=== PATIENT | male | born 1955 | race Caucasian/White ===

== ENCOUNTER → 2016-06-22 | Outpatient (CLI) | payer OTHER ==
--- NOTE | 2016-06-22 19:14 | XR ---
EXAMINATION TYPE: XR chest 2V DATE OF EXAM: 06/22/2016 6:22 PM COMPARISON: NONE HISTORY: Cough and chest pain TECHNIQUE: Frontal and lateral views of the chest are obtained. FINDINGS: Heart and mediastinum are within normal limits. Lungs are clear. Diaphragm is normal. Ther e are no hilar masses. Bony thorax is intact. IMPRESSION: No active cardiopulmonary disease. Normal heart
== END | disposition home or self-care (01) ==
LOC: RADXRMAIN 18:09
PROVIDERS: ATTEND Internal Medicine
DX: R05 Cough (principal)
CPT/HCPCS: 71020

== ENCOUNTER 2017-02-15 09:21 | Inpatient (IN) | payer OTHER ==
[2017-02-15] MEDS ORDERED: SODIUM CHLORIDE 0.9% 1,000 ML IV STA (09:36)
[2017-02-15] MEDS ORDERED: ASPIRIN 81 MG PO STA (09:36)
[2017-02-15] MEDS ORDERED: NITROGLYCERIN OINT 1 INCH/GM PACKET TOPICAL STA (09:36)
[2017-02-15] MEDS ORDERED: HEPARIN SODIUM,PORCINE 5,000 UNIT/ML 1 ML VIAL IV ONE (09:37)
[2017-02-15] MEDS ORDERED: ATORVASTATIN 80 MG TAB PO STA (09:38)
[2017-02-15] MEDS ORDERED: NITROGLYCERIN SL TABS 0.4 MG TAB SUBLINGUAL PRN (09:42)
--- NOTE | 2017-02-15 09:42 | ED ---
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 He has some shortness of breath with it. Some dizziness. He states pain was 7/10 severity was dull and achy pressure-like midsternal. It is been unrelenting does not seem to improve with anything he states it didn' t really increase with deep breathing or movements. MD Complaint: chest pain - Related Data Allergies Allergy/AdvReac Type Severity Reaction Status Date / Time No Known Allergies Allergy Verified 02/15/17 09:33 Review of Systems ROS Statement: Those systems with pertinent positive or pertinent negative responses have been documented in the HPI. ROS Other: All systems not noted in ROS Statement are negative. EKG Findings - EKG Results: EKG: interpreted by ERMD, sinus rhythm (EKG shows evidence of ST elevation in leads 23 aVF with reciprocal changes in leads aVL rate was 64 MD interval 166 QRS duration 82 QT/QTC of 394/406 EKG is consistent with an inferior wall myocardial infarction.) Past Medical History Past Medical History: CVA/TIA History of Any Multi-Drug Resistant Organisms: None Reported Past Surgical History: No Surgical Hx Reported Past Psychological History: No Psychological Hx Reported Smoking Status: Former smoker Past Alcohol Use History: None Reported Past Drug Use History: None Reported General Exam - General Exam Comments Initial Comments: This a well-developed well-nourished awake alert oriented 3 male Limitations: no limitations General appearance: anxious, in distress Head exam: Present: atraumatic, normocephalic, normal inspection Eye exam: Present: normal appearance, PERRL, EOMI. Absent: scleral icterus, conjunctival injection, periorbital swelling ENT exam: Present: normal exam, mucous membranes moist Neck exam: Present: normal inspection. Absent: tenderness, meningismus, lymphadenopathy Respiratory exam: Present: normal lung sounds bilaterally. Absent: respiratory distress, wheezes, rales, rhonchi, stridor Cardiovascular Exam: Present: regular rate, normal rhythm, normal heart sounds. Absent: systolic murmur, diastolic murmur, rubs, gallop, clicks GI/Abdominal exam: Present: soft, normal bowel sounds. Absent: distended, tenderness, guarding, rebound, rigid Extremities exam: Present: normal inspection, full ROM, normal capillary refill. Absent: tenderness, pedal edema, joint swelling, calf tenderness Back exam: Present: normal inspection Neurological exam: Present: alert, oriented X3, CN II-XII intact Psychiatric exam: Present: normal affect, normal mood Skin exam: Present: warm, dry, intact, normal color. Absent: rash Course Vital Signs 02/15/17 09:27 Temperature 97.4 F L Pulse Rate 77 Respiratory 20 Rate Blood Pressure 178/85 O2 Sat by Pulse 98 Oximetry - Reevaluation(s) Reevaluation #1: 02/15/17 09:41 Admitted EKG was done a STEMI alert was called immediately. I did discuss the case with Dr. Vora who did come to the emergency department to see the patient. Chest Pain MDM - MDM I did review the imaging no acute findings are seen. Patient was taken to the [facility]. Again Dr. Vora did come the emergency department to see the patient. Dr. Zamorano will be contacted who is covering for Dr. Rae. Critical Care Time Critical Care Time: Yes Critical Care Time: 31 minutes of critical care time which includes initial presentation with history physical lab and x-ray orders. Reevaluation patient on several occasions. Discussion with Dr. Vora as well as Dr. Zamorano. Admission orders and documentation the above. Disposition Clinical Impression: ST elevation myocardial infarction (STEMI), Chest pain Disposition: ADMITTED IP TO THIS [facility] Condition: Critical Referrals: Evans Rae MD [Primary Care Provider] - 1-2 days
[2017-02-15] MEDS ORDERED: SODIUM CHLORIDE 0.9% 1,000 ML IV SCH (09:45)
[2017-02-15 09:46] LABS: Basophils % (A) 0 %; CH 30.9; Eosinophils % (A) 0 %; HDW 2.59; HGB 15.6 gm/dL (13.0-17.5); Luc # (Auto) 0.06; Luc % (Auto) 0; Lymphocytes # (A) 0.7 k/uL (1.0-4.8); Lymphocytes % (A) 5 %; MCH 29.4 pg (25.0-35.0); MCHC 33.2 g/dL (31.0-37.0); MCV 88.7 fL (80.0-100.0); Mean Platelet Volume 6.7; Monocytes # (A) 0.5 k/uL (0-1.0); Monocytes % (A) 3 %; Neutrophils # (A) 12.9 k/uL (1.3-7.7); Neutrophils % (A) 91 %; RBC 5.31 m/uL (4.30-5.90); RDW 14.6 % (11.5-15.5); WBC 14.2 k/uL (3.8-10.6)
--- NOTE | 2017-02-15 09:48 | XR ---
EXAMINATION TYPE: XR chest 1V portable DATE OF EXAM: 02/15/2017 HISTORY: Shortness of breath. COMPARISON: 06/22/16 TECHNIQUE: Single view of the chest is submitted. FINDINGS: Demonstrated are scattered senescent parenchymal change. There is no evidence for focal infiltrate. The heart is stable. Hilar and mediastinal structures are within normal limits. Degenerative changes are seen of the dorsal spine. IMPRESSION: 1. Chronic changes without evidence for acute pulmonary disease.
[2017-02-15 09:52] LABS: ALT 38 U/L (21-72); AST 24 U/L (17-59); Alkaline Phosphatase 90 U/L (38-126); Anion Gap 10 mmol/L; Blood Urea Nitrogen 18 mg/dL (9-20); Calcium 9.1 mg/dL (8.4-10.2); Carbon Dioxide 22 mmol/L (22-30); Chloride 104 mmol/L (98-107); Glucose 129 mg/dL (74-99); Non-African American GFR(MDRD) >60 (>60 ml/min/1.73 sqM); Potassium 3.8 mmol/L (3.5-5.1); Sodium 136 mmol/L (137-145); Total Bilirubin 0.6 mg/dL (0.2-1.3); Total Protein 6.8 g/dL (6.3-8.2)
[2017-02-15] MEDS ORDERED: LIDOCAINE 2% INJ 20 MG/ML (20 ML MDV) ONE ×2 (09:53→10:28)
[2017-02-15] MEDS ORDERED: fentaNYL (PF) 50 MCG/ML 2 ML AMP ONE ×2 (09:53→11:10)
[2017-02-15] MEDS ORDERED: VERAPAMIL 2.5 MG/ML 2 ML AMP ONE (09:54)
[2017-02-15] MEDS ORDERED: fentaNYL (PF) 50 MCG/ML 2 ML AMP IV ONE (09:57)
[2017-02-15 10:02] LABS: INR 1.1 (<1.2); Prothrombin Time 11.1 sec (9.0-12.0)
[2017-02-15] MEDS: LIDOCAINE 2% INJ 20 MG/ML SQ ONE ×2 (10:06→10:22)
[2017-02-15] MEDS: VERAPAMIL SYRINGE (5 MG/10 ML) INTRAARTER ONE ×2 (10:09→10:13)
[2017-02-15 10:11] LABS: Partial Thromboplastin Time 21.7 sec (22.0-30.0)
[2017-02-15] MEDS ORDERED: MIDAZOLAM 2 MG/2 ML VIAL ONE ×2 (10:18→11:10)
[2017-02-15] MEDS ORDERED: MIDAZOLAM 2 MG/2 ML VIAL IVP ONE (10:19)
[2017-02-15 10:20] LABS: Troponin I 0.022 ng/mL (0.000-0.034)
[2017-02-15] MEDS ORDERED: LIDOCAINE URO-JET JELLY 2% 5 ML KIT ONE (10:32)
[2017-02-15] MEDS ORDERED: INSULIN REGULAR 100 UNIT in SODIUM CHLORIDE 0.9% 100 ML IV ONE (10:35)
[2017-02-15] MEDS ORDERED: PROTAMINE SULFATE 250 MG in EMPTY BAG 1 BAG IV ONE (10:35)
[2017-02-15] MEDS ORDERED: HEPARIN SODIUM,PORCINE 5,000 UNIT in SODIUM CHLORIDE 0.9% 500 ML IV ONE (10:35)
[2017-02-15] MEDS ORDERED: MAGNESIUM SULFATE SYG 4.06 MEQ/ML SYRINGE IV ONE (10:35)
[2017-02-15] MEDS ORDERED: ALBUMIN HUMAN 5% 500 ML in EMPTY BAG 1 BAG IVPB ONE ×6 (10:35)
[2017-02-15] MEDS ORDERED: HEPARIN SODIUM 1,000 UN/ML (10ML VL) IV ONE (10:35)
[2017-02-15] MEDS ORDERED: CHLORHEXIDINE GLUCONATE 15 ML CUP MUCOUS MEM ONE (10:35)
[2017-02-15] MEDS ORDERED: ALBUMIN HUMAN 25% 50 ML in EMPTY BAG 1 BAG IVPB ONE (10:35)
[2017-02-15] MEDS ORDERED: PHENYLEPHRINE-0.9% NACL SYG 1 MG/10 ML SYRINGE IV ONE ×4 (10:35)
[2017-02-15] MEDS ORDERED: ceFAZolin 2,000 MG in SODIUM CHLORIDE 0.9% 30 ML IVPB ONE (10:35)
[2017-02-15] MEDS ORDERED: CLEVIDIPINE BUTYRATE 25 MG in EMPTY BAG 1 BAG IV ONE (10:35)
[2017-02-15] MEDS ORDERED: TRANEXAMIC ACID 2,000 MG in SODIUM CHLORIDE 0.9% 180 ML IV ONE (10:35)
[2017-02-15] MEDS ORDERED: ceFAZolin 2 GM in SODIUM CHLORIDE 0.9% 30 ML IVPB ONE (10:35)
[2017-02-15] MEDS ORDERED: PROTAMINE SULFATE 10 MG/ML 25 ML VIAL IV ONE ×2 (10:35→11:10)
[2017-02-15] MEDS ORDERED: METOPROLOL TARTRATE 12.5 MG TAB PO ONE (10:35)
[2017-02-15] MEDS ORDERED: NITROGLYCERIN-D5W PMX 50 MG in DEXTROSE/WATER 1 250ML.BAG IV ONE (10:35)
[2017-02-15] MEDS ORDERED: ceFAZolin 1,000 MG in SODIUM CHLORIDE 0.9% IRRIGATIO 1,000 ML IRRIGATION ONE (10:35)
[2017-02-15] MEDS ORDERED: MANNITOL 25% 12.5 GM/50 ML VIAL IV ONE ×2 (10:35)
[2017-02-15] MEDS ORDERED: CALCIUM CHLORIDE 100 MG/ML 10 ML SYRINGE IVP ONE (10:35)
[2017-02-15] MEDS ORDERED: PROPOFOL 1,000 MG/100 ML VIAL IV ONE (10:35)
[2017-02-15] MEDS ORDERED: NOREPINEPHRIN 4 MG-0.9% NS PMX 4 MG/250 ML ML IV SCH (10:35)
[2017-02-15] MEDS ORDERED: ATORVASTATIN 10 MG TAB PO ONE (10:35)
[2017-02-15] MEDS ORDERED: NITROGLYCERIN-D5W PMX 25 MG/250 ML BTL IV ONE (10:35)
[2017-02-15 10:36] LABS: Creatine Kinase MB 3.6 ng/mL (0.0-2.4)
[2017-02-15] MEDS ORDERED: IOHEXOL 350 MG/ML 125ML BOTTLE INJ ONE (10:43)
[2017-02-15] MEDS ORDERED: SODIUM CHLORIDE 0.9% 1,000 ML IV ONE (10:44)
[2017-02-15] MEDS ORDERED: DEXTROSE 5% IN WATER 1,000 ML with POTASSIUM CHLORIDE 110 MEQ, MAGNESIUM SULFATE 16 MEQ... IV SCH ×5 (10:45)
[2017-02-15] MEDS ORDERED: DEXTROSE 5% IN WATER 1,000 ML with POTASSIUM CHLORIDE 25 MEQ, SODIUM CHLORIDE 4MEQ/ML V... IV SCH ×6 (10:45)
[2017-02-15 10:54] LABS: Magnesium 1.9 mg/dL (1.6-2.3)
[2017-02-15 10:56] LABS: Basophils % (A) 0 %; CHCM 34.1; Eosinophils # (A) 0.1 k/uL (0-0.7); Eosinophils % (A) 0 %; HCT 43.7 % (39.0-53.0); HDW 2.58; HGB 15.1 gm/dL (13.0-17.5); Luc # (Auto) 0.07; Luc % (Auto) 1; Lymphocytes # (A) 0.5 k/uL (1.0-4.8); Lymphocytes % (A) 4 %; MCH 30.4 pg (25.0-35.0); MCHC 34.4 g/dL (31.0-37.0); MCV 88.2 fL (80.0-100.0); Mean Platelet Volume 6.6; Monocytes # (A) 0.4 k/uL (0-1.0); Monocytes % (A) 3 %; Neutrophils # (A) 12.3 k/uL (1.3-7.7); Neutrophils % (A) 93 %; RBC 4.96 m/uL (4.30-5.90); RDW 13.2 % (11.5-15.5); WBC 13.3 k/uL (3.8-10.6); WBC (Perox) 13.32
[2017-02-15 10:58] LABS: INR 1.2 (<1.2); Partial Thromboplastin Time 60.8 sec (22.0-30.0); Prothrombin Time 12.1 sec (9.0-12.0)
[2017-02-15 11:06] LABS: ALT 31 U/L (21-72); AST 23 U/L (17-59); Alkaline Phosphatase 83 U/L (38-126); Anion Gap 11 mmol/L; Blood Urea Nitrogen 16 mg/dL (9-20); Calcium 8.7 mg/dL (8.4-10.2); Carbon Dioxide 20 mmol/L (22-30); Chloride 104 mmol/L (98-107); Cholesterol 200 mg/dL (<200); Glucose 122 mg/dL (74-99); HDL Cholesterol 70 mg/dL (40-60); Non-African American GFR(MDRD) >60 (>60 ml/min/1.73 sqM); Potassium 3.7 mmol/L (3.5-5.1); Sodium 135 mmol/L (137-145); Total Bilirubin 0.6 mg/dL (0.2-1.3); Total Protein 6.2 g/dL (6.3-8.2)
[2017-02-15] MEDS ORDERED: HEPARIN SODIUM,PORCINE 10,000 UNIT/ML 1 ML VIAL ONE (11:10)
[2017-02-15] MEDS ORDERED: SODIUM CHLORIDE 0.9% 250 ML BAG ONE (11:10)
[2017-02-15] MEDS ORDERED: SUCCINYLCHOLINE CHLORIDE 100 MG/5 ML SYR IV ONE (11:10)
[2017-02-15] MEDS ORDERED: VECURONIUM 10 MG VIAL IV ONE (11:10)
[2017-02-15] MEDS ORDERED: fentaNYL (PF) 50 MCG/ML 50 ML VIAL ONE (11:10)
[2017-02-15] MEDS ORDERED: ALBUMIN HUMAN 5% 500 ML VIAL IVPB ONE (11:10)
[2017-02-15] MEDS ORDERED: ELECTROLYTE-R (PH 7.4) 1,000 ML IV.SOLN IV ONE (11:10)
[2017-02-15] MEDS ORDERED: PROPOFOL 10 MG/ML 20 ML VIAL IV ONE (11:10)
[2017-02-15] MEDS ORDERED: TRANEXAMIC ACID 1,000 MG/10 ML VIAL ONE (11:10)
[2017-02-15] MEDS ORDERED: SODIUM CHLORIDE 0.9% IRRIG 1,000 ML BTL IRRIGATION ONE (11:10)
[2017-02-15] MEDS ORDERED: PHENYLEPHRINE 40 MG in SODIUM CHLORIDE 0.9% 250 ML IV ONE (11:30)
[2017-02-15] MEDS ORDERED: DILTIAZEM 125 MG in SODIUM CHLORIDE 0.9% 100 ML IV SCH (11:30)
[2017-02-15] MEDS ORDERED: SODIUM BICARB 8.4% 50 ML SYR (1 MEQ/ML) IV ONE (11:45)
[2017-02-15 12:15] LABS: Hemoglobin A1C 5.7 % (4.2-6.1)
[2017-02-15 12:18] LABS: Glucose,Whole Blood 107 mg/dL (75-99)
--- NOTE | 2017-02-15 12:59 | CONS ---
CONSULTATION Mr. Salgado is a 61-year-old male with no prior documented history of coronary disease, who is quite active physically on a regular basis, who presented with chest discomfort that started early this morning quite severe with dyspnea and some dizziness. In the emergency room, he was noted to have ST-segment elevation inferiorly. The patient has had no prior similar symptoms. He denies any PND, orthopnea, peripheral edema. No palpitation. No syncope. He has a prior history of stroke in the past with right-sided numbness and weakness that has resolved. His coronary risk factors are negative for hypertension, hyperlipidemia, and diabetes mellitus. He is a nonsmoker. He stopped at the age of 28. REVIEW OF SYSTEMS: RESPIRATORY system: No recent history of cough. No wheezing. No history of documented obstructive lung disease GI system no recent GI bleed. No peptic ulcer disease. system no dysuria, hematuria. Nervous system: No stroke or seizure. PHYSICAL EXAMINATION: He is a 61-year-old male, alert and oriented. No apparent distress. Blood pressure 130/70 with a heart rate in the 60s. HEAD: Normocephalic eyes sclerae anicteric neck good upstroke. No bruit. No jugular venous distention. LUNGS: Clear to auscultation heart rate rhythm S1, S2. No S3, no S4. No murmur, rub. ABDOMEN: Soft, nontender. Positive bowel sounds. No organomegaly. EXTREMITIES: No edema. Intact distal pulses. EKG was sinus mechanism with evidence of inferolateral myocardial infarction. IMPRESSION: . Acute inferior myocardial infarction. . Remote history of stroke. RECOMMENDATION: Recommend proceeding with coronary angiography to assess his status and guide treatment. The rationale behind the procedures risks and complication were discussed with the patient who was in full understanding and agreement. Thank you for this consult. We will follow with you. MMODL / IJN: [id number] /
--- NOTE | 2017-02-15 13:07 | P.GSCN ---
<Tory Ledbetter - Last Filed: 02/15/17 12:48> History of Present Illness Consult date: 02/15/17 Reason for Consult: Left main disease, STEMI, need for surgical revascularization. Requesting physician: Chuy Vora History of present illness: This 61-year-old gentleman with a previous history of a stroke in 2006 and remote tobacco dependence presented to the emergency room this morning with complaints of chest pain. He stated it started around 5:00 in the morning when he was at work, he described it as dull and achy pressure mid sternum without radiation but associated with mild shortness of breath and dizziness. Upon further questioning patient stated that he had been having chest pain off and on for a few weeks and had chosen to ignore it. A STEMI alert was called in the emergency room, EKG demonstrated ischemic changes consistent with inferior wall myocardial infarction. The patient was taken emergently to the [facility] where he was found to have significant left main disease requiring placement of an intra-aortic balloon pump. Dr. Jc was consulted immediately to take this patient emergently to the operating room for coronary artery bypass graft surgery. An echocardiogram was done in the [facility] prior to transport to the operating room with no significant valvular disease present. Review of Systems 14 point review systems was completed and was negative except as noted. - Cardiovascular Reports as per HPI, Reports chest pain - Respiratory Reports as per HPI, Reports dyspnea Past Medical History Past Medical History: CVA/TIA History of Any Multi-Drug Resistant Organisms: None Reported Past Surgical History: Adenoidectomy, Tonsillectomy Past Anesthesia/Blood Transfusion Reactions: No Reported Reaction Past Psychological History: No Psychological Hx Reported Smoking Status: Former smoker Past Alcohol Use History: None Reported Past Drug Use History: None Reported - Past Family History Mother Family Medical History: Coronary Artery Disease (CAD) Additional Family Medical History / Comment(s): Mother had open-heart surgery in her 60s Medications and Allergies Allergies Allergy/AdvReac Type Severity Reaction Status Date / Time No Known Allergies Allergy Verified 02/15/17 09:33 Surgical - Exam Vital Signs Temp Pulse Resp BP Pulse Ox 97.4 F L 77 20 178/85 98 02/15/17 09:27 02/15/17 09:27 02/15/17 09:27 02/15/17 09:27 02/15/17 09:27 - General well developed, well nourished, no distress - Eyes normal ocular movement - ENT no hearing loss - Neck trachea midline - Respiratory Was on 2 L nasal cannula at the time of this exam. normal expansion, normal respiratory effort - Cardiovascular Normal sinus rhythm. Intra-aortic balloon pump present to right femoral artery. Right radial arterial line present. Rhythm: regular Heart Sounds: normal: S1, S2 - Abdomen Abdomen: soft, non tender - Genitourinary Deferred - Rectum Deferred - Integumentary no rash - Psychiatric oriented to time, oriented to person, oriented to place, speech is normal, memory intact Results - Labs 02/15/17 10:20 02/15/17 10:20 Abnormal Lab Results - Last 24 Hours (Table) 02/15/17 02/15/17 02/15/17 Range/Units 09:35 09:35 09:35 WBC 14.2 H (3.8-10.6) k/uL Neutrophils # 12.9 H (1.3-7.7) k/uL Lymphocytes # 0.7 L (1.0-4.8) k/uL PT (9.0-12.0) sec INR (<1.2) APTT (22.0-30.0) sec Sodium 136 L (137-145) mmol/L Carbon Dioxide (22-30) mmol/L Glucose 129 H (74-99) mg/dL POC Glucose (mg/dL) (75-99) mg/dL Total Creatine Kinase 208 H (55-170) U/L CK-MB (CK-2) 3.6 H* (0.0-2.4) ng/mL Total Protein (6.3-8.2) g/dL Cholesterol (<200) mg/dL LDL Cholesterol, Calc (0-99) mg/dL HDL Cholesterol (40-60) mg/dL Crossmatch 02/15/17 02/15/17 02/15/17 Range/Units 09:35 10:20 10:20 WBC 13.3 H (3.8-10.6) k/uL Neutrophils # 12.3 H (1.3-7.7) k/uL Lymphocytes # 0.5 L (1.0-4.8) k/uL PT 12.1 H (9.0-12.0) sec INR 1.2 H (<1.2) APTT 21.7 L 60.8 H (22.0-30.0) sec Sodium (137-145) mmol/L Carbon Dioxide (22-30) mmol/L Glucose (74-99) mg/dL POC Glucose (mg/dL) (75-99) mg/dL Total Creatine Kinase (55-170) U/L CK-MB (CK-2) (0.0-2.4) ng/mL Total Protein (6.3-8.2) g/dL Cholesterol (<200) mg/dL LDL Cholesterol, Calc (0-99) mg/dL HDL Cholesterol (40-60) mg/dL Crossmatch 02/15/17 02/15/17 02/15/17 Range/Units 10:20 10:30 12:15 WBC (3.8-10.6) k/uL Neutrophils # (1.3-7.7) k/uL Lymphocytes # (1.0-4.8) k/uL PT (9.0-12.0) sec INR (<1.2) APTT (22.0-30.0) sec Sodium 135 L (137-145) mmol/L Carbon Dioxide 20 L (22-30) mmol/L Glucose 122 H (74-99) mg/dL POC Glucose (mg/dL) 107 H (75-99) mg/dL Total Creatine Kinase (55-170) U/L CK-MB (CK-2) (0.0-2.4) ng/mL Total Protein 6.2 L (6.3-8.2) g/dL Cholesterol 200 H (<200) mg/dL LDL Cholesterol, Calc 123 H (0-99) mg/dL HDL Cholesterol 70 H (40-60) mg/dL Crossmatch See Detail Diabetes panel 02/15/17 02/15/17 02/15/17 Range/Units 09:35 10:20 10:20 Sodium 136 L 135 L (137-145) mmol/L Potassium 3.8 3.7 (3.5-5.1) mmol/L Chloride 104 104 (98-107) mmol/L Carbon Dioxide 22 20 L (22-30) mmol/L BUN 18 16 (9-20) mg/dL Creatinine 0.90 0.80 (0.66-1.25) mg/dL Glucose 129 H 122 H (74-99) mg/dL Hemoglobin A1c 5.7 (4.2-6.1) % Calcium 9.1 8.7 (8.4-10.2) mg/dL AST 24 23 (17-59) U/L ALT 38 31 (21-72) U/L Alkaline Phosphatase 90 83 (38-126) U/L Total Protein 6.8 6.2 L (6.3-8.2) g/dL Albumin 4.5 3.9 (3.5-5.0) g/dL Triglycerides 37 (<150) mg/dL HDL Cholesterol 70 H (40-60) mg/dL Thyroid panel 02/15/17 Range/Units 10:20 TSH 1.090 (0.465-4.680) mIU/L Calcium panel 02/15/17 02/15/17 Range/Units 09:35 10:20 Calcium 9.1 8.7 (8.4-10.2) mg/dL Albumin 4.5 3.9 (3.5-5.0) g/dL Pituitary panel 02/15/17 02/15/17 02/15/17 Range/Units 09:35 10:20 10:20 Sodium 136 L 135 L (137-145) mmol/L Potassium 3.8 3.7 (3.5-5.1) mmol/L Chloride 104 104 (98-107) mmol/L Carbon Dioxide 22 20 L (22-30) mmol/L BUN 18 16 (9-20) mg/dL Creatinine 0.90 0.80 (0.66-1.25) mg/dL Glucose 129 H 122 H (74-99) mg/dL Calcium 9.1 8.7 (8.4-10.2) mg/dL TSH 1.090 (0.465-4.680) mIU/L Adrenal panel 02/15/17 02/15/17 Range/Units 09:35 10:20 Sodium 136 L 135 L (137-145) mmol/L Potassium 3.8 3.7 (3.5-5.1) mmol/L Chloride 104 104 (98-107) mmol/L Carbon Dioxide 22 20 L (22-30) mmol/L BUN 18 16 (9-20) mg/dL Creatinine 0.90 0.80 (0.66-1.25) mg/dL Glucose 129 H 122 H (74-99) mg/dL Calcium 9.1 8.7 (8.4-10.2) mg/dL Total Bilirubin 0.6 0.6 (0.2-1.3) mg/dL AST 24 23 (17-59) U/L ALT 38 31 (21-72) U/L Alkaline Phosphatase 90 83 (38-126) U/L Total Protein 6.8 6.2 L (6.3-8.2) g/dL Albumin 4.5 3.9 (3.5-5.0) g/dL - Imaging Chest x-ray: image reviewed EKG: image reviewed Additional studies: Cardiac catheterization films, bedside Echo reviewed. Assessment and Plan (1) Tobacco dependence in remission Status: Acute (2) History of stroke Status: Acute (3) Family history of heart disease Status: Acute (4) Chest pain Status: Acute (5) ST elevation myocardial infarction (STEMI) Status: Acute (6) Coronary artery disease involving left main coronary artery Status: Acute Plan: The patient was seen and examined by Dr. Jc in the cardiac catheterization lab. His cath films were reviewed. Dr. Jc and Dr. Vora discussed the case. The patient had placement of an intra-aortic balloon pump. Preoperative orders placed. The risks and benefits of surgery were explained to the patient , he consented to proceed with emergent surgery. , daughter were updated, risks and benefits were explained to them as well. Patient was taken to the OR for emergent coronary artery bypass graft surgery. Teaching done with family regarding surgery. More recommendations will be made based on how patient progresses post surgery. Thank you Dr. Vora for this consult. We look forward to working with you in the care of your patient. Time with Patient: Greater than 30 <Lyndon Jc - Last Filed: 02/15/17 19:22> Surgical - Exam Vital Signs Temp Pulse Resp BP Pulse Ox 97.4 F L 77 20 178/85 98 02/15/17 09:27 02/15/17 09:27 02/15/17 09:27 02/15/17 09:27 02/15/17 09:27 Results - Labs 02/15/17 17:55 02/15/17 17:55 Abnormal Lab Results - Last 24 Hours (Table) 02/15/17 02/15/17 02/15/17 Range/Units 09:35 09:35 09:35 WBC 14.2 H (3.8-10.6) k/uL RBC (4.30-5.90) m/uL Hgb (13.0-17.5) gm/dL Hct (39.0-53.0) % Plt Count (150-450) k/uL Neutrophils # 12.9 H (1.3-7.7) k/uL Lymphocytes # 0.7 L (1.0-4.8) k/uL PT (9.0-12.0) sec INR (<1.2) APTT (22.0-30.0) sec ABG pH (7.35-7.45) ABG pO2 (83-108) mmHg ABG O2 Saturation (94-97) % Sodium 136 L (137-145) mmol/L Carbon Dioxide (22-30) mmol/L Glucose 129 H (74-99) mg/dL POC Glucose (mg/dL) (75-99) mg/dL Calcium (8.4-10.2) mg/dL Ionized Calcium Teri (4.5-5.3) mg/dL Magnesium (1.6-2.3) mg/dL AST (17-59) U/L Total Creatine Kinase 208 H (55-170) U/L CK-MB (CK-2) 3.6 H* (0.0-2.4) ng/mL Total Protein (6.3-8.2) g/dL Albumin (3.5-5.0) g/dL Cholesterol (<200) mg/dL LDL Cholesterol, Calc (0-99) mg/dL HDL Cholesterol (40-60) mg/dL Crossmatch 02/15/17 02/15/17 02/15/17 Range/Units 09:35 10:20 10:20 WBC 13.3 H (3.8-10.6) k/uL RBC (4.30-5.90) m/uL Hgb (13.0-17.5) gm/dL Hct (39.0-53.0) % Plt Count (150-450) k/uL Neutrophils # 12.3 H (1.3-7.7) k/uL Lymphocytes # 0.5 L (1.0-4.8) k/uL PT 12.1 H (9.0-12.0) sec INR 1.2 H (<1.2) APTT 21.7 L 60.8 H (22.0-30.0) sec ABG pH (7.35-7.45) ABG pO2 (83-108) mmHg ABG O2 Saturation (94-97) % Sodium (137-145) mmol/L Carbon Dioxide (22-30) mmol/L Glucose (74-99) mg/dL POC Glucose (mg/dL) (75-99) mg/dL Calcium (8.4-10.2) mg/dL Ionized Calcium Teri (4.5-5.3) mg/dL Magnesium (1.6-2.3) mg/dL AST (17-59) U/L Total Creatine Kinase (55-170) U/L CK-MB (CK-2) (0.0-2.4) ng/mL Total Protein (6.3-8.2) g/dL Albumin (3.5-5.0) g/dL Cholesterol (<200) mg/dL LDL Cholesterol, Calc (0-99) mg/dL HDL Cholesterol (40-60) mg/dL Crossmatch 02/15/17 02/15/17 02/15/17 Range/Units 10:20 10:30 12:15 WBC (3.8-10.6) k/uL RBC (4.30-5.90) m/uL Hgb (13.0-17.5) gm/dL Hct (39.0-53.0) % Plt Count (150-450) k/uL Neutrophils # (1.3-7.7) k/uL Lymphocytes # (1.0-4.8) k/uL PT (9.0-12.0) sec INR (<1.2) APTT (22.0-30.0) sec ABG pH (7.35-7.45) ABG pO2 (83-108) mmHg ABG O2 Saturation (94-97) % Sodium 135 L (137-145) mmol/L Carbon Dioxide 20 L (22-30) mmol/L Glucose 122 H (74-99) mg/dL POC Glucose (mg/dL) 107 H (75-99) mg/dL Calcium (8.4-10.2) mg/dL Ionized Calcium Teri (4.5-5.3) mg/dL Magnesium (1.6-2.3) mg/dL AST (17-59) U/L Total Creatine Kinase (55-170) U/L CK-MB (CK-2) (0.0-2.4) ng/mL Total Protein 6.2 L (6.3-8.2) g/dL Albumin (3.5-5.0) g/dL Cholesterol 200 H (<200) mg/dL LDL Cholesterol, Calc 123 H (0-99) mg/dL HDL Cholesterol 70 H (40-60) mg/dL Crossmatch See Detail 02/15/17 02/15/17 02/15/17 Range/Units 13:21 14:16 14:44 WBC (3.8-10.6) k/uL RBC (4.30-5.90) m/uL Hgb (13.0-17.5) gm/dL Hct (39.0-53.0) % Plt Count (150-450) k/uL Neutrophils # (1.3-7.7) k/uL Lymphocytes # (1.0-4.8) k/uL PT (9.0-12.0) sec INR (<1.2) APTT (22.0-30.0) sec ABG pH (7.35-7.45) ABG pO2 (83-108) mmHg ABG O2 Saturation (94-97) % Sodium (137-145) mmol/L Carbon Dioxide (22-30) mmol/L Glucose (74-99) mg/dL POC Glucose (mg/dL) 126 H 240 H 302 H (75-99) mg/dL Calcium (8.4-10.2) mg/dL Ionized Calcium Teri (4.5-5.3) mg/dL Magnesium (1.6-2.3) mg/dL AST (17-59) U/L Total Creatine Kinase (55-170) U/L CK-MB (CK-2) (0.0-2.4) ng/mL Total Protein (6.3-8.2) g/dL Albumin (3.5-5.0) g/dL Cholesterol (<200) mg/dL LDL Cholesterol, Calc (0-99) mg/dL HDL Cholesterol (40-60) mg/dL Crossmatch 02/15/17 02/15/17 02/15/17 Range/Units 15:17 16:39 17:53 WBC (3.8-10.6) k/uL RBC (4.30-5.90) m/uL Hgb (13.0-17.5) gm/dL Hct (39.0-53.0) % Plt Count (150-450) k/uL Neutrophils # (1.3-7.7) k/uL Lymphocytes # (1.0-4.8) k/uL PT (9.0-12.0) sec INR (<1.2) APTT (22.0-30.0) sec ABG pH (7.35-7.45) ABG pO2 (83-108) mmHg ABG O2 Saturation (94-97) % Sodium (137-145) mmol/L Carbon Dioxide (22-30) mmol/L Glucose (74-99) mg/dL POC Glucose (mg/dL) 255 H 145 H 121 H (75-99) mg/dL Calcium (8.4-10.2) mg/dL Ionized Calcium Teri (4.5-5.3) mg/dL Magnesium (1.6-2.3) mg/dL AST (17-59) U/L Total Creatine Kinase (55-170) U/L CK-MB (CK-2) (0.0-2.4) ng/mL Total Protein (6.3-8.2) g/dL Albumin (3.5-5.0) g/dL Cholesterol (<200) mg/dL LDL Cholesterol, Calc (0-99) mg/dL HDL Cholesterol (40-60) mg/dL Crossmatch 02/15/17 02/15/17 02/15/17 Range/Units 17:55 17:55 17:55 WBC 11.2 H (3.8-10.6) k/uL RBC 3.91 L (4.30-5.90) m/uL Hgb 11.9 L D (13.0-17.5) gm/dL Hct 35.7 L (39.0-53.0) % Plt Count 137 L (150-450) k/uL Neutrophils # 10.2 H (1.3-7.7) k/uL Lymphocytes # 0.6 L (1.0-4.8) k/uL PT 12.7 H (9.0-12.0) sec INR 1.3 H (<1.2) APTT (22.0-30.0) sec ABG pH (7.35-7.45) ABG pO2 (83-108) mmHg ABG O2 Saturation (94-97) % Sodium 134 L (137-145) mmol/L Carbon Dioxide 21 L (22-30) mmol/L Glucose 115 H (74-99) mg/dL POC Glucose (mg/dL) (75-99) mg/dL Calcium 6.6 L (8.4-10.2) mg/dL Ionized Calcium Teri 4.1 L (4.5-5.3) mg/dL Magnesium 2.5 H (1.6-2.3) mg/dL AST 108 H (17-59) U/L Total Creatine Kinase (55-170) U/L CK-MB (CK-2) (0.0-2.4) ng/mL Total Protein 4.9 L (6.3-8.2) g/dL Albumin 3.2 L (3.5-5.0) g/dL Cholesterol (<200) mg/dL LDL Cholesterol, Calc (0-99) mg/dL HDL Cholesterol (40-60) mg/dL Crossmatch 02/15/17 02/15/17 Range/Units 18:43 18:46 WBC (3.8-10.6) k/uL RBC (4.30-5.90) m/uL Hgb (13.0-17.5) gm/dL Hct (39.0-53.0) % Plt Count (150-450) k/uL Neutrophils # (1.3-7.7) k/uL Lymphocytes # (1.0-4.8) k/uL PT (9.0-12.0) sec INR (<1.2) APTT (22.0-30.0) sec ABG pH 7.31 L (7.35-7.45) ABG pO2 336 H (83-108) mmHg ABG O2 Saturation 100.0 H (94-97) % Sodium (137-145) mmol/L Carbon Dioxide (22-30) mmol/L Glucose (74-99) mg/dL POC Glucose (mg/dL) 159 H (75-99) mg/dL Calcium (8.4-10.2) mg/dL Ionized Calcium Teri (4.5-5.3) mg/dL Magnesium (1.6-2.3) mg/dL AST (17-59) U/L Total Creatine Kinase (55-170) U/L CK-MB (CK-2) (0.0-2.4) ng/mL Total Protein (6.3-8.2) g/dL Albumin (3.5-5.0) g/dL Cholesterol (<200) mg/dL LDL Cholesterol, Calc (0-99) mg/dL HDL Cholesterol (40-60) mg/dL Crossmatch Diabetes panel 02/15/17 02/15/17 02/15/17 Range/Units 09:35 10:20 10:20 Sodium 136 L 135 L (137-145) mmol/L Potassium 3.8 3.7 (3.5-5.1) mmol/L Chloride 104 104 (98-107) mmol/L Carbon Dioxide 22 20 L (22-30) mmol/L BUN 18 16 (9-20) mg/dL Creatinine 0.90 0.80 (0.66-1.25) mg/dL Glucose 129 H 122 H (74-99) mg/dL Hemoglobin A1c 5.7 (4.2-6.1) % Calcium 9.1 8.7 (8.4-10.2) mg/dL AST 24 23 (17-59) U/L ALT 38 31 (21-72) U/L Alkaline Phosphatase 90 83 (38-126) U/L Total Protein 6.8 6.2 L (6.3-8.2) g/dL Albumin 4.5 3.9 (3.5-5.0) g/dL Triglycerides 37 (<150) mg/dL HDL Cholesterol 70 H (40-60) mg/dL 02/15/17 Range/Units 17:55 Sodium 134 L (137-145) mmol/L Potassium 4.4 (3.5-5.1) mmol/L Chloride 106 (98-107) mmol/L Carbon Dioxide 21 L (22-30) mmol/L BUN 10 (9-20) mg/dL Creatinine 0.67 (0.66-1.25) mg/dL Glucose 115 H (74-99) mg/dL Hemoglobin A1c (4.2-6.1) % Calcium 6.6 L (8.4-10.2) mg/dL AST 108 H (17-59) U/L ALT 29 (21-72) U/L Alkaline Phosphatase 52 (38-126) U/L Total Protein 4.9 L (6.3-8.2) g/dL Albumin 3.2 L (3.5-5.0) g/dL Triglycerides (<150) mg/dL HDL Cholesterol (40-60) mg/dL Thyroid panel 02/15/17 Range/Units 10:20 TSH 1.090 (0.465-4.680) mIU/L Calcium panel 02/15/17 02/15/17 02/15/17 Range/Units 09:35 10:20 17:55 Calcium 9.1 8.7 6.6 L (8.4-10.2) mg/dL Ionized Calcium Teri 4.1 L (4.5-5.3) mg/dL Albumin 4.5 3.9 3.2 L (3.5-5.0) g/dL Pituitary panel 02/15/17 02/15/17 02/15/17 Range/Units 09:35 10:20 10:20 Sodium 136 L 135 L (137-145) mmol/L Potassium 3.8 3.7 (3.5-5.1) mmol/L Chloride 104 104 (98-107) mmol/L Carbon Dioxide 22 20 L (22-30) mmol/L BUN 18 16 (9-20) mg/dL Creatinine 0.90 0.80 (0.66-1.25) mg/dL Glucose 129 H 122 H (74-99) mg/dL Calcium 9.1 8.7 (8.4-10.2) mg/dL TSH 1.090 (0.465-4.680) mIU/L 02/15/17 Range/Units 17:55 Sodium 134 L (137-145) mmol/L Potassium 4.4 (3.5-5.1) mmol/L Chloride 106 (98-107) mmol/L Carbon Dioxide 21 L (22-30) mmol/L BUN 10 (9-20) mg/dL Creatinine 0.67 (0.66-1.25) mg/dL Glucose 115 H (74-99) mg/dL Calcium 6.6 L (8.4-10.2) mg/dL TSH (0.465-4.680) mIU/L Adrenal panel 02/15/17 02/15/17 02/15/17 Range/Units 09:35 10:20 17:55 Sodium 136 L 135 L 134 L (137-145) mmol/L Potassium 3.8 3.7 4.4 (3.5-5.1) mmol/L Chloride 104 104 106 (98-107) mmol/L Carbon Dioxide 22 20 L 21 L (22-30) mmol/L BUN 18 16 10 (9-20) mg/dL Creatinine 0.90 0.80 0.67 (0.66-1.25) mg/dL Glucose 129 H 122 H 115 H (74-99) mg/dL Calcium 9.1 8.7 6.6 L (8.4-10.2) mg/dL Total Bilirubin 0.6 0.6 0.5 (0.2-1.3) mg/dL AST 24 23 108 H (17-59) U/L ALT 38 31 29 (21-72) U/L Alkaline Phosphatase 90 83 52 (38-126) U/L Total Protein 6.8 6.2 L 4.9 L (6.3-8.2) g/dL Albumin 4.5 3.9 3.2 L (3.5-5.0) g/dL Assessment and Plan Plan: The patient was seen and examined. I agree with the above assessment and plan. The patient is a 61-year-old male who presented to the hospital early this morning with chest pain. He was diagnosed with an ST elevation myocardial infarction. Cardiac catheterization revealed a tight left main coronary artery lesion. Emergency coronary artery bypass is recommended. The risks, benefits, alternatives to this procedure were discussed with the patient. I also spoke with the patient's . All their questions were answered. He'll be taken to the operating room once it is available for emergency surgery.
--- NOTE | 2017-02-15 13:14 | CC ---
CARDIAC CATHETERIZATION REPORT Mr. Salgado is a 61-year-old male with no prior documented coronary artery disease, who presented to the emergency room with symptoms of chest discomfort and ST-segment elevation inferiorly. In view of that, recommendation was made regarding cardiac catheterization. The procedure as well as the risks and complications were discussed with the patient who is in full understanding and agreement. PROCEDURE: Patient was brought to [facility] in a fasting semi-sedated state after receiving fentanyl and Benadryl and achieving moderate conscious sedated state. Using Xylocaine anesthesia in Seldinger technique, a 6-Italian sheath was introduced in the right radial artery. Selective right and left coronary angiography performed with 6-Italian 3.5 bend FR guiding catheter and a 3.5 FL guiding catheter. Images of the coronary arteries were obtained. Following that catheters were removed and using Xylocaine anesthesia in Seldinger and intra-aortic balloon pump was introduced in the right femoral artery, positioned in placed under fluoroscopy and secured. At that point, surgical consultation was obtained. Of note, the patient's pain has improved at the procedure and his EKG changes improved. FINDINGS: FLUOROSCOPY: There was significant calcification involving all the coronary arteries. LEFT MAIN: This is a large-sized vessel bifurcating in left circumflex and left anterior descending artery. Left main coronary artery has a 90% to 95% stenosis at the bifurcation. LEFT ANTERIOR DESCENDING ARTERY: This is a large-size vessel reaching toward the apex with a wraparound apex segment giving rise to a large diagonal branch. Proximal left anterior descending artery has diffuse intimal disease proximally with no high-grade stenosis with area of stenosis up to 20% to 30%. There is diffuse intimal disease in the mid segment without any high-grade stenosis. Diagonal branch has an area of 60% to 70% stenosis in the proximal segment. LEFT CIRCUMFLEX: This is a nondominant vessel, has intimal disease in proximal segment of 20% to 30%, gives rise to a large obtuse branch. The obtuse marginal branch has no evidence of significant coronary artery disease. RIGHT CORONARY ARTERY: This is a large dominant vessel bifurcating distally PDA and posterolateral segment and branches. The right coronary artery is calcified, has mild intimal disease of 30% without any evidence of high-grade stenosis. LEFT VENTRICULOGRAM: Left ventriculogram is not performed. CONCLUSION: 1. Calcified coronary artery. 2. Severe distal left main disease. 3. Placement of intra-aortic balloon pump. RECOMMENDATION: I have recommend proceeding with coronary artery bypass grafting in an emergent fashion in view of the pattern of the finding of the disease and the results of his EKG. Those findings and recommendation were discussed with the patient and his family who are in full understanding and agreement. Duration of the procedure 35 minutes. MMMARKO / RICON: [id number] /
--- NOTE | 2017-02-15 13:20 | LTR ---
February 15, 2017 Re: Sal Salgado Dear Dr. Rae: I had the opportunity to perform cardiac catheterization on Mr. Salgado at [facility] on the 15 of February and a full copy of the procedure note will be forwarded to you. In brief, he was found to have critical stenosis involving the distal left main disease. In view of that, I have recommend proceeding with emergent coronary artery bypass grafting. I will keep you updated on his progress and thank you again for allowing me the opportunity to participate in his care. Please feel free to call for any questions. Sincerely yours, MD TRUPTI TomasL / RICON: [id number] /
[2017-02-15 13:24] LABS: Glucose,Whole Blood 126 mg/dL (75-99)
[2017-02-15 14:19] LABS: Glucose,Whole Blood 240 mg/dL (75-99)
[2017-02-15 14:47] LABS: Glucose,Whole Blood 302 mg/dL (75-99)
[2017-02-15 15:32] LABS: Glucose,Whole Blood 255 mg/dL (75-99)
[2017-02-15 16:43] LABS: Glucose,Whole Blood 145 mg/dL (75-99)
[2017-02-15] MEDS ORDERED: PROPOFOL 1,000 MG/100 ML VIAL IV SCH (17:04)
[2017-02-15] MEDS ORDERED: Potassium Replacement Protocol 1 EACH MISC MISCELLANE PRN (17:04)
[2017-02-15] MEDS ORDERED: Phosphorus Replacement Protoco 1 EACH MISC MISCELLANE PRN (17:04)
[2017-02-15] MEDS ORDERED: NITROGLYCERIN-D5W PMX 50 MG in DEXTROSE/WATER 1 250ML.BAG IV SCH ×2 (17:04→23:45)
[2017-02-15] MEDS ORDERED: CLEVIDIPINE BUTYRATE 25 MG in EMPTY BAG 1 BAG IV SCH (17:04)
[2017-02-15] MEDS ORDERED: Magnesium Replacement Protocol 1 EACH MISC MISCELLANE PRN (17:04)
[2017-02-15] MEDS ORDERED: BENZOCAINE/MENTHOL LOZENG 1 EACH LOZENGE MUCOUS MEM PRN (17:04)
[2017-02-15] MEDS ORDERED: CALCIUM GLUCONATE 2,000 MG in SODIUM CHLORIDE 0.9% 100 ML IVPB PRN (17:04)
[2017-02-15] MEDS ORDERED: INSULIN LISPRO (humaLOG) 300 UNIT/3 ML VIAL SQ SCH (17:30)
[2017-02-15 17:55] LABS: Glucose,Whole Blood 121 mg/dL (75-99)
[2017-02-15] MEDS ORDERED: DEXTROSE 5% IN WATER 100 ML with AMIODARONE 150 MG IV ONE (18:00)
[2017-02-15 18:02] LABS: Basophils % (A) 0 %; CH 29.8; CHCM 32.8; Eosinophils # (A) 0.1 k/uL (0-0.7); Eosinophils % (A) 0 %; HCT 35.7 % (39.0-53.0); Luc # (Auto) 0.02; Luc % (Auto) 0; Lymphocytes # (A) 0.6 k/uL (1.0-4.8); Lymphocytes % (A) 6 %; MCH 30.4 pg (25.0-35.0); MCHC 33.3 g/dL (31.0-37.0); MCV 91.4 fL (80.0-100.0); Mean Platelet Volume 6.6; Monocytes # (A) 0.3 k/uL (0-1.0); Monocytes % (A) 3 %; Neutrophils # (A) 10.2 k/uL (1.3-7.7); Neutrophils % (A) 91 %; RBC 3.91 m/uL (4.30-5.90); RDW 13.3 % (11.5-15.5); WBC 11.2 k/uL (3.8-10.6); WBC (Perox) 12.05
[2017-02-15] MEDS: LACTATED RINGERS 1,000 ML IV SCH (18:04)
[2017-02-15] MEDS: ACETAMINOPHEN IV (For NPO) 1,000 MG in EMPTY BAG 1 BAG IVPB SCH (18:04)
[2017-02-15 18:06] LABS: Ionized Calcium 4.1 mg/dL (4.5-5.3)
[2017-02-15 18:09] LABS: HGB 11.9 gm/dL (13.0-17.5)
[2017-02-15 18:15] LABS: ALT 29 U/L (21-72); AST 108 U/L (17-59); Alkaline Phosphatase 52 U/L (38-126); Anion Gap 7 mmol/L; Blood Urea Nitrogen 10 mg/dL (9-20); Calcium 6.6 mg/dL (8.4-10.2); Carbon Dioxide 21 mmol/L (22-30); Chloride 106 mmol/L (98-107); Glucose 115 mg/dL (74-99); Magnesium 2.5 mg/dL (1.6-2.3); Non-African American GFR(MDRD) >60 (>60 ml/min/1.73 sqM); Potassium 4.4 mmol/L (3.5-5.1); Sodium 134 mmol/L (137-145); Total Bilirubin 0.5 mg/dL (0.2-1.3); Total Protein 4.9 g/dL (6.3-8.2)
[2017-02-15 18:17] LABS: INR 1.3 (<1.2); Partial Thromboplastin Time 23.6 sec (22.0-30.0); Prothrombin Time 12.7 sec (9.0-12.0)
[2017-02-15] MEDS: INSULIN REGULAR 100 UNIT in SODIUM CHLORIDE 0.9% 100 ML IV SCH ×2 (18:28→19:07)
[2017-02-15] MEDS: AMIODARONE 450 MG in DEXTROSE 5% IN WATER 250 ML IV SCH ×2 (18:29)
[2017-02-15 18:45] LABS: ABG Base Excess -3.3 mmol/L; ABG HCO3 22 mmol/L (21-25); ABG PCO2 45 mmHg (35-45); ABG PH 7.31 (7.35-7.45); ABG PO2 336 mmHg (83-108); ABG TCO2 23 mmol/L (19-24)
--- NOTE | 2017-02-15 19:03 | XR ---
EXAMINATION TYPE: XR chest 1V portable DATE OF EXAM: 02/15/2017 6:21 PM COMPARISON: 02/15/2017 9:38 AM HISTORY: Postoperative cardiac surgery TECHNIQUE: AP portable technique FINDINGS: ET tube tip superimposed over the mid trachea, 2 cm above the alonzo. Right IJ Opheim-Omar ca theter tip proximal RPA. NG tube tip superimposed over the gastric fundus. Mediastinal drains, left c hest tube EKG leads sternal sutures and mediastinal clips. The lungs appear clear bilaterally. The pleural spaces are nearly unremarkable, except for a linear lucency over the left heart shadow, l ikely nondependent tiny pneumothorax anteriorly. Cardiomediastinal silhouette and bones and soft tissues are unremarkable. IMPRESSION: 1. POSTOPERATIVE CARDIAC SURGERY CHEST RADIOGRAPH. 2. SUSPECT TINY LEFT-SIDED PNEUMOTHORAX.
[2017-02-15 19:07] LABS: Glucose,Whole Blood 159 mg/dL (75-99)
[2017-02-15] MEDS: IPRATROPIUM-ALBUTEROL 3 ML NEB INHALATION SCH ×2 (19:15→23:27)
[2017-02-15] MEDS: ceFAZolin 2 GM in SODIUM CHLORIDE 0.9% 100 ML IVPB SCH (20:26)
[2017-02-15] MEDS: MUPIROCIN 2% OINT 22 GM TUBE NASAL SCH (20:35)
[2017-02-15 20:51] LABS: Glucose,Whole Blood 133 mg/dL (75-99)
[2017-02-15 21:27] LABS: Glucose,Whole Blood 115 mg/dL (75-99)
[2017-02-15 21:28] LABS: Basophils % (A) 0 %; CH 29.9; CHCM 32.8; Eosinophils % (A) 0 %; HCT 33.6 % (39.0-53.0); HDW 2.54; HGB 11.2 gm/dL (13.0-17.5); Luc # (Auto) 0.08; Luc % (Auto) 1; Lymphocytes # (A) 0.5 k/uL (1.0-4.8); Lymphocytes % (A) 4 %; MCH 30.6 pg (25.0-35.0); MCHC 33.5 g/dL (31.0-37.0); MCV 91.4 fL (80.0-100.0); Mean Platelet Volume 6.6; Monocytes # (A) 0.6 k/uL (0-1.0); Monocytes % (A) 5 %; Neutrophils # (A) 11.7 k/uL (1.3-7.7); Neutrophils % (A) 90 %; RBC 3.67 m/uL (4.30-5.90); RDW 13.4 % (11.5-15.5); WBC (Perox) 12.61
[2017-02-15 21:35] LABS: Ionized Calcium 4.9 mg/dL (4.5-5.3)
[2017-02-15 21:42] LABS: Anion Gap 8 mmol/L; Blood Urea Nitrogen 11 mg/dL (9-20); Calcium 7.9 mg/dL (8.4-10.2); Carbon Dioxide 23 mmol/L (22-30); Chloride 103 mmol/L (98-107); Glucose 107 mg/dL (74-99); Magnesium 2.4 mg/dL (1.6-2.3); Non-African American GFR(MDRD) >60 (>60 ml/min/1.73 sqM); Phosphorus 3.3 mg/dL (2.5-4.5); Potassium 4.6 mmol/L (3.5-5.1); Sodium 134 mmol/L (137-145)
[2017-02-15 21:56] LABS: INR 1.2 (<1.2); Partial Thromboplastin Time 29.6 sec (22.0-30.0); Prothrombin Time 11.8 sec (9.0-12.0)
[2017-02-15 22:17] LABS: Glucose,Whole Blood 129 mg/dL (75-99)
[2017-02-15 23:23] LABS: ABG Base Excess -2.4 mmol/L; ABG HCO3 22 mmol/L (21-25); ABG PCO2 38 mmHg (35-45); ABG PH 7.38 (7.35-7.45); ABG PO2 98 mmHg (83-108); ABG TCO2 23 mmol/L (19-24)
[2017-02-15 23:45] LABS: Glucose,Whole Blood 166 mg/dL (75-99)
[2017-02-16] MEDS: HEPARIN SODIUM,PORCINE 5,000 UNIT/ML 1 ML VIAL SQ SCH ×3 (00:11→15:59)
[2017-02-16] MEDS: ACETAMINOPHEN IV (For NPO) 1,000 MG in EMPTY BAG 1 BAG IVPB SCH ×4 (00:11→20:18)
[2017-02-16 00:18] LABS: Glucose,Whole Blood 188 mg/dL (75-99)
[2017-02-16] MEDS: METOCLOPRAMIDE 5 MG/ML 2 ML VIAL IVP PRN ×2 (00:57→08:42)
[2017-02-16 01:17] LABS: Glucose,Whole Blood 184 mg/dL (75-99)
[2017-02-16] MEDS: MORPHINE SULFATE 2 MG/ML SYRINGE IVP PRN ×2 (01:45→05:40)
[2017-02-16] MEDS: ONDANSETRON 4 MG/2 ML VIAL IVP PRN ×2 (01:46→08:16)
[2017-02-16] MEDS: AMIODARONE 450 MG in DEXTROSE 5% IN WATER 250 ML IV SCH ×4 (01:50→15:53)
[2017-02-16 02:17] LABS: Glucose,Whole Blood 157 mg/dL (75-99)
[2017-02-16 03:32] LABS: Glucose,Whole Blood 142 mg/dL (75-99)
[2017-02-16] MEDS ORDERED: ALBUMIN HUMAN 5% 500 ML in EMPTY BAG 1 BAG IVPB STA (03:42)
[2017-02-16] MEDS: ALBUMIN HUMAN 5% 250 ML in EMPTY BAG 1 BAG IVPB PRN (03:48)
[2017-02-16 04:19] LABS: Glucose,Whole Blood 148 mg/dL (75-99)
[2017-02-16 05:31] LABS: Glucose,Whole Blood 143 mg/dL (75-99)
[2017-02-16] MEDS: ceFAZolin 2 GM in SODIUM CHLORIDE 0.9% 100 ML IVPB SCH ×2 (05:40→11:37)
[2017-02-16 05:47] LABS: Basophils % (A) 0 %; CH 29.5; CHCM 32.9; Eosinophils % (A) 0 %; HDW 2.58; HGB 10.2 gm/dL (13.0-17.5); Luc # (Auto) 0.08; Luc % (Auto) 1; Lymphocytes # (A) 0.2 k/uL (1.0-4.8); Lymphocytes % (A) 2 %; MCH 30.6 pg (25.0-35.0); MCV 90.1 fL (80.0-100.0); Mean Platelet Volume 6.7; Monocytes # (A) 0.6 k/uL (0-1.0); Monocytes % (A) 5 %; Neutrophils # (A) 10.8 k/uL (1.3-7.7); Neutrophils % (A) 93 %; RBC 3.34 m/uL (4.30-5.90); RDW 13.5 % (11.5-15.5); WBC 11.7 k/uL (3.8-10.6); WBC (Perox) 11.49
[2017-02-16 05:50] LABS: INR 1.2 (<1.2)
[2017-02-16 05:51] LABS: Prothrombin Time 12.2 sec (9.0-12.0)
[2017-02-16 06:03] LABS: Ionized Calcium 4.6 mg/dL (4.5-5.3)
[2017-02-16 06:04] LABS: Glucose,Whole Blood 136 mg/dL (75-99)
[2017-02-16 06:10] LABS: ALT 35 U/L (21-72); AST 145 U/L (17-59); Alkaline Phosphatase 36 U/L (38-126); Anion Gap 8 mmol/L; Blood Urea Nitrogen 11 mg/dL (9-20); Calcium 7.6 mg/dL (8.4-10.2); Carbon Dioxide 22 mmol/L (22-30); Chloride 103 mmol/L (98-107); Glucose 129 mg/dL (74-99); Magnesium 2.1 mg/dL (1.6-2.3); Non-African American GFR(MDRD) >60 (>60 ml/min/1.73 sqM); Potassium 4.7 mmol/L (3.5-5.1); Sodium 133 mmol/L (137-145); Total Bilirubin 0.5 mg/dL (0.2-1.3); Total Protein 4.9 g/dL (6.3-8.2)
[2017-02-16 07:13] LABS: Glucose,Whole Blood 143 mg/dL (75-99)
--- NOTE | 2017-02-16 08:15 | OP ---
OPERATIVE REPORT DATE OF SURGERY: 02/15/2017. PREOPERATIVE DIAGNOSES: 1. Coronary artery disease. 2. STEMI. POSTOPERATIVE DIAGNOSES: 1. Coronary artery disease. 2. STEMI. PROCEDURE: 1. Emergent coronary artery bypass grafting x3 vessels (left internal mammary artery to left anterior descending artery, saphenous vein graft to diagonal artery, saphenous vein graft to obtuse marginal artery). 2. Endoscopic vein harvest right greater saphenous vein. 3. Epiaortic ultrasound. 4. Transesophageal echocardiogram. SURGEON: Lyndon Jc. RIB CLOTH KNITTER: CATIA hSields ANESTHESIA: General. SPECIMENS: None. COMPLICATION: None. INDICATION: The patient is a 61-year-old male with a history of TIA in the past, but otherwise no significant past medical history, who presented to the emergency department early this morning with chest pain. He was diagnosed with an ST-elevation myocardial infarction. He was taken to the label cutter where he was found to have a 95% stenosis in the left main coronary artery. He was having chest pain when he arrived to the label cutter. An intra- aortic balloon pump was then placed and his ST changes resolved and his pain improved. However given his presentation and the nature of this disease and emergency coronary bypass was recommended. The risks, benefits, alternatives of procedure were discussed with the patient. All questions answered. Consent was obtained. FINDINGS: The left internal mammary artery was good caliber vessel. Saphenous vein was an adequate conduit. The LAD was 1.3 mm. The diagonal artery measured 1.3 mm. The obtuse marginal artery measured 1.3 mm. PROCEDURE: The patient was taken to the operating room, placed supine on the operating table. After induction of general anesthesia, he was prepped and draped in the usual sterile fashion. Of note, he has remained hemodynamically stable upon presentation to the OR. Preoperative transesophageal echocardiogram revealed preserved ejection fraction of the left ventricle with all shaikh moving well. There was no significant valvular pathology. Median sternotomy was performed. The left internal mammary artery was harvested in a standard fashion taking care to clip all branches. Intravenous heparin was administered and the vessel was transected distally revealing brisk flow. Simultaneously greater saphenous vein was harvested from the right lower extremity using endoscopic technique. All branches were tied. The vein was adequate conduit. A pericardial cradle was created. The ascending aorta was identified and palpated. It did not appear to contain any significant calcific disease. Epiaortic ultrasound was then performed on the ascending aorta. Again no significant calcific disease or atheromatous disease noted. An arterial line was placed in the distal ascending aorta. The venous cannula was placed through the right atrial appendage directly into the IVC. Both antegrade and retrograde catheters were placed as well. The patient was then placed on cardiopulmonary bypass with good decompression of the heart. The aortic cross-clamp was applied. Cold blood potassium cardioplegia was delivered both antegrade and retrograde fashion to achieve arrest of the heart. Of note, cardioplegia was delivered every 15-20 minutes with the patient remained under crossclamp. We began inspecting the lateral wall. The obtuse marginal artery was identified. A small arteriotomy was created. This accepted a 1 mm probe. Using saphenous vein in a reverse fashion, an end-to-side anastomosis was created. This was performed using running 7-0 Prolene suture. The graft was hemostatic and had good flow. Next the diagonal artery was identified. It too appeared to be amenable to bypass. A small arteriotomy was created. These also accepted a 1 mm probe. Using saphenous vein in a reverse fashion, an end-to-side anastomosis was created. This was performed using running 7-0 Prolene suture. The graft was hemostatic and had good flow. Finally the left anterior descending artery was identified. It contained significant calcific disease proximally. A soft spot for bypass was noted distally. A small arteriotomy was created. This also accepted a 1 mm probe. Using the left internal mammary artery, an end-to-side anastomosis was created. This was performed in a running 8-0 Prolene suture. The graft was hemostatic. The mammary pedicle was then tacked down to the anterior surface of the heart. Attention was then turned to the proximal anastomoses. These were performed in an end- to-side fashion using running 6-0 Prolene sutures. 1 L of warm blood was delivered in a retrograde fashion. Lidocaine and magnesium were administered as well. The aortic cross-clamp was removed. The grafts were de-aired in the standard fashion. Temporary atrial and ventricular pacing wires were placed and brought through the skin. The retrograde catheter was removed. The patient was then weaned off cardiopulmonary bypass. He without difficulty. He did not require any additional pressor support. Followup transesophageal echocardiogram revealed good function of the left ventricle with all shaikh moving well. Again there was no valvular pathology. Protamine was administered. There were no adverse reactions. The remaining cannulas were then removed. The mediastinum was copiously irrigated with warm saline solution. All surgical sites were inspected and appeared to be hemostatic. Reinforcement sutures were placed as needed. Soft tissues were reapproximated of the ascending aorta. A straight 32-Burmese chest tube was placed directed in left pleural space. Two additional straight 32-Burmese chest tubes were placed into the mediastinum. These were all secured to the skin using sutures. The sternum was then reapproximated using stainless steel wires in [id number] fashion. The remainder of the wound was closed in layers. A sterile dressing was applied. The patient appeared to tolerate the procedure well. No immediate complications. He returned to the ICU in critical but stable condition. JOSELUIS / SARAH: [id number] /
--- NOTE | 2017-02-16 08:18 | PCN ---
PROCEDURE NOTE DATE OF PROCEDURE: 02/15/2017. PREOPERATIVE DIAGNOSES: 1. Coronary artery disease. 2. ST-elevation myocardial infarction. POSTOPERATIVE DIAGNOSES: 1. Coronary artery disease. 2. ST-elevation myocardial infarction. PROCEDURE: Evaluation of bypass grafts using Medi-Stim flow meter. SURGEON: Lyndon Jc MD. AUTOMOTIVE LIGHT MECHANIC: IFTIKHAR Shields. ANESTHESIA: General. SPECIMEN: None. COMPLICATIONS: None. INDICATION: The patient is a 61-year-old male, who is undergoing emergent coronary bypass surgery secondary to angina and tight left main artery lesion. Bypass grafts were performed and evaluation of flow in these grafts was then measured. PROCEDURE IN DETAIL: Using a 3.5 mm probe the saphenous vein graft to the diagonal artery was interrogated. The flow was 35 mm/minute and the PI was 4.1. Next graft was a saphenous vein graft to the obtuse marginal artery. The flow in this vessel was 30 mm/minute with a PI of 4.1. Finally the left internal mammary artery to left anterior descending artery graft was investigated. Flow was 34 mm/minute and PI was 3.1. MMODL / IJN: [id number] /
[2017-02-16 08:21] LABS: Glucose,Whole Blood 143 mg/dL (75-99)
--- NOTE | 2017-02-16 08:22 | P.CNPUL ---
History of Present Illness Consult date: 02/16/17 Reason for consult: other Chief complaint: Status post emergent bypass grafting History of present illness: Consult dated 02/16/2017 61-year-old male who apparently presented to the emergency department with retrosternal chest pain is nonradiating. He also had some shortness of breath and also some dizziness. The pain was described as a 7 out of 10 in severity. It was dull and achy pressure-like midsternal pain. The patient ended up going to the [facility] and was found have significant coronary artery disease and was an emergent bypass grafting yesterday. He had a three-vessel bypass grafting. He came back to the ICU. He had great blood gases and weaning parameters and a cuff leak and he was extubated. Currently he is on the intra-aortic balloon pump augmenting at 2-1. He also developed some atrial fibrillation but is back in sinus rhythm. He is on nasal oxygen. He was seeming of lactated Ringer's IV at 50 mL now insulin drip at 1.5 units an hour nitroglycerin at 10 mics per minute and Cordarone and 0.5 mg/m. Other than a history of CVA/TIA, the patient has no supra can medical history is apparently on no medications at home and has no ALLERGIES. Review of Systems A 12 point review of system is positive only for the chest pain and shortness of breath. Currently not having that. His only symptoms right now her issues right now is a postsurgical pain from his recent bypass grafting. Past Medical History Past Medical History: CVA/TIA History of Any Multi-Drug Resistant Organisms: None Reported Past Surgical History: Adenoidectomy, Tonsillectomy Past Anesthesia/Blood Transfusion Reactions: No Reported Reaction Past Psychological History: No Psychological Hx Reported Smoking Status: Former smoker Past Alcohol Use History: None Reported Past Drug Use History: None Reported - Past Family History Mother Family Medical History: Coronary Artery Disease (CAD) Additional Family Medical History / Comment(s): Mother had open-heart surgery in her 60s Medications and Allergies Home Medications Medication Instructions Recorded Confirmed Type Ergocalciferol [Vitamin D2] 50,000 unit PO Q7D 02/15/17 02/15/17 History Allergies Allergy/AdvReac Type Severity Reaction Status Date / Time No Known Allergies Allergy Verified 02/15/17 09:33 Physical Exam Osteopathic Statement: *. No significant issues noted on an osteopathic structural exam other than those noted in the History and Physical/Consult. Vitals: Vital Signs Temp Pulse Pulse Resp BP Pulse Ox 02/16/17 08:00 70 15 98 02/16/17 07:54 14 02/16/17 07:00 76 21 98 02/16/17 06:00 72 16 98 02/16/17 05:00 72 12 99 02/16/17 04:00 71 14 97 02/16/17 03:00 70 12 100 02/16/17 02:00 69 14 100 02/16/17 01:00 68 16 99 02/16/17 00:00 79 12 98 02/15/17 23:41 93 02/15/17 23:27 77 02/15/17 23:00 77 12 100 02/15/17 22:00 81 12 100 02/15/17 21:00 87 12 100 02/15/17 20:00 98 12 100 02/15/17 19:35 100 02/15/17 19:25 103 H 02/15/17 19:00 100 16 100 02/15/17 18:00 118 H 20 100 02/15/17 17:45 123 H 16 02/15/17 17:43 119 H 16 100 02/15/17 09:43 74 22 194/86 98 02/15/17 09:27 97.4 F L 77 20 178/85 98 Intake and Output 02/15/17 02/16/17 02/16/17 22:59 06:59 14:59 Intake Total 612.992 5169.638 155.762 Output Total 3399 859 160 Balance -2683.604 654.638 -4.238 Intake: IV 690.4 1236.7 154.6 ACETAMINOPHEN IV (For NPO 200 ) 1,000 mg In Empty Bag 1 bag @ 400 mls/hr IVPB Q6HR [facility] Rx#:[id number] Albumin Human 5% 250 ml 250 In Empty Bag 1 bag @ 250 mls/hr IVPB Q1HR PRN Rx#: [id number] Amiodarone 450 mg In 99.9 166.2 16.6 Dextrose 5% in Water 250 ml @ 1 MG/MIN 33.33 mls/ hr IV .Q7H31M [facility] Rx#: [id number] CO/CI 100 80 20 Calcium Gluconate 2,000 100 mg In Sodium Chloride 0.9 % 100 ml @ 100 mls/hr IVPB ONCE PRN Rx#: [id number] LR 250 370 100 Nitroglycerin-D5w Pmx 50 4.5 22.5 3 mg In Dextrose/Water 1 250ml.bag @ 5 MCG/MIN 1.5 mls/hr IV .Q24H [facility] Rx#: [id number] ceFAZolin 2 gm In Sodium 100 100 Chloride 0.9% 30 ml @ 60 mls/hr IVPB ONCE ONE Rx#: [id number] pressure bags 36 48 15 Intake, IV Titration 24.996 246.938 1.162 Amount Amiodarone 450 mg In 231.084 Dextrose 5% in Water 250 ml @ 1 MG/MIN 33.33 mls/ hr IV .Q7H31M [facility] Rx#: [id number] Insulin Regular 100 unit 3.088 13.409 1.162 In Sodium Chloride 0.9% 100 ml @ Per Protocol IV .Q0M [facility] Rx#:[id number] Propofol 1,000 mg In 100 21.908 2.445 ml @ Titrate IV .Q0M [facility] Rx#:[id number] Oral 30 Output: Chest Tube Drainage 802 474 70 Left Pleural 352 144 20 MS x2 450 330 50 Gastric Drainage 0 0 Urine 1397 385 90 Estimated Blood Loss 1200 Other: Voiding Method Indwelling Catheter Indwelling Catheter Indwelling Catheter Weight 61.6 kg ABP, PAP, CO, CI - Last 8 Hours Arterial Blood Pressure 140/53 Arterial Blood Pressure 131/45 Arterial Blood Pressure 137/50 Arterial Blood Pressure 133/57 Arterial Blood Pressure 135/54 Arterial Blood Pressure 134/54 Arterial Blood Pressure 107/47 Arterial Blood Pressure 104/53 Pulmonary Artery Pressure 25/11 Pulmonary Artery Pressure 23/9 Pulmonary Artery Pressure 22/9 Pulmonary Artery Pressure 24/11 Pulmonary Artery Pressure 23/9 Pulmonary Artery Pressure 19/9 Pulmonary Artery Pressure 27/12 Pulmonary Artery Pressure 23/11 Cardiac Output 6.3 Cardiac Output 6.3 Cardiac Output 6.3 Cardiac Output 6.3 Cardiac Output 4.1 Cardiac Output 5.2 Cardiac Output 5.2 Cardiac Output 5.2 Cardiac Index 2.3 Cardiac Index 3.0 No acute distress, oriented 3. Still little sleepy. HEENT examination is grossly unremarkable. Mucous membranes are moist. No oral lesions. Neck supple. Full range of motion. No adenopathy or thyromegaly. Neck veins are flat. Cardiovascular examination reveals regular rhythm rate. S1-S2 normal. No S3- S4 or murmur. Lungs reveal relatively clear breath sounds. A few rhonchi. No wheezes or crackles. Abdomen soft bowel sounds are heard. Extremities are intact. No cyanosis clubbing or edema. Skin is without rash. Neurologic examination is brief but nonfocal. Results - Laboratory Findings CBC and BMP: 02/16/17 05:36 02/16/17 05:36 ABG ABG pH 7.38 (7.35-7.45) 02/15/17 23:22 ABG pCO2 38 mmHg (35-45) 02/15/17 23:22 ABG pO2 98 mmHg (83-108) 02/15/17 23:22 ABG O2 Saturation 98.0 % (94-97) H 02/15/17 23:22 PT/INR, D-dimer PT 12.2 sec (9.0-12.0) H 02/16/17 05:36 INR 1.2 (<1.2) H 02/16/17 05:36 Abnormal lab findings: Abnormal Labs 02/15/17 02/15/17 02/15/17 09:35 09:35 09:35 WBC 14.2 H RBC Hgb Hct Plt Count Neutrophils # 12.9 H Lymphocytes # 0.7 L PT INR APTT ABG pH ABG pO2 ABG O2 Saturation Sodium 136 L Carbon Dioxide Glucose 129 H POC Glucose (mg/dL) Calcium Ionized Calcium Teri Magnesium AST Alkaline Phosphatase Total Creatine Kinase 208 H CK-MB (CK-2) 3.6 H* Total Protein Albumin Cholesterol LDL Cholesterol, Calc HDL Cholesterol Crossmatch 02/15/17 02/15/17 02/15/17 09:35 10:20 10:20 WBC 13.3 H RBC Hgb Hct Plt Count Neutrophils # 12.3 H Lymphocytes # 0.5 L PT 12.1 H INR 1.2 H APTT 21.7 L 60.8 H ABG pH ABG pO2 ABG O2 Saturation Sodium Carbon Dioxide Glucose POC Glucose (mg/dL) Calcium Ionized Calcium Teri Magnesium AST Alkaline Phosphatase Total Creatine Kinase CK-MB (CK-2) Total Protein Albumin Cholesterol LDL Cholesterol, Calc HDL Cholesterol Crossmatch 02/15/17 02/15/1702/15/17 10:20 10:30 12:15 WBC RBC Hgb Hct Plt Count Neutrophils # Lymphocytes # PT INR APTT ABG pH ABG pO2 ABG O2 Saturation Sodium 135 L Carbon Dioxide 20 L Glucose 122 H POC Glucose (mg/dL) 107 H Calcium Ionized Calcium Teri Magnesium AST Alkaline Phosphatase Total Creatine Kinase CK-MB (CK-2) Total Protein 6.2 L Albumin Cholesterol 200 H LDL Cholesterol, Calc 123 H HDL Cholesterol 70 H Crossmatch See Detail 02/15/17 02/15/17 02/15/17 13:21 14:16 14:44 WBC RBC Hgb Hct Plt Count Neutrophils # Lymphocytes # PT INR APTT ABG pH ABG pO2 ABG O2 Saturation Sodium Carbon Dioxide Glucose POC Glucose (mg/dL) 126 H 240 H 302 H Calcium Ionized Calcium Teri Magnesium AST Alkaline Phosphatase Total Creatine Kinase CK-MB (CK-2) Total Protein Albumin Cholesterol LDL Cholesterol, Calc HDL Cholesterol Crossmatch 02/15/17 02/15/17 02/15/17 15:17 16:39 17:53 WBC RBC Hgb Hct Plt Count Neutrophils # Lymphocytes # PT INR APTT ABG pH ABG pO2 ABG O2 Saturation Sodium Carbon Dioxide Glucose POC Glucose (mg/dL) 255 H 145 H 121 H Calcium Ionized Calcium Teri Magnesium AST Alkaline Phosphatase Total Creatine Kinase CK-MB (CK-2) Total Protein Albumin Cholesterol LDL Cholesterol, Calc HDL Cholesterol Crossmatch 02/15/17 02/15/17 02/15/17 17:55 17:55 17:55 WBC 11.2 H RBC 3.91 L Hgb 11.9 L D Hct 35.7 L Plt Count 137 L Neutrophils # 10.2 H Lymphocytes # 0.6 L PT 12.7 H INR 1.3 H APTT ABG pH ABG pO2 ABG O2 Saturation Sodium 134 L Carbon Dioxide 21 L Glucose 115 H POC Glucose (mg/dL) Calcium 6.6 L Ionized Calcium Teri 4.1 L Magnesium 2.5 H AST 108 H Alkaline Phosphatase Total Creatine Kinase CK-MB (CK-2) Total Protein 4.9 L Albumin 3.2 L Cholesterol LDL Cholesterol, Calc HDL Cholesterol Crossmatch 02/15/17 02/15/17 02/15/17 18:43 18:46 20:17 WBC RBC Hgb Hct Plt Count Neutrophils # Lymphocytes # PT INR APTT ABG pH 7.31 L ABG pO2 336 H ABG O2 Saturation 100.0 H Sodium Carbon Dioxide Glucose POC Glucose (mg/dL) 159 H 133 H Calcium Ionized Calcium Teri Magnesium AST Alkaline Phosphatase Total Creatine Kinase CK-MB (CK-2) Total Protein Albumin Cholesterol LDL Cholesterol, Calc HDL Cholesterol Crossmatch 02/15/17 02/15/17 02/15/17 21:15 21:15 21:15 WBC 13.0 H RBC 3.67 L Hgb 11.2 L Hct 33.6 L Plt Count Neutrophils # 11.7 H Lymphocytes # 0.5 L PT INR 1.2 H APTT ABG pH ABG pO2 ABG O2 Saturation Sodium 134 L Carbon Dioxide Glucose 107 H POC Glucose (mg/dL) Calcium 7.9 L Ionized Calcium Teri Magnesium 2.4 H AST Alkaline Phosphatase Total Creatine Kinase CK-MB (CK-2) Total Protein Albumin Cholesterol LDL Cholesterol, Calc HDL Cholesterol Crossmatch 02/15/17 02/15/17 02/15/17 21:15 22:06 23:10 WBC RBC Hgb Hct Plt Count Neutrophils # Lymphocytes # PT INR APTT ABG pH ABG pO2 ABG O2 Saturation Sodium Carbon Dioxide Glucose POC Glucose (mg/dL) 115 H 129 H 166 H Calcium Ionized Calcium Teri Magnesium AST Alkaline Phosphatase Total Creatine Kinase CK-MB (CK-2) Total Protein Albumin Cholesterol LDL Cholesterol, Calc HDL Cholesterol Crossmatch 02/15/17 02/16/17 02/16/17 23:22 00:04 01:04 WBC RBC Hgb Hct Plt Count Neutrophils # Lymphocytes # PT INR APTT ABG pH ABG pO2 ABG O2 Saturation 98.0 H Sodium Carbon Dioxide Glucose POC Glucose (mg/dL) 188 H 184 H Calcium Ionized Calcium Teri Magnesium AST Alkaline Phosphatase Total Creatine Kinase CK-MB (CK-2) Total Protein Albumin Cholesterol LDL Cholesterol, Calc HDL Cholesterol Crossmatch 02/16/17 02/16/17 02/16/17 02:03 03:08 04:07 WBC RBC Hgb Hct Plt Count Neutrophils # Lymphocytes # PT INR APTT ABG pH ABG pO2 ABG O2 Saturation Sodium Carbon Dioxide Glucose POC Glucose (mg/dL) 157 H 142 H 148 H Calcium Ionized Calcium Teri Magnesium AST Alkaline Phosphatase Total Creatine Kinase CK-MB (CK-2) Total Protein Albumin Cholesterol LDL Cholesterol, Calc HDL Cholesterol Crossmatch 02/16/17 02/16/17 02/16/17 05:18 05:36 05:36 WBC 11.7 H RBC 3.34 L Hgb 10.2 L Hct 30.0 L Plt Count 146 L Neutrophils # 10.8 H Lymphocytes # 0.2 L PT INR APTT ABG pH ABG pO2 ABG O2 Saturation Sodium 133 L Carbon Dioxide Glucose 129 H POC Glucose (mg/dL) 143 H Calcium 7.6 L Ionized Calcium Teri Magnesium AST 145 H Alkaline Phosphatase 36 L Total Creatine Kinase CK-MB (CK-2) Total Protein 4.9 L Albumin 3.2 L Cholesterol LDL Cholesterol, Calc HDL Cholesterol Crossmatch 02/16/17 02/16/17 02/16/17 05:36 06:02 07:10 WBC RBC Hgb Hct Plt Count Neutrophils # Lymphocytes # PT 12.2 H INR 1.2 H APTT ABG pH ABG pO2 ABG O2 Saturation Sodium Carbon Dioxide Glucose POC Glucose (mg/dL) 136 H 143 H Calcium Ionized Calcium Teri Magnesium AST Alkaline Phosphatase Total Creatine Kinase CK-MB (CK-2) Total Protein Albumin Cholesterol LDL Cholesterol, Calc HDL Cholesterol Crossmatch - Diagnostic Findings Chest x-ray: image reviewed (Labs x-rays a medications are all reviewed.) Assessment and Plan (1) Chest pain Status: Acute (2) Coronary artery disease involving left main coronary artery Status: Acute (3) History of stroke Status: Acute (4) Postoperative atrial fibrillation Status: Acute (5) ST elevation myocardial infarction (STEMI) Status: Acute (6) Tobacco dependence in remission Status: Acute Plan: Plan dated 02/16/2017 The patient's doing well. Extubated last night. Weaning parameters were great. Blood gases were also him. Cuff leak was present. The patient will be followed throughout his hospitalization. Would encourage deep breathing coughing and clearing of secretions. Balloon pump to be removed today. We'll continue with incentive spirometer every hour while awake. Time with Patient: Greater than 30
--- NOTE | 2017-02-16 08:24 | PN ---
PROGRESS NOTE Mr. Salgado is a 61-year-old male who present with any acute myocardial infarction was found to have significant left main disease and underwent coronary artery bypass graft in emergent fashion. After insertion of ventral plate and balloon pump, he is doing better today. He is extubated. The balloon pump is on 1-2 pattern. He has some symptoms of chest discomfort. There appears to be pericarditis pain. He has no arrhythmia at this point. He had some episode of atrial fibrillation earlier that resolved and he has continued to be in sinus mechanism. He has no evidence of ventricular tachycardia. He continued be on aspirin once a day, Lipitor 40 mg daily, metoprolol tartrate 12.5 mg twice a day, and he is on IV nitroglycerin. PHYSICAL EXAMINATION: Blood pressure 131/40 with a heart in 70s. LUNGS: Clear anteriorly. HEART: Rate rhythm S1, S2. No S3, plus a loud rub. No murmur. ABDOMEN: Soft and nontender. No organomegaly. EXTREMITIES: With intraaortic balloon pump in place in the right groin. No edema. LAB DATA: Revealed potassium 10.2. BUN and creatinine of 11 and 0.7, potassium 4.7. EKG is consistent with pericarditis. IMPRESSION: 1. Status post emergent coronary bypass grafting. 2. Findings consistent with pericarditis. 3. Hyperlipidemia. RECOMMENDATION: From the cardiac standpoint, I am hopeful that we will pull out his intra-aortic balloon pump today. Increase his level activity. Continue the rest of his medical regimen. Depending on his heart rate, the dose of his beta kait can be further adjusted. MMODL / IJN: [id number] /
[2017-02-16] MEDS ORDERED: PANTOPRAZOLE 40 MG/10 ML VIAL IVP SCH (09:00)
[2017-02-16] MEDS ORDERED: ASPIRIN 325 MG TAB PO SCH (09:00)
--- NOTE | 2017-02-16 09:08 | P.PN ---
<Tory Ledbetter - Last Filed: 02/16/17 09:05> Subjective Principal diagnosis: Severe symptomatically coronary artery disease with left main disease, STEMI. History of stroke in 2006. Previous tobacco dependence. Family history of coronary artery disease. Hyperlipidemia. POD #1 emergent coronary artery bypass graft surgery 3 vessels, left internal mammary artery to the left anterior descending artery, reverse saphenous vein graft to the diagonal artery, reverse saphenous vein graft to the obtuse marginal artery. Endoscopic vein harvesting right greater saphenous vein. Epi- aortic ultrasound. Intraoperative transesophageal echocardiogram. Graft flow measurement using the [employer] system. Postoperative paroxysmal atrial fibrillation, and expected outcome of surgery. Patient is currently laying in bed in no acute distress. He was extubated successfully last night. Intra-aortic balloon pump remains, timing changed to 1 :2 at 5:30 this morning. No current complaints of chest pain but does admit to having some chest pain last night. Denies shortness of breath. Objective - Vital Signs Vital signs: Vital Signs Temp 97.4 F L 02/15/17 09:27 Pulse 76 02/16/17 07:00 Resp 21 02/16/17 07:00 BP 194/86 02/15/17 09:43 Pulse Ox 98 02/16/17 07:00 Intake & Output 02/15/17 02/16/17 02/16/17 18:59 06:59 18:59 Intake Total 112 2150.034 1.162 Output Total 3077 1181 Balance -2965 969.034 1.162 Weight 63.503 kg 61.6 kg Intake: IV 112 1848.1 ACETAMINOPHEN IV (For NPO 200 ) 1,000 mg In Empty Bag 1 bag @ 400 mls/hr IVPB Q6HR [facility] Rx#:[id number] Albumin Human 5% 250 ml 250 In Empty Bag 1 bag @ 250 mls/hr IVPB Q1HR PRN Rx#: [id number] Amiodarone 450 mg In 266.1 Dextrose 5% in Water 250 ml @ 1 MG/MIN 33.33 mls/ hr IV .Q7H31M [facility] Rx#: [id number] CO/CI 20 160 Calcium Gluconate 2,000 100 mg In Sodium Chloride 0.9 % 100 ml @ 100 mls/hr IVPB ONCE PRN Rx#: [id number] LR 50 570 Nitroglycerin-D5w Pmx 50 27.0 mg In Dextrose/Water 1 250ml.bag @ 5 MCG/MIN 1.5 mls/hr IV .Q24H [facility] Rx#: [id number] ceFAZolin 2 gm In Sodium 200 Chloride 0.9% 30 ml @ 60 mls/hr IVPB ONCE ONE Rx#: [id number] pressure bags 9 75 Intake, IV Titration 271.934 1.162 Amount Amiodarone 450 mg In 231.084 Dextrose 5% in Water 250 ml @ 1 MG/MIN 33.33 mls/ hr IV .Q7H31M [facility] Rx#: [id number] Insulin Regular 100 unit 16.497 1.162 In Sodium Chloride 0.9% 100 ml @ Per Protocol IV .Q0M [facility] Rx#:[id number] Propofol 1,000 mg In 100 24.353 ml @ Titrate IV .Q0M [facility] Rx#:[id number] Oral 30 Output: Chest Tube Drainage 677 599 Left Pleural 327 169 MS x2 350 430 Gastric Drainage 0 Urine 1200 582 Estimated Blood Loss 1200 Other: Voiding Method Indwelling Catheter Indwelling Catheter ABP, PAP, CO, CI - Last Documented Arterial Blood Pressure 131/45 Pulmonary Artery Pressure 23/9 Cardiac Output 6.3 Cardiac Index 2.3 - Constitutional General appearance: Present: cooperative, no acute distress, thin - Respiratory Details: Lungs sounds diminished bilaterally. Respirations even, nonlabored. Currently on 3 L nasal cannula with oxygen saturation 97%. Mediastinal chest tube to -20 cm wall suction, 210 L serosanguineous drainage overnight, 600 mL since surgery. Left pleural chest tube to -20 cm wall suction, 75 mL serosanguineous drainage overnight, 270 mL since surgery. No air leaks present. Chest x-ray reviewed, stable. - Cardiovascular Details: S1, S2 present. Positive pericardial rub. Regular rate and rhythm, normal sinus rhythm on telemetry. Epicardial pacemaker wires present, connected to generator, VVI mode with backup rate 50 bpm. Intra-aortic balloon pump present right femoral artery, 1:2 timing, good waveform and augmenting pressures. Right internal jugular Cordis/Goldonna, left radial arterial line present. Sternum stable. Palpable radial, DP, PT pulses bilaterally. No edema present. Heart hugger, antiembolism stockings present. - Gastrointestinal Gastrointestinal Comment(s): Abdomen soft, nontender, nondistended. Hypoactive bowel sounds present 4 quadrants. Tolerating sips of water. - Genitourinary Genitourinary Comment(s): Cheney present draining clear, yellow urine. Output 40-85 mL/h overnight. Negative fluid balance, weight down 2 kg from yesterday. - Integumentary Integumentary Comment(s): Anterior chest incision well approximated and covered with dry intact dressing. Right lower extremity EVH site well approximated. - Neurologic Neurologic: Present: CNII-XII intact - Musculoskeletal Musculoskeletal: Present: strength equal bilaterally - Psychiatric Psychiatric: Present: A&O x's 3, appropriate affect, intact judgment & insight - Allied health notes Allied health notes reviewed: nursing - Labs CBC & Chem 7: 02/16/17 05:36 02/16/17 05:36 Labs: Abnormal Lab Results - Last 24 Hours (Table) 02/15/17 02/15/17 02/15/17 Range/Units 09:35 09:35 09:35 WBC 14.2 H (3.8-10.6) k/uL RBC (4.30-5.90) m/uL Hgb (13.0-17.5) gm/dL Hct (39.0-53.0) % Plt Count (150-450) k/uL Neutrophils # 12.9 H (1.3-7.7) k/uL Lymphocytes # 0.7 L (1.0-4.8) k/uL PT (9.0-12.0) sec INR (<1.2) APTT (22.0-30.0) sec ABG pH (7.35-7.45) ABG pO2 (83-108) mmHg ABG O2 Saturation (94-97) % Sodium 136 L (137-145) mmol/L Carbon Dioxide (22-30) mmol/L Glucose 129 H (74-99) mg/dL POC Glucose (mg/dL) (75-99) mg/dL Calcium (8.4-10.2) mg/dL Ionized Calcium Teri (4.5-5.3) mg/dL Magnesium (1.6-2.3) mg/dL AST (17-59) U/L Alkaline Phosphatase (38-126) U/L Total Creatine Kinase 208 H (55-170) U/L CK-MB (CK-2) 3.6 H* (0.0-2.4) ng/mL Total Protein (6.3-8.2) g/dL Albumin (3.5-5.0) g/dL Cholesterol (<200) mg/dL LDL Cholesterol, Calc (0-99) mg/dL HDL Cholesterol (40-60) mg/dL Crossmatch 02/15/17 02/15/17 02/15/17 Range/Units 09:35 10:20 10:20 WBC 13.3 H (3.8-10.6) k/uL RBC (4.30-5.90) m/uL Hgb (13.0-17.5) gm/dL Hct (39.0-53.0) % Plt Count (150-450) k/uL Neutrophils # 12.3 H (1.3-7.7) k/uL Lymphocytes # 0.5 L (1.0-4.8) k/uL PT 12.1 H (9.0-12.0) sec INR 1.2 H (<1.2) APTT 21.7 L 60.8 H (22.0-30.0) sec ABG pH (7.35-7.45) ABG pO2 (83-108) mmHg ABG O2 Saturation (94-97) % Sodium (137-145) mmol/L Carbon Dioxide (22-30) mmol/L Glucose (74-99) mg/dL POC Glucose (mg/dL) (75-99) mg/dL Calcium (8.4-10.2) mg/dL Ionized Calcium Teri (4.5-5.3) mg/dL Magnesium (1.6-2.3) mg/dL AST (17-59) U/L Alkaline Phosphatase (38-126) U/L Total Creatine Kinase (55-170) U/L CK-MB (CK-2) (0.0-2.4) ng/mL Total Protein (6.3-8.2) g/dL Albumin (3.5-5.0) g/dL Cholesterol (<200) mg/dL LDL Cholesterol, Calc (0-99) mg/dL HDL Cholesterol (40-60) mg/dL Crossmatch 02/15/17 02/15/17 02/15/17 Range/Units 10:20 10:30 12:15 WBC (3.8-10.6) k/uL RBC (4.30-5.90) m/uL Hgb (13.0-17.5) gm/dL Hct (39.0-53.0) % Plt Count (150-450) k/uL Neutrophils # (1.3-7.7) k/uL Lymphocytes # (1.0-4.8) k/uL PT (9.0-12.0) sec INR (<1.2) APTT (22.0-30.0) sec ABG pH (7.35-7.45) ABG pO2 (83-108) mmHg ABG O2 Saturation (94-97) % Sodium 135 L (137-145) mmol/L Carbon Dioxide 20 L (22-30) mmol/L Glucose 122 H (74-99) mg/dL POC Glucose (mg/dL) 107 H (75-99) mg/dL Calcium (8.4-10.2) mg/dL Ionized Calcium Teri (4.5-5.3) mg/dL Magnesium (1.6-2.3) mg/dL AST (17-59) U/L Alkaline Phosphatase (38-126) U/L Total Creatine Kinase (55-170) U/L CK-MB (CK-2) (0.0-2.4) ng/mL Total Protein 6.2 L (6.3-8.2) g/dL Albumin (3.5-5.0) g/dL Cholesterol 200 H (<200) mg/dL LDL Cholesterol, Calc 123 H (0-99) mg/dL HDL Cholesterol 70 H (40-60) mg/dL Crossmatch See Detail 02/15/17 02/15/17 02/15/17 Range/Units 13:21 14:16 14:44 WBC (3.8-10.6) k/uL RBC (4.30-5.90) m/uL Hgb (13.0-17.5) gm/dL Hct (39.0-53.0) % Plt Count (150-450) k/uL Neutrophils # (1.3-7.7) k/uL Lymphocytes # (1.0-4.8) k/uL PT (9.0-12.0) sec INR (<1.2) APTT (22.0-30.0) sec ABG pH (7.35-7.45) ABG pO2 (83-108) mmHg ABG O2 Saturation (94-97) % Sodium (137-145) mmol/L Carbon Dioxide (22-30) mmol/L Glucose (74-99) mg/dL POC Glucose (mg/dL) 126 H 240 H 302 H (75-99) mg/dL Calcium (8.4-10.2) mg/dL Ionized Calcium Teri (4.5-5.3) mg/dL Magnesium (1.6-2.3) mg/dL AST (17-59) U/L Alkaline Phosphatase (38-126) U/L Total Creatine Kinase (55-170) U/L CK-MB (CK-2) (0.0-2.4) ng/mL Total Protein (6.3-8.2) g/dL Albumin (3.5-5.0) g/dL Cholesterol (<200) mg/dL LDL Cholesterol, Calc (0-99) mg/dL HDL Cholesterol (40-60) mg/dL Crossmatch 02/15/17 02/15/17 02/15/17 Range/Units 15:17 16:39 17:53 WBC (3.8-10.6) k/uL RBC (4.30-5.90) m/uL Hgb (13.0-17.5) gm/dL Hct (39.0-53.0) % Plt Count (150-450) k/uL Neutrophils # (1.3-7.7) k/uL Lymphocytes # (1.0-4.8) k/uL PT (9.0-12.0) sec INR (<1.2) APTT (22.0-30.0) sec ABG pH (7.35-7.45) ABG pO2 (83-108) mmHg ABG O2 Saturation (94-97) % Sodium (137-145) mmol/L Carbon Dioxide (22-30) mmol/L Glucose (74-99) mg/dL POC Glucose (mg/dL) 255 H 145 H 121 H (75-99) mg/dL Calcium (8.4-10.2) mg/dL Ionized Calcium Teri (4.5-5.3) mg/dL Magnesium (1.6-2.3) mg/dL AST (17-59) U/L Alkaline Phosphatase (38-126) U/L Total Creatine Kinase (55-170) U/L CK-MB (CK-2) (0.0-2.4) ng/mL Total Protein (6.3-8.2) g/dL Albumin (3.5-5.0) g/dL Cholesterol (<200) mg/dL LDL Cholesterol, Calc (0-99) mg/dL HDL Cholesterol (40-60) mg/dL Crossmatch 02/15/17 02/15/17 02/15/17 Range/Units 17:55 17:55 17:55 WBC 11.2 H (3.8-10.6) k/uL RBC 3.91 L (4.30-5.90) m/uL Hgb 11.9 L D (13.0-17.5) gm/dL Hct 35.7 L (39.0-53.0) % Plt Count 137 L (150-450) k/uL Neutrophils # 10.2 H (1.3-7.7) k/uL Lymphocytes # 0.6 L (1.0-4.8) k/uL PT 12.7 H (9.0-12.0) sec INR 1.3 H (<1.2) APTT (22.0-30.0) sec ABG pH (7.35-7.45) ABG pO2 (83-108) mmHg ABG O2 Saturation (94-97) % Sodium 134 L (137-145) mmol/L Carbon Dioxide 21 L (22-30) mmol/L Glucose 115 H (74-99) mg/dL POC Glucose (mg/dL) (75-99) mg/dL Calcium 6.6 L (8.4-10.2) mg/dL Ionized Calcium Teri 4.1 L (4.5-5.3) mg/dL Magnesium 2.5 H (1.6-2.3) mg/dL AST 108 H (17-59) U/L Alkaline Phosphatase (38-126) U/L Total Creatine Kinase (55-170) U/L CK-MB (CK-2) (0.0-2.4) ng/mL Total Protein 4.9 L (6.3-8.2) g/dL Albumin 3.2 L (3.5-5.0) g/dL Cholesterol (<200) mg/dL LDL Cholesterol, Calc (0-99) mg/dL HDL Cholesterol (40-60) mg/dL Crossmatch 02/15/17 02/15/17 02/15/17 Range/Units 18:43 18:46 20:17 WBC (3.8-10.6) k/uL RBC (4.30-5.90) m/uL Hgb (13.0-17.5) gm/dL Hct (39.0-53.0) % Plt Count (150-450) k/uL Neutrophils # (1.3-7.7) k/uL Lymphocytes # (1.0-4.8) k/uL PT (9.0-12.0) sec INR (<1.2) APTT (22.0-30.0) sec ABG pH 7.31 L (7.35-7.45) ABG pO2 336 H (83-108) mmHg ABG O2 Saturation 100.0 H (94-97) % Sodium (137-145) mmol/L Carbon Dioxide (22-30) mmol/L Glucose (74-99) mg/dL POC Glucose (mg/dL) 159 H 133 H (75-99) mg/dL Calcium (8.4-10.2) mg/dL Ionized Calcium Teri (4.5-5.3) mg/dL Magnesium (1.6-2.3) mg/dL AST (17-59) U/L Alkaline Phosphatase (38-126) U/L Total Creatine Kinase (55-170) U/L CK-MB (CK-2) (0.0-2.4) ng/mL Total Protein (6.3-8.2) g/dL Albumin (3.5-5.0) g/dL Cholesterol (<200) mg/dL LDL Cholesterol, Calc (0-99) mg/dL HDL Cholesterol (40-60) mg/dL Crossmatch 02/15/17 02/15/17 02/15/17 Range/Units 21:15 21:15 21:15 WBC 13.0 H (3.8-10.6) k/uL RBC 3.67 L (4.30-5.90) m/uL Hgb 11.2 L (13.0-17.5) gm/dL Hct 33.6 L (39.0-53.0) % Plt Count (150-450) k/uL Neutrophils # 11.7 H (1.3-7.7) k/uL Lymphocytes # 0.5 L (1.0-4.8) k/uL PT (9.0-12.0) sec INR 1.2 H (<1.2) APTT (22.0-30.0) sec ABG pH (7.35-7.45) ABG pO2 (83-108) mmHg ABG O2 Saturation (94-97) % Sodium 134 L (137-145) mmol/L Carbon Dioxide (22-30) mmol/L Glucose 107 H (74-99) mg/dL POC Glucose (mg/dL) (75-99) mg/dL Calcium 7.9 L (8.4-10.2) mg/dL Ionized Calcium Teri (4.5-5.3) mg/dL Magnesium 2.4 H (1.6-2.3) mg/dL AST (17-59) U/L Alkaline Phosphatase (38-126) U/L Total Creatine Kinase (55-170) U/L CK-MB (CK-2) (0.0-2.4) ng/mL Total Protein (6.3-8.2) g/dL Albumin (3.5-5.0) g/dL Cholesterol (<200) mg/dL LDL Cholesterol, Calc (0-99) mg/dL HDL Cholesterol (40-60) mg/dL Crossmatch 02/15/17 02/15/17 02/15/17 Range/Units 21:15 22:06 23:10 WBC (3.8-10.6) k/uL RBC (4.30-5.90) m/uL Hgb (13.0-17.5) gm/dL Hct (39.0-53.0) % Plt Count (150-450) k/uL Neutrophils # (1.3-7.7) k/uL Lymphocytes # (1.0-4.8) k/uL PT (9.0-12.0) sec INR (<1.2) APTT (22.0-30.0) sec ABG pH (7.35-7.45) ABG pO2 (83-108) mmHg ABG O2 Saturation (94-97) % Sodium (137-145) mmol/L Carbon Dioxide (22-30) mmol/L Glucose (74-99) mg/dL POC Glucose (mg/dL) 115 H 129 H 166 H (75-99) mg/dL Calcium (8.4-10.2) mg/dL Ionized Calcium Teri (4.5-5.3) mg/dL Magnesium (1.6-2.3) mg/dL AST (17-59) U/L Alkaline Phosphatase (38-126) U/L Total Creatine Kinase (55-170) U/L CK-MB (CK-2) (0.0-2.4) ng/mL Total Protein (6.3-8.2) g/dL Albumin (3.5-5.0) g/dL Cholesterol (<200) mg/dL LDL Cholesterol, Calc (0-99) mg/dL HDL Cholesterol (40-60) mg/dL Crossmatch 02/15/17 02/16/17 02/16/17 Range/Units 23:22 00:04 01:04 WBC (3.8-10.6) k/uL RBC (4.30-5.90) m/uL Hgb (13.0-17.5) gm/dL Hct (39.0-53.0) % Plt Count (150-450) k/uL Neutrophils # (1.3-7.7) k/uL Lymphocytes # (1.0-4.8) k/uL PT (9.0-12.0) sec INR (<1.2) APTT (22.0-30.0) sec ABG pH (7.35-7.45) ABG pO2 (83-108) mmHg ABG O2 Saturation 98.0 H (94-97) % Sodium (137-145) mmol/L Carbon Dioxide (22-30) mmol/L Glucose (74-99) mg/dL POC Glucose (mg/dL) 188 H 184 H (75-99) mg/dL Calcium (8.4-10.2) mg/dL Ionized Calcium Teri (4.5-5.3) mg/dL Magnesium (1.6-2.3) mg/dL AST (17-59) U/L Alkaline Phosphatase (38-126) U/L Total Creatine Kinase (55-170) U/L CK-MB (CK-2) (0.0-2.4) ng/mL Total Protein (6.3-8.2) g/dL Albumin (3.5-5.0) g/dL Cholesterol (<200) mg/dL LDL Cholesterol, Calc (0-99) mg/dL HDL Cholesterol (40-60) mg/dL Crossmatch 02/16/17 02/16/17 02/16/17 Range/Units 02:03 03:08 04:07 WBC (3.8-10.6) k/uL RBC (4.30-5.90) m/uL Hgb (13.0-17.5) gm/dL Hct (39.0-53.0) % Plt Count (150-450) k/uL Neutrophils # (1.3-7.7) k/uL Lymphocytes # (1.0-4.8) k/uL PT (9.0-12.0) sec INR (<1.2) APTT (22.0-30.0) sec ABG pH (7.35-7.45) ABG pO2 (83-108) mmHg ABG O2 Saturation (94-97) % Sodium (137-145) mmol/L Carbon Dioxide (22-30) mmol/L Glucose (74-99) mg/dL POC Glucose (mg/dL) 157 H 142 H 148 H (75-99) mg/dL Calcium (8.4-10.2) mg/dL Ionized Calcium Teri (4.5-5.3) mg/dL Magnesium (1.6-2.3) mg/dL AST (17-59) U/L Alkaline Phosphatase (38-126) U/L Total Creatine Kinase (55-170) U/L CK-MB (CK-2) (0.0-2.4) ng/mL Total Protein (6.3-8.2) g/dL Albumin (3.5-5.0) g/dL Cholesterol (<200) mg/dL LDL Cholesterol, Calc (0-99) mg/dL HDL Cholesterol (40-60) mg/dL Crossmatch 02/16/17 02/16/17 02/16/17 Range/Units 05:18 05:36 05:36 WBC 11.7 H (3.8-10.6) k/uL RBC 3.34 L (4.30-5.90) m/uL Hgb 10.2 L (13.0-17.5) gm/dL Hct 30.0 L (39.0-53.0) % Plt Count 146 L (150-450) k/uL Neutrophils # 10.8 H (1.3-7.7) k/uL Lymphocytes # 0.2 L (1.0-4.8) k/uL PT (9.0-12.0) sec INR (<1.2) APTT (22.0-30.0) sec ABG pH (7.35-7.45) ABG pO2 (83-108) mmHg ABG O2 Saturation (94-97) % Sodium 133 L (137-145) mmol/L Carbon Dioxide (22-30) mmol/L Glucose 129 H (74-99) mg/dL POC Glucose (mg/dL) 143 H (75-99) mg/dL Calcium 7.6 L (8.4-10.2) mg/dL Ionized Calcium Teri (4.5-5.3) mg/dL Magnesium (1.6-2.3) mg/dL AST 145 H (17-59) U/L Alkaline Phosphatase 36 L (38-126) U/L Total Creatine Kinase (55-170) U/L CK-MB (CK-2) (0.0-2.4) ng/mL Total Protein 4.9 L (6.3-8.2) g/dL Albumin 3.2 L (3.5-5.0) g/dL Cholesterol (<200) mg/dL LDL Cholesterol, Calc (0-99) mg/dL HDL Cholesterol (40-60) mg/dL Crossmatch 02/16/17 02/16/17 02/16/17 Range/Units 05:36 06:02 07:10 WBC (3.8-10.6) k/uL RBC (4.30-5.90) m/uL Hgb (13.0-17.5) gm/dL Hct (39.0-53.0) % Plt Count (150-450) k/uL Neutrophils # (1.3-7.7) k/uL Lymphocytes # (1.0-4.8) k/uL PT 12.2 H (9.0-12.0) sec INR 1.2 H (<1.2) APTT (22.0-30.0) sec ABG pH (7.35-7.45) ABG pO2 (83-108) mmHg ABG O2 Saturation (94-97) % Sodium (137-145) mmol/L Carbon Dioxide (22-30) mmol/L Glucose (74-99) mg/dL POC Glucose (mg/dL) 136 H 143 H (75-99) mg/dL Calcium (8.4-10.2) mg/dL Ionized Calcium Teri (4.5-5.3) mg/dL Magnesium (1.6-2.3) mg/dL AST (17-59) U/L Alkaline Phosphatase (38-126) U/L Total Creatine Kinase (55-170) U/L CK-MB (CK-2) (0.0-2.4) ng/mL Total Protein (6.3-8.2) g/dL Albumin (3.5-5.0) g/dL Cholesterol (<200) mg/dL LDL Cholesterol, Calc (0-99) mg/dL HDL Cholesterol (40-60) mg/dL Crossmatch - Imaging and Cardiology Chest x-ray: image reviewed Assessment and Plan (1) Tobacco dependence in remission Status: Acute (2) History of stroke Status: Acute (3) Family history of heart disease Status: Acute (4) Chest pain Status: Acute (5) ST elevation myocardial infarction (STEMI) Status: Acute (6) Coronary artery disease involving left main coronary artery Status: Acute (7) Hyperlipidemia Status: Acute (8) Postoperative atrial fibrillation Status: Acute Plan: 1. Continue aspirin, statin, Plavix, heparin subcu, beta kait. Will maximize beta kait therapy as tolerated. 2. Continue amiodarone for A. fib prophylaxis. Will transition to oral amio. 3. Will discontinue intra-aortic balloon pump today. Will discontinue Goldonna. 4. Wean O2 as tolerated. Encourage incentive spirometry use. 5. Post balloon pump discontinuation will increase activity, up in chair. Physical therapy to follow. 6. GI/DVT prophylaxis. 7. Will monitor daily labs, x-rays. 8. Insulin management per primary care service. 9. More recommendations as patient progresses. Time with Patient: Greater than 30 <Tuan Jcar - Last Filed: 02/16/17 14:41> Objective - Vital Signs Vital signs: Vital Signs Temp 97.4 F L 02/15/17 09:27 Pulse 73 02/16/17 14:00 Resp 18 02/16/17 14:00 BP 107/62 02/16/17 14:00 Pulse Ox 94 L 02/16/17 14:00 Intake & Output 02/15/17 02/16/17 02/16/17 18:59 06:59 18:59 Intake Total 112 2150.034 589.213 Output Total 3077 1181 720 Balance -2965 969.034 -130.787 Weight 61.6 kg 61.6 kg Intake: IV 112 1848.1 581.6 ACETAMINOPHEN IV (For NPO 200 100 ) 1,000 mg In Empty Bag 1 bag @ 400 mls/hr IVPB Q6HR [facility] Rx#:[id number] Albumin Human 5% 250 ml 250 In Empty Bag 1 bag @ 250 mls/hr IVPB Q1HR PRN Rx#: [id number] Amiodarone 450 mg In 266.1 16.6 Dextrose 5% in Water 250 ml @ 1 MG/MIN 33.33 mls/ hr IV .Q7H31M [facility] Rx#: [id number] CO/CI 20 160 20 Calcium Gluconate 2,000 100 mg In Sodium Chloride 0.9 % 100 ml @ 100 mls/hr IVPB ONCE PRN Rx#: [id number] LR 50 570 400 Nitroglycerin-D5w Pmx 50 27.0 3 mg In Dextrose/Water 1 250ml.bag @ 5 MCG/MIN 1.5 mls/hr IV .Q24H [facility] Rx#: [id number] ceFAZolin 2 gm In Sodium 200 Chloride 0.9% 30 ml @ 60 mls/hr IVPB ONCE ONE Rx#: [id number] pressure bags 9 75 42 Intake, IV Titration 271.934 7.613 Amount Amiodarone 450 mg In 231.084 Dextrose 5% in Water 250 ml @ 1 MG/MIN 33.33 mls/ hr IV .Q7H31M [facility] Rx#: [id number] Insulin Regular 100 unit 16.497 7.613 In Sodium Chloride 0.9% 100 ml @ Per Protocol IV .Q0M [facility] Rx#:[id number] Propofol 1,000 mg In 100 24.353 ml @ Titrate IV .Q0M [facility] Rx#:[id number] Oral 30 Output: Chest Tube Drainage 677 599 240 Left Pleural 327 169 60 MS x2 350 430 180 Gastric Drainage 0 Urine 1200 582 480 Estimated Blood Loss 1200 Other: Voiding Method Indwelling Catheter Indwelling Catheter Indwelling Catheter ABP, PAP, CO, CI - Last Documented Arterial Blood Pressure 100/85 Pulmonary Artery Pressure 25/5 Cardiac Output 5.2 Cardiac Index 3 - Labs CBC & Chem 7: 02/16/17 05:36 02/16/17 05:36 Labs: Abnormal Lab Results - Last 24 Hours (Table) 02/15/17 02/15/17 02/15/17 Range/Units 10:30 12:15 13:20 WBC (3.8-10.6) k/uL RBC (4.30-5.90) m/uL Hgb (13.0-17.5) gm/dL Hct (39.0-53.0) % Plt Count (150-450) k/uL Neutrophils # (1.3-7.7) k/uL Lymphocytes # (1.0-4.8) k/uL PT (9.0-12.0) sec INR (<1.2) ABG pH (7.35-7.45) ABG pCO2 29 L (35-45) mmHg ABG pO2 353 H 265 H (83-108) mmHg ABG HCO3 20 L (21-25) mmol/L ABG Total CO2 (19-24) mmol/L ABG O2 Saturation 100.0 H 99.9 H (94-97) % ABG Hematocrit (34.0-46.0) % ABG Sodium (135-146) mmol/L ABG Potassium (3.4-4.5) mmol/L Sodium (137-145) mmol/L Carbon Dioxide (22-30) mmol/L Glucose (74-99) mg/dL POC Glucose (mg/dL) (75-99) mg/dL Calcium (8.4-10.2) mg/dL Ionized Calcium Teri (4.5-5.3) mg/dL Magnesium (1.6-2.3) mg/dL AST (17-59) U/L Alkaline Phosphatase (38-126) U/L Troponin I (0.000-0.034) ng/mL Total Protein (6.3-8.2) g/dL Albumin (3.5-5.0) g/dL Arterial Blood Potassium (3.4-4.5) mmol/L Crossmatch See Detail 02/15/17 02/15/17 02/15/17 Range/Units 14:16 14:44 14:44 WBC (3.8-10.6) k/uL RBC (4.30-5.90) m/uL Hgb (13.0-17.5) gm/dL Hct (39.0-53.0) % Plt Count (150-450) k/uL Neutrophils # (1.3-7.7) k/uL Lymphocytes # (1.0-4.8) k/uL PT (9.0-12.0) sec INR (<1.2) ABG pH (7.35-7.45) ABG pCO2 (35-45) mmHg ABG pO2 356 H 303 H (83-108) mmHg ABG HCO3 (21-25) mmol/L ABG Total CO2 25 H (19-24) mmol/L ABG O2 Saturation 99.9 H 99.9 H (94-97) % ABG Hematocrit 30 L 32 L (34.0-46.0) % ABG Sodium 133 L 133 L (135-146) mmol/L ABG Potassium 5.0 H 6.1 H (3.4-4.5) mmol/L Sodium (137-145) mmol/L Carbon Dioxide (22-30) mmol/L Glucose (74-99) mg/dL POC Glucose (mg/dL) 302 H (75-99) mg/dL Calcium (8.4-10.2) mg/dL Ionized Calcium Teri (4.5-5.3) mg/dL Magnesium (1.6-2.3) mg/dL AST (17-59) U/L Alkaline Phosphatase (38-126) U/L Troponin I (0.000-0.034) ng/mL Total Protein (6.3-8.2) g/dL Albumin (3.5-5.0) g/dL Arterial Blood Potassium 5.0 H 6.1 H (3.4-4.5) mmol/L Crossmatch 02/15/17 02/15/17 02/15/17 Range/Units 15:17 15:17 16:39 WBC (3.8-10.6) k/uL RBC (4.30-5.90) m/uL Hgb (13.0-17.5) gm/dL Hct (39.0-53.0) % Plt Count (150-450) k/uL Neutrophils # (1.3-7.7) k/uL Lymphocytes # (1.0-4.8) k/uL PT (9.0-12.0) sec INR (<1.2) ABG pH 7.32 L (7.35-7.45) ABG pCO2 (35-45) mmHg ABG pO2 275 H (83-108) mmHg ABG HCO3 (21-25) mmol/L ABG Total CO2 (19-24) mmol/L ABG O2 Saturation 99.9 H (94-97) % ABG Hematocrit 33 L (34.0-46.0) % ABG Sodium (135-146) mmol/L ABG Potassium 4.8 H (3.4-4.5) mmol/L Sodium (137-145) mmol/L Carbon Dioxide (22-30) mmol/L Glucose (74-99) mg/dL POC Glucose (mg/dL) 255 H 145 H (75-99) mg/dL Calcium (8.4-10.2) mg/dL Ionized Calcium Teri (4.5-5.3) mg/dL Magnesium (1.6-2.3) mg/dL AST (17-59) U/L Alkaline Phosphatase (38-126) U/L Troponin I (0.000-0.034) ng/mL Total Protein (6.3-8.2) g/dL Albumin (3.5-5.0) g/dL Arterial Blood Potassium 4.8 H (3.4-4.5) mmol/L Crossmatch 02/15/17 02/15/17 02/15/17 Range/Units 16:39 17:53 17:55 WBC 11.2 H (3.8-10.6) k/uL RBC 3.91 L (4.30-5.90) m/uL Hgb 11.9 L D (13.0-17.5) gm/dL Hct 35.7 L (39.0-53.0) % Plt Count 137 L (150-450) k/uL Neutrophils # 10.2 H (1.3-7.7) k/uL Lymphocytes # 0.6 L (1.0-4.8) k/uL PT (9.0-12.0) sec INR (<1.2) ABG pH 7.32 L (7.35-7.45) ABG pCO2 (35-45) mmHg ABG pO2 129 H (83-108) mmHg ABG HCO3 (21-25) mmol/L ABG Total CO2 (19-24) mmol/L ABG O2 Saturation 98.6 H (94-97) % ABG Hematocrit (34.0-46.0) % ABG Sodium (135-146) mmol/L ABG Potassium (3.4-4.5) mmol/L Sodium (137-145) mmol/L Carbon Dioxide (22-30) mmol/L Glucose (74-99) mg/dL POC Glucose (mg/dL) 121 H (75-99) mg/dL Calcium (8.4-10.2) mg/dL Ionized Calcium Teri (4.5-5.3) mg/dL Magnesium (1.6-2.3) mg/dL AST (17-59) U/L Alkaline Phosphatase (38-126) U/L Troponin I (0.000-0.034) ng/mL Total Protein (6.3-8.2) g/dL Albumin (3.5-5.0) g/dL Arterial Blood Potassium (3.4-4.5) mmol/L Crossmatch 02/15/17 02/15/17 02/15/17 Range/Units 17:55 17:55 18:43 WBC (3.8-10.6) k/uL RBC (4.30-5.90) m/uL Hgb (13.0-17.5) gm/dL Hct (39.0-53.0) % Plt Count (150-450) k/uL Neutrophils # (1.3-7.7) k/uL Lymphocytes # (1.0-4.8) k/uL PT 12.7 H (9.0-12.0) sec INR 1.3 H (<1.2) ABG pH 7.31 L (7.35-7.45) ABG pCO2 (35-45) mmHg ABG pO2 336 H (83-108) mmHg ABG HCO3 (21-25) mmol/L ABG Total CO2 (19-24) mmol/L ABG O2 Saturation 100.0 H (94-97) % ABG Hematocrit (34.0-46.0) % ABG Sodium (135-146) mmol/L ABG Potassium (3.4-4.5) mmol/L Sodium 134 L (137-145) mmol/L Carbon Dioxide 21 L (22-30) mmol/L Glucose 115 H (74-99) mg/dL POC Glucose (mg/dL) (75-99) mg/dL Calcium 6.6 L (8.4-10.2) mg/dL Ionized Calcium Teri 4.1 L (4.5-5.3) mg/dL Magnesium 2.5 H (1.6-2.3) mg/dL AST 108 H (17-59) U/L Alkaline Phosphatase (38-126) U/L Troponin I (0.000-0.034) ng/mL Total Protein 4.9 L (6.3-8.2) g/dL Albumin 3.2 L (3.5-5.0) g/dL Arterial Blood Potassium (3.4-4.5) mmol/L Crossmatch 02/15/17 02/15/17 02/15/17 Range/Units 18:46 20:17 21:15 WBC 13.0 H (3.8-10.6) k/uL RBC 3.67 L (4.30-5.90) m/uL Hgb 11.2 L (13.0-17.5) gm/dL Hct 33.6 L (39.0-53.0) % Plt Count (150-450) k/uL Neutrophils # 11.7 H (1.3-7.7) k/uL Lymphocytes # 0.5 L (1.0-4.8) k/uL PT (9.0-12.0) sec INR (<1.2) ABG pH (7.35-7.45) ABG pCO2 (35-45) mmHg ABG pO2 (83-108) mmHg ABG HCO3 (21-25) mmol/L ABG Total CO2 (19-24) mmol/L ABG O2 Saturation (94-97) % ABG Hematocrit (34.0-46.0) % ABG Sodium (135-146) mmol/L ABG Potassium (3.4-4.5) mmol/L Sodium (137-145) mmol/L Carbon Dioxide (22-30) mmol/L Glucose (74-99) mg/dL POC Glucose (mg/dL) 159 H 133 H (75-99) mg/dL Calcium (8.4-10.2) mg/dL Ionized Calcium Teri (4.5-5.3) mg/dL Magnesium (1.6-2.3) mg/dL AST (17-59) U/L Alkaline Phosphatase (38-126) U/L Troponin I (0.000-0.034) ng/mL Total Protein (6.3-8.2) g/dL Albumin (3.5-5.0) g/dL Arterial Blood Potassium (3.4-4.5) mmol/L Crossmatch 02/15/17 02/15/17 02/15/17 Range/Units 21:15 21:15 21:15 WBC (3.8-10.6) k/uL RBC (4.30-5.90) m/uL Hgb (13.0-17.5) gm/dL Hct (39.0-53.0) % Plt Count (150-450) k/uL Neutrophils # (1.3-7.7) k/uL Lymphocytes # (1.0-4.8) k/uL PT (9.0-12.0) sec INR 1.2 H (<1.2) ABG pH (7.35-7.45) ABG pCO2 (35-45) mmHg ABG pO2 (83-108) mmHg ABG HCO3 (21-25) mmol/L ABG Total CO2 (19-24) mmol/L ABG O2 Saturation (94-97) % ABG Hematocrit (34.0-46.0) % ABG Sodium (135-146) mmol/L ABG Potassium (3.4-4.5) mmol/L Sodium 134 L (137-145) mmol/L Carbon Dioxide (22-30) mmol/L Glucose 107 H (74-99) mg/dL POC Glucose (mg/dL) 115 H (75-99) mg/dL Calcium 7.9 L (8.4-10.2) mg/dL Ionized Calcium Teri (4.5-5.3) mg/dL Magnesium 2.4 H (1.6-2.3) mg/dL AST (17-59) U/L Alkaline Phosphatase (38-126) U/L Troponin I (0.000-0.034) ng/mL Total Protein (6.3-8.2) g/dL Albumin (3.5-5.0) g/dL Arterial Blood Potassium (3.4-4.5) mmol/L Crossmatch 02/15/17 02/15/17 02/15/17 Range/Units 22:06 23:10 23:22 WBC (3.8-10.6) k/uL RBC (4.30-5.90) m/uL Hgb (13.0-17.5) gm/dL Hct (39.0-53.0) % Plt Count (150-450) k/uL Neutrophils # (1.3-7.7) k/uL Lymphocytes # (1.0-4.8) k/uL PT (9.0-12.0) sec INR (<1.2) ABG pH (7.35-7.45) ABG pCO2 (35-45) mmHg ABG pO2 (83-108) mmHg ABG HCO3 (21-25) mmol/L ABG Total CO2 (19-24) mmol/L ABG O2 Saturation 98.0 H (94-97) % ABG Hematocrit (34.0-46.0) % ABG Sodium (135-146) mmol/L ABG Potassium (3.4-4.5) mmol/L Sodium (137-145) mmol/L Carbon Dioxide (22-30) mmol/L Glucose (74-99) mg/dL POC Glucose (mg/dL) 129 H 166 H (75-99) mg/dL Calcium (8.4-10.2) mg/dL Ionized Calcium Teri (4.5-5.3) mg/dL Magnesium (1.6-2.3) mg/dL AST (17-59) U/L Alkaline Phosphatase (38-126) U/L Troponin I (0.000-0.034) ng/mL Total Protein (6.3-8.2) g/dL Albumin (3.5-5.0) g/dL Arterial Blood Potassium (3.4-4.5) mmol/L Crossmatch 02/16/17 02/16/17 02/16/17 Range/Units 00:04 01:04 02:03 WBC (3.8-10.6) k/uL RBC (4.30-5.90) m/uL Hgb (13.0-17.5) gm/dL Hct (39.0-53.0) % Plt Count (150-450) k/uL Neutrophils # (1.3-7.7) k/uL Lymphocytes # (1.0-4.8) k/uL PT (9.0-12.0) sec INR (<1.2) ABG pH (7.35-7.45) ABG pCO2 (35-45) mmHg ABG pO2 (83-108) mmHg ABG HCO3 (21-25) mmol/L ABG Total CO2 (19-24) mmol/L ABG O2 Saturation (94-97) % ABG Hematocrit (34.0-46.0) % ABG Sodium (135-146) mmol/L ABG Potassium (3.4-4.5) mmol/L Sodium (137-145) mmol/L Carbon Dioxide (22-30) mmol/L Glucose (74-99) mg/dL POC Glucose (mg/dL) 188 H 184 H 157 H (75-99) mg/dL Calcium (8.4-10.2) mg/dL Ionized Calcium Teri (4.5-5.3) mg/dL Magnesium (1.6-2.3) mg/dL AST (17-59) U/L Alkaline Phosphatase (38-126) U/L Troponin I (0.000-0.034) ng/mL Total Protein (6.3-8.2) g/dL Albumin (3.5-5.0) g/dL Arterial Blood Potassium (3.4-4.5) mmol/L Crossmatch 02/16/17 02/16/17 02/16/17 Range/Units 03:08 04:07 05:18 WBC (3.8-10.6) k/uL RBC (4.30-5.90) m/uL Hgb (13.0-17.5) gm/dL Hct (39.0-53.0) % Plt Count (150-450) k/uL Neutrophils # (1.3-7.7) k/uL Lymphocytes # (1.0-4.8) k/uL PT (9.0-12.0) sec INR (<1.2) ABG pH (7.35-7.45) ABG pCO2 (35-45) mmHg ABG pO2 (83-108) mmHg ABG HCO3 (21-25) mmol/L ABG Total CO2 (19-24) mmol/L ABG O2 Saturation (94-97) % ABG Hematocrit (34.0-46.0) % ABG Sodium (135-146) mmol/L ABG Potassium (3.4-4.5) mmol/L Sodium (137-145) mmol/L Carbon Dioxide (22-30) mmol/L Glucose (74-99) mg/dL POC Glucose (mg/dL) 142 H 148 H 143 H (75-99) mg/dL Calcium (8.4-10.2) mg/dL Ionized Calcium Teri (4.5-5.3) mg/dL Magnesium (1.6-2.3) mg/dL AST (17-59) U/L Alkaline Phosphatase (38-126) U/L Troponin I (0.000-0.034) ng/mL Total Protein (6.3-8.2) g/dL Albumin (3.5-5.0) g/dL Arterial Blood Potassium (3.4-4.5) mmol/L Crossmatch 02/16/17 02/16/17 02/16/17 Range/Units 05:36 05:36 05:36 WBC 11.7 H (3.8-10.6) k/uL RBC 3.34 L (4.30-5.90) m/uL Hgb 10.2 L (13.0-17.5) gm/dL Hct 30.0 L (39.0-53.0) % Plt Count 146 L (150-450) k/uL Neutrophils # 10.8 H (1.3-7.7) k/uL Lymphocytes # 0.2 L (1.0-4.8) k/uL PT 12.2 H (9.0-12.0) sec INR 1.2 H (<1.2) ABG pH (7.35-7.45) ABG pCO2 (35-45) mmHg ABG pO2 (83-108) mmHg ABG HCO3 (21-25) mmol/L ABG Total CO2 (19-24) mmol/L ABG O2 Saturation (94-97) % ABG Hematocrit (34.0-46.0) % ABG Sodium (135-146) mmol/L ABG Potassium (3.4-4.5) mmol/L Sodium 133 L (137-145) mmol/L Carbon Dioxide (22-30) mmol/L Glucose 129 H (74-99) mg/dL POC Glucose (mg/dL) (75-99) mg/dL Calcium 7.6 L (8.4-10.2) mg/dL Ionized Calcium Teri (4.5-5.3) mg/dL Magnesium (1.6-2.3) mg/dL AST 145 H (17-59) U/L Alkaline Phosphatase 36 L (38-126) U/L Troponin I (0.000-0.034) ng/mL Total Protein 4.9 L (6.3-8.2) g/dL Albumin 3.2 L (3.5-5.0) g/dL Arterial Blood Potassium (3.4-4.5) mmol/L Crossmatch 02/16/17 02/16/17 02/16/17 Range/Units 06:02 07:10 08:11 WBC (3.8-10.6) k/uL RBC (4.30-5.90) m/uL Hgb (13.0-17.5) gm/dL Hct (39.0-53.0) % Plt Count (150-450) k/uL Neutrophils # (1.3-7.7) k/uL Lymphocytes # (1.0-4.8) k/uL PT (9.0-12.0) sec INR (<1.2) ABG pH (7.35-7.45) ABG pCO2 (35-45) mmHg ABG pO2 (83-108) mmHg ABG HCO3 (21-25) mmol/L ABG Total CO2 (19-24) mmol/L ABG O2 Saturation (94-97) % ABG Hematocrit (34.0-46.0) % ABG Sodium (135-146) mmol/L ABG Potassium (3.4-4.5) mmol/L Sodium (137-145) mmol/L Carbon Dioxide (22-30) mmol/L Glucose (74-99) mg/dL POC Glucose (mg/dL) 136 H 143 H 143 H (75-99) mg/dL Calcium (8.4-10.2) mg/dL Ionized Calcium Teri (4.5-5.3) mg/dL Magnesium (1.6-2.3) mg/dL AST (17-59) U/L Alkaline Phosphatase (38-126) U/L Troponin I (0.000-0.034) ng/mL Total Protein (6.3-8.2) g/dL Albumin (3.5-5.0) g/dL Arterial Blood Potassium (3.4-4.5) mmol/L Crossmatch 02/16/17 02/16/17 02/16/17 Range/Units 09:12 10:31 11:35 WBC (3.8-10.6) k/uL RBC (4.30-5.90) m/uL Hgb (13.0-17.5) gm/dL Hct (39.0-53.0) % Plt Count (150-450) k/uL Neutrophils # (1.3-7.7) k/uL Lymphocytes # (1.0-4.8) k/uL PT (9.0-12.0) sec INR (<1.2) ABG pH (7.35-7.45) ABG pCO2 (35-45) mmHg ABG pO2 (83-108) mmHg ABG HCO3 (21-25) mmol/L ABG Total CO2 (19-24) mmol/L ABG O2 Saturation (94-97) % ABG Hematocrit (34.0-46.0) % ABG Sodium (135-146) mmol/L ABG Potassium (3.4-4.5) mmol/L Sodium (137-145) mmol/L Carbon Dioxide (22-30) mmol/L Glucose (74-99) mg/dL POC Glucose (mg/dL) 145 H 123 H 141 H (75-99) mg/dL Calcium (8.4-10.2) mg/dL Ionized Calcium Teri (4.5-5.3) mg/dL Magnesium (1.6-2.3) mg/dL AST (17-59) U/L Alkaline Phosphatase (38-126) U/L Troponin I (0.000-0.034) ng/mL Total Protein (6.3-8.2) g/dL Albumin (3.5-5.0) g/dL Arterial Blood Potassium (3.4-4.5) mmol/L Crossmatch 02/16/17 02/16/17 02/16/17 Range/Units 13:11 13:35 14:18 WBC (3.8-10.6) k/uL RBC (4.30-5.90) m/uL Hgb (13.0-17.5) gm/dL Hct (39.0-53.0) % Plt Count (150-450) k/uL Neutrophils # (1.3-7.7) k/uL Lymphocytes # (1.0-4.8) k/uL PT (9.0-12.0) sec INR (<1.2) ABG pH (7.35-7.45) ABG pCO2 (35-45) mmHg ABG pO2 (83-108) mmHg ABG HCO3 (21-25) mmol/L ABG Total CO2 (19-24) mmol/L ABG O2 Saturation (94-97) % ABG Hematocrit (34.0-46.0) % ABG Sodium (135-146) mmol/L ABG Potassium (3.4-4.5) mmol/L Sodium (137-145) mmol/L Carbon Dioxide (22-30) mmol/L Glucose (74-99) mg/dL POC Glucose (mg/dL) 118 H 128 H (75-99) mg/dL Calcium (8.4-10.2) mg/dL Ionized Calcium Teri (4.5-5.3) mg/dL Magnesium (1.6-2.3) mg/dL AST (17-59) U/L Alkaline Phosphatase (38-126) U/L Troponin I 16.300 H* (0.000-0.034) ng/mL Total Protein (6.3-8.2) g/dL Albumin (3.5-5.0) g/dL Arterial Blood Potassium (3.4-4.5) mmol/L Crossmatch Assessment and Plan Plan: The patient was seen and examined. I agree with the above assessment and plan. The patient was extubated last night. He is doing well this morning. He is hemodynamically stable. He did not receive any blood transfusions overnight. We will add a low-dose beta kait. We will plan on removing the intra- balloon pump today. He will be up in a chair later this afternoon. His laboratory studies and chest x-ray were personally reviewed.
[2017-02-16] MEDS: MUPIROCIN 2% OINT 22 GM TUBE NASAL SCH ×2 (09:17→21:09)
--- NOTE | 2017-02-16 09:17 | P.PCN ---
Date of Procedure: 02/16/17 Preoperative Diagnosis: Severe symptomatic coronary artery disease with left main disease, STEMI, placement of right femoral intra-aortic balloon pump. Postoperative Diagnosis: Severe symptomatic coronary artery disease with left main disease, STEMI, placement of right femoral intra-aortic balloon pump. Procedure(s) Performed: Removal of intra-aortic balloon pump. Anesthesia: none Indications for Procedure: The patient is a 61-year-old male was found to have severe symptomatic coronary artery disease with left main disease and ST elevation myocardial infarction. An intra-aortic balloon pump was placed in the [facility] by Dr. Vora. He went for coronary artery bypass surgery yesterday and has done well. This morning he is hemodynamically stable and is no longer in need of intra-aortic balloon pump assistance. Removal of the device was recommended. The risks, benefits, alternatives to this procedure were discussed with the patient. All questions were answered. Consent was obtained. Description of Procedure: The right groin was examined. There was no evidence of hematoma. The balloon pump was turned off. The pre-existing sheath and balloon were removed en pete and the artery was allowed to bleed for several beats. Direct pressure was held over the site for 30 minutes. There is no residual bleeding or hematoma noted. The groin itself was soft. The right lower extremity appears warm and well perfused. There were no immediate complications. He remained hemodynamically stable and tolerated the procedure well.
[2017-02-16 09:23] LABS: Glucose,Whole Blood 145 mg/dL (75-99)
--- NOTE | 2017-02-16 09:39 | XR ---
EXAMINATION TYPE: XR chest 1V portable DATE OF EXAM: 02/16/2017 COMPARISON: Prior chest x-ray 02/15/2017 HISTORY: Postop cardiac surgery TECHNIQUE: Single frontal view of the chest is obtained. FINDINGS: Left-sided chest tube is stable, endotracheal and NG tube have been removed. Right jugular central venous catheter shows the distal tip in the pulmonary artery level. Median sternal drains ar e present. No evident sizable pneumothorax or pleural effusion. Minimal patchy basilar density is not ed. There are overlying cardiac leads. Epicardial pacing leads are present. Patient is rotated. Heart size not significantly changed accounting for differences in technique. Intra-aortic balloon pump sh ows the distal tip at the level of the transverse aorta. IMPRESSION: Basilar atelectasis. Interval extubation..
[2017-02-16 10:35] LABS: Glucose,Whole Blood 123 mg/dL (75-99)
[2017-02-16] MEDS: AMIODARONE 200 MG TAB PO SCH ×2 (10:35→21:09)
[2017-02-16] MEDS: ATORVASTATIN 40 MG TAB PO SCH (10:35)
[2017-02-16] MEDS: CLOPIDOGREL 75 MG TAB PO SCH (10:35)
[2017-02-16] MEDS: ASPIRIN 325 MG TAB PO SCH (10:35)
[2017-02-16] MEDS: METOPROLOL TARTRATE 12.5 MG TAB PO SCH ×2 (10:36→21:09)
[2017-02-16 11:33] LABS: ABG Base Excess -2.4 mmol/L; ABG HCO3 20 mmol/L (21-25); ABG Hematocrit 44 % (34.0-46.0); ABG PCO2 29 mmHg (35-45); ABG PH 7.45 (7.35-7.45); ABG PO2 353 mmHg (83-108); ABG TCO2 21 mmol/L (19-24)
[2017-02-16 11:34] LABS: ABG Base Excess -3.6 mmol/L; ABG HCO3 21 mmol/L (21-25); ABG Hematocrit 37 % (34.0-46.0); ABG Oxygen Saturation 99.9 % (94-97); ABG PCO2 39 mmHg (35-45); ABG PH 7.35 (7.35-7.45); ABG PO2 265 mmHg (83-108); ABG TCO2 22 mmol/L (19-24)
[2017-02-16 11:35] LABS: ABG Base Excess -1.1 mmol/L; ABG HCO3 23 mmol/L (21-25); ABG Hematocrit 30 % (34.0-46.0); ABG Oxygen Saturation 99.9 % (94-97); ABG PCO2 41 mmHg (35-45); ABG PH 7.38 (7.35-7.45); ABG PO2 356 mmHg (83-108); ABG TCO2 25 mmol/L (19-24)
[2017-02-16 11:36] LABS: ABG Base Excess -2.2 mmol/L; ABG HCO3 23 mmol/L (21-25); ABG Hematocrit 32 % (34.0-46.0); ABG Oxygen Saturation 99.9 % (94-97); ABG PCO2 43 mmHg (35-45); ABG PH 7.35 (7.35-7.45); ABG PO2 303 mmHg (83-108); ABG TCO2 24 mmol/L (19-24)
[2017-02-16 11:37] LABS: ABG Base Excess -3.3 mmol/L; ABG HCO3 22 mmol/L (21-25); ABG PCO2 45 mmHg (35-45); ABG PH 7.32 (7.35-7.45); ABG PO2 275 mmHg (83-108); ABG TCO2 24 mmol/L (19-24)
[2017-02-16 11:37] LABS: Glucose,Whole Blood 141 mg/dL (75-99)
[2017-02-16 11:38] LABS: ABG Hematocrit 33 % (34.0-46.0); ABG Oxygen Saturation 99.9 % (94-97)
[2017-02-16 11:38] LABS: ABG HCO3 22 mmol/L (21-25); ABG PCO2 45 mmHg (35-45); ABG PH 7.32 (7.35-7.45); ABG PO2 129 mmHg (83-108)
[2017-02-16 11:39] LABS: ABG Base Excess -3.2 mmol/L; ABG Hematocrit 34 % (34.0-46.0); ABG Oxygen Saturation 98.6 % (94-97); ABG TCO2 24 mmol/L (19-24)
[2017-02-16 11:55] VITALS: BMI 21.2
--- NOTE | 2017-02-16 12:39 | P.HPIM ---
History of Present Illness H&P Date: 02/16/17 Chief Complaint: chest pain 61 years old male patient of Dr. Rae with past medical history of CVA 7 years ago, presented to the ER yesterday with a retrosternal chest pain that was nonradiating in character. Patient also experienced some shortness of breath on exertion. Patient states he had previous episodes of chest pain that resolved by itself. He is not feeling well for the past few days before having the chest pain yesterday. EKG was suggestive of inferior STEMI and patient was taken to geophysical laboratory chief directly from the ER. 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 Jc was consulted immediately for coronary artery bypass surgery acquiring three-vessel grafting including left internal mammary artery to the left LAD, saphenous vein graft to diagonal artery, saphenous vein graft to the obtuse marginal artery. Patient was extubated yesterday without any complications. On my evaluation today, patient was on balloon pump with the plan to remove the balloon pump in the next hour. Patient was complaining of mild substernal chest discomfort associated with some nausea and had 1 episode of vomiting this morning. He denies any dizziness, shortness of breath, palpitation or abdominal pain. She denies any change in bowel habits. Patient was on aspirin and statin for the stroke but stopped taking it due to bruising( will not give any details) Review of Systems Constitutional: Denies chills, Denies fever, Denies lethargy, Denies malaise, Denies poor appetite, Denies weakness, Denies weight loss Eyes: denies decreased vision, denies diplopia, denies discharge, denies pain Ears: deny: decreased hearing Ears, nose, mouth and throat: Denies dental pain, Denies headache, Denies nasal discharge, Denies nose pain Cardiovascular: Endorses chest pain Denies decreased exercise tolerance, Denies edema, Denies high blood pressure, Denies irregular heart beat, Denies palpitations, Denies paroxysmal nocturnal dyspnea, Denies rapid heart beat, Denies shortness of breath Respiratory: Denies congestion, Denies cough, Denies cough with sputum, Denies dyspnea, Denies home oxygen, Denies wheezing Gastrointestinal: Denies abdominal pain, Denies change in bowel habits, Denies coffee ground emesis, Denies early satiety, Denies excessive gas, Denies heartburn, Denies hematemesis, Denies hematochezia, Denies loss of appetite, endorses nausea Genitourinary: Denies dysuria, Denies flank pain, Denies kidney stones, Denies menorrhagia, Denies urgency, Denies urinary frequency Musculoskeletal: Denies gait dysfunction, Denies limitation of motion, Denies morning stiffness, Denies muscle cramps Integumentary: Denies rash, Denies wounds, Denies brittle nails, Denies change in hair/nails, Denies darkening of skin Neurological: Denies balance difficulties, Denies change in speech, Denies double vision, Denies gait dysfunction, Denies loss of vision, Denies motor disturbance, Denies numbness, Denies paralysis, Denies paresthesias, Denies seizures Psychiatric: Denies anxiety, Denies depression Endocrine: Denies excessive sweating, Denies excessive thirst, Denies high blood sugars, Denies palpitations Hematologic/Lymphatic: Denies easy bruising, Denies lymphadenopathy Past Medical History Past Medical History: CVA/TIA (7 years ago) Last Myocardial Infarction Date:: 02/15/2017, cabgx3 peterson-lad, svg-om/diag brief post-op afib. 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 Has 4 kids who are healthy. - Past Family History Mother Family Medical History: Coronary Artery Disease (CAD), CVA/TIA, Diabetes Mellitus Additional Family Medical History / Comment(s): Mother had open-heart surgery in her 60s. Had 4 brothers, one of the brother of alcohol abuse. One sister is struggling with alcohol abuse. Medications and Allergies Home Medications Medication Instructions Recorded Confirmed Type Ergocalciferol [Vitamin D2] 50,000 unit PO Q7D 02/15/17 02/15/17 History Allergies Allergy/AdvReac Type Severity Reaction Status Date / Time No Known Allergies Allergy Verified 02/15/17 09:33 Physical Exam Vitals: Vital Signs Pulse Pulse Resp BP Pulse Ox 02/16/17 11:42 11 L 02/16/17 11:00 76 11 L 111/65 99 02/16/17 10:00 75 12 100 02/16/17 09:00 74 17 98 02/16/17 08:00 70 15 98 02/16/17 07:54 14 02/16/17 07:00 76 21 98 02/16/17 06:00 72 16 98 02/16/17 05:00 72 12 99 02/16/17 04:00 71 14 97 02/16/17 03:00 70 12 100 02/16/17 02:00 69 14 100 02/16/17 01:00 68 16 99 02/16/17 00:00 79 12 98 02/15/17 23:41 93 02/15/17 23:27 77 02/15/17 23:00 77 12 100 02/15/17 22:00 81 12 100 02/15/17 21:00 87 12 100 02/15/17 20:00 98 12 100 02/15/17 19:35 100 02/15/17 19:25 103 H 02/15/17 19:00 100 16 100 02/15/17 18:00 118 H 20 100 02/15/17 17:45 123 H 16 02/15/17 17:43 119 H 16 100 Intake and Output 02/15/17 02/16/17 02/16/17 22:59 06:59 14:59 Intake Total 764.468 9533.638 319.846 Output Total 3399 859 425 Balance -2683.604 654.638 -105.154 Intake: IV 690.4 1236.7 313.6 ACETAMINOPHEN IV (For NPO 200 ) 1,000 mg In Empty Bag 1 bag @ 400 mls/hr IVPB Q6HR [facility] Rx#:[id number] Albumin Human 5% 250 ml 250 In Empty Bag 1 bag @ 250 mls/hr IVPB Q1HR PRN Rx#: [id number] Amiodarone 450 mg In 99.9 166.2 16.6 Dextrose 5% in Water 250 ml @ 1 MG/MIN 33.33 mls/ hr IV .Q7H31M [facility] Rx#: [id number] CO/CI 100 80 20 Calcium Gluconate 2,000 100 mg In Sodium Chloride 0.9 % 100 ml @ 100 mls/hr IVPB ONCE PRN Rx#: [id number] LR 250 370 250 Nitroglycerin-D5w Pmx 50 4.5 22.5 3 mg In Dextrose/Water 1 250ml.bag @ 5 MCG/MIN 1.5 mls/hr IV .Q24H [facility] Rx#: [id number] ceFAZolin 2 gm In Sodium 100 100 Chloride 0.9% 30 ml @ 60 mls/hr IVPB ONCE ONE Rx#: [id number] pressure bags 36 48 24 Intake, IV Titration 24.996 246.938 6.246 Amount Amiodarone 450 mg In 231.084 Dextrose 5% in Water 250 ml @ 1 MG/MIN 33.33 mls/ hr IV .Q7H31M [facility] Rx#: [id number] Insulin Regular 100 unit 3.088 13.409 6.246 In Sodium Chloride 0.9% 100 ml @ Per Protocol IV .Q0M [facility] Rx#:[id number] Propofol 1,000 mg In 100 21.908 2.445 ml @ Titrate IV .Q0M [facility] Rx#:[id number] Oral 30 Output: Chest Tube Drainage 802 474 170 Left Pleural 352 144 50 MS x2 450 330 120 Gastric Drainage 0 0 Urine 1397 385 255 Estimated Blood Loss 1200 Other: Voiding Method Indwelling Catheter Indwelling Catheter Indwelling Catheter Weight 61.6 kg ABP, PAP, CO, CI - Last 8 Hours Arterial Blood Pressure 122/99 Arterial Blood Pressure 124/97 Arterial Blood Pressure 125/60 Arterial Blood Pressure 140/53 Arterial Blood Pressure 131/45 Arterial Blood Pressure 137/50 Arterial Blood Pressure 133/57 Pulmonary Artery Pressure 25/5 Pulmonary Artery Pressure 22/8 Pulmonary Artery Pressure 23/10 Pulmonary Artery Pressure 22/8 Pulmonary Artery Pressure 24/9 Pulmonary Artery Pressure 23/9 Pulmonary Artery Pressure 22/9 Pulmonary Artery Pressure 24/11 Cardiac Output 5.2 Cardiac Output 4.9 Cardiac Output 4.9 Cardiac Output 4.9 Cardiac Output 6.3 Cardiac Output 6.3 Cardiac Output 6.3 Cardiac Output 6.3 Cardiac Index 3 Cardiac Index 2.8 - Constitutional General appearance: cooperative, in acute distress, thin - EENT Eyes: anicteric sclerae, PERRLA, normal appearance ENT: hearing grossly normal - Neck Neck: no lymphadenopathy, normal ROM, no other, no rigidity, no stridor, no thyromegaly - Respiratory Respiratory: bilateral: CTA, negative: diminished, dullness, rales, rhonchi - Cardiovascular Rhythm: tachycardic, difficult to assess with intraaortic ballon pump Heart sounds: normal: S1, S2 Abnormal Heart Sounds: no systolic murmur, no diastolic murmur, no rub appreciated , no S3 Gallop, no S4 Gallop, no click, no other - Gastrointestinal General gastrointestinal: normal bowel sounds, soft - Integumentary Integumentary: no rash, intraaortic pump in the right groin with no sign of superficial bleeding - Neurologic Neurologic: CNII-XII intact - Musculoskeletal Musculoskeletal: gait normal, strength equal bilaterally - Psychiatric Psychiatric: A&O x's 3, appropriate affect Results CBC & Chem 7: 02/16/17 05:36 02/16/17 05:36 Labs: Abnormal Lab Results - Last 24 Hours (Table) 02/15/17 02/15/17 02/15/17 Range/Units 10:30 12:15 12:15 WBC (3.8-10.6) k/uL RBC (4.30-5.90) m/uL Hgb (13.0-17.5) gm/dL Hct (39.0-53.0) % Plt Count (150-450) k/uL Neutrophils # (1.3-7.7) k/uL Lymphocytes # (1.0-4.8) k/uL PT (9.0-12.0) sec INR (<1.2) ABG pH (7.35-7.45) ABG pCO2 29 L (35-45) mmHg ABG pO2 353 H (83-108) mmHg ABG HCO3 20 L (21-25) mmol/L ABG Total CO2 (19-24) mmol/L ABG O2 Saturation 100.0 H (94-97) % ABG Hematocrit (34.0-46.0) % ABG Sodium (135-146) mmol/L ABG Potassium (3.4-4.5) mmol/L Sodium (137-145) mmol/L Carbon Dioxide (22-30) mmol/L Glucose (74-99) mg/dL POC Glucose (mg/dL) 107 H (75-99) mg/dL Calcium (8.4-10.2) mg/dL Ionized Calcium Teri (4.5-5.3) mg/dL Magnesium (1.6-2.3) mg/dL AST (17-59) U/L Alkaline Phosphatase (38-126) U/L Total Protein (6.3-8.2) g/dL Albumin (3.5-5.0) g/dL Arterial Blood Potassium (3.4-4.5) mmol/L Crossmatch See Detail 02/15/17 02/15/17 02/15/17 Range/Units 13:20 13:21 14:16 WBC (3.8-10.6) k/uL RBC (4.30-5.90) m/uL Hgb (13.0-17.5) gm/dL Hct (39.0-53.0) % Plt Count (150-450) k/uL Neutrophils # (1.3-7.7) k/uL Lymphocytes # (1.0-4.8) k/uL PT (9.0-12.0) sec INR (<1.2) ABG pH (7.35-7.45) ABG pCO2 (35-45) mmHg ABG pO2 265 H (83-108) mmHg ABG HCO3 (21-25) mmol/L ABG Total CO2 (19-24) mmol/L ABG O2 Saturation 99.9 H (94-97) % ABG Hematocrit (34.0-46.0) % ABG Sodium (135-146) mmol/L ABG Potassium (3.4-4.5) mmol/L Sodium (137-145) mmol/L Carbon Dioxide (22-30) mmol/L Glucose (74-99) mg/dL POC Glucose (mg/dL) 126 H 240 H (75-99) mg/dL Calcium (8.4-10.2) mg/dL Ionized Calcium Teri (4.5-5.3) mg/dL Magnesium (1.6-2.3) mg/dL AST (17-59) U/L Alkaline Phosphatase (38-126) U/L Total Protein (6.3-8.2) g/dL Albumin (3.5-5.0) g/dL Arterial Blood Potassium (3.4-4.5) mmol/L Crossmatch 02/15/17 02/15/17 02/15/17 Range/Units 14:16 14:44 14:44 WBC (3.8-10.6) k/uL RBC (4.30-5.90) m/uL Hgb (13.0-17.5) gm/dL Hct (39.0-53.0) % Plt Count (150-450) k/uL Neutrophils # (1.3-7.7) k/uL Lymphocytes # (1.0-4.8) k/uL PT (9.0-12.0) sec INR (<1.2) ABG pH (7.35-7.45) ABG pCO2 (35-45) mmHg ABG pO2 356 H 303 H (83-108) mmHg ABG HCO3 (21-25) mmol/L ABG Total CO2 25 H (19-24) mmol/L ABG O2 Saturation 99.9 H 99.9 H (94-97) % ABG Hematocrit 30 L 32 L (34.0-46.0) % ABG Sodium 133 L 133 L (135-146) mmol/L ABG Potassium 5.0 H 6.1 H (3.4-4.5) mmol/L Sodium (137-145) mmol/L Carbon Dioxide (22-30) mmol/L Glucose (74-99) mg/dL POC Glucose (mg/dL) 302 H (75-99) mg/dL Calcium (8.4-10.2) mg/dL Ionized Calcium Teri (4.5-5.3) mg/dL Magnesium (1.6-2.3) mg/dL AST (17-59) U/L Alkaline Phosphatase (38-126) U/L Total Protein (6.3-8.2) g/dL Albumin (3.5-5.0) g/dL Arterial Blood Potassium 5.0 H 6.1 H (3.4-4.5) mmol/L Crossmatch 02/15/17 02/15/17 02/15/17 Range/Units 15:17 15:17 16:39 WBC (3.8-10.6) k/uL RBC (4.30-5.90) m/uL Hgb (13.0-17.5) gm/dL Hct (39.0-53.0) % Plt Count (150-450) k/uL Neutrophils # (1.3-7.7) k/uL Lymphocytes # (1.0-4.8) k/uL PT (9.0-12.0) sec INR (<1.2) ABG pH 7.32 L (7.35-7.45) ABG pCO2 (35-45) mmHg ABG pO2 275 H (83-108) mmHg ABG HCO3 (21-25) mmol/L ABG Total CO2 (19-24) mmol/L ABG O2 Saturation 99.9 H (94-97) % ABG Hematocrit 33 L (34.0-46.0) % ABG Sodium (135-146) mmol/L ABG Potassium 4.8 H (3.4-4.5) mmol/L Sodium (137-145) mmol/L Carbon Dioxide (22-30) mmol/L Glucose (74-99) mg/dL POC Glucose (mg/dL) 255 H 145 H (75-99) mg/dL Calcium (8.4-10.2) mg/dL Ionized Calcium Teri (4.5-5.3) mg/dL Magnesium (1.6-2.3) mg/dL AST (17-59) U/L Alkaline Phosphatase (38-126) U/L Total Protein (6.3-8.2) g/dL Albumin (3.5-5.0) g/dL Arterial Blood Potassium 4.8 H (3.4-4.5) mmol/L Crossmatch 02/15/17 02/15/17 02/15/17 Range/Units 16:39 17:53 17:55 WBC 11.2 H (3.8-10.6) k/uL RBC 3.91 L (4.30-5.90) m/uL Hgb 11.9 L D (13.0-17.5) gm/dL Hct 35.7 L (39.0-53.0) % Plt Count 137 L (150-450) k/uL Neutrophils # 10.2 H (1.3-7.7) k/uL Lymphocytes # 0.6 L (1.0-4.8) k/uL PT (9.0-12.0) sec INR (<1.2) ABG pH 7.32 L (7.35-7.45) ABG pCO2 (35-45) mmHg ABG pO2 129 H (83-108) mmHg ABG HCO3 (21-25) mmol/L ABG Total CO2 (19-24) mmol/L ABG O2 Saturation 98.6 H (94-97) % ABG Hematocrit (34.0-46.0) % ABG Sodium (135-146) mmol/L ABG Potassium (3.4-4.5) mmol/L Sodium (137-145) mmol/L Carbon Dioxide (22-30) mmol/L Glucose (74-99) mg/dL POC Glucose (mg/dL) 121 H (75-99) mg/dL Calcium (8.4-10.2) mg/dL Ionized Calcium Teri (4.5-5.3) mg/dL Magnesium (1.6-2.3) mg/dL AST (17-59) U/L Alkaline Phosphatase (38-126) U/L Total Protein (6.3-8.2) g/dL Albumin (3.5-5.0) g/dL Arterial Blood Potassium (3.4-4.5) mmol/L Crossmatch 02/15/17 02/15/17 02/15/17 Range/Units 17:55 17:55 18:43 WBC (3.8-10.6) k/uL RBC (4.30-5.90) m/uL Hgb (13.0-17.5) gm/dL Hct (39.0-53.0) % Plt Count (150-450) k/uL Neutrophils # (1.3-7.7) k/uL Lymphocytes # (1.0-4.8) k/uL PT 12.7 H (9.0-12.0) sec INR 1.3 H (<1.2) ABG pH 7.31 L (7.35-7.45) ABG pCO2 (35-45) mmHg ABG pO2 336 H (83-108) mmHg ABG HCO3 (21-25) mmol/L ABG Total CO2 (19-24) mmol/L ABG O2 Saturation 100.0 H (94-97) % ABG Hematocrit (34.0-46.0) % ABG Sodium (135-146) mmol/L ABG Potassium (3.4-4.5) mmol/L Sodium 134 L (137-145) mmol/L Carbon Dioxide 21 L (22-30) mmol/L Glucose 115 H (74-99) mg/dL POC Glucose (mg/dL) (75-99) mg/dL Calcium 6.6 L (8.4-10.2) mg/dL Ionized Calcium Teri 4.1 L (4.5-5.3) mg/dL Magnesium 2.5 H (1.6-2.3) mg/dL AST 108 H (17-59) U/L Alkaline Phosphatase (38-126) U/L Total Protein 4.9 L (6.3-8.2) g/dL Albumin 3.2 L (3.5-5.0) g/dL Arterial Blood Potassium (3.4-4.5) mmol/L Crossmatch 02/15/17 02/15/17 02/15/17 Range/Units 18:46 20:17 21:15 WBC 13.0 H (3.8-10.6) k/uL RBC 3.67 L (4.30-5.90) m/uL Hgb 11.2 L (13.0-17.5) gm/dL Hct 33.6 L (39.0-53.0) % Plt Count (150-450) k/uL Neutrophils # 11.7 H (1.3-7.7) k/uL Lymphocytes # 0.5 L (1.0-4.8) k/uL PT (9.0-12.0) sec INR (<1.2) ABG pH (7.35-7.45) ABG pCO2 (35-45) mmHg ABG pO2 (83-108) mmHg ABG HCO3 (21-25) mmol/L ABG Total CO2 (19-24) mmol/L ABG O2 Saturation (94-97) % ABG Hematocrit (34.0-46.0) % ABG Sodium (135-146) mmol/L ABG Potassium (3.4-4.5) mmol/L Sodium (137-145) mmol/L Carbon Dioxide (22-30) mmol/L Glucose (74-99) mg/dL POC Glucose (mg/dL) 159 H 133 H (75-99) mg/dL Calcium (8.4-10.2) mg/dL Ionized Calcium Teri (4.5-5.3) mg/dL Magnesium (1.6-2.3) mg/dL AST (17-59) U/L Alkaline Phosphatase (38-126) U/L Total Protein (6.3-8.2) g/dL Albumin (3.5-5.0) g/dL Arterial Blood Potassium (3.4-4.5) mmol/L Crossmatch 02/15/17 02/15/17 02/15/17 Range/Units 21:15 21:15 21:15 WBC (3.8-10.6) k/uL RBC (4.30-5.90) m/uL Hgb (13.0-17.5) gm/dL Hct (39.0-53.0) % Plt Count (150-450) k/uL Neutrophils # (1.3-7.7) k/uL Lymphocytes # (1.0-4.8) k/uL PT (9.0-12.0) sec INR 1.2 H (<1.2) ABG pH (7.35-7.45) ABG pCO2 (35-45) mmHg ABG pO2 (83-108) mmHg ABG HCO3 (21-25) mmol/L ABG Total CO2 (19-24) mmol/L ABG O2 Saturation (94-97) % ABG Hematocrit (34.0-46.0) % ABG Sodium (135-146) mmol/L ABG Potassium (3.4-4.5) mmol/L Sodium 134 L (137-145) mmol/L Carbon Dioxide (22-30) mmol/L Glucose 107 H (74-99) mg/dL POC Glucose (mg/dL) 115 H (75-99) mg/dL Calcium 7.9 L (8.4-10.2) mg/dL Ionized Calcium Teri (4.5-5.3) mg/dL Magnesium 2.4 H (1.6-2.3) mg/dL AST (17-59) U/L Alkaline Phosphatase (38-126) U/L Total Protein (6.3-8.2) g/dL Albumin (3.5-5.0) g/dL Arterial Blood Potassium (3.4-4.5) mmol/L Crossmatch 02/15/17 02/15/17 02/15/17 Range/Units 22:06 23:10 23:22 WBC (3.8-10.6) k/uL RBC (4.30-5.90) m/uL Hgb (13.0-17.5) gm/dL Hct (39.0-53.0) % Plt Count (150-450) k/uL Neutrophils # (1.3-7.7) k/uL Lymphocytes # (1.0-4.8) k/uL PT (9.0-12.0) sec INR (<1.2) ABG pH (7.35-7.45) ABG pCO2 (35-45) mmHg ABG pO2 (83-108) mmHg ABG HCO3 (21-25) mmol/L ABG Total CO2 (19-24) mmol/L ABG O2 Saturation 98.0 H (94-97) % ABG Hematocrit (34.0-46.0) % ABG Sodium (135-146) mmol/L ABG Potassium (3.4-4.5) mmol/L Sodium (137-145) mmol/L Carbon Dioxide (22-30) mmol/L Glucose (74-99) mg/dL POC Glucose (mg/dL) 129 H 166 H (75-99) mg/dL Calcium (8.4-10.2) mg/dL Ionized Calcium Teri (4.5-5.3) mg/dL Magnesium (1.6-2.3) mg/dL AST (17-59) U/L Alkaline Phosphatase (38-126) U/L Total Protein (6.3-8.2) g/dL Albumin (3.5-5.0) g/dL Arterial Blood Potassium (3.4-4.5) mmol/L Crossmatch 02/16/17 02/16/17 02/16/17 Range/Units 00:04 01:04 02:03 WBC (3.8-10.6) k/uL RBC (4.30-5.90) m/uL Hgb (13.0-17.5) gm/dL Hct (39.0-53.0) % Plt Count (150-450) k/uL Neutrophils # (1.3-7.7) k/uL Lymphocytes # (1.0-4.8) k/uL PT (9.0-12.0) sec INR (<1.2) ABG pH (7.35-7.45) ABG pCO2 (35-45) mmHg ABG pO2 (83-108) mmHg ABG HCO3 (21-25) mmol/L ABG Total CO2 (19-24) mmol/L ABG O2 Saturation (94-97) % ABG Hematocrit (34.0-46.0) % ABG Sodium (135-146) mmol/L ABG Potassium (3.4-4.5) mmol/L Sodium (137-145) mmol/L Carbon Dioxide (22-30) mmol/L Glucose (74-99) mg/dL POC Glucose (mg/dL) 188 H 184 H 157 H (75-99) mg/dL Calcium (8.4-10.2) mg/dL Ionized Calcium Teri (4.5-5.3) mg/dL Magnesium (1.6-2.3) mg/dL AST (17-59) U/L Alkaline Phosphatase (38-126) U/L Total Protein (6.3-8.2) g/dL Albumin (3.5-5.0) g/dL Arterial Blood Potassium (3.4-4.5) mmol/L Crossmatch 02/16/17 02/16/17 02/16/17 Range/Units 03:08 04:07 05:18 WBC (3.8-10.6) k/uL RBC (4.30-5.90) m/uL Hgb (13.0-17.5) gm/dL Hct (39.0-53.0) % Plt Count (150-450) k/uL Neutrophils # (1.3-7.7) k/uL Lymphocytes # (1.0-4.8) k/uL PT (9.0-12.0) sec INR (<1.2) ABG pH (7.35-7.45) ABG pCO2 (35-45) mmHg ABG pO2 (83-108) mmHg ABG HCO3 (21-25) mmol/L ABG Total CO2 (19-24) mmol/L ABG O2 Saturation (94-97) % ABG Hematocrit (34.0-46.0) % ABG Sodium (135-146) mmol/L ABG Potassium (3.4-4.5) mmol/L Sodium (137-145) mmol/L Carbon Dioxide (22-30) mmol/L Glucose (74-99) mg/dL POC Glucose (mg/dL) 142 H 148 H 143 H (75-99) mg/dL Calcium (8.4-10.2) mg/dL Ionized Calcium Teri (4.5-5.3) mg/dL Magnesium (1.6-2.3) mg/dL AST (17-59) U/L Alkaline Phosphatase (38-126) U/L Total Protein (6.3-8.2) g/dL Albumin (3.5-5.0) g/dL Arterial Blood Potassium (3.4-4.5) mmol/L Crossmatch 02/16/17 02/16/17 02/16/17 Range/Units 05:36 05:36 05:36 WBC 11.7 H (3.8-10.6) k/uL RBC 3.34 L (4.30-5.90) m/uL Hgb 10.2 L (13.0-17.5) gm/dL Hct 30.0 L (39.0-53.0) % Plt Count 146 L (150-450) k/uL Neutrophils # 10.8 H (1.3-7.7) k/uL Lymphocytes # 0.2 L (1.0-4.8) k/uL PT 12.2 H (9.0-12.0) sec INR 1.2 H (<1.2) ABG pH (7.35-7.45) ABG pCO2 (35-45) mmHg ABG pO2 (83-108) mmHg ABG HCO3 (21-25) mmol/L ABG Total CO2 (19-24) mmol/L ABG O2 Saturation (94-97) % ABG Hematocrit (34.0-46.0) % ABG Sodium (135-146) mmol/L ABG Potassium (3.4-4.5) mmol/L Sodium 133 L (137-145) mmol/L Carbon Dioxide (22-30) mmol/L Glucose 129 H (74-99) mg/dL POC Glucose (mg/dL) (75-99) mg/dL Calcium 7.6 L (8.4-10.2) mg/dL Ionized Calcium Teri (4.5-5.3) mg/dL Magnesium (1.6-2.3) mg/dL AST 145 H (17-59) U/L Alkaline Phosphatase 36 L (38-126) U/L Total Protein 4.9 L (6.3-8.2) g/dL Albumin 3.2 L (3.5-5.0) g/dL Arterial Blood Potassium (3.4-4.5) mmol/L Crossmatch 02/16/17 02/16/17 02/16/17 Range/Units 06:02 07:10 08:11 WBC (3.8-10.6) k/uL RBC (4.30-5.90) m/uL Hgb (13.0-17.5) gm/dL Hct (39.0-53.0) % Plt Count (150-450) k/uL Neutrophils # (1.3-7.7) k/uL Lymphocytes # (1.0-4.8) k/uL PT (9.0-12.0) sec INR (<1.2) ABG pH (7.35-7.45) ABG pCO2 (35-45) mmHg ABG pO2 (83-108) mmHg ABG HCO3 (21-25) mmol/L ABG Total CO2 (19-24) mmol/L ABG O2 Saturation (94-97) % ABG Hematocrit (34.0-46.0) % ABG Sodium (135-146) mmol/L ABG Potassium (3.4-4.5) mmol/L Sodium (137-145) mmol/L Carbon Dioxide (22-30) mmol/L Glucose (74-99) mg/dL POC Glucose (mg/dL) 136 H 143 H 143 H (75-99) mg/dL Calcium (8.4-10.2) mg/dL Ionized Calcium Teri (4.5-5.3) mg/dL Magnesium (1.6-2.3) mg/dL AST (17-59) U/L Alkaline Phosphatase (38-126) U/L Total Protein (6.3-8.2) g/dL Albumin (3.5-5.0) g/dL Arterial Blood Potassium (3.4-4.5) mmol/L Crossmatch 02/16/17 02/16/17 02/16/17 Range/Units 09:12 10:31 11:35 WBC (3.8-10.6) k/uL RBC (4.30-5.90) m/uL Hgb (13.0-17.5) gm/dL Hct (39.0-53.0) % Plt Count (150-450) k/uL Neutrophils # (1.3-7.7) k/uL Lymphocytes # (1.0-4.8) k/uL PT (9.0-12.0) sec INR (<1.2) ABG pH (7.35-7.45) ABG pCO2 (35-45) mmHg ABG pO2 (83-108) mmHg ABG HCO3 (21-25) mmol/L ABG Total CO2 (19-24) mmol/L ABG O2 Saturation (94-97) % ABG Hematocrit (34.0-46.0) % ABG Sodium (135-146) mmol/L ABG Potassium (3.4-4.5) mmol/L Sodium (137-145) mmol/L Carbon Dioxide (22-30) mmol/L Glucose (74-99) mg/dL POC Glucose (mg/dL) 145 H 123 H 141 H (75-99) mg/dL Calcium (8.4-10.2) mg/dL Ionized Calcium Teri (4.5-5.3) mg/dL Magnesium (1.6-2.3) mg/dL AST (17-59) U/L Alkaline Phosphatase (38-126) U/L Total Protein (6.3-8.2) g/dL Albumin (3.5-5.0) g/dL Arterial Blood Potassium (3.4-4.5) mmol/L Crossmatch Thrombosis Risk Factor Assmnt - DVT/VTE Prophylaxis DVT/VTE Prophylaxis: Mechanical Prophylaxis ordered - Choose All That Apply Each Factor Represents 1 point: Acute NV, History of prior major surgery (< 1month), Medical pt on bed rest Other Risk Factors: Yes Each Risk Factor Represents 2 Points: Central venous access, Major surgery, Patient confined to bed Other congenital or acquired thrombophilia - If yes, enter type in comment: No Each Risk Factor Represents 5 Points: Major surgery lasting over 3 hours Thrombosis Risk Factor Assessment Total Risk Factor Score: 14 Thrombosis Risk Factor Assessment Level: High Risk Assessment and Plan Plan: 1. Inferior STEMI s/p emergent CABG - Continue aspirin, plavix, metoprolol, lipitor. EKG with inferior wall STEMI, goal LDL < 70, troponin q6 hr until peaks. Plan to remove intraaortic balloon pump, COntinue care in the ICU until patient stabilizes 2. Persistent pain with EKG with diffuse ST elevation concerning for pericarditis. Continue ketorolac 15 mg q6hr, EKG next am. 3 h/o CVA 2005- patient discontinued aspirin and statin for concern for bruising. Continue statin. LDL goal < 70 4. DVT prophylaxis - Continue SCD while in bed 5. GI prophylaixis - protonix 40 mg iv daily 6. Code status - full code 7. Disposition - patient will require ICU care for the next 2 days 8. Condition - guarded
[2017-02-16 13:37] LABS: Glucose,Whole Blood 118 mg/dL (75-99)
[2017-02-16] MEDS: KETOROLAC 30 MG/ML 1 ML VIAL IVP SCH ×2 (13:50→20:24)
[2017-02-16 14:20] LABS: Glucose,Whole Blood 128 mg/dL (75-99)
[2017-02-16 15:44] LABS: Glucose,Whole Blood 137 mg/dL (75-99)
[2017-02-16] MEDS ORDERED: BISACODYL 10 MG SUPP RECTAL PRN (16:40)
[2017-02-16] MEDS ORDERED: HYDROcodone/APAP 5-325MG 1 EACH TAB PO PRN ×2 (16:40)
[2017-02-16] MEDS ORDERED: MAGNESIUM HYDROXIDE 2,400 MG/10 ML CUP PO PRN (16:41)
[2017-02-16] MEDS ORDERED: IPRATROPIUM-ALBUTEROL 3 ML NEB INHALATION PRN (16:41)
[2017-02-16 17:13] LABS: Glucose,Whole Blood 116 mg/dL (75-99)
[2017-02-16] MEDS: INSULIN LISPRO (humaLOG) 300 UNIT/3 ML VIAL SQ SCH ×2 (18:24→21:08)
[2017-02-16 21:00] LABS: Glucose,Whole Blood 108 mg/dL (75-99)
[2017-02-16] MEDS: LACTATED RINGERS 1,000 ML IV SCH (21:07)
[2017-02-16] MEDS: SENNOSIDES-DOCUSATE SODIUM 1 EACH TAB PO SCH (21:12)
[2017-02-17] MEDS: KETOROLAC 30 MG/ML 1 ML VIAL IVP SCH ×5 (00:28→23:34)
[2017-02-17] MEDS: HEPARIN SODIUM,PORCINE 5,000 UNIT/ML 1 ML VIAL SQ SCH ×4 (00:33→23:33)
[2017-02-17 05:36] LABS: Basophils % (A) 0 %; CH 29.9; CHCM 32.9; Eosinophils % (A) 0 %; HDW 2.52; HGB 9.4 gm/dL (13.0-17.5); Luc # (Auto) 0.12; Luc % (Auto) 1; Lymphocytes # (A) 0.9 k/uL (1.0-4.8); Lymphocytes % (A) 9 %; MCH 30.6 pg (25.0-35.0); MCHC 33.5 g/dL (31.0-37.0); MCV 91.3 fL (80.0-100.0); Mean Platelet Volume 6.8; Monocytes # (A) 0.5 k/uL (0-1.0); Monocytes % (A) 5 %; Neutrophils # (A) 8.7 k/uL (1.3-7.7); Neutrophils % (A) 84 %; RBC 3.07 m/uL (4.30-5.90); RDW 13.6 % (11.5-15.5); WBC 10.4 k/uL (3.8-10.6); WBC (Perox) 10.35
[2017-02-17 05:41] LABS: Ionized Calcium 4.6 mg/dL (4.5-5.3)
[2017-02-17 05:47] LABS: ALT 33 U/L (21-72); AST 83 U/L (17-59); Alkaline Phosphatase 47 U/L (38-126); Anion Gap 3 mmol/L; Blood Urea Nitrogen 12 mg/dL (9-20); Calcium 7.9 mg/dL (8.4-10.2); Carbon Dioxide 27 mmol/L (22-30); Chloride 102 mmol/L (98-107); Glucose 98 mg/dL (74-99); Non-African American GFR(MDRD) >60 (>60 ml/min/1.73 sqM); Potassium 4.1 mmol/L (3.5-5.1); Sodium 132 mmol/L (137-145); Total Bilirubin 0.5 mg/dL (0.2-1.3); Total Protein 4.2 g/dL (6.3-8.2)
[2017-02-17] MEDS: ONDANSETRON 4 MG/2 ML VIAL IVP PRN (06:29)
--- NOTE | 2017-02-17 07:13 | XR ---
EXAMINATION TYPE: XR chest 1V portable DATE OF EXAM: 02/17/2017 COMPARISON: 02/16/2017 HISTORY: Shortness of breath TECHNIQUE: Single frontal view of the chest is obtained. FINDINGS: Interval removal of the right [place] catheter with the right internal jugular catheter sheath remaining in place. Mediastinal drains, median sternotomy wires, mediastinal clips, and left t horacostomy tube are unchanged in position. No residual left pneumothorax. Scattered areas of subsegm ental atelectasis are present without focal consolidation. Improved aeration of the lungs in comparis on to the prior exam. Aortic balloon pump is no longer visualized. Epicardial pacing leads are again seen. IMPRESSION: 1. Improved aeration of the lungs with scattered areas of subsegmental residual atelectasis. 2. Removal of the [place] catheter with right internal jugular central venous catheter sheath manisha kohli. 3. Postsurgical changes of the chest is stable left thoracostomy with no residual visualized pneumoth orax.
[2017-02-17] MEDS: ALBUMIN HUMAN 5% 250 ML in EMPTY BAG 1 BAG IVPB PRN (07:24)
[2017-02-17 07:29] LABS: Glucose,Whole Blood 110 mg/dL (75-99)
[2017-02-17] MEDS: INSULIN LISPRO (humaLOG) 300 UNIT/3 ML VIAL SQ SCH ×4 (07:40→21:46)
[2017-02-17] MEDS: PANTOPRAZOLE 40 MG TABLET PO SCH (08:16)
[2017-02-17] MEDS: AMIODARONE 200 MG TAB PO SCH ×2 (08:16→21:46)
[2017-02-17] MEDS: CLOPIDOGREL 75 MG TAB PO SCH (08:17)
[2017-02-17] MEDS: ATORVASTATIN 40 MG TAB PO SCH (08:17)
[2017-02-17] MEDS: ASPIRIN 325 MG TAB PO SCH (08:17)
[2017-02-17] MEDS: MUPIROCIN 2% OINT 22 GM TUBE NASAL SCH ×2 (08:18→21:47)
--- NOTE | 2017-02-17 08:19 | PN ---
PROGRESS NOTE Mr. Salgado is a 61-year-old male who presented with an acute myocardial infarction was found to have critical left main disease, underwent emergency coronary artery bypass grafting. He had an episode of atrial fibrillation that resolved. He has continued to be in sinus mechanism for over 24 hours. He is feeling well. He has some chest soreness. His breathing has been stable. He denies any dizziness or palpitation. His appetite has been stable. He got hypotensive when he stood up earlier and he is receiving some fluids. He is back in bed at this time. Continues to be in sinus mechanism. Continues to be on aspirin once a day, amiodarone 400 mg twice a day, Lipitor 40 mg daily, Plavix 75 mg daily, metoprolol tartrate 12.5 mg twice a day. PHYSICAL EXAMINATION: Blood pressure 101/60 with a heart in the 80s. LUNGS: No wheezes or rales. Mild decrease in breath sounds at bases. Heart regular rate rhythm, S1, S2 plus rub. No gallop. ABDOMEN: Soft, nontender. Positive bowel sounds no megaly. EXTREMITIES: No edema. Fernando wrapping in place. LAB DATA: BUN and creatinine 12 and 0.8. His peak troponin is 16. His chest x-ray performed today revealed no evidence of infiltrate. IMPRESSION: 1. Status post emergent coronary artery bypass grafting stable. 2. Evidence of pericarditis. 3. Hyperlipidemia. RECOMMENDATION: I reviewed the results of his echocardiogram that was done preoperatively. Continue to increase his level of activity. Continue incentive spirometry. Depending on his progress, patient may be able to be transferred to the telemetry floor soon. MMODL / RICON: [id number] /
--- NOTE | 2017-02-17 08:43 | P.PN ---
<Tory Ledbetter - Last Filed: 02/17/17 08:35> Subjective Progress Note Date: 02/17/17 Principal diagnosis: Severe symptomatically coronary artery disease with left main disease, STEMI. History of stroke in 2006. Previous tobacco dependence. Family history of coronary artery disease. Hyperlipidemia. POD #2 emergent coronary artery bypass graft surgery 3 vessels, left internal mammary artery to the left anterior descending artery, reverse saphenous vein graft to the diagonal artery, reverse saphenous vein graft to the obtuse marginal artery. Endoscopic vein harvesting right greater saphenous vein. Epi- aortic ultrasound. Intraoperative transesophageal echocardiogram. Graft flow measurement using the [employer] system. Postoperative paroxysmal atrial fibrillation, and expected outcome of surgery. Patient is currently laying in bed in no acute distress. Denies pain, shortness of breath. Had an episode of orthostatic hypotension last night, resolved. Balloon pump discontinued yesterday. Objective - Vital Signs Vital signs: Vital Signs Temp 98.7 F 02/16/17 20:00 Pulse 81 02/17/17 07:00 Resp 15 02/17/17 07:00 BP 101/61 02/17/17 07:00 Pulse Ox 94 L 02/17/17 07:00 Intake & Output 02/16/17 02/17/17 02/17/17 18:59 06:59 18:59 Intake Total 975.564 399 Output Total 1472 1483 Balance -496.436 -1084 Weight 64.6 kg Intake: IV 733.6 399 ACETAMINOPHEN IV (For NPO 100 100 ) 1,000 mg In Empty Bag 1 bag @ 400 mls/hr IVPB Q6HR [facility] Rx#:[id number] Amiodarone 450 mg In 16.6 Dextrose 5% in Water 250 ml @ 1 MG/MIN 33.33 mls/ hr IV .Q7H31M [facility] Rx#: [id number] CO/CI 20 LR 540 260 Nitroglycerin-D5w Pmx 50 3 mg In Dextrose/Water 1 250ml.bag @ 5 MCG/MIN 1.5 mls/hr IV .Q24H [facility] Rx#: [id number] pressure bags 54 39 Intake, IV Titration 241.964 Amount Amiodarone 450 mg In 234.351 Dextrose 5% in Water 250 ml @ 1 MG/MIN 33.33 mls/ hr IV .Q7H31M [facility] Rx#: [id number] Insulin Regular 100 unit 7.613 In Sodium Chloride 0.9% 100 ml @ Per Protocol IV .Q0M [facility] Rx#:[id number] Output: Chest Tube Drainage 710 200 Left Pleural 80 40 MS x2 630 160 Urine 762 1283 Other: Voiding Method Indwelling Catheter Indwelling Catheter ABP, PAP, CO, CI - Last Documented Arterial Blood Pressure 100/85 Pulmonary Artery Pressure 25/5 Cardiac Output 5.2 Cardiac Index 3 - Constitutional General appearance: Present: cooperative, no acute distress - Respiratory Details: Lungs sounds diminished bilaterally. Respirations even, nonlabored. Currently on room air with oxygen saturation 95%. Able to achieve 1000 mL on incentive spirometry. Effective cough. Mediastinal chest tube to -20 cm wall suction, 130 mL serosanguineous drainage overnight, 700 mL last 24 hours. Left pleural chest tube to -20 cm wall suction, 40 mL serous serosanguineous drainage overnight, 150 mL the last 24 hours. No air leaks present. Chest x-ray reviewed, stable at this time. - Cardiovascular Details: S1, S2 present. Positive pericardial rub. Regular rate and rhythm, normal sinus rhythm on telemetry. Sternum stable. A/V epicardial pacemaker wires present, grounded. Right internal jugular Cordis present. Palpable pulses bilaterally. No edema present. Heart hugger in place with patient with patient demonstrating appropriate use. Antiembolism stockings/SCDs present. - Gastrointestinal Gastrointestinal Comment(s): Abdomen soft, nontender, nondistended. Active bowel sounds 4 quadrants. Tolerating diet. - Genitourinary Genitourinary Comment(s): Cheney present draining clear, yellow urine. Output 35-350 mL per hour overnight. - Integumentary Integumentary Comment(s): Anterior chest incision well approximated and covered with dry intact dressing. Right lower extremity EVH site well approximated with Dermabond. - Neurologic Neurologic: Present: CNII-XII intact - Musculoskeletal Musculoskeletal: Present: gait normal, strength equal bilaterally - Psychiatric Psychiatric: Present: A&O x's 3, appropriate affect, intact judgment & insight - Allied health notes Allied health notes reviewed: nursing - Labs CBC & Chem 7: 02/17/17 05:08 02/17/17 05:08 Labs: Abnormal Lab Results - Last 24 Hours (Table) 02/15/17 02/15/17 02/15/17 Range/Units 10:30 12:15 13:20 RBC (4.30-5.90) m/uL Hgb (13.0-17.5) gm/dL Hct (39.0-53.0) % Plt Count (150-450) k/uL Neutrophils # (1.3-7.7) k/uL Lymphocytes # (1.0-4.8) k/uL ABG pH (7.35-7.45) ABG pCO2 29 L (35-45) mmHg ABG pO2 353 H 265 H (83-108) mmHg ABG HCO3 20 L (21-25) mmol/L ABG Total CO2 (19-24) mmol/L ABG O2 Saturation 100.0 H 99.9 H (94-97) % ABG Hematocrit (34.0-46.0) % ABG Sodium (135-146) mmol/L ABG Potassium (3.4-4.5) mmol/L Sodium (137-145) mmol/L POC Glucose (mg/dL) (75-99) mg/dL Calcium (8.4-10.2) mg/dL AST (17-59) U/L Troponin I (0.000-0.034) ng/mL Total Protein (6.3-8.2) g/dL Albumin (3.5-5.0) g/dL Arterial Blood Potassium (3.4-4.5) mmol/L Crossmatch See Detail 02/15/17 02/15/17 02/15/17 Range/Units 14:16 14:44 15:17 RBC (4.30-5.90) m/uL Hgb (13.0-17.5) gm/dL Hct (39.0-53.0) % Plt Count (150-450) k/uL Neutrophils # (1.3-7.7) k/uL Lymphocytes # (1.0-4.8) k/uL ABG pH 7.32 L (7.35-7.45) ABG pCO2 (35-45) mmHg ABG pO2 356 H 303 H 275 H (83-108) mmHg ABG HCO3 (21-25) mmol/L ABG Total CO2 25 H (19-24) mmol/L ABG O2 Saturation 99.9 H 99.9 H 99.9 H (94-97) % ABG Hematocrit 30 L 32 L 33 L (34.0-46.0) % ABG Sodium 133 L 133 L (135-146) mmol/L ABG Potassium 5.0 H 6.1 H 4.8 H (3.4-4.5) mmol/L Sodium (137-145) mmol/L POC Glucose (mg/dL) (75-99) mg/dL Calcium (8.4-10.2) mg/dL AST (17-59) U/L Troponin I (0.000-0.034) ng/mL Total Protein (6.3-8.2) g/dL Albumin (3.5-5.0) g/dL Arterial Blood Potassium 5.0 H 6.1 H 4.8 H (3.4-4.5) mmol/L Crossmatch 02/15/17 02/16/17 02/16/17 Range/Units 16:39 08:11 09:12 RBC (4.30-5.90) m/uL Hgb (13.0-17.5) gm/dL Hct (39.0-53.0) % Plt Count (150-450) k/uL Neutrophils # (1.3-7.7) k/uL Lymphocytes # (1.0-4.8) k/uL ABG pH 7.32 L (7.35-7.45) ABG pCO2 (35-45) mmHg ABG pO2 129 H (83-108) mmHg ABG HCO3 (21-25) mmol/L ABG Total CO2 (19-24) mmol/L ABG O2 Saturation 98.6 H (94-97) % ABG Hematocrit (34.0-46.0) % ABG Sodium (135-146) mmol/L ABG Potassium (3.4-4.5) mmol/L Sodium (137-145) mmol/L POC Glucose (mg/dL) 143 H 145 H (75-99) mg/dL Calcium (8.4-10.2) mg/dL AST (17-59) U/L Troponin I (0.000-0.034) ng/mL Total Protein (6.3-8.2) g/dL Albumin (3.5-5.0) g/dL Arterial Blood Potassium (3.4-4.5) mmol/L Crossmatch 02/16/17 02/16/17 02/16/17 Range/Units 10:31 11:35 13:11 RBC (4.30-5.90) m/uL Hgb (13.0-17.5) gm/dL Hct (39.0-53.0) % Plt Count (150-450) k/uL Neutrophils # (1.3-7.7) k/uL Lymphocytes # (1.0-4.8) k/uL ABG pH (7.35-7.45) ABG pCO2 (35-45) mmHg ABG pO2 (83-108) mmHg ABG HCO3 (21-25) mmol/L ABG Total CO2 (19-24) mmol/L ABG O2 Saturation (94-97) % ABG Hematocrit (34.0-46.0) % ABG Sodium (135-146) mmol/L ABG Potassium (3.4-4.5) mmol/L Sodium (137-145) mmol/L POC Glucose (mg/dL) 123 H 141 H (75-99) mg/dL Calcium (8.4-10.2) mg/dL AST (17-59) U/L Troponin I 16.300 H* (0.000-0.034) ng/mL Total Protein (6.3-8.2) g/dL Albumin (3.5-5.0) g/dL Arterial Blood Potassium (3.4-4.5) mmol/L Crossmatch 02/16/17 02/16/17 02/16/17 Range/Units 13:35 14:18 15:23 RBC (4.30-5.90) m/uL Hgb (13.0-17.5) gm/dL Hct (39.0-53.0) % Plt Count (150-450) k/uL Neutrophils # (1.3-7.7) k/uL Lymphocytes # (1.0-4.8) k/uL ABG pH (7.35-7.45) ABG pCO2 (35-45) mmHg ABG pO2 (83-108) mmHg ABG HCO3 (21-25) mmol/L ABG Total CO2 (19-24) mmol/L ABG O2 Saturation (94-97) % ABG Hematocrit (34.0-46.0) % ABG Sodium (135-146) mmol/L ABG Potassium (3.4-4.5) mmol/L Sodium (137-145) mmol/L POC Glucose (mg/dL) 118 H 128 H 137 H (75-99) mg/dL Calcium (8.4-10.2) mg/dL AST (17-59) U/L Troponin I (0.000-0.034) ng/mL Total Protein (6.3-8.2) g/dL Albumin (3.5-5.0) g/dL Arterial Blood Potassium (3.4-4.5) mmol/L Crossmatch 02/16/17 02/16/17 02/16/17 Range/Units 17:12 20:20 20:58 RBC (4.30-5.90) m/uL Hgb (13.0-17.5) gm/dL Hct (39.0-53.0) % Plt Count (150-450) k/uL Neutrophils # (1.3-7.7) k/uL Lymphocytes # (1.0-4.8) k/uL ABG pH (7.35-7.45) ABG pCO2 (35-45) mmHg ABG pO2 (83-108) mmHg ABG HCO3 (21-25) mmol/L ABG Total CO2 (19-24) mmol/L ABG O2 Saturation (94-97) % ABG Hematocrit (34.0-46.0) % ABG Sodium (135-146) mmol/L ABG Potassium (3.4-4.5) mmol/L Sodium (137-145) mmol/L POC Glucose (mg/dL) 116 H 108 H (75-99) mg/dL Calcium (8.4-10.2) mg/dL AST (17-59) U/L Troponin I 13.600 H* (0.000-0.034) ng/mL Total Protein (6.3-8.2) g/dL Albumin (3.5-5.0) g/dL Arterial Blood Potassium (3.4-4.5) mmol/L Crossmatch 02/17/17 02/17/17 02/17/17 Range/Units 00:47 05:08 05:08 RBC 3.07 L (4.30-5.90) m/uL Hgb 9.4 L (13.0-17.5) gm/dL Hct 28.0 L (39.0-53.0) % Plt Count 124 L (150-450) k/uL Neutrophils # 8.7 H (1.3-7.7) k/uL Lymphocytes # 0.9 L (1.0-4.8) k/uL ABG pH (7.35-7.45) ABG pCO2 (35-45) mmHg ABG pO2 (83-108) mmHg ABG HCO3 (21-25) mmol/L ABG Total CO2 (19-24) mmol/L ABG O2 Saturation (94-97) % ABG Hematocrit (34.0-46.0) % ABG Sodium (135-146) mmol/L ABG Potassium (3.4-4.5) mmol/L Sodium 132 L (137-145) mmol/L POC Glucose (mg/dL) (75-99) mg/dL Calcium 7.9 L (8.4-10.2) mg/dL AST 83 H (17-59) U/L Troponin I 10.500 H* (0.000-0.034) ng/mL Total Protein 4.2 L (6.3-8.2) g/dL Albumin 2.5 L (3.5-5.0) g/dL Arterial Blood Potassium (3.4-4.5) mmol/L Crossmatch 02/17/17 Range/Units 07:27 RBC (4.30-5.90) m/uL Hgb (13.0-17.5) gm/dL Hct (39.0-53.0) % Plt Count (150-450) k/uL Neutrophils # (1.3-7.7) k/uL Lymphocytes # (1.0-4.8) k/uL ABG pH (7.35-7.45) ABG pCO2 (35-45) mmHg ABG pO2 (83-108) mmHg ABG HCO3 (21-25) mmol/L ABG Total CO2 (19-24) mmol/L ABG O2 Saturation (94-97) % ABG Hematocrit (34.0-46.0) % ABG Sodium (135-146) mmol/L ABG Potassium (3.4-4.5) mmol/L Sodium (137-145) mmol/L POC Glucose (mg/dL) 110 H (75-99) mg/dL Calcium (8.4-10.2) mg/dL AST (17-59) U/L Troponin I (0.000-0.034) ng/mL Total Protein (6.3-8.2) g/dL Albumin (3.5-5.0) g/dL Arterial Blood Potassium (3.4-4.5) mmol/L Crossmatch - Imaging and Cardiology Chest x-ray: report reviewed, image reviewed Assessment and Plan (1) Tobacco dependence in remission Status: Acute (2) History of stroke Status: Acute (3) Family history of heart disease Status: Acute (4) Chest pain Status: Acute (5) ST elevation myocardial infarction (STEMI) Status: Acute (6) Coronary artery disease involving left main coronary artery Status: Acute (7) Hyperlipidemia Status: Acute (8) Postoperative atrial fibrillation Status: Acute Plan: 1. Continue aspirin, statin, Plavix, heparin subcu, beta kait. Will maximize beta kait therapy as tolerated. 2. Continue amiodarone for A. fib prophylaxis. 3. Discontinue Cheney catheter, Cordis. 4. Encourage incentive spirometry use. 5. Encourage importance of drinking water and not coffee exclusively. 6. Increase activity, ambulate in hallway. Physical therapy to follow. 7. GI/DVT prophylaxis. 8. Will monitor daily labs, x-rays. 9. Insulin management per primary care service. 10. More recommendations as patient progresses. Time with Patient: Greater than 30 <Lyndon Jc - Last Filed: 02/17/17 08:59> Objective - Vital Signs Vital signs: Vital Signs Temp 98.4 F 02/17/17 08:00 Pulse 93 02/17/17 08:00 Resp 24 02/17/17 08:00 BP 111/62 02/17/17 08:00 Pulse Ox 94 L 02/17/17 08:00 Intake & Output 02/16/17 02/17/17 02/17/17 18:59 06:59 18:59 Intake Total 975.564 399 520 Output Total 1472 1483 0 Balance -496.436 -1084 520 Weight 64.6 kg Intake: IV 733.6 399 520 ACETAMINOPHEN IV (For NPO 100 100 ) 1,000 mg In Empty Bag 1 bag @ 400 mls/hr IVPB Q6HR [facility] Rx#:[id number] Amiodarone 450 mg In 16.6 Dextrose 5% in Water 250 ml @ 1 MG/MIN 33.33 mls/ hr IV .Q7H31M [facility] Rx#: [id number] CO/CI 20 LR 540 260 20 Nitroglycerin-D5w Pmx 50 3 mg In Dextrose/Water 1 250ml.bag @ 5 MCG/MIN 1.5 mls/hr IV .Q24H [facility] Rx#: [id number] albumin 5% 500 pressure bags 54 39 Intake, IV Titration 241.964 Amount Amiodarone 450 mg In 234.351 Dextrose 5% in Water 250 ml @ 1 MG/MIN 33.33 mls/ hr IV .Q7H31M [facility] Rx#: [id number] Insulin Regular 100 unit 7.613 In Sodium Chloride 0.9% 100 ml @ Per Protocol IV .Q0M [facility] Rx#:[id number] Output: Chest Tube Drainage 710 200 0 Left Pleural 80 40 0 MS x2 630 160 0 Urine 762 1283 0 Other: Voiding Method Indwelling Catheter Indwelling Catheter Indwelling Catheter ABP, PAP, CO, CI - Last Documented Arterial Blood Pressure 100/85 Pulmonary Artery Pressure 25/5 Cardiac Output 5.2 Cardiac Index 3 - Labs CBC & Chem 7: 02/17/17 05:08 02/17/17 05:08 Labs: Abnormal Lab Results - Last 24 Hours (Table) 02/15/17 02/15/17 02/15/17 Range/Units 10:30 12:15 13:20 RBC (4.30-5.90) m/uL Hgb (13.0-17.5) gm/dL Hct (39.0-53.0) % Plt Count (150-450) k/uL Neutrophils # (1.3-7.7) k/uL Lymphocytes # (1.0-4.8) k/uL ABG pH (7.35-7.45) ABG pCO2 29 L (35-45) mmHg ABG pO2 353 H 265 H (83-108) mmHg ABG HCO3 20 L (21-25) mmol/L ABG Total CO2 (19-24) mmol/L ABG O2 Saturation 100.0 H 99.9 H (94-97) % ABG Hematocrit (34.0-46.0) % ABG Sodium (135-146) mmol/L ABG Potassium (3.4-4.5) mmol/L Sodium (137-145) mmol/L POC Glucose (mg/dL) (75-99) mg/dL Calcium (8.4-10.2) mg/dL AST (17-59) U/L Troponin I (0.000-0.034) ng/mL Total Protein (6.3-8.2) g/dL Albumin (3.5-5.0) g/dL Arterial Blood Potassium (3.4-4.5) mmol/L Crossmatch See Detail 02/15/17 02/15/17 02/15/17 Range/Units 14:16 14:44 15:17 RBC (4.30-5.90) m/uL Hgb (13.0-17.5) gm/dL Hct (39.0-53.0) % Plt Count (150-450) k/uL Neutrophils # (1.3-7.7) k/uL Lymphocytes # (1.0-4.8) k/uL ABG pH 7.32 L (7.35-7.45) ABG pCO2 (35-45) mmHg ABG pO2 356 H 303 H 275 H (83-108) mmHg ABG HCO3 (21-25) mmol/L ABG Total CO2 25 H (19-24) mmol/L ABG O2 Saturation 99.9 H 99.9 H 99.9 H (94-97) % ABG Hematocrit 30 L 32 L 33 L (34.0-46.0) % ABG Sodium 133 L 133 L (135-146) mmol/L ABG Potassium 5.0 H 6.1 H 4.8 H (3.4-4.5) mmol/L Sodium (137-145) mmol/L POC Glucose (mg/dL) (75-99) mg/dL Calcium (8.4-10.2) mg/dL AST (17-59) U/L Troponin I (0.000-0.034) ng/mL Total Protein (6.3-8.2) g/dL Albumin (3.5-5.0) g/dL Arterial Blood Potassium 5.0 H 6.1 H 4.8 H (3.4-4.5) mmol/L Crossmatch 02/15/17 02/16/17 02/16/17 Range/Units 16:39 09:12 10:31 RBC (4.30-5.90) m/uL Hgb (13.0-17.5) gm/dL Hct (39.0-53.0) % Plt Count (150-450) k/uL Neutrophils # (1.3-7.7) k/uL Lymphocytes # (1.0-4.8) k/uL ABG pH 7.32 L (7.35-7.45) ABG pCO2 (35-45) mmHg ABG pO2 129 H (83-108) mmHg ABG HCO3 (21-25) mmol/L ABG Total CO2 (19-24) mmol/L ABG O2 Saturation 98.6 H (94-97) % ABG Hematocrit (34.0-46.0) % ABG Sodium (135-146) mmol/L ABG Potassium (3.4-4.5) mmol/L Sodium (137-145) mmol/L POC Glucose (mg/dL) 145 H 123 H (75-99) mg/dL Calcium (8.4-10.2) mg/dL AST (17-59) U/L Troponin I (0.000-0.034) ng/mL Total Protein (6.3-8.2) g/dL Albumin (3.5-5.0) g/dL Arterial Blood Potassium (3.4-4.5) mmol/L Crossmatch 02/16/17 02/16/17 02/16/17 Range/Units 11:35 13:11 13:35 RBC (4.30-5.90) m/uL Hgb (13.0-17.5) gm/dL Hct (39.0-53.0) % Plt Count (150-450) k/uL Neutrophils # (1.3-7.7) k/uL Lymphocytes # (1.0-4.8) k/uL ABG pH (7.35-7.45) ABG pCO2 (35-45) mmHg ABG pO2 (83-108) mmHg ABG HCO3 (21-25) mmol/L ABG Total CO2 (19-24) mmol/L ABG O2 Saturation (94-97) % ABG Hematocrit (34.0-46.0) % ABG Sodium (135-146) mmol/L ABG Potassium (3.4-4.5) mmol/L Sodium (137-145) mmol/L POC Glucose (mg/dL) 141 H 118 H (75-99) mg/dL Calcium (8.4-10.2) mg/dL AST (17-59) U/L Troponin I 16.300 H* (0.000-0.034) ng/mL Total Protein (6.3-8.2) g/dL Albumin (3.5-5.0) g/dL Arterial Blood Potassium (3.4-4.5) mmol/L Crossmatch 02/16/17 02/16/17 02/16/17 Range/Units 14:18 15:23 17:12 RBC (4.30-5.90) m/uL Hgb (13.0-17.5) gm/dL Hct (39.0-53.0) % Plt Count (150-450) k/uL Neutrophils # (1.3-7.7) k/uL Lymphocytes # (1.0-4.8) k/uL ABG pH (7.35-7.45) ABG pCO2 (35-45) mmHg ABG pO2 (83-108) mmHg ABG HCO3 (21-25) mmol/L ABG Total CO2 (19-24) mmol/L ABG O2 Saturation (94-97) % ABG Hematocrit (34.0-46.0) % ABG Sodium (135-146) mmol/L ABG Potassium (3.4-4.5) mmol/L Sodium (137-145) mmol/L POC Glucose (mg/dL) 128 H 137 H 116 H (75-99) mg/dL Calcium (8.4-10.2) mg/dL AST (17-59) U/L Troponin I (0.000-0.034) ng/mL Total Protein (6.3-8.2) g/dL Albumin (3.5-5.0) g/dL Arterial Blood Potassium (3.4-4.5) mmol/L Crossmatch 02/16/17 02/16/17 02/17/17 Range/Units 20:20 20:58 00:47 RBC (4.30-5.90) m/uL Hgb (13.0-17.5) gm/dL Hct (39.0-53.0) % Plt Count (150-450) k/uL Neutrophils # (1.3-7.7) k/uL Lymphocytes # (1.0-4.8) k/uL ABG pH (7.35-7.45) ABG pCO2 (35-45) mmHg ABG pO2 (83-108) mmHg ABG HCO3 (21-25) mmol/L ABG Total CO2 (19-24) mmol/L ABG O2 Saturation (94-97) % ABG Hematocrit (34.0-46.0) % ABG Sodium (135-146) mmol/L ABG Potassium (3.4-4.5) mmol/L Sodium (137-145) mmol/L POC Glucose (mg/dL) 108 H (75-99) mg/dL Calcium (8.4-10.2) mg/dL AST (17-59) U/L Troponin I 13.600 H* 10.500 H* (0.000-0.034) ng/mL Total Protein (6.3-8.2) g/dL Albumin (3.5-5.0) g/dL Arterial Blood Potassium (3.4-4.5) mmol/L Crossmatch 02/17/17 02/17/17 02/17/17 Range/Units 05:08 05:08 07:27 RBC 3.07 L (4.30-5.90) m/uL Hgb 9.4 L (13.0-17.5) gm/dL Hct 28.0 L (39.0-53.0) % Plt Count 124 L (150-450) k/uL Neutrophils # 8.7 H (1.3-7.7) k/uL Lymphocytes # 0.9 L (1.0-4.8) k/uL ABG pH (7.35-7.45) ABG pCO2 (35-45) mmHg ABG pO2 (83-108) mmHg ABG HCO3 (21-25) mmol/L ABG Total CO2 (19-24) mmol/L ABG O2 Saturation (94-97) % ABG Hematocrit (34.0-46.0) % ABG Sodium (135-146) mmol/L ABG Potassium (3.4-4.5) mmol/L Sodium 132 L (137-145) mmol/L POC Glucose (mg/dL) 110 H (75-99) mg/dL Calcium 7.9 L (8.4-10.2) mg/dL AST 83 H (17-59) U/L Troponin I (0.000-0.034) ng/mL Total Protein 4.2 L (6.3-8.2) g/dL Albumin 2.5 L (3.5-5.0) g/dL Arterial Blood Potassium (3.4-4.5) mmol/L Crossmatch Assessment and Plan Plan: The patient was seen and examined. I agree with the above assessment and plan. Overall the patient is doing well. We will keep his chest tubes in for 1 more day. We will remove his Cheney catheter and Cordis today. He did become a bit hypotensive when he stood this morning. We will encourage fluids today as he has not been drinking. We will increase his beta kait. We will encourage incentive spirometry and get him up in a chair. He may possibly transfer to selective care later this afternoon.
[2017-02-17] MEDS: METOPROLOL TARTRATE 25 MG TAB PO SCH ×3 (10:04→21:46)
--- NOTE | 2017-02-17 10:29 | P.PN ---
Subjective Progress Note Date: 02/17/17 Principal diagnosis: ST segment elevation myocardial infarction, status post emergent coronary artery bypass grafting 3 utilizing a FARLEY to the LAD, saphenous vein graft to the diagonal, saphenous vein graft to the obtuse marginal. Consult dated 02/16/2017 61-year-old male who apparently presented to the emergency department with retrosternal chest pain is nonradiating. He also had some shortness of breath and also some dizziness. The pain was described as a 7 out of 10 in severity. It was dull and achy pressure-like midsternal pain. The patient ended up going to [facility] and was found have significant coronary artery disease and was an emergent bypass grafting yesterday. He had a three-vessel bypass grafting. He came back to the ICU. He had great blood gases and weaning parameters and a cuff leak and he was extubated. Currently he is on the intra-aortic balloon pump augmenting at 2-1. He also developed some atrial fibrillation but is back in sinus rhythm. He is on nasal oxygen. He was seeming of lactated Ringer's IV at 50 mL now insulin drip at 1.5 units an hour nitroglycerin at 10 mics per minute and Cordarone and 0.5 mg/m. Other than a history of CVA/TIA, the patient has no supra can medical history is apparently on no medications at home and has no ALLERGIES. Progress note 02/17/2017 The patient is seen again today in follow-up in the intensive care unit. He is currently sitting up in the chair at the bedside. He is awake and alert in no acute distress. He denies any worsening shortness of breath, cough or congestion. He is working well of his incentive spirometer. His chest x-ray looks quite clear. Chest tubes remain in place. He is maintaining good O2 saturations in the mid 90s on room air. The Fortescue-Omar catheter from the right IJ has been removed. He is hemodynamically stable. Objective - Vital Signs Vital signs: Vital Signs Temp 98.4 F 02/17/17 08:00 Pulse 94 02/17/17 10:00 Resp 20 02/17/17 10:00 BP 96/54 02/17/17 10:00 Pulse Ox 94 L 02/17/17 10:00 Intake & Output 02/16/17 02/17/17 02/17/17 18:59 06:59 18:59 Intake Total 975.564 399 543 Output Total 1472 1483 338 Balance -496.436 -1084 205 Weight 64.6 kg Intake: IV 733.6 399 543 ACETAMINOPHEN IV (For NPO 100 100 ) 1,000 mg In Empty Bag 1 bag @ 400 mls/hr IVPB Q6HR [facility] Rx#:[id number] Amiodarone 450 mg In 16.6 Dextrose 5% in Water 250 ml @ 1 MG/MIN 33.33 mls/ hr IV .Q7H31M [facility] Rx#: [id number] CO/CI 20 LR 540 260 40 Nitroglycerin-D5w Pmx 50 3 mg In Dextrose/Water 1 250ml.bag @ 5 MCG/MIN 1.5 mls/hr IV .Q24H [facility] Rx#: [id number] albumin 5% 500 pressure bags 54 39 3 Intake, IV Titration 241.964 Amount Amiodarone 450 mg In 234.351 Dextrose 5% in Water 250 ml @ 1 MG/MIN 33.33 mls/ hr IV .Q7H31M [facility] Rx#: [id number] Insulin Regular 100 unit 7.613 In Sodium Chloride 0.9% 100 ml @ Per Protocol IV .Q0M [facility] Rx#:[id number] Output: Chest Tube Drainage 710 200 40 Left Pleural 80 40 10 MS x2 630 160 30 Urine 762 1283 298 Other: Voiding Method Indwelling Catheter Indwelling Catheter Indwelling Catheter ABP, PAP, CO, CI - Last Documented Arterial Blood Pressure 100/85 Pulmonary Artery Pressure 25/5 Cardiac Output 5.2 Cardiac Index 3 - Exam GENERAL EXAM: Alert, active, comfortable in no apparent distress. HEAD: Normocephalic. EYES: Normal reaction of pupils, equal size. NOSE: Clear with pink turbinates. THROAT: No erythema or exudates. NECK: No masses, no JVD. CHEST: No chest wall deformity. Left and mediastinal chest tubes remain in place. Epicardial pacemaker wires present. LUNGS: Equal air entry with no crackles, wheeze, rhonchi or dullness. CVS: S1 and S2 normal with no audible murmurs, regular rhythm. Positive pericardial rub. ABDOMEN: No hepatosplenomegaly, normal bowel sounds, no guarding or rigidity. SPINE: No scoliosis or deformity SKIN: No rashes CENTRAL NERVOUS SYSTEM: No focal deficits, tone is normal in all 4 extremities. Extremities: There is trace peripheral edema. SCDs present. Peripheral pulses are intact. - Labs CBC & Chem 7: 02/17/17 05:08 02/17/17 05:08 Labs: Abnormal Lab Results - Last 24 Hours (Table) 02/15/17 02/15/17 02/15/17 Range/Units 10:30 12:15 13:20 RBC (4.30-5.90) m/uL Hgb (13.0-17.5) gm/dL Hct (39.0-53.0) % Plt Count (150-450) k/uL Neutrophils # (1.3-7.7) k/uL Lymphocytes # (1.0-4.8) k/uL ABG pH (7.35-7.45) ABG pCO2 29 L (35-45) mmHg ABG pO2 353 H 265 H (83-108) mmHg ABG HCO3 20 L (21-25) mmol/L ABG Total CO2 (19-24) mmol/L ABG O2 Saturation 100.0 H 99.9 H (94-97) % ABG Hematocrit (34.0-46.0) % ABG Sodium (135-146) mmol/L ABG Potassium (3.4-4.5) mmol/L Sodium (137-145) mmol/L POC Glucose (mg/dL) (75-99) mg/dL Calcium (8.4-10.2) mg/dL AST (17-59) U/L Troponin I (0.000-0.034) ng/mL Total Protein (6.3-8.2) g/dL Albumin (3.5-5.0) g/dL Arterial Blood Potassium (3.4-4.5) mmol/L Crossmatch See Detail 02/15/17 02/15/17 02/15/17 Range/Units 14:16 14:44 15:17 RBC (4.30-5.90) m/uL Hgb (13.0-17.5) gm/dL Hct (39.0-53.0) % Plt Count (150-450) k/uL Neutrophils # (1.3-7.7) k/uL Lymphocytes # (1.0-4.8) k/uL ABG pH 7.32 L (7.35-7.45) ABG pCO2 (35-45) mmHg ABG pO2 356 H 303 H 275 H (83-108) mmHg ABG HCO3 (21-25) mmol/L ABG Total CO2 25 H (19-24) mmol/L ABG O2 Saturation 99.9 H 99.9 H 99.9 H (94-97) % ABG Hematocrit 30 L 32 L 33 L (34.0-46.0) % ABG Sodium 133 L 133 L (135-146) mmol/L ABG Potassium 5.0 H 6.1 H 4.8 H (3.4-4.5) mmol/L Sodium (137-145) mmol/L POC Glucose (mg/dL) (75-99) mg/dL Calcium (8.4-10.2) mg/dL AST (17-59) U/L Troponin I (0.000-0.034) ng/mL Total Protein (6.3-8.2) g/dL Albumin (3.5-5.0) g/dL Arterial Blood Potassium 5.0 H 6.1 H 4.8 H (3.4-4.5) mmol/L Crossmatch 02/15/17 02/16/17 02/16/17 Range/Units 16:39 10:31 11:35 RBC (4.30-5.90) m/uL Hgb (13.0-17.5) gm/dL Hct (39.0-53.0) % Plt Count (150-450) k/uL Neutrophils # (1.3-7.7) k/uL Lymphocytes # (1.0-4.8) k/uL ABG pH 7.32 L (7.35-7.45) ABG pCO2 (35-45) mmHg ABG pO2 129 H (83-108) mmHg ABG HCO3 (21-25) mmol/L ABG Total CO2 (19-24) mmol/L ABG O2 Saturation 98.6 H (94-97) % ABG Hematocrit (34.0-46.0) % ABG Sodium (135-146) mmol/L ABG Potassium (3.4-4.5) mmol/L Sodium (137-145) mmol/L POC Glucose (mg/dL) 123 H 141 H (75-99) mg/dL Calcium (8.4-10.2) mg/dL AST (17-59) U/L Troponin I (0.000-0.034) ng/mL Total Protein (6.3-8.2) g/dL Albumin (3.5-5.0) g/dL Arterial Blood Potassium (3.4-4.5) mmol/L Crossmatch 02/16/17 02/16/17 02/16/17 Range/Units 13:11 13:35 14:18 RBC (4.30-5.90) m/uL Hgb (13.0-17.5) gm/dL Hct (39.0-53.0) % Plt Count (150-450) k/uL Neutrophils # (1.3-7.7) k/uL Lymphocytes # (1.0-4.8) k/uL ABG pH (7.35-7.45) ABG pCO2 (35-45) mmHg ABG pO2 (83-108) mmHg ABG HCO3 (21-25) mmol/L ABG Total CO2 (19-24) mmol/L ABG O2 Saturation (94-97) % ABG Hematocrit (34.0-46.0) % ABG Sodium (135-146) mmol/L ABG Potassium (3.4-4.5) mmol/L Sodium (137-145) mmol/L POC Glucose (mg/dL) 118 H 128 H (75-99) mg/dL Calcium (8.4-10.2) mg/dL AST (17-59) U/L Troponin I 16.300 H* (0.000-0.034) ng/mL Total Protein (6.3-8.2) g/dL Albumin (3.5-5.0) g/dL Arterial Blood Potassium (3.4-4.5) mmol/L Crossmatch 02/16/17 02/16/17 02/16/17 Range/Units 15:23 17:12 20:20 RBC (4.30-5.90) m/uL Hgb (13.0-17.5) gm/dL Hct (39.0-53.0) % Plt Count (150-450) k/uL Neutrophils # (1.3-7.7) k/uL Lymphocytes # (1.0-4.8) k/uL ABG pH (7.35-7.45) ABG pCO2 (35-45) mmHg ABG pO2 (83-108) mmHg ABG HCO3 (21-25) mmol/L ABG Total CO2 (19-24) mmol/L ABG O2 Saturation (94-97) % ABG Hematocrit (34.0-46.0) % ABG Sodium (135-146) mmol/L ABG Potassium (3.4-4.5) mmol/L Sodium (137-145) mmol/L POC Glucose (mg/dL) 137 H 116 H (75-99) mg/dL Calcium (8.4-10.2) mg/dL AST (17-59) U/L Troponin I 13.600 H* (0.000-0.034) ng/mL Total Protein (6.3-8.2) g/dL Albumin (3.5-5.0) g/dL Arterial Blood Potassium (3.4-4.5) mmol/L Crossmatch 02/16/17 02/17/17 02/17/17 Range/Units 20:58 00:47 05:08 RBC (4.30-5.90) m/uL Hgb (13.0-17.5) gm/dL Hct (39.0-53.0) % Plt Count (150-450) k/uL Neutrophils # (1.3-7.7) k/uL Lymphocytes # (1.0-4.8) k/uL ABG pH (7.35-7.45) ABG pCO2 (35-45) mmHg ABG pO2 (83-108) mmHg ABG HCO3 (21-25) mmol/L ABG Total CO2 (19-24) mmol/L ABG O2 Saturation (94-97) % ABG Hematocrit (34.0-46.0) % ABG Sodium (135-146) mmol/L ABG Potassium (3.4-4.5) mmol/L Sodium 132 L (137-145) mmol/L POC Glucose (mg/dL) 108 H (75-99) mg/dL Calcium 7.9 L (8.4-10.2) mg/dL AST 83 H (17-59) U/L Troponin I 10.500 H* (0.000-0.034) ng/mL Total Protein 4.2 L (6.3-8.2) g/dL Albumin 2.5 L (3.5-5.0) g/dL Arterial Blood Potassium (3.4-4.5) mmol/L Crossmatch 02/17/17 02/17/17 Range/Units 05:08 07:27 RBC 3.07 L (4.30-5.90) m/uL Hgb 9.4 L (13.0-17.5) gm/dL Hct 28.0 L (39.0-53.0) % Plt Count 124 L (150-450) k/uL Neutrophils # 8.7 H (1.3-7.7) k/uL Lymphocytes # 0.9 L (1.0-4.8) k/uL ABG pH (7.35-7.45) ABG pCO2 (35-45) mmHg ABG pO2 (83-108) mmHg ABG HCO3 (21-25) mmol/L ABG Total CO2 (19-24) mmol/L ABG O2 Saturation (94-97) % ABG Hematocrit (34.0-46.0) % ABG Sodium (135-146) mmol/L ABG Potassium (3.4-4.5) mmol/L Sodium (137-145) mmol/L POC Glucose (mg/dL) 110 H (75-99) mg/dL Calcium (8.4-10.2) mg/dL AST (17-59) U/L Troponin I (0.000-0.034) ng/mL Total Protein (6.3-8.2) g/dL Albumin (3.5-5.0) g/dL Arterial Blood Potassium (3.4-4.5) mmol/L Crossmatch Assessment and Plan Plan: Impression: #[address] segment elevation myocardial infarction. #2 Coronary artery disease status post coronary artery bypass grafting 3 utilizing the FARLEY to LAD, SVG's to the vaginal and obtuse marginal branch. Postoperative day number #2. #3 History of chronic tobacco dependence. #4 History of CVA/TIA. #5 Hyperlipidemia. #6 Postoperative atrial fibrillation. Plan: The patient was seen and evaluated by Dr. John. His chest x-ray and labs were reviewed. We'll continue to increase the use of the incentive spirometer and cough and deep breathing exercises. We'll increase his activity as tolerated. We'll continue to follow. He could be transferred out of the intensive care unit today. Time with Patient: Greater than 30
--- NOTE | 2017-02-17 11:51 | P.PN ---
Subjective Progress Note Date: 02/17/17 61 years old male patient of Dr. Rae with past medical history of CVA 7 years ago, presented to the ER yesterday with a retrosternal chest pain that was nonradiating in character. Patient also experienced some shortness of breath on exertion. Patient states he had previous episodes of chest pain that resolved by itself. He is not feeling well for the past few days before having the chest pain yesterday. EKG was suggestive of inferior STEMI and patient was taken to slab installer directly from the ER. 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 Jc was consulted immediately for coronary artery bypass surgery acquiring three-vessel grafting including left internal mammary artery to the left LAD, saphenous vein graft to diagonal artery, saphenous vein graft to the obtuse marginal artery. Patient was extubated yesterday without any complications. On my evaluation today, patient was on balloon pump with the plan to remove the balloon pump in the next hour. Patient was complaining of mild substernal chest discomfort associated with some nausea and had 1 episode of vomiting this morning. He denies any dizziness, shortness of breath, palpitation or abdominal pain. She denies any change in bowel habits. Patient was on aspirin and statin for the stroke but stopped taking it due to bruising( will not give any details) 02/17: Patient remains in intensive care unit. Balloon pump was successfully removed yesterday. Remains with chest tubes in place. The plan is to remove his Cordis and Cheney today. He is receiving albumin. He is currently hemodynamically stable. Patient does have some vague complaints of chest pain. He was out of bed yesterday sitting in a chair and plans to do this again today. Patient is to be encouraged fluids as he had slight hypotension this morning. Metoprolol was increased. Objective - Vital Signs Vital signs: Vital Signs Temp 98.4 F 02/17/17 08:00 Pulse 90 02/17/17 11:00 Resp 19 02/17/17 11:00 BP 113/65 02/17/17 11:00 Pulse Ox 94 L 02/17/17 11:00 Intake & Output 02/16/17 02/17/17 02/17/17 18:59 06:59 18:59 Intake Total 975.564 399 563 Output Total 1472 1483 388 Balance -496.436 -1084 175 Weight 64.6 kg Intake: IV 733.6 399 563 ACETAMINOPHEN IV (For NPO 100 100 ) 1,000 mg In Empty Bag 1 bag @ 400 mls/hr IVPB Q6HR [facility] Rx#:[id number] Amiodarone 450 mg In 16.6 Dextrose 5% in Water 250 ml @ 1 MG/MIN 33.33 mls/ hr IV .Q7H31M [facility] Rx#: [id number] CO/CI 20 LR 540 260 60 Nitroglycerin-D5w Pmx 50 3 mg In Dextrose/Water 1 250ml.bag @ 5 MCG/MIN 1.5 mls/hr IV .Q24H [facility] Rx#: [id number] albumin 5% 500 pressure bags 54 39 3 Intake, IV Titration 241.964 Amount Amiodarone 450 mg In 234.351 Dextrose 5% in Water 250 ml @ 1 MG/MIN 33.33 mls/ hr IV .Q7H31M [facility] Rx#: [id number] Insulin Regular 100 unit 7.613 In Sodium Chloride 0.9% 100 ml @ Per Protocol IV .Q0M [facility] Rx#:[id number] Output: Chest Tube Drainage 710 200 90 Left Pleural 80 40 30 MS x2 630 160 60 Urine 762 1283 298 Other: Voiding Method Indwelling Catheter Indwelling Catheter Indwelling Catheter ABP, PAP, CO, CI - Last Documented Arterial Blood Pressure 100/85 Pulmonary Artery Pressure 25/5 Cardiac Output 5.2 Cardiac Index 3 - Exam General appearance: cooperative, in acute distress, thin - EENT Eyes: anicteric sclerae, PERRLA, normal appearance ENT: hearing grossly normal - Neck Neck: no lymphadenopathy, normal ROM, no other, no rigidity, no stridor, no thyromegaly - Respiratory Respiratory: bilateral: CTA, negative: diminished, dullness, rales, rhonchi - Cardiovascular Rhythm: tachycardic, difficult to assess with intraaortic ballon pump Heart sounds: normal: S1, S2 Abnormal Heart Sounds: no systolic murmur, no diastolic murmur, no rub appreciated , no S3 Gallop, no S4 Gallop, no click, no other - Gastrointestinal General gastrointestinal: normal bowel sounds, soft - Integumentary Integumentary: no rash, intraaortic pump in the right groin with no sign of superficial bleeding - Neurologic Neurologic: CNII-XII intact - Musculoskeletal Musculoskeletal: gait normal, strength equal bilaterally - Psychiatric Psychiatric: A&O x's 3, appropriate affect - Labs CBC & Chem 7: 02/17/17 05:08 02/17/17 05:08 Labs: Abnormal Lab Results - Last 24 Hours (Table) 02/15/17 02/16/17 02/16/17 Range/Units 10:30 13:11 13:35 RBC (4.30-5.90) m/uL Hgb (13.0-17.5) gm/dL Hct (39.0-53.0) % Plt Count (150-450) k/uL Neutrophils # (1.3-7.7) k/uL Lymphocytes # (1.0-4.8) k/uL Sodium (137-145) mmol/L POC Glucose (mg/dL) 118 H (75-99) mg/dL Calcium (8.4-10.2) mg/dL AST (17-59) U/L Troponin I 16.300 H* (0.000-0.034) ng/mL Total Protein (6.3-8.2) g/dL Albumin (3.5-5.0) g/dL Crossmatch See Detail 02/16/17 02/16/17 02/16/17 Range/Units 14:18 15:23 17:12 RBC (4.30-5.90) m/uL Hgb (13.0-17.5) gm/dL Hct (39.0-53.0) % Plt Count (150-450) k/uL Neutrophils # (1.3-7.7) k/uL Lymphocytes # (1.0-4.8) k/uL Sodium (137-145) mmol/L POC Glucose (mg/dL) 128 H 137 H 116 H (75-99) mg/dL Calcium (8.4-10.2) mg/dL AST (17-59) U/L Troponin I (0.000-0.034) ng/mL Total Protein (6.3-8.2) g/dL Albumin (3.5-5.0) g/dL Crossmatch 02/16/17 02/16/17 02/17/17 Range/Units 20:20 20:58 00:47 RBC (4.30-5.90) m/uL Hgb (13.0-17.5) gm/dL Hct (39.0-53.0) % Plt Count (150-450) k/uL Neutrophils # (1.3-7.7) k/uL Lymphocytes # (1.0-4.8) k/uL Sodium (137-145) mmol/L POC Glucose (mg/dL) 108 H (75-99) mg/dL Calcium (8.4-10.2) mg/dL AST (17-59) U/L Troponin I 13.600 H* 10.500 H* (0.000-0.034) ng/mL Total Protein (6.3-8.2) g/dL Albumin (3.5-5.0) g/dL Crossmatch 02/17/17 02/17/17 02/17/17 Range/Units 05:08 05:08 07:27 RBC 3.07 L (4.30-5.90) m/uL Hgb 9.4 L (13.0-17.5) gm/dL Hct 28.0 L (39.0-53.0) % Plt Count 124 L (150-450) k/uL Neutrophils # 8.7 H (1.3-7.7) k/uL Lymphocytes # 0.9 L (1.0-4.8) k/uL Sodium 132 L (137-145) mmol/L POC Glucose (mg/dL) 110 H (75-99) mg/dL Calcium 7.9 L (8.4-10.2) mg/dL AST 83 H (17-59) U/L Troponin I (0.000-0.034) ng/mL Total Protein 4.2 L (6.3-8.2) g/dL Albumin 2.5 L (3.5-5.0) g/dL Crossmatch Assessment and Plan Plan: 1. Inferior STEMI s/p emergent CABG - Continue aspirin, plavix, metoprolol, lipitor. EKG with inferior wall STEMI, goal LDL < 70. Intraaortic balloon pump removed yesterday, Carlos and Cheney out today, COntinue care in the ICU until patient stabilizes 2. Persistent pain with EKG with diffuse ST elevation concerning for pericarditis. Continue ketorolac 15 mg q6hr, EKG next am. 3 h/o CVA 2005- patient discontinued aspirin and statin for concern for bruising. Continue statin. LDL goal < 70 4. DVT prophylaxis - Continue SCD while in bed 5. GI prophylaixis - protonix 40 mg iv daily 6. Code status - full code 7. Disposition - patient will require ICU care for the next 2 days 8. Condition - guarded Discharge plan: To be determined Impression and plan of care have been directed as dictated by the signing physician. Radha Lux nurse practitioner acting as scribe for signing physician.
[2017-02-17 12:24] LABS: Glucose,Whole Blood 100 mg/dL (75-99)
[2017-02-17 16:36] LABS: Glucose,Whole Blood 97 mg/dL (75-99)
[2017-02-17 20:58] LABS: Glucose,Whole Blood 118 mg/dL (75-99)
[2017-02-17] MEDS: SENNOSIDES-DOCUSATE SODIUM 1 EACH TAB PO SCH (21:46)
[2017-02-18 01:59] LABS: Glucose,Whole Blood 107 mg/dL (75-99)
[2017-02-18 06:12] LABS: Glucose,Whole Blood 122 mg/dL (75-99)
[2017-02-18] MEDS: INSULIN LISPRO (humaLOG) 300 UNIT/3 ML VIAL SQ SCH ×4 (06:16→21:43)
[2017-02-18] MEDS: KETOROLAC 30 MG/ML 1 ML VIAL IVP SCH ×2 (06:23→11:31)
[2017-02-18] MEDS: PANTOPRAZOLE 40 MG TABLET PO SCH (06:23)
[2017-02-18 06:40] LABS: CH 29.8; HCT 27.3 % (39.0-53.0); HDW 2.57; MCV 90.9 fL (80.0-100.0); Mean Platelet Volume 6.8; RDW 13.6 % (11.5-15.5); WBC 9.3 k/uL (3.8-10.6)
[2017-02-18 06:58] LABS: ALT 30 U/L (21-72); AST 51 U/L (17-59); Alkaline Phosphatase 50 U/L (38-126); Anion Gap 4 mmol/L; Blood Urea Nitrogen 14 mg/dL (9-20); Calcium 8.1 mg/dL (8.4-10.2); Carbon Dioxide 25 mmol/L (22-30); Chloride 104 mmol/L (98-107); Glucose 106 mg/dL (74-99); Non-African American GFR(MDRD) >60 (>60 ml/min/1.73 sqM); Potassium 3.8 mmol/L (3.5-5.1); Sodium 133 mmol/L (137-145); Total Bilirubin 0.4 mg/dL (0.2-1.3); Total Protein 4.4 g/dL (6.3-8.2)
--- NOTE | 2017-02-18 08:01 | P.PN ---
Addendum entered and electronically signed by Tory Ledbetter, [facility] 02/18/17 10:58 : A/V epicardial PMW discontined intact, no ectopy noted. Mediastinal, left pleural chest tubes discontinued without incident. Pt tolerated well. CXR in AM. Bedrest for 1 hour post PM removal. Original Note: <Tory Ledbetter - Last Filed: 02/18/17 07:54> Subjective Progress Note Date: 02/18/17 Principal diagnosis: Severe symptomatically coronary artery disease with left main disease, STEMI. History of stroke in 2006. Previous tobacco dependence. Family history of coronary artery disease. Hyperlipidemia. POD #3 emergent coronary artery bypass graft surgery 3 vessels, left internal mammary artery to the left anterior descending artery, reverse saphenous vein graft to the diagonal artery, reverse saphenous vein graft to the obtuse marginal artery. Endoscopic vein harvesting right greater saphenous vein. Epi- aortic ultrasound. Intraoperative transesophageal echocardiogram. Graft flow measurement using the beprettystim system. Postoperative paroxysmal atrial fibrillation, and expected outcome of surgery. Patient is currently sitting up in the chair eating breakfast in no acute distress. Denies pain, shortness of breath. Transfered out of ICU yesterday afternoon. Still complains of occasional nausea. Objective - Vital Signs Vital signs: Vital Signs Temp 98.7 F 02/18/17 04:00 Pulse 89 02/18/17 04:00 Resp 20 02/18/17 04:00 BP 98/59 02/18/17 04:00 Pulse Ox 92 L 02/18/17 04:00 Intake & Output 02/17/17 02/18/17 02/18/17 18:59 06:59 18:59 Intake Total 843 20 Output Total 858 100 Balance -15 -80 Weight 67 kg Intake: IV 563 20 .9 20 LR 60 albumin 5% 500 pressure bags 3 Oral 280 Output: Chest Tube Drainage 110 100 Left Pleural 30 30 MS x2 80 70 Urine 748 Other: Voiding Method Urinal Urinal ABP, PAP, CO, CI - Last Documented Arterial Blood Pressure 100/85 Pulmonary Artery Pressure 25/5 Cardiac Output 5.2 Cardiac Index 3 - Constitutional General appearance: Present: cooperative, no acute distress - Respiratory Details: Lungs sounds diminished bilaterally. Respirations even, nonlabored. Currently on room air with oxygen saturation 92%. Able to achieve 1000 mL on his incentive spirometry. Weak cough. A sterile chest tube to -27 m wall suction, 70 mL then serosanguineous drainage overnight, 200 mL last 24 hours. Left pleural chest tube to -20 cm wall suction, 30 mL thin serosanguineous drainage overnight, 120 mL in the last 24 hours. No air leaks present. Chest x-ray reviewed, stable. - Cardiovascular Details: S1, S2 present. Positive pericardial rub, diminished from yesterday. Regular rate and rhythm, normal sinus rhythm on telemetry. A/V epicardial pacemaker wires present, capped. Sternum stable. Palpable pulses bilaterally. No edema present. Heart hugger in place with patient demonstrating appropriate use. Antiembolism stockings, SCDs present. - Gastrointestinal Gastrointestinal Comment(s): Abdomen soft, nontender, nondistended. Active bowel sounds 4 quadrants. Tolerating diet. Positive flatus, negative bowel movement since surgery. - Genitourinary Genitourinary Comment(s): Cheney discontinued yesterday. Voiding clear, yellow urine per urinal. - Integumentary Integumentary Comment(s): Anterior chest incision well approximated and covered with dry intact dressing. Right lower extremity EVH site well approximated with Dermabond. - Neurologic Neurologic: Present: CNII-XII intact - Musculoskeletal Musculoskeletal: Present: gait normal, strength equal bilaterally - Psychiatric Psychiatric: Present: A&O x's 3, appropriate affect, intact judgment & insight - Allied health notes Allied health notes reviewed: nursing - Labs CBC & Chem 7: 02/18/17 06:15 02/18/17 06:15 Labs: Abnormal Lab Results - Last 24 Hours (Table) 02/17/17 02/17/17 02/18/17 Range/Units 12:23 20:56 01:57 RBC (4.30-5.90) m/uL Hgb (13.0-17.5) gm/dL Hct (39.0-53.0) % Plt Count (150-450) k/uL Sodium (137-145) mmol/L Glucose (74-99) mg/dL POC Glucose (mg/dL) 100 H 118 H 107 H (75-99) mg/dL Calcium (8.4-10.2) mg/dL Total Protein (6.3-8.2) g/dL Albumin (3.5-5.0) g/dL 02/18/17 02/18/17 02/18/17 Range/Units 06:10 06:15 06:15 RBC 3.00 L (4.30-5.90) m/uL Hgb 9.0 L (13.0-17.5) gm/dL Hct 27.3 L (39.0-53.0) % Plt Count 133 L (150-450) k/uL Sodium 133 L (137-145) mmol/L Glucose 106 H (74-99) mg/dL POC Glucose (mg/dL) 122 H (75-99) mg/dL Calcium 8.1 L (8.4-10.2) mg/dL Total Protein 4.4 L (6.3-8.2) g/dL Albumin 2.7 L (3.5-5.0) g/dL - Imaging and Cardiology Chest x-ray: image reviewed Assessment and Plan (1) Tobacco dependence in remission Status: Acute (2) History of stroke Status: Acute (3) Family history of heart disease Status: Acute (4) Chest pain Status: Acute (5) ST elevation myocardial infarction (STEMI) Status: Acute (6) Coronary artery disease involving left main coronary artery Status: Acute (7) Hyperlipidemia Status: Acute (8) Postoperative atrial fibrillation Status: Acute Plan: 1. Continue aspirin, statin, Plavix, heparin subcu, beta kait. Will maximize beta kait therapy as tolerated. 2. Continue amiodarone for A. fib prophylaxis. 3. Encourage incentive spirometry use. 4. Encourage fluid intake other than coffee. 5. Increase activity, ambulate in hallway. Physical therapy to follow. 6. GI/DVT prophylaxis. 7. Will monitor daily labs, x-rays. 8. Insulin management per primary care service. 9. Likely will discontinue pacemaker wires, chest tubes today. 10. More recommendations as patient progresses. Time with Patient: Greater than 30 <Lyndon Jc - Last Filed: 02/19/17 14:18> Objective - Vital Signs Vital signs: Vital Signs Temp 100.6 F H 02/19/17 04:00 Pulse 106 H 02/19/17 08:40 Resp 18 02/19/17 04:00 BP 134/70 02/19/17 08:40 Pulse Ox 95 02/19/17 08:40 Intake & Output 02/18/17 02/19/1702/19/17 18:59 06:59 18:59 Intake Total 1727 10 360 Output Total 520 530 Balance 1207 -520 360 Weight 67.7 kg Intake: IV 1022 10 .9 1000 10 Invasive Line 1 10 Invasive Line 2 12 Oral 705 360 Output: Chest Tube Drainage 20 Left Pleural 20 MS x2 0 Urine 500 530 Other: Voiding Method Urinal # Voids 2 1 # Bowel Movements 1 ABP, PAP, CO, CI - Last Documented Arterial Blood Pressure 100/85 Pulmonary Artery Pressure 25/5 Cardiac Output 5.2 Cardiac Index 3 - Labs CBC & Chem 7: 02/19/17 06:04 02/19/17 06:04 Labs: Abnormal Lab Results - Last 24 Hours (Table) 02/18/17 02/19/17 02/19/17 Range/Units 21:03 02:08 05:58 RBC (4.30-5.90) m/uL Hgb (13.0-17.5) gm/dL Hct (39.0-53.0) % Sodium (137-145) mmol/L Glucose (74-99) mg/dL POC Glucose (mg/dL) 158 H 111 H 137 H (75-99) mg/dL Calcium (8.4-10.2) mg/dL Total Protein (6.3-8.2) g/dL Albumin (3.5-5.0) g/dL 02/19/17 02/19/17 02/19/17 Range/Units 06:04 06:04 11:41 RBC 2.98 L (4.30-5.90) m/uL Hgb 8.9 L (13.0-17.5) gm/dL Hct 27.3 L (39.0-53.0) % Sodium 133 L (137-145) mmol/L Glucose 118 H (74-99) mg/dL POC Glucose (mg/dL) 115 H (75-99) mg/dL Calcium 8.3 L (8.4-10.2) mg/dL Total Protein 4.9 L (6.3-8.2) g/dL Albumin 3.0 L (3.5-5.0) g/dL
[2017-02-18] MEDS: HEPARIN SODIUM,PORCINE 5,000 UNIT/ML 1 ML VIAL SQ SCH ×3 (08:10→23:44)
[2017-02-18] MEDS: AMIODARONE 200 MG TAB PO SCH ×2 (08:13→20:03)
[2017-02-18] MEDS: MUPIROCIN 2% OINT 22 GM TUBE NASAL SCH ×2 (08:13→20:03)
[2017-02-18] MEDS: ASPIRIN 325 MG TAB PO SCH (08:14)
[2017-02-18] MEDS: METOPROLOL TARTRATE 25 MG TAB PO SCH ×2 (08:14→20:03)
[2017-02-18] MEDS: CLOPIDOGREL 75 MG TAB PO SCH (08:15)
[2017-02-18] MEDS: ATORVASTATIN 40 MG TAB PO SCH (08:15)
--- NOTE | 2017-02-18 08:31 | XR ---
EXAMINATION TYPE: XR chest 1V portable DATE OF EXAM: 02/18/2017 COMPARISON: Prior chest x-ray 02/17/2017 HISTORY: Post cardiac surgery, chest tube TECHNIQUE: Single frontal view of the chest is obtained. FINDINGS: Left-sided chest tube is in place, there are epicardial pacing leads, overlying cardiac le ads and the patient is post median sternotomy. Median sternal drains noted. No evident pneumothorax o r sizable effusion. Patchy basilar density is present. Heart size is stable. IMPRESSION: Probable basilar atelectasis, follow-up
[2017-02-18] MEDS ORDERED: FUROSEMIDE 10 MG/ML 2 ML VIAL IV STA (09:03)
[2017-02-18] MEDS ORDERED: SODIUM CHLORIDE 0.9% 1,000 ML IV ONE (10:32)
--- NOTE | 2017-02-18 10:42 | ECHOF ---
Referral Reason:PRE OP MEASUREMENTS -------- HEIGHT: 172.7 cm WEIGHT: 63.5 kg BP: 120/79 RVIDd: 2.0 cm (< 3.3) IVSd: 0.6 cm (0.6 - 1.1) LVIDd: 4.4 cm (3.9 - 5.3) LVPWd: 0.9 cm (0.6 - 1.1) EDV(Teich): 90 ml IVSs: 1.4 cm LVIDs: 2.6 cm LVPWs: 1.1 cm %IVS Thck: 140 % ESV(Teich): 25 ml EF(Teich): 72 % %FS: 41 % SV(Teich): 65 ml LA Diam: 2.5 cm (2.7 - 3.8) Ao Diam: 3.7 cm (2.0 - 3.7) AV Cusp: 1.9 cm (1.5 - 2.6) MV EXCURSION: 21.996 mm (> 18.000) MV EF SLOPE: 87 mm/s (70 - 150) EPSS: 1.2 cm MV E Cesar: 0.89 m/s MV DecT: 193 ms MV Dec Hopkins: 4.6 m/s MV A Cesar: 0.65 m/s MV E/A Ratio: 1.37 MV PHT: 56 ms E/E': 7.13 E': 0.12 m/s AV Vmax: 0.97 m/s AV maxP.79 mmHg FINDINGS -------- Sinus rhythm. This was a technically adequate study. The left ventricular size is normal. Left ventricular wall thickness is normal. Overall left ventricular systolic function is normal with, an EF between 60 - 65 %. The right ventricle is normal in size. The left atrial size is normal. The right atrium is normal in size. The aortic valve is trileaflet and appears structurally normal. The mitral valve is normal. The tricuspid valve appears structurally normal. There is no pulmonic regurgitation present. The aortic root is dilated measuring 3.7cm. Normal inferior vena cava with normal inspiratory collapse consistent with estimated right atrial pressure of 5 mmHg. There is no pericardial effusion. CONCLUSIONS -------- 1. Sinus rhythm. 2. The mitral valve is normal. 3. The tricuspid valve appears structurally normal. 4. There is no pulmonic regurgitation present. 5. The aortic root is dilated measuring 3.7cm. 6. Normal inferior vena cava with normal inspiratory collapse consistent with estimated right atrial pressure of 5 mmHg. 7. There is no pericardial effusion. 8. This was a technically adequate study. 9. The left ventricular size is normal. 10. Left ventricular wall thickness is normal. 11. Overall left ventricular systolic function is normal with, an EF between 60 - 65 %. 12. The right ventricle is normal in size. 13. The left atrial size is normal. 14. The right atrium is normal in size. 15. The aortic valve is trileaflet and appears structurally normal. STRUCTURAL BIOLOGIST: Ebony Valdez RDCS
--- NOTE | 2017-02-18 11:18 | P.PN ---
Subjective Progress Note Date: 02/18/17 61 years old male patient of Dr. Rae with past medical history of CVA 7 years ago, presented to the ER yesterday with a retrosternal chest pain that was nonradiating in character. Patient also experienced some shortness of breath on exertion. Patient states he had previous episodes of chest pain that resolved by itself. He is not feeling well for the past few days before having the chest pain yesterday. EKG was suggestive of inferior STEMI and patient was taken to [facility] directly from the ER. 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 Jc was consulted immediately for coronary artery bypass surgery acquiring three-vessel grafting including left internal mammary artery to the left LAD, saphenous vein graft to diagonal artery, saphenous vein graft to the obtuse marginal artery. Patient was extubated yesterday without any complications. On my evaluation today, patient was on balloon pump with the plan to remove the balloon pump in the next hour. Patient was complaining of mild substernal chest discomfort associated with some nausea and had 1 episode of vomiting this morning. He denies any dizziness, shortness of breath, palpitation or abdominal pain. She denies any change in bowel habits. Patient was on aspirin and statin for the stroke but stopped taking it due to bruising( will not give any details) 02/17: Patient remains in intensive care unit. Balloon pump was successfully removed yesterday. Remains with chest tubes in place. The plan is to remove his Cordis and Cheney today. He is receiving albumin. He is currently hemodynamically stable. Patient does have some vague complaints of chest pain. He was out of bed yesterday sitting in a chair and plans to do this again today. Patient is to be encouraged fluids as he had slight hypotension this morning. Metoprolol was increased. 02/18: Patient has been transferred out of the intensive care unit. Plan is to have pacemaker wires and chest tubes removed today. retail general manager has set up [facility]. patient states he ambulated in the hallway and has been doing well. Orthostatic blood pressures revealed initial blood pressure 94 that dropped to 64 with standing. IV fluids of 0.9 normal saline 1 L bolus ordered. Chest x-ray showing atelectasis. Patient is using incentive spirometry. Noted platelet count is 133. Patient is complaining of difficulty swallowing which is not new for him. Speech therapy consult added. Objective - Vital Signs Vital signs: Vital Signs Temp 98.7 F 02/18/17 04:00 Pulse 89 02/18/17 04:00 Resp 20 02/18/17 04:00 BP 98/59 02/18/17 04:00 Pulse Ox 92 L 02/18/17 04:00 Intake & Output 02/17/17 02/18/17 02/18/17 18:59 06:59 18:59 Intake Total 843 20 Output Total 858 100 Balance -15 -80 Weight 67 kg Intake: IV 563 20 .9 20 LR 60 albumin 5% 500 pressure bags 3 Oral 280 Output: Chest Tube Drainage 110 100 Left Pleural 30 30 MS x2 80 70 Urine 748 Other: Voiding Method Urinal Urinal ABP, PAP, CO, CI - Last Documented Arterial Blood Pressure 100/85 Pulmonary Artery Pressure 25/5 Cardiac Output 5.2 Cardiac Index 3 - Exam General appearance: cooperative, in acute distress, thin - EENT Eyes: anicteric sclerae, PERRLA, normal appearance ENT: hearing grossly normal - Neck Neck: no lymphadenopathy, normal ROM, no other, no rigidity, no stridor, no thyromegaly - Respiratory Respiratory: bilateral: CTA, negative: diminished, dullness, rales, rhonchi - Cardiovascular Rhythm: tachycardic, difficult to assess with intraaortic ballon pump Heart sounds: normal: S1, S2 Abnormal Heart Sounds: no systolic murmur, no diastolic murmur, no rub appreciated , no S3 Gallop, no S4 Gallop, no click, no other - Gastrointestinal General gastrointestinal: normal bowel sounds, soft - Integumentary Integumentary: no rash, intraaortic pump in the right groin with no sign of superficial bleeding - Neurologic Neurologic: CNII-XII intact - Musculoskeletal Musculoskeletal: gait normal, strength equal bilaterally - Psychiatric Psychiatric: A&O x's 3, appropriate affect - Labs CBC & Chem 7: 02/18/17 06:15 02/18/17 06:15 Labs: Abnormal Lab Results - Last 24 Hours (Table) 02/17/17 02/17/17 02/18/17 Range/Units 12:23 20:56 01:57 RBC (4.30-5.90) m/uL Hgb (13.0-17.5) gm/dL Hct (39.0-53.0) % Plt Count (150-450) k/uL Sodium (137-145) mmol/L Glucose (74-99) mg/dL POC Glucose (mg/dL) 100 H 118 H 107 H (75-99) mg/dL Calcium (8.4-10.2) mg/dL Total Protein (6.3-8.2) g/dL Albumin (3.5-5.0) g/dL 02/18/17 02/18/17 02/18/17 Range/Units 06:10 06:15 06:15 RBC 3.00 L (4.30-5.90) m/uL Hgb 9.0 L (13.0-17.5) gm/dL Hct 27.3 L (39.0-53.0) % Plt Count 133 L (150-450) k/uL Sodium 133 L (137-145) mmol/L Glucose 106 H (74-99) mg/dL POC Glucose (mg/dL) 122 H (75-99) mg/dL Calcium 8.1 L (8.4-10.2) mg/dL Total Protein 4.4 L (6.3-8.2) g/dL Albumin 2.7 L (3.5-5.0) g/dL Assessment and Plan Plan: 1. Inferior STEMI s/p emergent CABG - Continue aspirin, plavix, metoprolol, lipitor. EKG with inferior wall STEMI, goal LDL < 70. Intraaortic balloon pump removed yesterday, Cordis and Cheney out, chest tube and pacer wires out today 2. Persistent pain with EKG with diffuse ST elevation concerning for pericarditis. Continue ketorolac 15 mg q6hr, EKG next am. 3 h/o CVA 2005- patient discontinued aspirin and statin for concern for bruising. Continue statin. LDL goal < 70 4. DVT prophylaxis - Continue SCD while in bed 5. GI prophylaixis - protonix 40 mg iv daily 6. Code status - full code 7. dysphagia, speech therapy consult 8. Orthostatic hypotension. status post albumin yesterday,IV fluid bolus of 1 L ordered. 9. Thrombocytopenia. Continue to monitor. Discharge plan: Home with [facility] Impression and plan of care have been directed as dictated by the signing physician. Radha Lux nurse practitioner acting as scribe for signing physician.
[2017-02-18 11:48] LABS: Glucose,Whole Blood 97 mg/dL (75-99)
--- NOTE | 2017-02-18 13:55 | P.PN ---
Subjective Progress Note Date: 02/18/17 Principal diagnosis: ST segment elevation myocardial infarction, status post emergent coronary artery bypass grafting 3 utilizing a FARLEY to the LAD, saphenous vein graft to the diagonal, saphenous vein graft to the obtuse marginal. Consult dated 02/16/2017 61-year-old male who apparently presented to the emergency department with retrosternal chest pain is nonradiating. He also had some shortness of breath and also some dizziness. The pain was described as a 7 out of 10 in severity. It was dull and achy pressure-like midsternal pain. The patient ended up going to the [facility] and was found have significant coronary artery disease and was an emergent bypass grafting yesterday. He had a three-vessel bypass grafting. He came back to the ICU. He had great blood gases and weaning parameters and a cuff leak and he was extubated. Currently he is on the intra-aortic balloon pump augmenting at 2-1. He also developed some atrial fibrillation but is back in sinus rhythm. He is on nasal oxygen. He was seeming of lactated Ringer's IV at 50 mL now insulin drip at 1.5 units an hour nitroglycerin at 10 mics per minute and Cordarone and 0.5 mg/m. Other than a history of CVA/TIA, the patient has no supra can medical history is apparently on no medications at home and has no ALLERGIES. Progress note 02/17/2017 The patient is seen again today in follow-up in the intensive care unit. He is currently sitting up in the chair at the bedside. He is awake and alert in no acute distress. He denies any worsening shortness of breath, cough or congestion. He is working well of his incentive spirometer. His chest x-ray looks quite clear. Chest tubes remain in place. He is maintaining good O2 saturations in the mid 90s on room air. The [place] catheter from the right IJ has been removed. He is hemodynamically stable. Progress note 02/18/2017 Patient is seen again today in follow-up on the selective care unit. He is currently sitting up in a chair at the bedside. He is awake and alert in no acute distress. He denies any worsening shortness of breath, cough or congestion. He continues to work well of the incentive spirometer. His chest tubes have been removed. Chest x-ray shows some minimal basilar atelectasis. Patient looks good for maintaining good O2 saturations in the mid 90s on room air. His pressures are been borderline. Hemoglobin 9.0. Objective - Vital Signs Vital signs: Vital Signs Temp 98.9 F 02/18/17 11:37 Pulse 82 02/18/17 11:37 Resp 16 02/18/17 11:37 BP 93/58 02/18/17 11:37 Pulse Ox 95 02/18/17 11:37 Intake & Output 02/17/17 02/18/17 02/18/17 18:59 06:59 18:59 Intake Total 315 01 5249 Output Total 858 100 520 Balance -15 80 967 Weight 67 kg Intake: IV 571 36 9771 .9 20 1000 Invasive Line 1 10 Invasive Line 2 12 LR 60 albumin 5% 500 pressure bags 3 Oral 280 465 Output: Chest Tube Drainage 110 100 20 Left Pleural 30 30 20 MS x2 80 70 0 Urine 748 500 Other: Voiding Method Urinal Urinal ABP, PAP, CO, CI - Last Documented Arterial Blood Pressure 100/85 Pulmonary Artery Pressure 25/5 Cardiac Output 5.2 Cardiac Index 3 - Exam GENERAL EXAM: Alert, active, comfortable in no apparent distress. HEAD: Normocephalic. EYES: Normal reaction of pupils, equal size. NOSE: Clear with pink turbinates. THROAT: No erythema or exudates. NECK: No masses, no JVD. CHEST: Sternal dressing dry and intact. LUNGS: Equal air entry with no crackles, wheeze, rhonchi or dullness. CVS: S1 and S2 normal with no audible murmurs, regular rhythm. ABDOMEN: No hepatosplenomegaly, normal bowel sounds, no guarding or rigidity. SPINE: No scoliosis or deformity SKIN: No rashes CENTRAL NERVOUS SYSTEM: No focal deficits, tone is normal in all 4 extremities. Extremities: There is trace peripheral edema. SCDs present. Peripheral pulses are intact. - Labs CBC & Chem 7: 02/18/17 06:15 02/18/17 06:15 Labs: Abnormal Lab Results - Last 24 Hours (Table) 02/17/17 02/18/17 02/18/17 Range/Units 20:56 01:57 06:10 RBC (4.30-5.90) m/uL Hgb (13.0-17.5) gm/dL Hct (39.0-53.0) % Plt Count (150-450) k/uL Sodium (137-145) mmol/L Glucose (74-99) mg/dL POC Glucose (mg/dL) 118 H 107 H 122 H (75-99) mg/dL Calcium (8.4-10.2) mg/dL Total Protein (6.3-8.2) g/dL Albumin (3.5-5.0) g/dL 02/18/17 02/18/17 Range/Units 06:15 06:15 RBC 3.00 L (4.30-5.90) m/uL Hgb 9.0 L (13.0-17.5) gm/dL Hct 27.3 L (39.0-53.0) % Plt Count 133 L (150-450) k/uL Sodium 133 L (137-145) mmol/L Glucose 106 H (74-99) mg/dL POC Glucose (mg/dL) (75-99) mg/dL Calcium 8.1 L (8.4-10.2) mg/dL Total Protein 4.4 L (6.3-8.2) g/dL Albumin 2.7 L (3.5-5.0) g/dL Assessment and Plan Plan: Impression: #[address] segment elevation myocardial infarction. #2 Coronary artery disease status post coronary artery bypass grafting 3 utilizing the FARLEY to LAD, SVG's to the vaginal and obtuse marginal branch. Postoperative day number #3. #3 History of chronic tobacco dependence. #4 History of CVA/TIA. #5 Hyperlipidemia. #6 Postoperative atrial fibrillation. Plan: The patient was seen and evaluated by Dr. oJhn. His chest x-ray and labs were reviewed. We'll continue to increase the use of the incentive spirometer and cough and deep breathing exercises. We'll increase his activity as tolerated. We'll continue to follow. I performed a history and physical on the patient. Lung sounds with faint bibasilar crackles. I discussed the findings along with the assessment and plan of care with my nurse practitioner, Lulu Luo. I agree with the above note.
--- NOTE | 2017-02-18 14:17 | PN ---
PROGRESS NOTE Mr. Salgado is a 61-year-old male who was underwent coronary bypass grafting. He is in a setting of an acute myocardial infarction and had severe left main disease. He is doing well this morning. His breathing is better. He still has some episode of orthostatic hypotension, but otherwise he is ambulating without difficulty. Denying any chest pain. No dizziness. No palpitation. He continues to be in sinus mechanism. He continues to be at this time on aspirin once a day, Lipitor 40 mg daily, Plavix 75 mg daily, metoprolol tartrate 25 mg twice a day. PHYSICAL EXAMINATION: The blood pressure in the 90s with a heart rate in the 80s. HEAD: Normocephalic. LUNGS: Clear to auscultation. HEART: Rate rhythm S1, S2. No S3. No rub appreciated. ABDOMEN: Soft, nontender. EXTREMITIES: No edema. LAB DATA: Revealed BUN and creatinine 14 and 0.9. Potassium 3.8. IMPRESSION: 1. Status post bypass grafting, stable. 2. Hyperlipidemia. RECOMMENDATION: From the cardiac standpoint, we will continue to increase his level of activity, follow his blood pressure and adjust his medication as needed. I would expect he should be able to be discharged home in the next 24-48 hours. MMODL / IJN: [id number] /
[2017-02-18] MEDS ORDERED: KETOROLAC 30 MG/ML 1 ML VIAL IVP PRN (16:26)
[2017-02-18 16:50] LABS: Glucose,Whole Blood 98 mg/dL (75-99)
[2017-02-18] MEDS: SENNOSIDES-DOCUSATE SODIUM 1 EACH TAB PO SCH (20:03)
[2017-02-18 21:05] LABS: Glucose,Whole Blood 158 mg/dL (75-99)
[2017-02-19 02:12] LABS: Glucose,Whole Blood 111 mg/dL (75-99)
[2017-02-19 06:01] LABS: Glucose,Whole Blood 137 mg/dL (75-99)
[2017-02-19 06:31] LABS: CH 31.1; CHCM 34.2; HCT 27.3 % (39.0-53.0); HDW 2.75; HGB 8.9 gm/dL (13.0-17.5); MCHC 32.7 g/dL (31.0-37.0); MCV 91.7 fL (80.0-100.0); RBC 2.98 m/uL (4.30-5.90); RDW 14.5 % (11.5-15.5); WBC 8.7 k/uL (3.8-10.6)
[2017-02-19 06:49] LABS: ALT 37 U/L (21-72); AST 48 U/L (17-59); Alkaline Phosphatase 51 U/L (38-126); Blood Urea Nitrogen 15 mg/dL (9-20); Calcium 8.3 mg/dL (8.4-10.2); Carbon Dioxide 25 mmol/L (22-30); Glucose 118 mg/dL (74-99); Non-African American GFR(MDRD) >60 (>60 ml/min/1.73 sqM); Potassium 3.6 mmol/L (3.5-5.1); Sodium 133 mmol/L (137-145); Total Bilirubin 0.6 mg/dL (0.2-1.3); Total Protein 4.9 g/dL (6.3-8.2)
[2017-02-19 06:50] LABS: Anion Gap 6 mmol/L; Chloride 102 mmol/L (98-107)
[2017-02-19] MEDS: PANTOPRAZOLE 40 MG TABLET PO SCH (07:15)
[2017-02-19] MEDS: INSULIN LISPRO (humaLOG) 300 UNIT/3 ML VIAL SQ SCH ×4 (07:16→20:56)
--- NOTE | 2017-02-19 08:10 | XR ---
EXAMINATION TYPE: XR chest 2V DATE OF EXAM: 02/19/2017 COMPARISON: 02/19/2017 TECHNIQUE: PA and lateral views submitted. HISTORY: Post cardiac surgery FINDINGS: Small bilateral effusions and basilar consolidation. Postoperative change noted. There is cardiomegal y. Inflation suggests COPD. No overt failure. Chest tube has been removed. Mediastinal drain no longe r seen. IMPRESSION: 1. Bilateral infiltrate and small effusion.
--- NOTE | 2017-02-19 08:11 | P.PN ---
<Tory Ledbetter - Last Filed: 02/19/17 08:05> Subjective Progress Note Date: 02/19/17 Principal diagnosis: Severe symptomatically coronary artery disease with left main disease, STEMI. History of stroke in 2006. Previous tobacco dependence. Family history of coronary artery disease. Hyperlipidemia. POD #4 emergent coronary artery bypass graft surgery 3 vessels, left internal mammary artery to the left anterior descending artery, reverse saphenous vein graft to the diagonal artery, reverse saphenous vein graft to the obtuse marginal artery. Endoscopic vein harvesting right greater saphenous vein. Epi- aortic ultrasound. Intraoperative transesophageal echocardiogram. Graft flow measurement using the [employer] system. Postoperative paroxysmal atrial fibrillation, and expected outcome of surgery. Patient is currently sitting up in the chair eating breakfast in no acute distress. Denies pain, shortness of breath, nausea. States the dizziness when standing is virtually gone. Ambulate in the hallway several times yesterday. Pacemaker wires, chest tubes discontinued yesterday. Objective - Vital Signs Vital signs: Vital Signs Temp 100.6 F H 02/19/17 04:00 Pulse 92 02/19/17 04:00 Resp 18 02/19/17 04:00 BP 109/63 02/19/17 04:00 Pulse Ox 92 L 02/19/17 04:00 Intake & Output 02/18/17 02/19/17 02/19/17 18:59 06:59 18:59 Intake Total 1727 10 Output Total 520 530 Balance 1207 -520 Weight 67.7 kg Intake: IV 1022 10 .9 1000 10 Invasive Line 1 10 Invasive Line 2 12 Oral 705 Output: Chest Tube Drainage 20 Left Pleural 20 MS x2 0 Urine 500 530 Other: Voiding Method Urinal # Voids 2 1 # Bowel Movements 1 ABP, PAP, CO, CI - Last Documented Arterial Blood Pressure 100/85 Pulmonary Artery Pressure 25/5 Cardiac Output 5.2 Cardiac Index 3 - Constitutional General appearance: Present: cooperative, no acute distress - Respiratory Details: Lungs sounds diminished bilaterally. Respirations even, nonlabored. Currently on room air with oxygen saturation 92%. Able to achieve 1000 mL on his incentive spirometry. Effective cough. Chest x-ray reviewed, stable. - Cardiovascular Details: S1, S2 present. No pericardial rub present. Regular rate and rhythm, normal sinus rhythm on telemetry. Sternum stable. Palpable pulses bilaterally. No edema present. Heart hugger in place with patient demonstrating appropriate use. Antiembolism stockings, SCDs present. - Gastrointestinal Gastrointestinal Comment(s): Abdomen soft, nontender, nondistended. Active bowel sounds 4 quadrants. Tolerating diet. Positive bowel movement. - Genitourinary Genitourinary Comment(s): Continues to void clear, yellow urine. - Integumentary Integumentary Comment(s): Anterior chest incision well approximated and covered dry intact dressing. Right lower extremity EVH site well approximated. - Neurologic Neurologic: Present: CNII-XII intact - Musculoskeletal Musculoskeletal: Present: gait normal, strength equal bilaterally - Psychiatric Psychiatric: Present: A&O x's 3, appropriate affect, intact judgment & insight - Allied health notes Allied health notes reviewed: nursing - Labs CBC & Chem 7: 02/19/17 06:04 02/19/17 06:04 Labs: Abnormal Lab Results - Last 24 Hours (Table) 02/18/17 02/19/17 02/19/17 Range/Units 21:03 02:08 05:58 RBC (4.30-5.90) m/uL Hgb (13.0-17.5) gm/dL Hct (39.0-53.0) % Sodium (137-145) mmol/L Glucose (74-99) mg/dL POC Glucose (mg/dL) 158 H 111 H 137 H (75-99) mg/dL Calcium (8.4-10.2) mg/dL Total Protein (6.3-8.2) g/dL Albumin (3.5-5.0) g/dL 02/19/17 02/19/17 Range/Units 06:04 06:04 RBC 2.98 L (4.30-5.90) m/uL Hgb 8.9 L (13.0-17.5) gm/dL Hct 27.3 L (39.0-53.0) % Sodium 133 L (137-145) mmol/L Glucose 118 H (74-99) mg/dL POC Glucose (mg/dL) (75-99) mg/dL Calcium 8.3 L (8.4-10.2) mg/dL Total Protein 4.9 L (6.3-8.2) g/dL Albumin 3.0 L (3.5-5.0) g/dL - Imaging and Cardiology Chest x-ray: image reviewed Assessment and Plan (1) Tobacco dependence in remission Status: Acute (2) History of stroke Status: Acute (3) Family history of heart disease Status: Acute (4) Chest pain Status: Acute (5) ST elevation myocardial infarction (STEMI) Status: Acute (6) Coronary artery disease involving left main coronary artery Status: Acute (7) Hyperlipidemia Status: Acute (8) Postoperative atrial fibrillation Status: Acute Plan: 1. Continue aspirin, statin, Plavix, heparin subcu, beta kait. Will maximize beta kait therapy as tolerated. 2. Continue amiodarone for A. fib prophylaxis. 3. Encourage incentive spirometry use. 4. Encourage fluid intake other than coffee. 5. Increase activity, ambulate in hallway. Physical therapy to follow. 6. GI/DVT prophylaxis. 7. Will monitor daily labs, x-rays. 8. Insulin management per primary care service. 9. More recommendations as patient progresses. Discharge planning in progress. Likely will discharge to home with home care in the next 24-48 hours. Time with Patient: Greater than 30 <Lyndon Jc - Last Filed: 02/19/17 14:17> Objective - Vital Signs Vital signs: Vital Signs Temp 100.6 F H 02/19/17 04:00 Pulse 106 H 02/19/17 08:40 Resp 18 02/19/17 04:00 BP 134/70 02/19/17 08:40 Pulse Ox 95 02/19/17 08:40 Intake & Output 02/18/17 02/19/17 02/19/17 18:59 06:59 18:59 Intake Total 1727 10 360 Output Total 520 530 Balance 1207 -520 360 Weight 67.7 kg Intake: IV 1022 10 .9 1000 10 Invasive Line 1 10 Invasive Line 2 12 Oral 705 360 Output: Chest Tube Drainage 20 Left Pleural 20 MS x2 0 Urine 500 530 Other: Voiding Method Urinal # Voids 2 1 # Bowel Movements 1 ABP, PAP, CO, CI - Last Documented Arterial Blood Pressure 100/85 Pulmonary Artery Pressure 25/5 Cardiac Output 5.2 Cardiac Index 3 - Labs CBC & Chem 7: 02/19/17 06:04 02/19/17 06:04 Labs: Abnormal Lab Results - Last 24 Hours (Table) 02/18/17 02/19/17 02/19/17 Range/Units 21:03 02:08 05:58 RBC (4.30-5.90) m/uL Hgb (13.0-17.5) gm/dL Hct (39.0-53.0) % Sodium (137-145) mmol/L Glucose (74-99) mg/dL POC Glucose (mg/dL) 158 H 111 H 137 H (75-99) mg/dL Calcium (8.4-10.2) mg/dL Total Protein (6.3-8.2) g/dL Albumin (3.5-5.0) g/dL 02/19/17 02/19/17 02/19/17 Range/Units 06:04 06:04 11:41 RBC 2.98 L (4.30-5.90) m/uL Hgb 8.9 L (13.0-17.5) gm/dL Hct 27.3 L (39.0-53.0) % Sodium 133 L (137-145) mmol/L Glucose 118 H (74-99) mg/dL POC Glucose (mg/dL) 115 H (75-99) mg/dL Calcium 8.3 L (8.4-10.2) mg/dL Total Protein 4.9 L (6.3-8.2) g/dL Albumin 3.0 L (3.5-5.0) g/dL Assessment and Plan Plan: The patient was seen and examined. I agree with the above assessment and plan. Overall he looks great. All his tubes and wires have been removed. He is in normal sinus rhythm. He has been ambulating in the hallway without lightheadedness or dizziness. We will continue to monitor his blood pressure. He will likely be discharged home tomorrow.
[2017-02-19] MEDS: ASPIRIN 325 MG TAB PO SCH (10:06)
[2017-02-19] MEDS: METOPROLOL TARTRATE 25 MG TAB PO SCH ×2 (10:06→20:37)
[2017-02-19] MEDS: AMIODARONE 200 MG TAB PO SCH ×2 (10:06→20:36)
[2017-02-19] MEDS: CLOPIDOGREL 75 MG TAB PO SCH (10:07)
[2017-02-19] MEDS: MUPIROCIN 2% OINT 22 GM TUBE NASAL SCH ×2 (10:07→20:37)
[2017-02-19] MEDS: ATORVASTATIN 40 MG TAB PO SCH (10:07)
[2017-02-19] MEDS: HEPARIN SODIUM,PORCINE 5,000 UNIT/ML 1 ML VIAL SQ SCH ×3 (10:09→23:33)
--- NOTE | 2017-02-19 10:21 | P.PN ---
Subjective Progress Note Date: 02/19/17 Principal diagnosis: ST segment elevation myocardial infarction, status post emergent coronary artery bypass grafting 3 utilizing a FARLEY to the LAD, saphenous vein graft to the diagonal, saphenous vein graft to the obtuse marginal. Consult dated 02/16/2017 61-year-old male who apparently presented to the emergency department with retrosternal chest pain is nonradiating. He also had some shortness of breath and also some dizziness. The pain was described as a 7 out of 10 in severity. It was dull and achy pressure-like midsternal pain. The patient ended up going to the [facility] and was found have significant coronary artery disease and was an emergent bypass grafting yesterday. He had a three-vessel bypass grafting. He came back to the ICU. He had great blood gases and weaning parameters and a cuff leak and he was extubated. Currently he is on the intra-aortic balloon pump augmenting at 2-1. He also developed some atrial fibrillation but is back in sinus rhythm. He is on nasal oxygen. He was seeming of lactated Ringer's IV at 50 mL now insulin drip at 1.5 units an hour nitroglycerin at 10 mics per minute and Cordarone and 0.5 mg/m. Other than a history of CVA/TIA, the patient has no supra can medical history is apparently on no medications at home and has no ALLERGIES. Progress note 02/17/2017 The patient is seen again today in follow-up in the intensive care unit. He is currently sitting up in the chair at the bedside. He is awake and alert in no acute distress. He denies any worsening shortness of breath, cough or congestion. He is working well of his incentive spirometer. His chest x-ray looks quite clear. Chest tubes remain in place. He is maintaining good O2 saturations in the mid 90s on room air. The [place]-Omar catheter from the right IJ has been removed. He is hemodynamically stable. Progress note 02/18/2017 Patient is seen again today in follow-up on the selective care unit. He is currently sitting up in a chair at the bedside. He is awake and alert in no acute distress. He denies any worsening shortness of breath, cough or congestion. He continues to work well of the incentive spirometer. His chest tubes have been removed. Chest x-ray shows some minimal basilar atelectasis. Patient looks good for maintaining good O2 saturations in the mid 90s on room air. His pressures are been borderline. Hemoglobin 9.0. Progress note 02/19/2017 The patient is seen again today in follow-up in the end selective care unit. He is awake and alert in no acute distress. He is sitting up in a chair at the bedside. He denies any shortness of breath, cough or congestion. His chest x- ray shows some bilateral effusions which are small. There are some basilar consolidation. He is working well at the incentive spirometer. He is maintaining good O2 saturations in the 90s on room air. He's been up ambulating in the hallway without distress. His surgical pain is well controlled. Objective - Vital Signs Vital signs: Vital Signs Temp 100.6 F H 02/19/17 04:00 Pulse 106 H 02/19/17 08:40 Resp 18 02/19/17 04:00 BP 134/70 02/19/17 08:40 Pulse Ox 95 02/19/17 08:40 Intake & Output 02/18/17 02/19/17 02/19/17 18:59 06:59 18:59 Intake Total 1727 10 120 Output Total 520 530 Balance 1207 -520 120 Weight 67.7 kg Intake: IV 1022 10 .9 1000 10 Invasive Line 1 10 Invasive Line 2 12 Oral 705 120 Output: Chest Tube Drainage 20 Left Pleural 20 MS x2 0 Urine 500 530 Other: Voiding Method Urinal # Voids 2 1 # Bowel Movements 1 ABP, PAP, CO, CI - Last Documented Arterial Blood Pressure 100/85 Pulmonary Artery Pressure 25/5 Cardiac Output 5.2 Cardiac Index 3 - Exam GENERAL EXAM: Alert, active, comfortable in no apparent distress. HEAD: Normocephalic. EYES: Normal reaction of pupils, equal size. NOSE: Clear with pink turbinates. THROAT: No erythema or exudates. NECK: No masses, no JVD. CHEST: Sternal dressing dry and intact. LUNGS: Equal air entry with faint crackles in the posterior bases.. CVS: S1 and S2 normal with no audible murmurs, regular rhythm. ABDOMEN: No hepatosplenomegaly, normal bowel sounds, no guarding or rigidity. SPINE: No scoliosis or deformity SKIN: No rashes CENTRAL NERVOUS SYSTEM: No focal deficits, tone is normal in all 4 extremities. Extremities: There is trace peripheral edema. SCDs present. Peripheral pulses are intact. - Labs CBC & Chem 7: 02/19/17 06:04 02/19/17 06:04 Labs: Abnormal Lab Results - Last 24 Hours (Table) 02/18/17 02/19/17 02/19/17 Range/Units 21:03 02:08 05:58 RBC (4.30-5.90) m/uL Hgb (13.0-17.5) gm/dL Hct (39.0-53.0) % Sodium (137-145) mmol/L Glucose (74-99) mg/dL POC Glucose (mg/dL) 158 H 111 H 137 H (75-99) mg/dL Calcium (8.4-10.2) mg/dL Total Protein (6.3-8.2) g/dL Albumin (3.5-5.0) g/dL 02/19/17 02/19/17 Range/Units 06:04 06:04 RBC 2.98 L (4.30-5.90) m/uL Hgb 8.9 L (13.0-17.5) gm/dL Hct 27.3 L (39.0-53.0) % Sodium 133 L (137-145) mmol/L Glucose 118 H (74-99) mg/dL POC Glucose (mg/dL) (75-99) mg/dL Calcium 8.3 L (8.4-10.2) mg/dL Total Protein 4.9 L (6.3-8.2) g/dL Albumin 3.0 L (3.5-5.0) g/dL Assessment and Plan Plan: Impression: #[address] segment elevation myocardial infarction. #2 Coronary artery disease status post coronary artery bypass grafting 3 utilizing the FARLEY to LAD, SVG's to the vaginal and obtuse marginal branch. Postoperative day number #4. #3 History of chronic tobacco dependence. #4 History of CVA/TIA. #5 Hyperlipidemia. #6 Postoperative atrial fibrillation. Plan: The patient was seen and evaluated by Dr. John. His chest x-ray and labs were reviewed. We'll continue to increase the use of the incentive spirometer and cough and deep breathing exercises. Hemoglobin slightly drifting down. Currently 8.9. We'll increase his activity as tolerated. We'll continue to follow. I performed a history and physical on the patient. No pulmonary complaints. Lung sounds with faint bibasilar crackles. I discussed the findings along with the assessment and plan of care with my nurse practitioner, Lulu Luo. I agree with the above note.
--- NOTE | 2017-02-19 11:44 | P.PN ---
Subjective Progress Note Date: 02/19/17 Principal diagnosis: Inferior Wall MS This is a pleasant 61-year-old gentleman who was admitted with acute myocardial infarction and found to have severe left main disease. He is status post coronary artery bypass grafting. On examination this morning, patient is sitting up in a chair just finished his shower. He is feeling well he's been ambulating without difficulties. Denies any complaints of chest discomfort, dizziness, palpitations or shortness of breath. He continues to maintain sinus rhythm. She remains on amiodarone to 400 mg by mouth twice a day, aspirin 325 mg by mouth daily, atorvastatin 40 mg by mouth daily, Plavix 75 mg by mouth daily and metoprolol titrate 25 mg by mouth twice a day. Laboratory values were reviewed and show a hemoglobin of 8.9, sodium 133, potassium 3.6, BUN 15 and creatinine 0.9. Chest x-ray this morning shows bilateral infiltrate and small effusion. He is anticipating discharge tomorrow. Objective - Vital Signs Vital signs: Vital Signs Temp 100.6 F H 02/19/17 04:00 Pulse 106 H 02/19/17 08:40 Resp 18 02/19/17 04:00 BP 134/70 02/19/17 08:40 Pulse Ox 95 02/19/17 08:40 Intake & Output 02/18/17 02/19/17 02/19/17 18:59 06:59 18:59 Intake Total 1727 10 120 Output Total 520 530 Balance 1207 -520 120 Weight 67.7 kg Intake: IV 1022 10 .9 1000 10 Invasive Line 1 10 Invasive Line 2 12 Oral 705 120 Output: Chest Tube Drainage 20 Left Pleural 20 MS x2 0 Urine 500 530 Other: Voiding Method Urinal # Voids 2 1 # Bowel Movements 1 ABP, PAP, CO, CI - Last Documented Arterial Blood Pressure 100/85 Pulmonary Artery Pressure 25/5 Cardiac Output 5.2 Cardiac Index 3 - Exam PHYSICAL EXAMINATION: HEENT: Head is atraumatic, normocephalic. Pupils equal, round. Neck is supple. There is no elevated jugular venous pressure. HEART EXAMINATION: Heart sounds regular, S1 and S2 normal. No murmur or gallop heard. CHEST EXAMINATION: Lungs are clear to auscultation and precussion. ABDOMEN: Soft, nontender. Bowel sounds are heard. No organomegaly noted. EXTREMITIES: 2+ peripheral pulses with no evidence of peripheral edema and no calf tenderness noted. NEUROLOGIC patient is awake, alert and oriented x3. . - Labs CBC & Chem 7: 02/19/17 06:04 02/19/17 06:04 Labs: Abnormal Lab Results - Last 24 Hours (Table) 02/18/17 02/19/17 02/19/17 Range/Units 21:03 02:08 05:58 RBC (4.30-5.90) m/uL Hgb (13.0-17.5) gm/dL Hct (39.0-53.0) % Sodium (137-145) mmol/L Glucose (74-99) mg/dL POC Glucose (mg/dL) 158 H 111 H 137 H (75-99) mg/dL Calcium (8.4-10.2) mg/dL Total Protein (6.3-8.2) g/dL Albumin (3.5-5.0) g/dL 02/19/17 02/19/17 Range/Units 06:04 06:04 RBC 2.98 L (4.30-5.90) m/uL Hgb 8.9 L (13.0-17.5) gm/dL Hct 27.3 L (39.0-53.0) % Sodium 133 L (137-145) mmol/L Glucose 118 H (74-99) mg/dL POC Glucose (mg/dL) (75-99) mg/dL Calcium 8.3 L (8.4-10.2) mg/dL Total Protein 4.9 L (6.3-8.2) g/dL Albumin 3.0 L (3.5-5.0) g/dL Assessment and Plan Plan: Assessment and plan #1 acute inferior wall MS #2 severe left main disease #3 status post coronary artery bypass grafting #4 hyperlipidemia From cardiology's perspective, patient is doing quite well. He is maintaining sinus rhythm. Continue to increase level of activity we'll continue to follow his blood pressure and adjust medications accordingly. We anticipate patient will be discharged home tomorrow. CERTIFIED EMERGENCY VEHICLE TECHNICIAN note has been reviewed, I agree with a documented findings and plan of care. Patient was seen and examined.
[2017-02-19 11:45] LABS: Glucose,Whole Blood 115 mg/dL (75-99)
--- NOTE | 2017-02-19 15:03 | P.PN ---
Subjective Progress Note Date: 02/19/17 61 years old male patient of Dr. Rae with past medical history of CVA 7 years ago, presented to the ER yesterday with a retrosternal chest pain that was nonradiating in character. Patient also experienced some shortness of breath on exertion. Patient states he had previous episodes of chest pain that resolved by itself. He is not feeling well for the past few days before having the chest pain yesterday. EKG was suggestive of inferior STEMI and patient was taken to minilab operator directly from the ER. 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 Jc was consulted immediately for coronary artery bypass surgery acquiring three-vessel grafting including left internal mammary artery to the left LAD, saphenous vein graft to diagonal artery, saphenous vein graft to the obtuse marginal artery. Patient was extubated yesterday without any complications. On my evaluation today, patient was on balloon pump with the plan to remove the balloon pump in the next hour. Patient was complaining of mild substernal chest discomfort associated with some nausea and had 1 episode of vomiting this morning. He denies any dizziness, shortness of breath, palpitation or abdominal pain. She denies any change in bowel habits. Patient was on aspirin and statin for the stroke but stopped taking it due to bruising( will not give any details) 02/17: Patient remains in intensive care unit. Balloon pump was successfully removed yesterday. Remains with chest tubes in place. The plan is to remove his Cordis and Cheney today. He is receiving albumin. He is currently hemodynamically stable. Patient does have some vague complaints of chest pain. He was out of bed yesterday sitting in a chair and plans to do this again today. Patient is to be encouraged fluids as he had slight hypotension this morning. Metoprolol was increased. 02/18: Patient has been transferred out of the intensive care unit. Plan is to have pacemaker wires and chest tubes removed today. renewals manager has set up [facility]. patient states he ambulated in the hallway and has been doing well. Orthostatic blood pressures revealed initial blood pressure 94 that dropped to 64 with standing. IV fluids of 0.9 normal saline 1 L bolus ordered. Chest x-ray showing atelectasis. Patient is using incentive spirometry. Noted platelet count is 133. Patient is complaining of difficulty swallowing which is not new for him. Speech therapy consult added. 02/19: Pacemaker wires and chest tubes removed yesterday without incident. Patient has been ambulatory in the hallway. He states the dizziness is much better today as well as blood pressure is improved. He did have 3 bowel movements in [place] day. He is complaining of right leg edema and tenderness. No significant erythema or drainage noted. He has been evaluated by speech therapy with recommendations to continue mechanical soft diet with thin liquids due to poor dentition and crushed medications. Objective - Vital Signs Vital signs: Vital Signs Temp 100.6 F H 02/19/17 04:00 Pulse 92 02/19/17 04:00 Resp 18 02/19/17 04:00 BP 109/63 02/19/17 04:00 Pulse Ox 92 L 02/19/17 04:00 Intake & Output 02/18/17 02/19/17 02/19/17 18:59 06:59 18:59 Intake Total 1727 10 Output Total 520 530 Balance 1207 -520 Weight 67.7 kg Intake: IV 1022 10 .9 1000 10 Invasive Line 1 10 Invasive Line 2 12 Oral 705 Output: Chest Tube Drainage 20 Left Pleural 20 MS x2 0 Urine 500 530 Other: Voiding Method Urinal # Voids 2 1 # Bowel Movements 1 ABP, PAP, CO, CI - Last Documented Arterial Blood Pressure 100/85 Pulmonary Artery Pressure 25/5 Cardiac Output 5.2 Cardiac Index 3 - Exam General appearance: cooperative, in acute distress, thin - EENT Eyes: anicteric sclerae, PERRLA, normal appearance ENT: hearing grossly normal - Neck Neck: no lymphadenopathy, normal ROM, no other, no rigidity, no stridor, no thyromegaly - Respiratory Respiratory: bilateral: CTA, negative: diminished, dullness, rales, rhonchi - Cardiovascular Rhythm: tachycardic, difficult to assess with intraaortic ballon pump Heart sounds: normal: S1, S2, pleural rub Abnormal Heart Sounds: no systolic murmur, no diastolic murmur, no rub appreciated , no S3 Gallop, no S4 Gallop, no click, no other - Gastrointestinal General gastrointestinal: normal bowel sounds, soft - Integumentary Integumentary: no rash, intraaortic pump in the right groin with no sign of superficial bleeding - Neurologic Neurologic: CNII-XII intact - Musculoskeletal Musculoskeletal: gait normal, strength equal bilaterally - Psychiatric Psychiatric: A&O x's 3, appropriate affect - Labs CBC & Chem 7: 02/19/17 06:04 02/19/17 06:04 Labs: Abnormal Lab Results - Last 24 Hours (Table) 02/18/17 02/19/17 02/19/17 Range/Units 21:03 02:08 05:58 RBC (4.30-5.90) m/uL Hgb (13.0-17.5) gm/dL Hct (39.0-53.0) % Sodium (137-145) mmol/L Glucose (74-99) mg/dL POC Glucose (mg/dL) 158 H 111 H 137 H (75-99) mg/dL Calcium (8.4-10.2) mg/dL Total Protein (6.3-8.2) g/dL Albumin (3.5-5.0) g/dL 02/19/17 02/19/17 Range/Units 06:04 06:04 RBC 2.98 L (4.30-5.90) m/uL Hgb 8.9 L (13.0-17.5) gm/dL Hct 27.3 L (39.0-53.0) % Sodium 133 L (137-145) mmol/L Glucose 118 H (74-99) mg/dL POC Glucose (mg/dL) (75-99) mg/dL Calcium 8.3 L (8.4-10.2) mg/dL Total Protein 4.9 L (6.3-8.2) g/dL Albumin 3.0 L (3.5-5.0) g/dL Assessment and Plan Plan: 1. Inferior STEMI s/p emergent CABG - Continue aspirin, plavix, metoprolol, lipitor. EKG with inferior wall STEMI, goal LDL < 70. Intraaortic balloon pump, Cordis and Cheney, chest tube and pacer wires 2. Persistent pain with EKG with diffuse ST elevation concerning for pericarditis. Continue ketorolac 15 mg q6hr, EKG next am. 3 h/o CVA 2005- patient discontinued aspirin and statin for concern for bruising. Continue statin. LDL goal < 70 4. DVT prophylaxis - Continue SCD while in bed 5. GI prophylaixis - protonix 40 mg iv daily 6. Code status - full code 7. dysphagia, speech therapy consult 8. Orthostatic hypotension. status post albumin yesterday,IV fluid bolus of 1 L ordered. 9. Thrombocytopenia. Continue to monitor. 10. Pericarditis, minimal 11. Postop atrial fibrillation, paroxysmal, expected. Patient on amiodarone Discharge plan: Home with [facility] Impression and plan of care have been directed as dictated by the signing physician. Radha Lux nurse practitioner acting as scribe for signing physician.
[2017-02-19 16:22] LABS: Glucose,Whole Blood 107 mg/dL (75-99)
[2017-02-19] MEDS: SENNOSIDES-DOCUSATE SODIUM 1 EACH TAB PO SCH (20:37)
[2017-02-19 20:46] LABS: Glucose,Whole Blood 98 mg/dL (75-99)
[2017-02-19 21:58] VITALS: RESP 18
[2017-02-20 03:07] LABS: Glucose,Whole Blood 117 mg/dL (75-99)
[2017-02-20 06:15] LABS: Glucose,Whole Blood 100 mg/dL (75-99)
[2017-02-20 06:36] LABS: CH 30.7; CHCM 33.7; HCT 27.2 % (39.0-53.0); HDW 2.84; HGB 8.9 gm/dL (13.0-17.5); MCHC 32.7 g/dL (31.0-37.0); MCV 91.7 fL (80.0-100.0); Mean Platelet Volume 7.2; RBC 2.96 m/uL (4.30-5.90); RDW 14.9 % (11.5-15.5); WBC 6.6 k/uL (3.8-10.6)
[2017-02-20] MEDS: INSULIN LISPRO (humaLOG) 300 UNIT/3 ML VIAL SQ SCH (06:40)
[2017-02-20] MEDS: PANTOPRAZOLE 40 MG TABLET PO SCH (06:57)
[2017-02-20 07:02] LABS: ALT 55 U/L (21-72); AST 60 U/L (17-59); Alkaline Phosphatase 52 U/L (38-126); Blood Urea Nitrogen 12 mg/dL (9-20); Calcium 8.3 mg/dL (8.4-10.2); Carbon Dioxide 24 mmol/L (22-30); Glucose 96 mg/dL (74-99); Non-African American GFR(MDRD) >60 (>60 ml/min/1.73 sqM); Potassium 3.7 mmol/L (3.5-5.1); Sodium 134 mmol/L (137-145); Total Bilirubin 0.7 mg/dL (0.2-1.3); Total Protein 4.9 g/dL (6.3-8.2)
--- NOTE | 2017-02-20 07:06 | XR ---
EXAMINATION TYPE: XR chest 2V DATE OF EXAM: 02/20/2017 HISTORY: post cardiac surgery. REFERENCE: Previous study dated 02/19/2017. FINDINGS: The lungs are overinflated. The heart is mildly enlarged. There are small, bilateral pleura l effusions. There has been a midline sternotomy. IMPRESSION: 1. STATUS POST MIDLINE STERNOTOMY. 2. COPD. 3. SMALL, BILATERAL EFFUSIONS.
[2017-02-20 07:07] LABS: Anion Gap 7 mmol/L; Chloride 103 mmol/L (98-107)
--- NOTE | 2017-02-20 07:54 | P.PN ---
Subjective Progress Note Date: 02/20/17 Principal diagnosis: Severe symptomatically coronary artery disease with left main disease, STEMI. History of stroke in 2006. Previous tobacco dependence. Family history of coronary artery disease. Hyperlipidemia. POD #5 emergent coronary artery bypass graft surgery 3 vessels, left internal mammary artery to the left anterior descending artery, reverse saphenous vein graft to the diagonal artery, reverse saphenous vein graft to the obtuse marginal artery. Endoscopic vein harvesting right greater saphenous vein. Epi- aortic ultrasound. Intraoperative transesophageal echocardiogram. Graft flow measurement using the Pokenstim system. Postoperative paroxysmal atrial fibrillation, and expected outcome of surgery. Patient is currently walking in the hallway in no acute distress. Denies pain, shortness of breath. Objective - Vital Signs Vital signs: Vital Signs Temp 99.1 F 02/20/17 04:00 Pulse 85 02/20/17 04:00 Resp 18 02/20/17 04:00 BP 105/64 02/20/17 04:00 Pulse Ox 96 02/20/17 04:00 Intake & Output 02/19/17 02/20/17 02/20/17 18:59 06:59 18:59 Intake Total 600 Balance 600 Weight 66.9 kg Intake: Oral 600 Other: Voiding Method Toilet Toilet # Voids 1 ABP, PAP, CO, CI - Last Documented Arterial Blood Pressure 100/85 Pulmonary Artery Pressure 25/5 Cardiac Output 5.2 Cardiac Index 3 - Constitutional General appearance: Present: cooperative, no acute distress - Respiratory Details: Lungs sounds diminished bilaterally. Respirations even, nonlabored. Currently on room air with oxygen saturation 96%. Able to achieve 1250 mL on his incentive spirometry. Effective cough. Chest x-ray reviewed, stable. - Cardiovascular Details: S1, S2 present. Regular rate and rhythm, sinus rhythm on telemetry. Sternum stable. Palpable pulses bilaterally. No edema present. Heart hugger in place with patient demonstrating appropriate use. Antiembolism stockings, SCDs present. - Gastrointestinal Gastrointestinal Comment(s): Abdomen soft, nontender, nondistended. Active bowel sounds 4 quadrants. Tolerating diet. Positive bowel movement. - Genitourinary Genitourinary Comment(s): Continues to void clear, yellow urine. - Integumentary Integumentary Comment(s): Anterior chest incision well approximated with Dermabond. Right lower extremity EVH site well approximated with Dermabond. - Neurologic Neurologic: Present: CNII-XII intact - Musculoskeletal Musculoskeletal: Present: gait normal, strength equal bilaterally - Psychiatric Psychiatric: Present: A&O x's 3, appropriate affect, intact judgment & insight - Allied health notes Allied health notes reviewed: nursing - Labs CBC & Chem 7: 02/20/17 05:52 02/20/17 05:52 Labs: Abnormal Lab Results - Last 24 Hours (Table) 02/19/17 02/19/17 02/20/17 Range/Units 11:41 16:17 03:06 RBC (4.30-5.90) m/uL Hgb (13.0-17.5) gm/dL Hct (39.0-53.0) % Sodium (137-145) mmol/L POC Glucose (mg/dL) 115 H 107 H 117 H (75-99) mg/dL Calcium (8.4-10.2) mg/dL AST (17-59) U/L Total Protein (6.3-8.2) g/dL Albumin (3.5-5.0) g/dL 02/20/17 02/20/17 02/20/17 Range/Units 05:52 05:52 06:14 RBC 2.96 L (4.30-5.90) m/uL Hgb 8.9 L (13.0-17.5) gm/dL Hct 27.2 L (39.0-53.0) % Sodium 134 L (137-145) mmol/L POC Glucose (mg/dL) 100 H (75-99) mg/dL Calcium 8.3 L (8.4-10.2) mg/dL AST 60 H (17-59) U/L Total Protein 4.9 L (6.3-8.2) g/dL Albumin 2.9 L (3.5-5.0) g/dL - Imaging and Cardiology Chest x-ray: report reviewed, image reviewed Assessment and Plan (1) Tobacco dependence in remission Status: Acute (2) History of stroke Status: Acute (3) Family history of heart disease Status: Acute (4) Chest pain Status: Acute (5) ST elevation myocardial infarction (STEMI) Status: Acute (6) Coronary artery disease involving left main coronary artery Status: Acute (7) Hyperlipidemia Status: Acute (8) Postoperative atrial fibrillation Status: Acute Plan: 1. Continue aspirin, statin, Plavix, heparin subcu, beta kait. Will maximize beta kait therapy as tolerated. 2. Continue amiodarone for A. fib prophylaxis. 3. Encourage incentive spirometry use. 4. Increase activity, ambulate in hallway. Physical therapy following. 5. GI/DVT prophylaxis. 6. Insulin management per primary care service. 7. Discharge planning in progress. Likely will discharge to home with home care today. Time with Patient: Greater than 30
[2017-02-20] MEDS: METOPROLOL TARTRATE 25 MG TAB PO SCH (08:30)
[2017-02-20] MEDS: ASPIRIN 325 MG TAB PO SCH (08:30)
[2017-02-20] MEDS: HEPARIN SODIUM,PORCINE 5,000 UNIT/ML 1 ML VIAL SQ SCH (08:31)
[2017-02-20] MEDS: ATORVASTATIN 40 MG TAB PO SCH (08:31)
[2017-02-20] MEDS: MUPIROCIN 2% OINT 22 GM TUBE NASAL SCH (08:31)
[2017-02-20] MEDS: AMIODARONE 200 MG TAB PO SCH (08:31)
[2017-02-20] MEDS: CLOPIDOGREL 75 MG TAB PO SCH (08:31)
[2017-02-20] MEDS ORDERED: FUROSEMIDE 20 MG TAB PO SCH (09:15)
[2017-02-20] MEDS ORDERED: POTASSIUM CHLORIDE ER 20 MEQ TAB.ER PO SCH (09:15)
[2017-02-20 09:41] VITALS: BP 101/60; PULSE 64; TEMP 98.8
--- NOTE | 2017-02-20 09:43 | P.DS ---
Providers Date of admission: 02/15/17 09:42 Expected date of discharge: 02/20/17 Attending physician: Lyndon Jc Consults: 02/15/17 09:42 Consult Physician Urgent Consulting Provider: Chuy Vora Consult Reason/Comments: Inferior wall myocardial infarction Do you want consulting provider notified?: Already Contacted 02/15/17 10:35 Consult to Anesthesia Routine Consulting Provider: Anesthesia,Services Consult Reason/Comments: Cardiac Surgery Pre-Op 02/15/17 17:04 Consult Physician Routine Consulting Provider: Prasad John Consult Reason/Comments: Health Equipment Servicer Consult: post cardiac surgery Do you want consulting provider notified?: Yes Consult Physician Routine Consulting Provider: Evans Rae Consult Reason/Comments: medical management Do you want consulting provider notified?: Already Contacted Primary care physician: Evans Rae - Discharge Diagnosis(es) (1) Tobacco dependence in remission Current Visit: Yes Status: Acute (2) History of stroke Current Visit: Yes Status: Acute (3) Family history of heart disease Current Visit: Yes Status: Acute (4) Chest pain Current Visit: Yes Status: Acute (5) ST elevation myocardial infarction (STEMI) Current Visit: Yes Status: Acute (6) Coronary artery disease involving left main coronary artery Current Visit: Yes Status: Acute (7) Hyperlipidemia Current Visit: Yes Status: Acute (8) Postoperative atrial fibrillation Current Visit: Yes Status: Acute Hospital Course: FINAL DIAGNOSIS: 1. Severe symptomatic coronary artery disease with left main disease, STEMI 2. History of stroke in 2006 3. Previous tobacco dependence 4. Family history of coronary artery disease 5. Hyperlipidemia 6. Postoperative paroxysmal atrial fibrillation PRINCIPAL PROCEDURE: 1. Emergent coronary artery bypass graft surgery 3 vessels, left internal mammary artery to left anterior descending artery, reverse saphenous vein graft to the diagonal artery, reverse saphenous vein graft to the obtuse marginal artery 2. Endoscopic vein harvesting right greater saphenous vein 3. Epi-aortic ultrasound 4. Intraoperative transesophageal echocardiogram 5. Graft flow measurements using the Helijiastim system 6. Preoperative placement of intra-aortic balloon pump during left heart catheterization. HISTORY OF PRESENT ILLNESS: This 61-year-old gentleman with a previous history of stroke and remote tobacco dependence presented to the emergency room with complaints of chest pain which was described as dull and achy pressure midsternum without radiation, associated with mild shortness of breath and dizziness. Upon further questioning the patient stated that he had been having chest pain off and on for a few weeks and had chosen to ignore it. A STEMI alert was called in the emergency room, EKG demonstrated ischemic changes consistent with inferior wall myocardial infarction. The patient was taken emergently to the cardiac catheterization lab where he was found to have significant left main disease requiring placement of an intra-aortic balloon pump. Dr. Jc was consulted to take this patient emergently to the operating room for coronary artery bypass grafting surgery. An echocardiogram was done in the lab rep prior to transport to the operating room with no significant valvular disease present. Discussion was had with the patient and his family, risk and benefits were explained, and consent was obtained to proceed with surgery. HOSPITAL COURSE: The patient was taken emergently to the operating room where Dr. Jc performed coronary artery bypass grafting 3 vessels, with the left internal mammary artery to the left anterior descending artery, reverse saphenous vein graft to the diagonal artery, reverse saphenous vein graft to the obtuse marginal artery, endoscopic vein harvesting of the right greater saphenous vein, epi-aortic ultrasound, intraoperative transesophageal echocardiogram, and graft flow measurements using the Helijiastim system. Upon completion of surgery the patient was transferred to the cardiovascular intensive care unit where he was recovered, monitored hemodynamically, and where he progressed to cardiac rehabilitation phase 1. He did have an episode of paroxysmal atrial fibrillation postoperatively which resolved with initiation of amiodarone. He was extubated, all lines, tubes, and drips were discontinued when appropriate, and he was transferred to [address] [place] [address] for further monitoring and rehabilitation. He experienced an episode of orthostatic hypotension which resolved with fluid resuscitation. His oxygen was titrated down, he continued to work with physical therapy, and was ready to be discharged home on postoperative day #5 with [facility] to follow. He received written and verbal instruction regarding his medications, activity restrictions, signs and symptoms requiring physician notification, and follow- up appointments. COMPLICATIONS: The patient experienced postoperative paroxysmal atrial fibrillation which was treated accordingly. Patient Condition at Discharge: Critical Plan - Discharge Summary New Discharge Prescriptions: No Action Ergocalciferol [Vitamin D2] 50,000 unit PO Q7D Discharge Medication List Ergocalciferol [Vitamin D2] 50,000 unit PO Q7D 02/15/17 [History] Follow up Appointment(s)/Referral(s): Tory Ledbetter NPC [Nurse Practitioner] - 02/24/17 12:00 pm Chuy Vora MD [STAFF PHYSICIAN] - 03/05/17 4:00 pm (@ [facility] (by [facility] )) Evans Rae MD [Primary Care Provider] - 03/05/17 10:00 am (with GEOGRAPHY INSTRUCTOR Sasha) Prasad John DO [Doctor of Osteopathic Medicine] - 03/04/17 2:15 pm [facility], [NON-STAFF] - As Needed Lyndon Jc MD [STAFF PHYSICIAN] - 03/19/17 10:30 am Activity/Diet/Wound Care/Special Instructions: DISCHARGE INSTRUCTIONS: 1. No driving for 4 weeks, or until physician gives their ok. 2. The patient should sleep in their own bed, no medical bed needed. 3. Stairs are not an issue. If the bedroom is upstairs, it is advised that the patient go up at night and down in the morning for the first week. Go slowly, using handrail and take 1 step at a time. 4. RATNA hose are to be worn for 30 days or until physician discontinues. 5. Heart hugger is to be worn 100% of the time until physician discontinues.( except when showering) 6. No lifting, pushing, or pulling more than 10 pounds for 12 weeks. The physician will advise of any restriction changes. 7. The patient is expected to continue the prescribed walking program. 8. Continue pain control per as needed orders. 9. Continue with incentive spirometry and splinting/heart hugger until otherwise directed by the physician. 10. Must shower daily using liquid antibacterial soap and a separate white washcloth for each individual incision. 11. Routine sternal incision care. No powders, lotions, ointments on incisions. 12. Please call surgeon/GEOGRAPHY INSTRUCTOR for temp greater than 101 F or purulent drainage from incisions. 13. All prescriptions given by surgeon for 30 days. Refills need to be filled through tubing tester/primary care physician. HOME HEALTH SERVICES TO PROVIDE: RN SKILLED HOME CARE SERVICES FOR POST-OP SURGICAL PATIENTS WITH THE FOLLOWING: Coronary Artery Bypass Surgery (CABG), Mitral Valve Replacement/ Repair ( MVR), Aortic Valve Replacement/Repair (AVR) RN TO CONTINUE EDUCATION FROM ``ROAD TO A HEALTH HEART PATIENT EDUCATION MANUAL (GIVEN TO PATIENT IN THE HOSPITAL) MEDICATION RECONCILIATION WITH EDUCATION NEEDED ON FIRST HOME VISIT EMPHASIZE IMPORTANCE OF WEARING BREAST SUPPORT/HEART HUGGER ENCOURAGE USE OF INCENTIVE SPIROMETER 10 X EVERY HOUR WHILE AWAKE ENCOURAGE UTILIZATION OF LOWER EXTREMITY COMPRESSION STOCKINGS/RATNA HOSE and ELEVATE LEGS ABOVE LEVEL OF HEART WHILE AT REST. ENCOURAGE AMBULATION 3-5x/day INCREASING TOLERATES, WHILE AVOID EXTREMES IN TEMPERATURE FREQUENCY: RN TO OPEN THE PATIENT WITHIN 24 HOURS OF DISCHARGE FROM THE HOSPITAL WITH TELEHEALTH INSTALLED AT [facility] [place], RN TO VISIT 2-3 X A WEEK FOR 4 WEEKS ESTABLISHED BY PATIENT NEEDS. LABORATORY: CBC, CMP TO BE DRAWN ON THE THIRD DAY HOME, Wednesday02/23/2017 (RAN STAT ) FAX RESULTS TO [phone]. TELEHEALTH PARAMETERS: WEIGHT: NOTIFY MD OF WEIGHT GAIN OF 2 LBS IN 24 HOURS OR 5 LBS IN ONE WEEK HR: NOTIFY MD OF HR <55 BPM OR HR>100 BPM BP: NOTIFY MD IF BP <90/55 OR BP>140/100 O2 SAT: NOTIFY MD IF PO2<93% ON ROOM AIR SEND TELEHEALTH REPORT TO NET WEB APPLICATION DEVELOPER AND CARDIOVASCULAR SURGEON THE FIRST WEEK OF CARE AND THEN BI-WEEKLY. PLEASE ADDITIONALLY COMMUNICATE ANY ABNORMALS AND NEW FINDINGS TO THE SURGEONS OFFICE. A Red armband has been placed on the patient. It should be worn for 30 days post surgery and will be removed by the cardiac surgeons. If an ER visit is necessary, please make sure the number on the Red armband is called.
== END 2017-02-20 13:30 | disposition home health service (06) | DRG 234 ==
LOC: EC 09:21 → 6ICU 09:42 → 6SEL 02-17 15:11
PROVIDERS: ADMIT Internal Medicine; ATTEND Surgery
PROC: 5A02210 Assistance with Cardiac Output using Balloon Pump, Continuous (ICD-10-PCS; 2017-02-15)
PROC: 02100A9 Bypass Coronary Artery, One Artery from Left Internal Mammary with Autologous Arterial Tissue, Open Approach (ICD-10-PCS; 2017-02-15)
PROC: 06BP4ZZ Excision of Right Saphenous Vein, Percutaneous Endoscopic Approach (ICD-10-PCS; 2017-02-15)
PROC: 5A1221Z Performance of Cardiac Output, Continuous (ICD-10-PCS; 2017-02-15)
PROC: B2111ZZ Fluoroscopy of Multiple Coronary Arteries using Low Osmolar Contrast (ICD-10-PCS; 2017-02-15)
PROC: B246ZZ4 Ultrasonography of Right and Left Heart, Transesophageal (ICD-10-PCS; 2017-02-15)
PROC: 021109W Bypass Coronary Artery, Two Arteries from Aorta with Autologous Venous Tissue, Open Approach (ICD-10-PCS; principal; 2017-02-15 09:45)
PROC: 4A023N7 Measurement of Cardiac Sampling and Pressure, Left Heart, Percutaneous Approach (ICD-10-PCS; 2017-02-15 09:45)
DX: I21.19 ST elevation (STEMI) myocardial infarction involving other coronary artery of inferior wall (principal); I31.9 Disease of pericardium, unspecified; J98.11 Atelectasis; E78.5 Hyperlipidemia, unspecified; F17.201 Nicotine dependence, unspecified, in remission; I25.10 Atherosclerotic heart disease of native coronary artery without angina pectoris; I48.0 Paroxysmal atrial fibrillation; I95.1 Orthostatic hypotension; R13.10 Dysphagia, unspecified; Z82.49 Family history of ischemic heart disease and other diseases of the circulatory system
CPT/HCPCS: 33967; 36415; 36600; 71010; 71020; 80048; 80053; 80061; 80074; 82330; 82550; 82553; 82805; 83036; 83735; 83880; 84100; 84443; 84484; 85025; 85027; 85384; 85520; 85610; 85730; 86850; 86891; 86900; 86901; 86920; 93005; 93306; 93454; 94002; 94640; 99291

== ENCOUNTER → 2017-11-01 | Outpatient (CLI) | payer OTHER ==
--- NOTE | 2017-11-01 13:25 | XR ---
EXAM TYPE: LUMBAR SPINE X RAY SERIES COMPARISON: NONE HISTORY: Pain TECHNIQUE: 4 views are submitted. FINDINGS: Alignment is anatomic. The pedicles are intact. The transverse processes are intact. There is no s pondylolysis or spondylolisthesis. Diffuse osteopenia. Multilevel hypertrophic and degenerative disc disease. Vascular calcifications noted. IMPRESSION: 1. Multilevel mild degenerative disc disease consider follow-up MRI..
== END | disposition home or self-care (01) ==
LOC: RADXRMAIN 11:51
PROVIDERS: ATTEND Internal Medicine
DX: M51.36 Other intervertebral disc degeneration, lumbar region (principal)
CPT/HCPCS: 72100

== ENCOUNTER 2019-06-04 18:17 | Emergency (ER) | payer MEDICARE, OTHER ==
[2019-06-04 18:33] VITALS: BP 98/58; RESP 18; TEMP 99.8
[2019-06-04] MEDS ORDERED: guaiFENesin-DM 600/30MG 1 EACH TAB.ER.12H PO STA (18:40)
[2019-06-04] MEDS ORDERED: IPRATROPIUM-ALBUTEROL 3 ML NEB INHALATION STA (18:44)
--- NOTE | 2019-06-04 18:45 | ED ---
URI HPI - General Source: patient Mode of arrival: ambulatory Limitations: no limitations <Lida Awan - Last Filed: 06/04/19 19:37> <Patricia Lyons - Last Filed: 06/07/19 21:46> - General Chief Complaint: Upper Respiratory Infection Stated Complaint: chest congestion Time Seen by Provider: 06/04/19 18:34 - History of Present Illness Initial Comments: 64-year-old male patient past medical history significant for coronary artery disease, presents to the emergency department today for evaluation of cough, congestion, fever. Patient states he's been sick for a while with a cold however over the last 2 days symptoms into her worsened. Patient states he did develop fever 2 days ago. States that his temperature was high as 103F today. Did take Tylenol which did improve the fever. He denies any shortness of breath or hemoptysis. He is also reporting sore throat and nasal congestion. Denies any sick contacts however he does drive a school bus. Patient denies any recent rash, chest pain, abdominal pain, nausea, vomiting, diarrhea, constipation, back pain, numbness, tingling, dizziness, weakness, hematuria, dysuria, urinary urgency, urinary frequency, headache, visual changes, or any other complaints. (Lida Awan) - Related Data Home Medications Medication Instructions Recorded Confirmed Ergocalciferol [Vitamin D2 50,000 unit PO Q7D 02/15/17 02/15/17 (DRISDOL)] Previous Rx's Medication Instructions Recorded Amiodarone [Cordarone] 400 mg PO BID #31 tab 02/20/17 Aspirin 325 mg PO DAILY #30 tab 02/20/17 Atorvastatin [Lipitor] 40 mg PO DAILY #30 tab 02/20/17 Clopidogrel [Plavix] 75 mg PO DAILY #30 tab 02/20/17 Furosemide [Lasix] 20 mg PO DAILY #3 tab 02/20/17 HYDROcodone/APAP 5-325MG [[place] 1 each PO Q4HR PRN #30 tab 02/20/17 5-325] Metoprolol Tartrate [Lopressor] 25 mg PO BID #60 tab 02/20/17 Pantoprazole [Protonix] 40 mg PO AC-BRKFST #30 tab 02/20/17 Potassium Chloride ER [K-Dur 20] 20 meq PO BID #6 tab 02/20/17 Sennosides-Docusate Sodium 2 each PO HS tab 02/20/17 [Senokot-S] Oseltamivir [Tamiflu] 75 mg PO Q12HR #10 cap 06/04/19 guaiFENesin-DM 600/30MG [Mucinex 2 each PO Q12HR #20 tab.er.12h 06/04/19 Dm] Allergies Allergy/AdvReac Type Severity Reaction Status Date / Time No Known Allergies Allergy Verified 06/04/19 18:33 Review of Systems ROS Other: All systems not noted in ROS Statement are negative. <Lida Awan - Last Filed: 06/04/19 19:37> ROS Other: All systems not noted in ROS Statement are negative. <Patricia Lyons - Last Filed: 06/07/19 21:46> ROS Statement: Those systems with pertinent positive or pertinent negative responses have been documented in the HPI. Past Medical History Past Medical History: CVA/TIA Last Myocardial Infarction Date:: 02/15/2017, cabgx3 peterson-lad, svg-om/diag brief post-op afib. History of Any Multi-Drug Resistant Organisms: None Reported Past Surgical History: Adenoidectomy, Tonsillectomy Past Anesthesia/Blood Transfusion Reactions: No Reported Reaction Past Psychological History: No Psychological Hx Reported Smoking Status: Former smoker Past Alcohol Use History: None Reported Past Drug Use History: None Reported - Past Family History Mother Family Medical History: Coronary Artery Disease (CAD), CVA/TIA, Diabetes Mellitus Additional Family Medical History / Comment(s): Mother had open-heart surgery in her 60s. Had 4 brothers, one of the brother of alcohol abuse. One sister is struggling with alcohol abuse. <Lida Awan - Last Filed: 06/04/19 19:37> General Exam Limitations: no limitations General appearance: alert, in no apparent distress, other (This is a well- developed, well-nourished adult male patient in no acute distress. Vital signs upon presentation are temperature 99.8F, pulse 94, respirations 18, blood pressure 98/58, pulse ox 94% on room air.) Eye exam: Present: normal appearance, PERRL, EOMI. Absent: scleral icterus, conjunctival injection, periorbital swelling ENT exam: Present: normal exam, mucous membranes moist, TM's normal bilaterally. Absent: normal oropharynx (Pharyngeal erythema) Neck exam: Absent: lymphadenopathy Respiratory exam: Present: normal lung sounds bilaterally. Absent: respiratory distress, wheezes, rales, rhonchi, stridor Cardiovascular Exam: Present: regular rate, normal rhythm, normal heart sounds. Absent: systolic murmur, diastolic murmur, rubs, gallop, clicks GI/Abdominal exam: Present: soft, normal bowel sounds. Absent: distended, tenderness, guarding, rebound, rigid Neurological exam: Present: alert, oriented X3, CN II-XII intact Psychiatric exam: Present: normal affect, normal mood Skin exam: Present: warm, dry, intact, normal color. Absent: rash <Lida Awan - Last Filed: 06/04/19 19:37> Course Vital Signs 06/04/19 06/04/19 06/04/19 18:30 19:00 19:08 Temperature 99.8 F H Pulse Rate 94 88 90 Respiratory 18 Rate Blood Pressure 98/58 O2 Sat by Pulse 94 L Oximetry 06/04/19 19:41 Temperature Pulse Rate 88 Respiratory 18 Rate Blood Pressure O2 Sat by Pulse 97 Oximetry Medical Decision Making - Radiology Data Radiology results: report reviewed, image reviewed <Lida Awan - Last Filed: 06/04/19 19:37> <Patricia Lyons - Last Filed: 06/07/19 21:46> - Medical Decision Making 64 year-old male patient presents to the emergency department today for evaluation of upper respiratory symptoms and fever. Physical examination reveals clear equal lung sounds. Oxygen saturation was decreased at 93%. Chest x-ray shows no acute cardiopulmonary process. He was positive for influenza A. We'll give Mucinex for cough and start Tamiflu. He does have an appointment with his physician tomorrow he is urged to keep this appointment. Return parameters were discussed in detail. He verbalizes understanding and agrees with this plan. (Lida Awan) I was available for consultation in the emergency department. The history and physical exam were done by the midlevel provider. I was consulted for this patients care. I reviewed the case with the midlevel provider and based on their presentation of the patient, I agree with the assessment, medical decision making and plan of care as documented. Chart was dictated using [employer] dictation software. Attempts were made to correct any dictation errors however some typographical errors may persist. (Patricia Lyons) - Lab Data Lab Results 06/04/19 Range/Units 18:50 Influenza Type A RNA Detected H (Not Detectd) Influenza Type B (PCR) Not Detected (Not Detectd) - Radiology Data Two-view x-ray of the chest is obtained. Report was reviewed in its entirety. Impression by Dr. Jaime Norman shows no acute process (Lida Awan) Disposition Is patient prescribed a controlled substance at d/c from ED?: No Time of Disposition: 19:29 <Lida Awan - Last Filed: 06/04/19 19:37> <Patricia Lyons - Last Filed: 06/07/19 21:46> Clinical Impression: Influenza A Disposition: HOME SELF-CARE Condition: Good Instructions (If sedation given, give patient instructions): Influenza (ED) Additional Instructions: Complete Tamiflu prescription. Take other medications as directed. Follow-up with your primary care physician for recheck in 1-2 days. Return to the emergency department immediately for any new, worsening, or concerning symptoms. Prescriptions: guaiFENesin-DM 600/30MG [Mucinex Dm] 2 each PO Q12HR #20 tab.er.12h Oseltamivir [Tamiflu] 75 mg PO Q12HR #10 cap Referrals: Evans Rae MD [Primary Care Provider] - 1-2 days
--- NOTE | 2019-06-04 19:11 | XR ---
EXAMINATION: XR chest 2V DATE AND TIME: 06/04/2019 6:58 PM CLINICAL INDICATION: PHH; Cough/fever TECHNIQUE: Departmental protocol COMPARISON: 04/29/2017 FINDINGS: Sternal sutures and mediastinal clips and left hilar clips are redemonstrated. The lungs are clear. The pleural spaces are negative. The cardiac silhouette is not enlarged, and the remainder of the mediastinal silhouette is unremarkab le. The skeletal structures and soft tissues are negative for acute findings. IMPRESSION: NO ACUTE PROCESS.
[2019-06-04] MEDS ORDERED: OSELTAMIVIR 75 MG CAP PO STA (19:27)
[2019-06-04 19:43] VITALS: PULSE 88
== END 2019-06-04 19:44 | disposition home or self-care (01) ==
LOC: EC 18:17
DX: J10.1 Influenza due to other identified influenza virus with other respiratory manifestations (principal); I25.2 Old myocardial infarction; Z87.891 Personal history of nicotine dependence; Z86.73 Personal history of transient ischemic attack (TIA), and cerebral infarction without residual deficits
CPT/HCPCS: 71046; 87502; 94640; 99284

== ENCOUNTER 2020-08-15 22:08 | Emergency (ER) | payer MEDICARE ==
[2020-08-15 22:37] VITALS: TEMP 97.6
[2020-08-16] MEDS ORDERED: SODIUM CHLORIDE 0.9% 1,000 ML IV STA (00:23)
--- NOTE | 2020-08-16 00:24 | ED ---
Dizziness HPI - General Chief Complaint: Dizziness Stated Complaint: Dizziness, nausea, vomiting Time Seen by Provider: 08/16/20 00:07 Source: patient, RN notes reviewed, old records reviewed Mode of arrival: ambulatory Limitations: no limitations - History of Present Illness Initial Comments: This is a 65-year-old male who presented today with dizziness lightheadedness room spinning some nausea and 3 episodes of vomiting today. Patient states usually gets sick this time year he believes is usually from something like the flu. Patient has had no fevers. Otherwise no significant travel history. Patient does have a sick contact including his with thinks will be thinks may have have pneumonia or something of that nature. Patient has again has no fevers no weakness MD Complaint: dizziness, lightheadedness (Episode of vertigo) -: hour(s) Timing: gradual onset Description: "room spinning", lightheadedness History of Same: No History of Trauma: No Severity: mild Improves With: remaining still Worsens With: nothing Associated Symptoms: loss of appetite, weakness, other (Nausea and vomiting) - Related Data Home Medications Medication Instructions Recorded Confirmed Ergocalciferol [Vitamin D2 50,000 unit PO Q7D 02/15/17 02/15/17 (DRISDOL)] Previous Rx's Medication Instructions Recorded Amiodarone [Cordarone] 400 mg PO BID #31 tab 02/20/17 Aspirin 325 mg PO DAILY #30 tab 02/20/17 Atorvastatin [Lipitor] 40 mg PO DAILY #30 tab 02/20/17 Clopidogrel [Plavix] 75 mg PO DAILY #30 tab 02/20/17 Furosemide [Lasix] 20 mg PO DAILY #3 tab 02/20/17 HYDROcodone/APAP 5-325MG [[place] 1 each PO Q4HR PRN #30 tab 02/20/17 5-325] Metoprolol Tartrate [Lopressor] 25 mg PO BID #60 tab 02/20/17 Pantoprazole [Protonix] 40 mg PO AC-BRKFST #30 tab 02/20/17 Potassium Chloride ER [K-Dur 20] 20 meq PO BID #6 tab 02/20/17 Sennosides-Docusate Sodium 2 each PO HS tab 02/20/17 [Senokot-S] Oseltamivir [Tamiflu] 75 mg PO Q12HR #10 cap 06/04/19 guaiFENesin-DM 600/30MG [Mucinex 2 each PO Q12HR #20 tab.er.12h 06/04/19 Dm] Allergies Allergy/AdvReac Type Severity Reaction Status Date / Time No Known Allergies Allergy Verified 08/15/20 22:37 Review of Systems ROS Statement: Those systems with pertinent positive or pertinent negative responses have been documented in the HPI. ROS Other: All systems not noted in ROS Statement are negative. Past Medical History Past Medical History: CVA/TIA Last Myocardial Infarction Date:: 02/15/2017, cabgx3 peterson-lad, svg-om/diag brief post-op afib. History of Any Multi-Drug Resistant Organisms: None Reported Past Surgical History: Adenoidectomy, Tonsillectomy Past Anesthesia/Blood Transfusion Reactions: No Reported Reaction Past Psychological History: No Psychological Hx Reported Smoking Status: Never smoker Past Alcohol Use History: None Reported Past Drug Use History: None Reported - Past Family History Mother Family Medical History: Coronary Artery Disease (CAD), CVA/TIA, Diabetes Mellitus Additional Family Medical History / Comment(s): Mother had open-heart surgery in her 60s. Had 4 brothers, one of the brother of alcohol abuse. One sister is struggling with alcohol abuse. General Exam Limitations: no limitations General appearance: alert, in no apparent distress Head exam: Present: atraumatic, normocephalic, normal inspection Eye exam: Present: normal appearance, PERRL, EOMI. Absent: scleral icterus, conjunctival injection, periorbital swelling ENT exam: Present: normal exam, mucous membranes moist Neck exam: Present: normal inspection. Absent: tenderness, meningismus, lymphadenopathy Respiratory exam: Present: normal lung sounds bilaterally. Absent: respiratory distress, wheezes, rales, rhonchi, stridor Cardiovascular Exam: Present: regular rate, normal rhythm, normal heart sounds. Absent: systolic murmur, diastolic murmur, rubs, gallop, clicks GI/Abdominal exam: Present: soft, normal bowel sounds. Absent: distended, tenderness, guarding, rebound, rigid Extremities exam: Present: normal inspection, full ROM, normal capillary refill. Absent: tenderness, pedal edema, joint swelling, calf tenderness Back exam: Present: normal inspection Neurological exam: Present: alert, oriented X3, CN II-XII intact Psychiatric exam: Present: normal affect, normal mood Skin exam: Present: warm, dry, intact, normal color. Absent: rash Course Vital Signs 08/15/20 22:33 Temperature 97.6 F Pulse Rate 70 Respiratory 18 Rate Blood Pressure 138/75 O2 Sat by Pulse 97 Oximetry - Reevaluation(s) Reevaluation #1: 08/16/20 01:21 Medical record is reviewed Reevaluation #2: 08/16/20 01:21 Patient symptoms are resolved here Reevaluation #3: 08/16/20 01:22 Patient is informed of results and questions answered EKG Findings - EKG Comments: EKG Findings:: EKG shows sinus a rate of 60, AL 136 QRS of 82 QTC 432 Medical Decision Making - Medical Decision Making 85 male DF for evaluation of an episode of vertigo dizziness and episodes of nausea and vomiting. Symptoms resolved here in the ER labwork is normal little dehydration. Patient can be discharged home - Lab Data Result diagrams: 08/16/20 00:33 08/16/20 00:33 Lab Results 08/16/20 08/16/20 08/16/20 Range/Units 00:33 00:33 00:33 WBC 10.2 (3.8-10.6) k/uL RBC 5.51 (4.30-5.90) m/uL Hgb 16.7 (13.0-17.5) gm/dL Hct 48.5 (39.0-53.0) % MCV 88.0 (80.0-100.0) fL MCH 30.3 (25.0-35.0) pg MCHC 34.4 (31.0-37.0) g/dL RDW 12.7 (11.5-15.5) % Plt Count 228 (150-450) k/uL MPV 7.3 Neutrophils % 88 % Lymphocytes % 8 % Monocytes % 3 % Eosinophils % 1 % Basophils % 0 % Neutrophils # 8.9 H (1.3-7.7) k/uL Lymphocytes # 0.8 L (1.0-4.8) k/uL Monocytes # 0.3 (0-1.0) k/uL Eosinophils # 0.1 (0-0.7) k/uL Basophils # 0.0 (0-0.2) k/uL Sodium 138 (137-145) mmol/L Potassium 3.9 (3.5-5.1) mmol/L Chloride 103 (98-107) mmol/L Carbon Dioxide 25 (22-30) mmol/L Anion Gap 10 mmol/L BUN 18 (9-20) mg/dL Creatinine 0.75 (0.66-1.25) mg/dL Est GFR (CKD-EPI)AfAm >90 (>60 ml/min/1.73 sqM) Est GFR (CKD-EPI)NonAf >90 (>60 ml/min/1.73 sqM) Glucose 114 H (74-99) mg/dL Plasma Lactic Acid Leo 2.4 H* (0.7-2.0) mmol/L Calcium 9.3 (8.4-10.2) mg/dL Phosphorus 2.8 (2.5-4.5) mg/dL Magnesium 1.9 (1.6-2.3) mg/dL Total Bilirubin 1.1 (0.2-1.3) mg/dL AST 34 (17-59) U/L ALT 24 (4-49) U/L Alkaline Phosphatase 90 (38-126) U/L Total Protein 6.8 (6.3-8.2) g/dL Albumin 4.5 (3.5-5.0) g/dL Disposition Clinical Impression: Dehydration, Nausea & vomiting, Dizziness Disposition: HOME SELF-CARE Condition: Good Instructions (If sedation given, give patient instructions): Dizziness (ED) Is patient prescribed a controlled substance at d/c from ED?: No Referrals: Evans Rae MD [Primary Care Provider] - 1-2 days
[2020-08-16 01:01] LABS: Basophils % (A) 0 %; Eosinophils # (A) 0.1 k/uL (0-0.7); Eosinophils % (A) 1 %; HCT 48.5 % (39.0-53.0); HGB 16.7 gm/dL (13.0-17.5); Lymphocytes # (A) 0.8 k/uL (1.0-4.8); Lymphocytes % (A) 8 %; MCH 30.3 pg (25.0-35.0); MCHC 34.4 g/dL (31.0-37.0); Mean Platelet Volume 7.3; Monocytes # (A) 0.3 k/uL (0-1.0); Monocytes % (A) 3 %; Neutrophils # (A) 8.9 k/uL (1.3-7.7); Neutrophils % (A) 88 %; Platelet Count 228 k/uL (150-450); RBC 5.51 m/uL (4.30-5.90); RDW 12.7 % (11.5-15.5); WBC 10.2 k/uL (3.8-10.6)
[2020-08-16 01:12] LABS: ALT 24 U/L (4-49); AST 34 U/L (17-59); African American GFR (CKD) >90 (>60 ml/min/1.73 sqM); Albumin 4.5 g/dL (3.5-5.0); Alkaline Phosphatase 90 U/L (38-126); Anion Gap 10 mmol/L; Blood Urea Nitrogen 18 mg/dL (9-20); Calcium 9.3 mg/dL (8.4-10.2); Carbon Dioxide 25 mmol/L (22-30); Chloride 103 mmol/L (98-107); Glucose 114 mg/dL (74-99); Magnesium 1.9 mg/dL (1.6-2.3); Non-African American GFR(CKD) >90 (>60 ml/min/1.73 sqM); Phosphorus 2.8 mg/dL (2.5-4.5); Potassium 3.9 mmol/L (3.5-5.1); Sodium 138 mmol/L (137-145); Total Bilirubin 1.1 mg/dL (0.2-1.3); Total Protein 6.8 g/dL (6.3-8.2)
[2020-08-16 01:15] LABS: Prothrombin Time 10.3 sec (9.0-12.0)
[2020-08-16] MEDS ORDERED: ONDANSETRON 4 MG ODT STARTER PACK 2 TAB BTL PO STA (01:20)
[2020-08-16] MEDS ORDERED: ONDANSETRON 4 MG/2 ML VIAL IVP STA (01:20)
[2020-08-16 01:22] LABS: Partial Thromboplastin Time 21.8 sec (22.0-30.0)
[2020-08-16 01:41] VITALS: RESP 16
[2020-08-16] MEDS ORDERED: MECLIZINE 12.5 MG TAB PO STA (01:48)
[2020-08-16 01:56] LABS: Creatine Kinase MB 2.7 ng/mL (0.0-2.4); Troponin I <0.012 ng/mL (0.000-0.034)
[2020-08-16 02:00] LABS: LDH 670 U/L (313-618)
[2020-08-16 02:04] LABS: C Reactive Protein <5.0 mg/L (<10.0)
--- NOTE | 2020-08-16 02:28 | ED ---
Medical Decision Making - Medical Decision Making 65 male DF for dizziness and not feeling well he was afebrile we'll had some mild symptoms here in the ER with persistent dizziness, abnormal lab values coronavirus test was added his coronavirus test was positive patient does have coronavirus. Patient will be given BAM - Lab Data Result diagrams: 08/16/20 00:33 08/16/20 00:33 Lab Results 08/16/20 08/16/20 08/16/20 Range/Units 00:33 00:33 00:33 WBC 10.2 (3.8-10.6) k/uL RBC 5.51 (4.30-5.90) m/uL Hgb 16.7 (13.0-17.5) gm/dL Hct 48.5 (39.0-53.0) % MCV 88.0 (80.0-100.0) fL MCH 30.3 (25.0-35.0) pg MCHC 34.4 (31.0-37.0) g/dL RDW 12.7 (11.5-15.5) % Plt Count 228 (150-450) k/uL MPV 7.3 Neutrophils % 88 % Lymphocytes % 8 % Monocytes % 3 % Eosinophils % 1 % Basophils % 0 % Neutrophils # 8.9 H (1.3-7.7) k/uL Lymphocytes # 0.8 L (1.0-4.8) k/uL Monocytes # 0.3 (0-1.0) k/uL Eosinophils # 0.1 (0-0.7) k/uL Basophils # 0.0 (0-0.2) k/uL PT 10.3 (9.0-12.0) sec INR 1.0 (<1.2) APTT 21.8 L (22.0-30.0) sec Sodium 138 (137-145) mmol/L Potassium 3.9 (3.5-5.1) mmol/L Chloride 103 (98-107) mmol/L Carbon Dioxide 25 (22-30) mmol/L Anion Gap 10 mmol/L BUN 18 (9-20) mg/dL Creatinine 0.75 (0.66-1.25) mg/dL Est GFR (CKD-EPI)AfAm >90 (>60 ml/min/1.73 sqM) Est GFR (CKD-EPI)NonAf >90 (>60 ml/min/1.73 sqM) Glucose 114 H (74-99) mg/dL Plasma Lactic Acid Leo (0.7-2.0) mmol/L Calcium 9.3 (8.4-10.2) mg/dL Phosphorus 2.8 (2.5-4.5) mg/dL Magnesium 1.9 (1.6-2.3) mg/dL Total Bilirubin 1.1 (0.2-1.3) mg/dL AST 34 (17-59) U/L ALT 24 (4-49) U/L Alkaline Phosphatase 90 (38-126) U/L Lactate Dehydrogenase (313-618) U/L CK-MB (CK-2) (0.0-2.4) ng/mL Troponin I (0.000-0.034) ng/mL C-Reactive Protein (<10.0) mg/L NT-Pro-B Natriuret Pep pg/mL Total Protein 6.8 (6.3-8.2) g/dL Albumin 4.5 (3.5-5.0) g/dL Coronavirus (PCR) (Not Detectd) 08/16/20 08/16/20 08/16/20 Range/Units 00:33 00:33 00:33 WBC (3.8-10.6) k/uL RBC (4.30-5.90) m/uL Hgb (13.0-17.5) gm/dL Hct (39.0-53.0) % MCV (80.0-100.0) fL MCH (25.0-35.0) pg MCHC (31.0-37.0) g/dL RDW (11.5-15.5) % Plt Count (150-450) k/uL MPV Neutrophils % % Lymphocytes % % Monocytes % % Eosinophils % % Basophils % % Neutrophils # (1.3-7.7) k/uL Lymphocytes # (1.0-4.8) k/uL Monocytes # (0-1.0) k/uL Eosinophils # (0-0.7) k/uL Basophils # (0-0.2) k/uL PT (9.0-12.0) sec INR (<1.2) APTT (22.0-30.0) sec Sodium (137-145) mmol/L Potassium (3.5-5.1) mmol/L Chloride (98-107) mmol/L Carbon Dioxide (22-30) mmol/L Anion Gap mmol/L BUN (9-20) mg/dL Creatinine (0.66-1.25) mg/dL Est GFR (CKD-EPI)AfAm (>60 ml/min/1.73 sqM) Est GFR (CKD-EPI)NonAf (>60 ml/min/1.73 sqM) Glucose (74-99) mg/dL Plasma Lactic Acid Leo 2.4 H* (0.7-2.0) mmol/L Calcium (8.4-10.2) mg/dL Phosphorus (2.5-4.5) mg/dL Magnesium (1.6-2.3) mg/dL Total Bilirubin (0.2-1.3) mg/dL AST (17-59) U/L ALT (4-49) U/L Alkaline Phosphatase (38-126) U/L Lactate Dehydrogenase (313-618) U/L CK-MB (CK-2) 2.7 H (0.0-2.4) ng/mL Troponin I <0.012 (0.000-0.034) ng/mL C-Reactive Protein (<10.0) mg/L NT-Pro-B Natriuret Pep 263 pg/mL Total Protein (6.3-8.2) g/dL Albumin (3.5-5.0) g/dL Coronavirus (PCR) (Not Detectd) 08/16/20 08/16/20 Range/Units 00:33 01:16 WBC (3.8-10.6) k/uL RBC (4.30-5.90) m/uL Hgb (13.0-17.5) gm/dL Hct (39.0-53.0) % MCV (80.0-100.0) fL MCH (25.0-35.0) pg MCHC (31.0-37.0) g/dL RDW (11.5-15.5) % Plt Count (150-450) k/uL MPV Neutrophils % % Lymphocytes % % Monocytes % % Eosinophils % % Basophils % % Neutrophils # (1.3-7.7) k/uL Lymphocytes # (1.0-4.8) k/uL Monocytes # (0-1.0) k/uL Eosinophils # (0-0.7) k/uL Basophils # (0-0.2) k/uL PT (9.0-12.0) sec INR (<1.2) APTT (22.0-30.0) sec Sodium (137-145) mmol/L Potassium (3.5-5.1) mmol/L Chloride (98-107) mmol/L Carbon Dioxide (22-30) mmol/L Anion Gap mmol/L BUN (9-20) mg/dL Creatinine (0.66-1.25) mg/dL Est GFR (CKD-EPI)AfAm (>60 ml/min/1.73 sqM) Est GFR (CKD-EPI)NonAf (>60 ml/min/1.73 sqM) Glucose (74-99) mg/dL Plasma Lactic Acid Leo (0.7-2.0) mmol/L Calcium (8.4-10.2) mg/dL Phosphorus (2.5-4.5) mg/dL Magnesium (1.6-2.3) mg/dL Total Bilirubin (0.2-1.3) mg/dL AST (17-59) U/L ALT (4-49) U/L Alkaline Phosphatase (38-126) U/L Lactate Dehydrogenase 670 H (313-618) U/L CK-MB (CK-2) (0.0-2.4) ng/mL Troponin I (0.000-0.034) ng/mL C-Reactive Protein <5.0 (<10.0) mg/L NT-Pro-B Natriuret Pep pg/mL Total Protein (6.3-8.2) g/dL Albumin (3.5-5.0) g/dL Coronavirus (PCR) Detected A (Not Detectd) Disposition Clinical Impression: Dehydration, Nausea & vomiting, Dizziness, Coronavirus infection Disposition: HOME SELF-CARE Condition: Good Instructions (If sedation given, give patient instructions): Coronavirus Di sease 2019 (COVID-19) Is patient prescribed a controlled substance at d/c from ED?: No Referrals: Evans Rae MD [Primary Care Provider] - 1-2 days Procedures - [place] Protocol (Time Out) Nurse: Taryn Avery
--- NOTE | 2020-08-16 03:04 | XR ---
EXAM: XR Chest, 1 View CLINICAL HISTORY: ITS.REASON XR Reason: covid TECHNIQUE: Frontal view of the chest. COMPARISON: 04/29/2017 FINDINGS: Lungs: No consolidation or mass. Pleural space: No acute findings Heart: Mild cardiomegaly. Bones/joints: No acute findings. Median sternotomy wires. IMPRESSION: No acute cardiopulmonary process.
[2020-08-16] MEDS ORDERED: BAMLANIVIMAB (EUA) 700 MG, ETESEVIMAB (EUA) 1,400 MG in SODIUM CHLORIDE 0.9% 50 ML IVPB ONE (03:30)
[2020-08-16 04:37] VITALS: BP 115/66; PULSE 76
== END 2020-08-16 04:45 | disposition home or self-care (01) ==
LOC: EC 22:08
DX: R42 Dizziness and giddiness (principal); I25.2 Old myocardial infarction; Z86.73 Personal history of transient ischemic attack (TIA), and cerebral infarction without residual deficits; I48.91 Unspecified atrial fibrillation; U07.1 COVID-19
CPT/HCPCS: 99284 ×2; 96365; 96375 ×2; 36415; 93005; 83880; 80053; 82553; 83605; 83615; 83735; 84100; 84484; 85025; 85610; 85730; 86140; 87635; 71045; M0239; J2405; S0119; Q0245; 96374; 99283

== ENCOUNTER 2022-10-15 07:52 | Observation (INO) | payer MEDICARE ==
[2022-10-15] MEDS ORDERED: ASPIRIN 81 MG PO STA (07:58)
--- NOTE | 2022-10-15 08:03 | ED ---
General Adult HPI - General Stated complaint: chest pain Time Seen by Provider: 10/15/22 07:53 Source: patient, EMS, RN notes reviewed, old records reviewed - History of Present Illness Initial comments: Patient is a 67-year-old male with past medical history remarkable for cardiac bypass surgery by Dr. Vora in 2017 who presents emergency Department complaining of chest pain. States the chest pain began at approximately mid night, and he attempted to make himself throw to improve the pain with no improvement. Initially told EMS that it was reproducible on palpation and worse with certain movements. Patient does state that is somewhat palpable on palpation is worse with movement. Initially says no but when he tries to move and when I press on it does hurt. Denies any shortness of breath, fevers, cough. Denies any nausea or vomiting. States he may have had an episode of diaphoresis last night as well. Denies any radiation of the pain. Describes the pain as an achy sensation. His no other acute complaints at this time. Presents for further evaluation at this time.Patient states he was doing yard work all day yesterday and building his own awning. Unknown if this is related to not. - Related Data Home Medications Medication Instructions Recorded Confirmed Aspirin 81 mg PO DAILY 10/01/21 10/01/21 Atorvastatin [Lipitor] 80 mg PO HS 10/01/21 10/01/21 Lactose-Reduced Food [Ensure Plus] 1 can PO BID 10/01/21 10/01/21 Metoprolol Tartrate [Lopressor] 25 mg PO DAILY 10/01/21 10/01/21 Allergies Allergy/AdvReac Type Severity Reaction Status Date / Time No Known Allergies Allergy Verified 10/03/21 09:26 Review of Systems ROS Statement: Those systems with pertinent positive or pertinent negative responses have been documented in the HPI. Review of Systems: CONST: Denies fever EYES: Denies blurry vision ENT: Denies nasal congestion C/V: Endorses Chest pain RESP: Denies shortness of breath GI: Denies abdominal pain : Denies dysuria SKIN: Denies rash. MSK: Denies joint pain. NEURO: Denies headache ROS Other: All systems not noted in ROS Statement are negative. Past Medical History Past Medical History: Coronary Artery Disease (CAD), CVA/TIA, Hyperlipidemia, Hypertension Additional Past Medical History / Comment(s): CVA in his 50's, recovered. Poss stomach ulcer, c/o wgt loss and indigestion. Last Myocardial Infarction Date:: 02/15/2017, cabgx3 peterson-lad, svg-om/diag brief post-op afib. History of Any Multi-Drug Resistant Organisms: None Reported Past Surgical History: Adenoidectomy, Coronary Bypass/CABG, Tonsillectomy Additional Past Surgical History / Comment(s): Triple CABG 2016. Past Anesthesia/Blood Transfusion Reactions: No Reported Reaction Smoking Status: Former smoker - Past Family History Mother Family Medical History: Coronary Artery Disease (CAD), CVA/TIA, Diabetes Mellitus Additional Family Medical History / Comment(s): Mother had open-heart surgery in her 60s. Had 4 brothers, one of the brother of alcohol abuse. One sister is struggling with alcohol abuse. General Exam - General Exam Comments Initial Comments: General: Appears in mild discomfort. HEAD: Normal with no signs of head trauma. EYES: PERRLA, EOMI, conjunctiva normal, no discharge. ENT: Hearing grossly intact, normal oropharynx. RESPIRATORY: Clear breath sounds bilaterally. No wheezes, rales, or rhonchi. C/V: Regular rate and rhythm. S1 and S2 auscultated, no edema, peripheral pulses 2+ and intact throughout. Chest pain not reproducible on palpation at this time. ABD: Abd is soft, nontender, nondistended EXT: Normal range of motion, no obvious deformity.Patient has left-sided reproducible chest wall pain. SKIN: No rashes or lesions observed on exposed skin. NEURO: Alert and oriented 4. Course Vital Signs 10/15/22 08:00 Temperature 97.8 F Pulse Rate 73 Respiratory 18 Rate Blood Pressure 101/61 O2 Sat by Pulse 99 Oximetry Medical Decision Making - Medical Decision Making Was pt. sent in by a medical professional or institution (, PA, ORDER ANALYST, urgent care, hospital, or [facility]...) When possible be specific @ -No Did you speak to anyone other than the patient for history (EMS, parent, family, police, friend...)? What history was obtained from this source @ -No Did you review nursing and triage notes (agree or disagree)? Why? @ -I reviewed and agree with nursing and triage notes Were old charts reviewed (outside hosp., previous admission, EMS record, old EKG, old radiological studies, urgent care reports/EKG's, [facility] records)? Report findings @ -Old charts reviewed from 2016 including cath report by cardiology. Differential Diagnosis (chest pain, altered mental status, abdominal pain women, abdominal pain men, vaginal bleeding, weakness, fever, dyspnea, syncope, headache, dizziness, GI bleed, back pain, seizure, CVA, palpatations, mental health, musculoskeletal)? @ -Differential Chest Pain: Stable Angina, Unstable Angina, STEMI, NSTEMI Aortic Dissection, Pneumothorax, Musculoskeletal, Esophageal Spasm GERD, Cholecystitis, Pancreatitis, Zoster, this is not meant to be an all-inclusive list. EKG interpreted by me (3pts min.). @ -As above X-rays interpreted by me (1pt min.). @ -Chest x-ray shows no obvious acute cardiopulmonary process. CT interpreted by me (1pt min.). @ -None done U/S interpreted by me (1pt. min.). @ -None done What testing was considered but not performed or refused? (CT, X-rays, U/S, labs)? Why? @ -None What meds were considered but not given or refused? Why? @ -None Did you discuss the management of the patient with other professionals (professionals i.e. , PA, ORDER ANALYST, lab, RT, psych nurse, social media coordinator, recovery analyst, teacher, aviation ordnance officer, gearcase assembler)? Give summary @ -I spoke with Dr. Rae the patient's admitting physician and PCP who accepted the patient was in agreement with the plan. Was smoking cessation discussed for >3mins.? @ -No Was critical care preformed (if so, how long)? @ -No Were there social determinants of health that impacted care today? How? (Homelessness, low income, unemployed, alcoholism, drug addiction, transportation, low edu. Level, literacy, decrease access to med. care, [facility], rehab)? @ -No Was there de-escalation of care discussed even if they declined (Discuss DNR or withdrawal of care, Hospice)? DNR status @ -No What co-morbidities impacted this encounter? (DM, HTN, Smoking, COPD, CAD, Cancer, CVA, ARF, Chemo, Hep., AIDS, mental health diagnosis, sleep apnea, morbid obesity)? @ -CABG Was patient admitted / discharged? Hospital course, mention meds given and route, prescriptions, significant lab abnormalities, going to OR and other pertinent info. @ -Based on the patient's presentation and physical exam, I'm concerned for cardiopulmonary etiology for his current symptoms. Chest wall pain is reproducible and could be related to musculoskeletal causes well. We will obtain a cardiac workup including EKG and chest x-ray. Patient will be given 324 mg of aspirin and we will attempt nitroglycerin tablets for pain control. Patient was in agreement with this plan. He already received Zofran from EMS. Vital signs are within acceptable limits. EKG shows no signs of acute ischemia. Nitro glycerin tablets did nothing for the patient's pain, and therefore he will be administered lidocaine patch as well as Toradol. Chest x-ray unremarkable. Laboratory studies are remarkable for mild leukocytosis of 12 which is likely reactive. Troponin is undetectable. Remainder of the labs are within acceptable limits. Following lidocaine patch and Toradol administration, patient's pain is improved. He states he still having some acid reflux type pain and did not take his normal medications. He will be given a GI cocktail at this time. I did discuss with them that because his heart scores moderate at 4, did recommend cardiac observation for troponin trending and cardiology evaluation. He was in agreement this plan. I spoke with the admitting physician, Dr. Rae who accepted the patient. Cardiology was consulted. We will trend the troponin. Undiagnosed new problem with uncertain prognosis? @ -No Drug Therapy requiring intensive monitoring for toxicity (Heparin, Nitro, Insulin, Cardizem)? @ -No Were any procedures done? @ -No Diagnosis/symptom? @ -Atypical chest pain, suspect chest wall pain with significant cardiac history Acute, or Chronic, or Acute on Chronic? @ -Acute Uncomplicated (without systemic symptoms) or Complicated (systemic symptoms)? @ -Complicated Side effects of treatment? @ -none Exacerbation, Progression, or Severe Exacerbation] @ -no Poses a threat to life or bodily function? @ -Yes - Lab Data Result diagrams: 10/15/22 08:11 10/15/22 08:11 Lab Results 10/15/22 10/15/22 10/15/22 Range/Units 08:11 08:11 08:11 WBC 12.5 H (3.8-10.6) k/uL RBC 4.61 (4.30-5.90) m/uL Hgb 13.9 (13.0-17.5) gm/dL Hct 40.5 (39.0-53.0) % MCV 87.8 (80.0-100.0) fL MCH 30.1 (25.0-35.0) pg MCHC 34.3 (31.0-37.0) g/dL RDW 13.5 (11.5-15.5) % Plt Count 204 (150-450) k/uL MPV 7.3 Neutrophils % 94 % Lymphocytes % 3 % Monocytes % 2 % Eosinophils % 1 % Basophils % 0 % Neutrophils # 11.8 H (1.3-7.7) k/uL Lymphocytes # 0.4 L (1.0-4.8) k/uL Monocytes # 0.2 (0-1.0) k/uL Eosinophils # 0.1 (0-0.7) k/uL Basophils # 0.0 (0-0.2) k/uL PT 10.8 (9.0-12.0) sec INR 1.0 (<1.2) APTT 21.9 L (22.0-30.0) sec Sodium 138 (137-145) mmol/L Potassium 4.1 (3.5-5.1) mmol/L Chloride 107 (98-107) mmol/L Carbon Dioxide 21 L (22-30) mmol/L Anion Gap 10 mmol/L BUN 31 H (9-20) mg/dL Creatinine 0.79 (0.66-1.25) mg/dL Est GFR (CKD-EPI)AfAm >90 (>60 ml/min/1.73 sqM) Est GFR (CKD-EPI)NonAf >90 (>60 ml/min/1.73 sqM) Glucose 152 H (74-99) mg/dL Calcium 8.9 (8.4-10.2) mg/dL Magnesium 1.9 (1.6-2.3) mg/dL Total Bilirubin 1.1 (0.2-1.3) mg/dL AST 89 H (17-59) U/L ALT 42 (4-49) U/L Alkaline Phosphatase 88 (38-126) U/L Troponin I (0.000-0.034) ng/mL Total Protein 6.2 L (6.3-8.2) g/dL Albumin 4.1 (3.5-5.0) g/dL Lipase 103 (23-300) U/L 10/15/22 Range/Units 08:11 WBC (3.8-10.6) k/uL RBC (4.30-5.90) m/uL Hgb (13.0-17.5) gm/dL Hct (39.0-53.0) % MCV (80.0-100.0) fL MCH (25.0-35.0) pg MCHC (31.0-37.0) g/dL RDW (11.5-15.5) % Plt Count (150-450) k/uL MPV Neutrophils % % Lymphocytes % % Monocytes % % Eosinophils % % Basophils % % Neutrophils # (1.3-7.7) k/uL Lymphocytes # (1.0-4.8) k/uL Monocytes # (0-1.0) k/uL Eosinophils # (0-0.7) k/uL Basophils # (0-0.2) k/uL PT (9.0-12.0) sec INR (<1.2) APTT (22.0-30.0) sec Sodium (137-145) mmol/L Potassium (3.5-5.1) mmol/L Chloride (98-107) mmol/L Carbon Dioxide (22-30) mmol/L Anion Gap mmol/L BUN (9-20) mg/dL Creatinine (0.66-1.25) mg/dL Est GFR (CKD-EPI)AfAm (>60 ml/min/1.73 sqM) Est GFR (CKD-EPI)NonAf (>60 ml/min/1.73 sqM) Glucose (74-99) mg/dL Calcium (8.4-10.2) mg/dL Magnesium (1.6-2.3) mg/dL Total Bilirubin (0.2-1.3) mg/dL AST (17-59) U/L ALT (4-49) U/L Alkaline Phosphatase (38-126) U/L Troponin I <0.012 (0.000-0.034) ng/mL Total Protein (6.3-8.2) g/dL Albumin (3.5-5.0) g/dL Lipase (23-300) U/L - EKG Data -: EKG Interpreted by Me EKG Comments: 12-lead Electrocardiogram Interpretation Note EKG was reviewed and interpreted by myself. 12-lead ECG performed at 0801 is interpreted by me as revealing normal sinus rhythm at a rate of 63 beats per minute. [place] is normal. [place] interval is 173 ms, QRS duration is 100 ms. QTC is 438 ms. Patient does have Q waves in leads II, III, aVF which are chronic and seen on EKG from August 2020. Patient also has chronic T-wave inversions in leads V2 and V3 seen on EKG from August 2020. There are somewhat more pronounced on this EKG.. There were no obvious acute ST or T wave abnormalities to suggest myocardial ischemia or injury. R wave progression across the precordium was satisfactory. Disposition Clinical Impression: Chest pain, Chest wall pain Disposition: ADMITTED IP TO THIS HOSP Condition: Stable Referrals: Evans Rae MD [Primary Care Provider] - 1-2 days Time of Disposition: 08:59
[2022-10-15] MEDS ORDERED: NITROGLYCERIN SL TABS 0.4 MG TAB SUBLINGUAL PRN (08:06)
[2022-10-15] MEDS ORDERED: SODIUM CHLORIDE 0.9% 1,000 ML IV STA (08:06)
[2022-10-15] MEDS ORDERED: KETOROLAC 15 MG/ML 1 ML VIAL IVP STA (08:18)
[2022-10-15] MEDS ORDERED: LIDOCAINE 5% PATCH TOPICAL STA (08:18)
[2022-10-15 08:30] LABS: Basophils % (A) 0 %; Eosinophils # (A) 0.1 k/uL (0-0.7); Eosinophils % (A) 1 %; HCT 40.5 % (39.0-53.0); HGB 13.9 gm/dL (13.0-17.5); Lymphocytes # (A) 0.4 k/uL (1.0-4.8); Lymphocytes % (A) 3 %; MCH 30.1 pg (25.0-35.0); MCHC 34.3 g/dL (31.0-37.0); MCV 87.8 fL (80.0-100.0); Mean Platelet Volume 7.3; Monocytes # (A) 0.2 k/uL (0-1.0); Monocytes % (A) 2 %; Neutrophils # (A) 11.8 k/uL (1.3-7.7); Neutrophils % (A) 94 %; Platelet Count 204 k/uL (150-450); RBC 4.61 m/uL (4.30-5.90); RDW 13.5 % (11.5-15.5); WBC 12.5 k/uL (3.8-10.6)
--- NOTE | 2022-10-15 08:35 | XR ---
EXAMINATION TYPE: XR chest 2V DATE OF EXAM: 10/15/2022 COMPARISON: 08/16/2020 HISTORY: 67-year-old male with chest pain TECHNIQUE: AP and lateral views FINDINGS: Median sternotomy wires are post-CABG clips. Heart normal size. Hyperinflation. No consolidation or p leural effusion. IMPRESSION: Post-CABG changes. Hyperinflation suggests underlying COPD. Clinically correlate. No acute process se en.
[2022-10-15 08:39] LABS: ALT 42 U/L (4-49); AST 89 U/L (17-59); African American GFR (CKD) >90 (>60 ml/min/1.73 sqM); Albumin 4.1 g/dL (3.5-5.0); Alkaline Phosphatase 88 U/L (38-126); Anion Gap 10 mmol/L; Blood Urea Nitrogen 31 mg/dL (9-20); Calcium 8.9 mg/dL (8.4-10.2); Carbon Dioxide 21 mmol/L (22-30); Chloride 107 mmol/L (98-107); Glucose 152 mg/dL (74-99); Lipase 103 U/L (23-300); Magnesium 1.9 mg/dL (1.6-2.3); Non-African American GFR(CKD) >90 (>60 ml/min/1.73 sqM); Potassium 4.1 mmol/L (3.5-5.1); Sodium 138 mmol/L (137-145); Total Bilirubin 1.1 mg/dL (0.2-1.3); Total Protein 6.2 g/dL (6.3-8.2)
[2022-10-15 08:52] LABS: Partial Thromboplastin Time 21.9 sec (22.0-30.0); Prothrombin Time 10.8 sec (9.0-12.0)
[2022-10-15] MEDS ORDERED: MAG HYDROX/AL HYDROX/SIMETH 30 ML, HYOSCYAMINE ELIXIR 10 ML, LIDOCAINE 2% GLYDO JELLY 1... PO STA ×3 (09:02)
[2022-10-15] MEDS ORDERED: NALOXONE 0.4 MG/ML 1 ML VIAL IV PRN (09:06)
[2022-10-15] MEDS ORDERED: IBUPROFEN 400 MG TAB PO PRN (09:06)
[2022-10-15] MEDS ORDERED: AMINOPHYLLINE 500 MG/20 ML VIAL IV PRN (10:55)
[2022-10-15] MEDS ORDERED: REGADENOSON 0.4 MG/5 ML SYRINGE IV PRN (10:55)
[2022-10-15] MEDS ORDERED: CAFFEINE CITRATE 60 MG/3 ML VIAL IV PRN (10:55)
--- NOTE | 2022-10-15 14:12 | CONS ---
CONSULTATION CHIEF COMPLAINT: Chest pain. HISTORY OF PRESENT ILLNESS: This is a 67-year-old gentleman with history of coronary artery disease status post bypass surgery and dyslipidemia, presented to hospital with chest pain. It initially started with nausea and not feeling well. He subsequently had a chest discomfort at home. He comes to the hospital where he has had another bout of vomiting, but since that time is feeling better. EKG shows sinus rhythm with T-wave inversions in the precordial leads and changes of left ventricular hypertrophy. First set of troponin is negative. Hemoglobin is normal at 15.9. The plan at this stage is to obtain 2 more sets of tropes and if they are all negative, schedule him for a Lexiscan tomorrow morning and if that is abnormal do cardiac catheterization, if not treat him with medical therapy. I will obtain a 2D echo. PAST MEDICAL HISTORY: Significant for CAD status post CABG. MEDICATIONS: 1. Omeprazole. 2. Metoprolol. 3. Lipitor. 4. Aspirin. ALLERGIES: No known drug allergies. FAMILY HISTORY: Negative for premature coronary artery disease. SOCIAL HISTORY: Negative for current smoking, EtOH, or drug abuse. REVIEW OF SYSTEMS: A review of systems has been performed. Pertinences are as documented. PHYSICAL EXAMINATION: GENERAL: Comfortable at rest. VITAL SIGNS: Stable. NECK: There is no jugular venous distention. Carotid upstroke is normal. There is no bruit. CHEST: Reveals good air entry bilaterally. Heart: Reveals first and second heart sounds. Systolic murmur at the apex. ABDOMEN: Soft. EXTREMITIES: Did not reveal any edema. Peripheral pulses are felt. ASSESSMENT: Precordial chest pain in a patient with known CAD status post prior bypass surgery. I will follow cardiac enzymes. Obtain a 2D echo and schedule him for a Lexiscan in the morning. MMODL / IJN: [id number] /
[2022-10-15] MEDS: HEPARIN SODIUM,PORCINE/PF 5,000 UNIT/0.5 ML SYRINGE SQ SCH ×2 (16:01→21:33)
--- NOTE | 2022-10-15 17:38 | CA ---
Transthoracic Echo Report Name: Sal Salgado Age: 67 Gender: M : 1955 Exam Date: 10/15/2022 13:12 Exam Location: [place] [facility] Ht (in): 67 Wt (lb): 125 Ordering Physician: Percy Foote MD ([id number]) Attending/Referring Phys: Dary MCCRAY [employer] Barbara Emerson RDCS Procedure CPT: Indications: Chest Pain Cardiac Hx: Technical Quality: Fair Contrast 1: Total Dose (mL): Contrast 2: Total Dose (mL): MEASUREMENTS (Male / Female) Normal Values 2D ECHO LV Diastolic Diameter PLAX 3.4 cm 4.2 - 5.9 / 3.9 - 5.3 cm LV Systolic Diameter PLAX 1.8 cm IVS Diastolic Thickness 1.1 cm 0.6 - 1.0 / 0.6 - 0.9 cm LVPW Diastolic Thickness 1.1 cm 0.6 - 1.0 / 0.6 - 0.9 cm LV Relative Wall Thickness 0.7 RV Internal Dim ED PLAX 2.4 cm LA Volume 49.8 cm??? 18 - 58 / 22 - 52 cm??? M-MODE Aortic Root Diameter MM 2.9 cm LA Systolic Diameter MM 3.3 cm LA Ao Ratio MM 1.1 AV Cusp Separation MM 1.9 cm DOPPLER AV Peak Velocity 119.4 cm/s AV Peak Gradient 5.7 mmHg AV Mean Velocity 74.9 cm/s AV Mean Gradient 2.6 mmHg AV Velocity Time Integral 25.1 cm LVOT Peak Velocity 107.0 cm/s LVOT Peak Gradient 4.6 mmHg LVOT Velocity Time Integral 18.3 cm MV Area PHT 3.8 cm??? Mitral E Point Velocity 111.7 cm/s Mitral A Point Velocity 50.3 cm/s Mitral E to A Ratio 2.2 MV Deceleration Time 199.0 ms MV E' Velocity 9.0 cm/s Mitral E to MV E' Ratio 12.4 FINDINGS Left Ventricle Mildly increased left ventricular wall thickness. Abnormal (paradoxical) septal motion consistent with postoperative state. Left ventricular ejection fraction is estimated at 50 %. Right Ventricle Normal right ventricular size and function. Right ventricular systolic pressure within normal limits. Right Atrium Normal right atrial size. Left Atrium Normal left atrial size. Mitral Valve Structurally normal mitral valve. Trace mitral regurgitation. Aortic Valve No aortic valve stenosis or regurgitation. Trileaflet aortic valve. Tricuspid Valve Mild tricuspid regurgitation. Pulmonic Valve Structurally normal pulmonic valve. Pericardium No pericardial effusion. Aorta Normal size aortic root and proximal ascending aorta. CONCLUSIONS Normal LV systolic function Previewed by: Dr. Percy Foote MD (Electronically Signed) Final Date: 15 October 2022 17:37
[2022-10-15] MEDS ORDERED: METOPROLOL TARTRATE 25 MG TAB PO SCH (21:00)
[2022-10-15] MEDS ORDERED: ATORVASTATIN 80 MG TAB PO SCH (21:00)
[2022-10-15] MEDS: PANTOPRAZOLE 40 MG TABLET PO SCH (21:33)
--- NOTE | 2022-10-16 07:20 | P.HPIM ---
History of Present Illness H&P Date: 10/15/22 Chief Complaint: Chest pain HISTORY OF PRESENT ILLNESS: This is a 67-year-old male with a previous medical history significant for coronary artery disease status post CABG 3 with FARLEY to LAD reverse saphenous venous graft to the diagonal branch reverse evidence of his graft to the obtuse marginal branch, hyperlipidemia, remote tobacco use and dependence, family history of coronary artery disease, hypertension and hypertensive cardiovascular disease, patient presented to the emergency department at [facility] left-sided chest pain associated with increased shortness breath, patient was seen and evaluated in the emergency department, initial evaluate was negative, but because of the presentation was admitted to the hospital for evaluation by cardiology. Patient has been following up with cardiology on the regular basis per REVIEW OF SYSTEMS: Constitutional: No documented fever, no chills, no night sweats. No weight change. No weakness, fatigue or lethargy. No daytime sleepiness. HEENT: No headache. No blurred vision or double vision, no loss of vision. No loss of Hearing, no ringing in the ears, no dizziness. No nasal drainage or congestion. No epistaxis. No sore throat. Lungs: No shortness of breath, no cough, no sputum production. No wheezing. Reports dyspnea with activity. Cardiovascular: No chest pain, no lower extremity edema. No palpitations. No paroxysmal nocturnal dyspnea. No orthopnea. No lightheadedness or dizziness. No syncopal episodes. Abdominal: Reports abdominal pain. No nausea, vomiting. No diarrhea. No constipation. No bloody or tarry stools reports loss of appetite. Genitourinary: No dysuria, increased frequency, urgency. No urinary retention. Musculoskeletal: No myalgias. No muscle weakness, no gait dysfunction, no frequent falls. No back pain. No neck pain. Integumentary: No wounds, no lesions. No rash or pruritus. No unusual bruising. No change in hair or nails. Neurologic: No aphasia. No facial droop. No change in mentation. No head injury. No headache. No paralysis. No paresthesia. Psychiatric: No depression. No anxiety. No mood swings. Endocrine: No abnormal blood sugars. No weight change. PAST MEDICAL HISTORY: Coronary artery disease status post CABG 3 with FARLEY to LAD, SVG to OM1, SVG-Dx Hypertension and hypertensive cardiovascular disease. Hyperlipidemia. Enlarged prostate. Osteoarthritis. PAST SURGICAL HISTORY: CABG 3 in 2017 SOCIAL HISTORY: Patient used to smoke about 3 packs every day started smoking at the age of 12 and quit at age of 32, he denies any alcohol ingestion, he denies any intravenous drug abuse. FAMILY HISTORY: Father at age of 87 from bedridden and left arm amputation, mother at age of 83 from coronary artery disease she had triple bypass surgery at the age of 65, patient had 3 brothers one from alcohol wasn't at 49 and the other one is struggling with alcoholism patient has 2 sisters one of them is alcoholic, patient has 2 sons okay and 2 daughters okay. PHYSICAL EXAMINATION: General: 67-year-old male sitting up in bed in no apparent distress. HEENT: Head is atraumatic, normocephalic, pupils were equal round reactive to light and recommendation, extraocular muscle movement were intact, sclera nonicteric, conjunctivae were pale, mucous membranes of the mouth are somewhat dry. Neck: Supple, no JVP, normal carotid upstroke bilaterally, no lymphadenopathy. Chest: Decreased breath sounds at the bases, few rhonchi, no expiratory wheezes, no chest wall tenderness, no intercostal retractions. Heart: First heart sound is normal, second heart sounds normal there is no gallop, there is systolic ejection murmur 2/6 located in the left sternal border Abdomen: Soft, nontender, nondistended, positive bowel sounds. Extremities: There is no edema no calf tenderness DP +2 bilaterally. Neurologic examination: Patient is awake alert and oriented X 3, cranial nerves II-12 appear grossly intact, muscle power were 5 out of 5 in upper extremities and 5 out of 5 in bilateral lower extremities, deep tendon reflexes normal bilaterally. ASSESSMENT AND PLAN: 1. Chest pain patient has been ruled out for acute coronary syndrome. Patient would've prevented has been for observation, he would be seen in consultation by cardiology patient will have a stress test in the next 24 hours , we will maintain the patient on his current home medications, 2. CAD post CABG3 in 2017. continue patient on aspirin 81 mg once every day, metoprolol ER 25 mg at bedtime, continue atorvastatin 80 mg once every day. 3. Hypertension and hypertensive cardio vascular disease. Continue metoprolol 25 mg at bedtime. Monitor the patient blood pressure very closely. 4. Mixed hyperlipidemia. Continue patient on atorvastatin 80 mg orally once every day, 5. Osteoarthritis. Stable. Discontinue Motrin 6. Enlarged prostate. Stable. 7. DVT prophylaxis. Heparin 5000 units subcu Wednesday every 8 hours . 8. GI prophylaxis. Continue omeprazole 40 mg orally once every day. 9. Admit to inpatient. Estimate a length of stay 2 midnights. Past Medical History Past Medical History: Coronary Artery Disease (CAD), CVA/TIA, Hyperlipidemia, Hypertension Additional Past Medical History / Comment(s): CVA in his 50's, recovered. Poss stomach ulcer, c/o wgt loss and indigestion. Last Myocardial Infarction Date:: 02/15/2017, cabgx3 farley-lad, svg-om/diag brief post-op afib. History of Any Multi-Drug Resistant Organisms: None Reported Past Surgical History: Adenoidectomy, Coronary Bypass/CABG, Tonsillectomy Additional Past Surgical History / Comment(s): Triple CABG 2015. Past Anesthesia/Blood Transfusion Reactions: No Reported Reaction Smoking Status: Former smoker - Past Family History Mother Family Medical History: Coronary Artery Disease (CAD), CVA/TIA, Diabetes Mellitus Additional Family Medical History / Comment(s): Mother had open-heart surgery in her 60s. Had 4 brothers, one of the brother of alcohol abuse. One sister is struggling with alcohol abuse. Medications and Allergies Home Medications Medication Instructions Recorded Confirmed Type Aspirin 81 mg PO DAILY 10/01/21 10/15/22 History Atorvastatin [Lipitor] 80 mg PO HS 10/01/21 10/15/22 History Metoprolol Tartrate [Lopressor] 25 mg PO HS 10/01/21 10/15/22 History Omeprazole 40 mg PO DAILY 10/15/22 10/15/22 History Allergies Allergy/AdvReac Type Severity Reaction Status Date / Time No Known Allergies Allergy Verified 10/15/22 09:38 Physical Exam Vitals: Vital Signs Temp Pulse Resp BP Pulse Ox 10/15/22 19:44 97/57 10/15/22 19:22 61 16 88/51 97 10/15/22 14:53 98.0 F 10/15/22 08:00 97.8 F 73 18 101/61 99 Intake and Output 10/15/22 10/15/22 10/15/22 06:59 14:59 22:59 Other: Weight 56.699 kg Results CBC & Chem 7: 10/15/22 08:11 10/15/22 08:11 Labs: Abnormal Lab Results - Last 24 Hours (Table) 10/15/22 10/15/22 10/15/22 Range/Units 08:11 08:11 08:11 WBC 12.5 H (3.8-10.6) k/uL Neutrophils # 11.8 H (1.3-7.7) k/uL Lymphocytes # 0.4 L (1.0-4.8) k/uL APTT 21.9 L (22.0-30.0) sec Carbon Dioxide 21 L (22-30) mmol/L BUN 31 H (9-20) mg/dL Glucose 152 H (74-99) mg/dL AST 89 H (17-59) U/L Total Protein 6.2 L (6.3-8.2) g/dL
[2022-10-16 07:50] VITALS: BP 120/63; PULSE 68; RESP 16; TEMP 98.2
[2022-10-16] MEDS ORDERED: ASPIRIN 81 MG PO SCH (09:00)
--- NOTE | 2022-10-16 09:16 | PN ---
PROGRESS NOTE SUBJECTIVE: A 67-year-old gentleman who is admitted to hospital with chest pain, ruled out for myocardial infarction and is to undergo a stress test today. He is doing well and is free of cardiac symptoms. OBJECTIVE: GENERAL: On exam, comfortable at rest. VITAL SIGNS: Stable. CHEST: Reveals good air entry bilaterally. HEART: Reveals first and second heart sounds. No gallop. No murmur. ABDOMEN: Soft. EXTREMITIES: Exam of extremities did not reveal any edema. Peripheral pulses are felt. ASSESSMENT: Chest pain, myocardial infarction ruled out. PLAN: The patient will have an echo and a stress test. He has known CAD and prior bypass surgery. Further course of action based on the test data. MMODL / IJN: [id number] /
[2022-10-16] MEDS: HEPARIN SODIUM,PORCINE/PF 5,000 UNIT/0.5 ML SYRINGE SQ SCH (11:03)
[2022-10-16] MEDS: PANTOPRAZOLE 40 MG TABLET PO SCH (11:03)
--- NOTE | 2022-10-16 11:04 | CA ---
Lexiscan Nuclear Stress Test Report Name: Sal Salgado Exam Date: 10/16/2022 09:41 Exam Location: [place] Stress Ht (in): 67 Wt (lb): 125 BSA: 1.66 Ordering Phys: Percy Foote MD Referring Phys: RENEE,, Technologist: Bigg Wesley Age: 67 Gender: M : 1955 Procedure CPT: Indications: Reflex order-Stress test ICD-10 Codes: Patient History: CHEST PAIN, DIFFICULTY IN BREATHING, NUMBNESS IN FACE/NECK, HTN, PRIOR CVA, ELEVATED CHOLESTEROL LEVELS, PRIOR OR, PRIOR CATH, CABG X 3 Medications: Meds past 24 hrs: Pretest Chest Pain: STRESS TEST Lexiscan Protocol Exercise Duration (min:sec): 02:[address] Depressions (mm): Angina Score: Davis Score: Resting HR (bpm): 61 Peak HR (bpm): 107 Resting BP (mmHg): 119 / 70 Peak BP (mmHg): 148 / 73 MPHR: 151 Target HR: 128 % MPHR: 71 METS: 1.0 Total Dose: Peak Dose: Atropine: Double Product: 73306 BP Response: Stress Termination: INFUSION COMPLETE Stress Symptoms: NO SYMPTOMS Stress Summary: ECG ANALYSIS Resting ECG: Normal sinus rhythm with nonspecific ST-T wave changes Stress ECG: Negative stress test by EKG criteria CONCLUSIONS Negative stress test by EKG criteria Cardial lead portion of the stress test will be reported separately Dr. Percy Foote MD (Electronically Signed) Final Date: 16 October 2022 11:03
[2022-10-16 11:12] LABS: Basophils # (A) 0.02 X 10*3/uL (0.00-0.10); Basophils % (A) 0.1 %; Eosinophils # (A) 0 X 10*3/uL (0.04-0.35); Eosinophils % (A) 0 %; HCT 38.3 % (39.6-50.0); HGB 13.1 g/dL (13.0-17.0); Immature Grans, Automated 0.3 %; Lymphocytes # (A) 0.66 X 10*3/uL (0.90-5.00); Lymphocytes % (A) 4.6 %; MCH 30.3 pg (27.0-32.0); MCHC 34.2 g/dL (32.0-37.0); MCV 88.7 fL (80.0-97.0); Mean Platelet Volume 9.9 fL (9.5-12.2); Monocytes # (A) 0.83 X 10*3/uL (0.20-1.00); Monocytes % (A) 5.8 %; NRBC Per 100 WBC 0 /100 WBCS (0.0-0.0); Neutrophils # (A) 12.76 X 10*3/uL (1.80-7.70); Neutrophils % (A) 89.2 %; Platelet Count 184 X 10*3/uL (140-440); RBC 4.32 X 10*6/uL (4.40-5.60); RDW 13.4 % (11.5-14.5); WBC 14.32 X 10*3/uL (4.50-10.00)
--- NOTE | 2022-10-16 11:24 | NM ---
EXAMINATION TYPE: NM stress lexiscan cardiolite DATE OF EXAM: 10/16/2022 COMPARISON: NONE CLINICAL INDICATION: Male, 67 years old with history of chest pain; TECHNIQUE: After the intravenous administration of 9.3 mCi Tc 99m Sestamibi - Cardiolite resting SPE CT images acquired 60 minutes post injection. The patient received 0.4mg Lexiscan, 22.1 mCi Tc 99m Sestamibi - Stress images obtained [address] injection FINDINGS: Review of stress and rest SPECT images demonstrates no distinct perfusion abnormality. Gated analysi s shows normal wall motion with an estimated left ventricular ejection fraction of 68 %. IMPRESSION: No scintigraphic evidence for reversible ischemia.
[2022-10-16 11:38] LABS: African American GFR (CKD) 105.6 (60.0-200.0); Anion Gap 11.6 mmol/L (10.00-18.00); BUN/Creat Ratio 28.13 Ratio (12.00-20.00); Blood Urea Nitrogen 22.5 mg/dL (9.0-27.0); Calcium 8.6 mg/dL (8.7-10.3); Carbon Dioxide 22.4 mmol/L (20.0-27.5); Non-African American GFR(CKD) 91.1 (60.0-200.0); Potassium 3.7 mmol/L (3.5-5.5)
--- NOTE | 2022-10-17 11:13 | P.DS ---
Providers Date of admission: 10/15/22 09:08 Expected date of discharge: 10/16/22 Attending physician: Evans Rae Consults: 10/15/22 09:06 Consult Physician Routine Consulting Provider: [facility] Consult Reason/Comments: chest pain Do you want consulting provider notified?: Yes Primary care physician: Evans Rae Hospital Course: Final diagnosis -Chest pain, ruled out ACS status post normal stress test -History of CAD post CABG3 in 2017 -Hypertension and hypertensive cardiovascular disease -Mixed hyperlipidemia -Osteoarthritis -Enlarged prostate history. Stable. -DVT prophylaxis -GI prophylaxis. Discharge disposition Patient is being discharged in a stable condition with guarded prognosis to home. Patient will follow-up with Dr. Rae in the outpatient setting upon discharge. Patient is to follow-up with cardiology outpatient as scheduled. Patient to continue on Protonix twice daily. Total time taken is greater than 35 minutes. Hospital course This is a 67-year-old male who was recently admitted with chest pain ruled out ACS with negative troponins. Patient underwent stress testing with cardiology following which was negative and has been cleared by cardiology for discharge. Patient instructed to follow-up outpatient with cardiology in the next 1-2 weeks. Please refer to cardiology notes for further HPI. Currently no reports of chest pain, shortness of breath, or palpitations. Patient is afebrile. No reports of nausea or vomiting and patient is tolerating diet. Patient will be discharged home today. Physical exam: Gen: This is a 67-year-old male who is awake, alert and oriented 3, thin built, elderly appearing HEENT: Head is atraumatic, normocephalic. Pupils equal, round. Sclerae is anicteric. NECK: Supple. No JVD. No lymphadenopathy. No thyromegaly. LUNGS: Clear to auscultation. No wheezes or rhonchi. No intercostal retractions. HEART: Regular rate and rhythm. No murmur. ABDOMEN: Soft. Bowel sounds are present. No masses. No tenderness. EXTREMITIES: No pedal edema. No calf tenderness. NEUROLOGICAL: Patient is awake, alert and oriented x3. Cranial nerves 2 through 12 are grossly intact. Please refer to medication reconciliation sheet for a list of medications. The impression and plan of care has been dictated by Elke Moser, Nurse Practitioner as directed. Dr. Darlene MD I have performed a history and examination and MDM of this patient, discussed the same with the dictator, and agree with the dictator's assessment and plan as written ,documented as a scribe. Based on total visit time, I have performed more than 50% of the visit. Patient Condition at Discharge: Stable Plan - Discharge Summary New Discharge Prescriptions: New Pantoprazole [Protonix] 40 mg PO BID 30 Days #60 tab Nitroglycerin Sl Tabs [Nitrostat] 0.4 mg SUBLINGUAL Q10M PRN #20 tab PRN Reason: Chest Pain Continue Aspirin 81 mg PO DAILY Metoprolol Tartrate [Lopressor] 25 mg PO HS Atorvastatin [Lipitor] 80 mg PO HS Discontinued Omeprazole 40 mg PO DAILY Discharge Medication List Aspirin 81 mg PO DAILY 10/01/21 [History] Atorvastatin [Lipitor] 80 mg PO HS 10/01/21 [History] Metoprolol Tartrate [Lopressor] 25 mg PO HS 10/01/21 [History] Nitroglycerin Sl Tabs [Nitrostat] 0.4 mg SUBLINGUAL Q10M PRN #20 tab 10/16/22 [Rx] Pantoprazole [Protonix] 40 mg PO BID 30 Days #60 tab 10/16/22 [Rx] Follow up Appointment(s)/Referral(s): Evans Rae MD [Primary Care Provider] - 1-2 days Activity/Diet/Wound Care/Special Instructions: Activity Limited until follow-up Follow-up with primary care provider on discharge Follow-up with cardiology outpatient in 1-2 weeks Continue taking medications as prescribed Discharge Disposition: HOME SELF-CARE
== END 2022-10-16 14:32 | disposition home or self-care (01) ==
LOC: EC 07:52 → 6NMEDSUR 09:08
PROVIDERS: ADMIT Internal Medicine; ATTEND Internal Medicine
DX: R07.89 Other chest pain (principal); I11.9 Hypertensive heart disease without heart failure; E78.2 Mixed hyperlipidemia; I25.2 Old myocardial infarction; D72.829 Elevated white blood cell count, unspecified; K21.9 Gastro-esophageal reflux disease without esophagitis; N40.0 Benign prostatic hyperplasia without lower urinary tract symptoms; M19.90 Unspecified osteoarthritis, unspecified site; F17.200 Nicotine dependence, unspecified, uncomplicated; Z79.82 Long term (current) use of aspirin; Z79.899 Other long term (current) drug therapy; Z86.73 Personal history of transient ischemic attack (TIA), and cerebral infarction without residual deficits; Z95.1 Presence of aortocoronary bypass graft; Z98.890 Other specified postprocedural states; Z83.3 Family history of diabetes mellitus; Z82.49 Family history of ischemic heart disease and other diseases of the circulatory system; Z82.3 Family history of stroke; Z81.1 Family history of alcohol abuse and dependence
CPT/HCPCS: 96372 ×2; 96374; 99285; 36415; 94760; 93005; 93017; 93306; 80053; 80048; 83690; 83735; 84484 ×2; 85025 ×2; 85610; 85730; 71046; 78452; G0378 ×2; A9500; J2785; J1885; J1644

== ENCOUNTER 2023-01-05 09:20 | Day surgery (SDC) | payer MEDICARE ==
[2023-01-05] MEDS ORDERED: LACTATED RINGERS 1,000 ML IV SCH (10:25)
[2023-01-05 10:35] VITALS: TEMP 97
[2023-01-05] MEDS ORDERED: PROPOFOL 10 MG/ML 20 ML VIAL IV ONE (11:00)
--- NOTE | 2023-01-05 11:14 | P.PCN ---
Date of Procedure: 01/05/23 Procedure(s) Performed: BRIEF HISTORY: Patient is a 67-year-old pleasant white male scheduled for an elective colonoscopy as a part of screening for colon cancer. PROCEDURE PERFORMED: Colonoscopy with snare polypectomy. PREOPERATIVE DIAGNOSIS: Screening for colon cancer. IV sedation per Anesthesia. PROCEDURE: After informed consent was obtained, the patient, was brought into the endoscopy unit. IV sedation was administered by Anesthesia under continuous monitoring. Digital rectal examination was normal. Initially the Olympus CF-160 flexible video colonoscope was then inserted in the rectum, gradually advanced into the cecum without any difficulty. Careful examination was performed as the scope was gradually being withdrawn. Ileocecal valve and the appendiceal orifice were visualized and appeared normal. Prep was excellent. Mucosa of the cecum, ascending colon, transverse colon, descending colon, appeared normal. The sigmoid colon there was a 1.5 cm pegylated polyp removed by snare polypectomy. Scattered sigmoid diverticulosis seen. Rest of the sigmoid colon, and rectum appeared normal. Retroflexion was performed in the rectum and no lesions were seen. The patient tolerated the procedure well. IMPRESSION: 1.5 cm pedunculated sigmoid: Polyp status post polypectomy Scattered sigmoid diverticulosis RECOMMENDATIONS: Findings of this examination were discussed with the patient as well as his family.. She was advised to follow with the biopsy results. If the biopsy reveals adenoma he can have a repeat colonoscopy in 3 years.
[2023-01-05 11:26] VITALS: RESP 16
[2023-01-05 12:27] VITALS: BP 107/64; PULSE 63
== END 2023-01-05 12:30 | disposition home or self-care (01) ==
LOC: ORWHC2ENDO 09:20
PROVIDERS: ATTEND Internal Medicine Gastroenterology
DX: Z12.11 Encounter for screening for malignant neoplasm of colon (principal); D12.5 Benign neoplasm of sigmoid colon; K57.30 Diverticulosis of large intestine without perforation or abscess without bleeding; E78.5 Hyperlipidemia, unspecified; I10 Essential (primary) hypertension; I25.10 Atherosclerotic heart disease of native coronary artery without angina pectoris; I25.2 Old myocardial infarction; K21.9 Gastro-esophageal reflux disease without esophagitis; Z86.73 Personal history of transient ischemic attack (TIA), and cerebral infarction without residual deficits; Z79.899 Other long term (current) drug therapy; Z79.82 Long term (current) use of aspirin
CPT/HCPCS: 88305; 45385; J2704

== ENCOUNTER 2023-08-19 20:07 | Inpatient (IN) | payer MEDICARE ==
--- NOTE | 2023-08-19 21:07 | ED ---
Nausea/Vomiting/Diarrhea HPI - General Source: patient, RN notes reviewed Mode of arrival: wheelchair Limitations: no limitations <Pauline Wick - Last Filed: 08/19/23 22:47> <Gil Goodrich - Last Filed: 08/20/23 01:57> - General Chief complaint: Nausea/Vomiting/Diarrhea Stated complaint: NVD Time Seen by Provider: 08/19/23 20:30 - History of Present Illness Initial comments: 68-year-old male presents emergency room chief complaint of nausea and vomiting that began this evening. States that he ate lunch and dinner this evening around 5 PM with Epigastric abdominal pain, severe nausea and multiple episodes of vomiting. Patient denies fevers at home. States that he feels chilled. Has not taken thing for the symptoms. Denies previous abdominal surgeries, states that he has had a CABG in the past. Denies chest pain or discomfort, headaches, dizziness, lightheadedness (Pauline Wick) - Related Data Home Medications Medication Instructions Recorded Confirmed Aspirin 81 mg PO DAILY 10/01/21 01/05/23 Atorvastatin [Lipitor] 80 mg PO HS 10/01/21 01/05/23 Metoprolol Tartrate [Lopressor] 25 mg PO HS 10/01/21 01/05/23 Previous Rx's Medication Instructions Recorded Nitroglycerin Sl Tabs [Nitrostat] 0.4 mg SUBLINGUAL Q10M PRN #20 tab 10/16/22 Pantoprazole [Protonix] 40 mg PO BID 30 Days #60 tab 10/16/22 Allergies Allergy/AdvReac Type Severity Reaction Status Date / Time No Known Allergies Allergy Verified 01/05/23 10:30 Review of Systems ROS Other: All systems not noted in ROS Statement are negative. <Pauline Wick - Last Filed: 08/19/23 22:47> ROS Other: All systems not noted in ROS Statement are negative. <Gil Goodrich - Last Filed: 08/20/23 01:57> ROS Statement: Those systems with pertinent positive or pertinent negative responses have been documented in the HPI. Past Medical History Past Medical History: Coronary Artery Disease (CAD), CVA/TIA, GERD/Reflux, Hyperlipidemia, Hypertension, Myocardial Infarction ([place]) Additional Past Medical History / Comment(s): CVA in his 50's, recovered. Poss stomach ulcer, c/o wgt loss and indigestion. Last Myocardial Infarction Date:: 2015 History of Any Multi-Drug Resistant Organisms: None Reported Past Surgical History: Adenoidectomy, Coronary Bypass/CABG, Tonsillectomy Additional Past Surgical History / Comment(s): Triple CABG 2016. Past Anesthesia/Blood Transfusion Reactions: No Reported Reaction Past Psychological History: No Psychological Hx Reported Smoking Status: Former smoker Past Alcohol Use History: None Reported Past Drug Use History: None Reported - Past Family History Mother Family Medical History: Coronary Artery Disease (CAD), CVA/TIA, Diabetes Mellitus Additional Family Medical History / Comment(s): Mother had open-heart surgery in her 60s. Had 4 brothers, one of the brother of alcohol abuse. One sister is struggling with alcohol abuse. <Pauline Wick - Last Filed: 08/19/23 22:47> General Exam Limitations: no limitations <Pauline Wick - Last Filed: 08/19/23 22:47> General appearance: alert Eye exam: Present: normal appearance Neck exam: Present: normal inspection Cardiovascular Exam: Present: regular rate GI/Abdominal exam: Present: tenderness (Diffuse abdominal tenderness to palpation especially in the lower abdomen with some rigidity. No guarding.) Neurological exam: Present: alert, oriented X3 Skin exam: Present: warm, dry <Gil Goodrich - Last Filed: 08/20/23 01:57> Course Vital Signs 08/19/23 08/19/23 20:17 22:46 Temperature 97.5 F L Pulse Rate 73 78 Respiratory 18 18 Rate Blood Pressure 126/69 119/64 O2 Sat by Pulse 100 100 Oximetry Medical Decision Making - Lab Data Result diagrams: 08/19/23 21:23 08/19/23 21:23 <Pauline Wick - Last Filed: 08/19/23 22:47> - Lab Data Result diagrams: 08/19/23 21:23 08/19/23 21:23 <Gil Goodrich - Last Filed: 08/20/23 01:57> - Medical Decision Making Was pt. sent in by a medical professional or institution (, PA, [facility], urgent care, hospital, or snf...) When possible be specific @ -[No] Did you speak to anyone other than the patient for history (EMS, parent, family, police, friend...)? What history was obtained from this source @ -[No] Did you review nursing and triage notes (agree or disagree)? Why? @ -[I reviewed and agree with nursing and triage notes] Were old charts reviewed (outside hosp., previous admission, EMS record, old EKG, old radiological studies, urgent care reports/EKG's, snf records)? Report findings @ -[No old charts were reviewed] Differential Diagnosis (chest pain, altered mental status, abdominal pain women, abdominal pain men, vaginal bleeding, weakness, fever, dyspnea, syncope, headache, dizziness, GI bleed, back pain, seizure, CVA, palpatations, mental health, musculoskeletal)? @ -Differential Abdominal Pain Men: Appendicitis, cholecystitis, diverticulosis, ischemic bowel, pancreatitis, hepatitis, UTI, gastroenteritis, AAA, incarcerated hernia, bowel obstruction, constipation, inflammatory bowel, hepatitis, peptic ulcer disease, splenic infarction, perforated viscus, testicular torsion, this is not meant to be an all-inclusive list EKG interpreted by me (3pts min.). @ -Completed at 2129 sinus rhythm, ventricular rate 82, VA interval 182, QTc 448. No acute signs of ischemia. X-rays interpreted by me (1pt min.). @ -[None done] CT interpreted by me (1pt min.). @ -[None done] U/S interpreted by me (1pt. min.). @ -[None done] What testing was considered but not performed or refused? (CT, X-rays, U/S, labs)? Why? @ -[None] What meds were considered but not given or refused? Why? @ -[None] Did you discuss the management of the patient with other professionals (professionals i.e. , PA, [facility] [facility] [facility], lab, RT, psych nurse, social work msw, alteration workroom supervisor, teacher, armor officer, case filler)? Give summary @ -[No] Was smoking cessation discussed for >3mins.? @ -[No] Was critical care preformed (if so, how long)? @ -[No] Were there social determinants of health that impacted care today? How? (Homelessness, low income, unemployed, alcoholism, drug addiction, transportation, low edu. Level, literacy, decrease access to med. care, senior living, rehab)? @ -[No] Was there de-escalation of care discussed even if they declined (Discuss DNR or withdrawal of care, Hospice)? DNR status @ -[No] What co-morbidities impacted this encounter? (DM, HTN, Smoking, COPD, CAD, Cancer, CVA, ARF, Chemo, Hep., AIDS, mental health diagnosis, sleep apnea, morbid obesity)? @ -[None] Was patient admitted / discharged? Hospital course, mention meds given and route, prescriptions, significant lab abnormalities, going to OR and other pert inent info. @ -68-year-old male with nausea and vomiting. On examination. And diaphoretic. EKG no acute signs of ischemia. Patient given 1 L fluid bolus and IV push of Zofran for relief. laboratory results remarkable for an elevated white blood cell count of 10.8 and neutrophils at 9.6, CMP unremarkable, troponin pancreatic enzymes within normal limits. Reexamination patient appears and states that he feel better, and states that his nausea subsided but is still experiencing epigastric abdominal pain. Ordered for additional 1 L fluid bolus and Reglan administration Undiagnosed new problem with uncertain prognosis? @ -[No] Drug Therapy requiring intensive monitoring for toxicity (Heparin, Nitro, Insulin, Cardizem)? @ -[No] Were any procedures done? @ -[No] Diagnosis/symptom? @ -[default] Acute, or Chronic, or Acute on Chronic? @ -[default] Uncomplicated (without systemic symptoms) or Complicated (systemic symptoms)? @ -[default] Side effects of treatment? @ -[No] Exacerbation, Progression, or Severe Exacerbation? @ -[No] Poses a threat to life or bodily function? How? (Chest pain, [place], [place], pneumonia, PE, COPD, DKA, ARF, appy, cholecystitis, CVA, Diverticulitis, Homicidal, Suicidal, threat to staff... and all critical care pts) @ -[No] (Pauline Wick) Patient signed out to me pending CT. Patient is a 68-year-old male presents to the ED with complaints of abdominal pain, nausea and vomiting shortly after having dinner tonight. CT abdomen pelvis was performed which did show foci of free air concerning for perforation in the lower abdomen. Case was discussed with Dr. Boutt of general surgery. Patient will be admitted and kept NPO. IV antibiotics recommended and were ordered. At this time patient is hemodynamically stable and pain is well-controlled. Laboratory studies were reviewed. CBC and chemistry panel largely unremarkable. Lactic acid is pending. (Gil Goodrich) - Lab Data Lab Results 08/19/23 08/19/23 08/19/23 Range/Units 21:23 21:23 21:23 WBC 10.8 H (3.8-10.6) k/uL RBC 4.77 (4.30-5.90) m/uL Hgb 14.5 (13.0-17.5) gm/dL Hct 43.5 (39.0-53.0) % MCV 91.2 (80.0-100.0) fL MCH 30.3 (25.0-35.0) pg MCHC 33.3 (31.0-37.0) g/dL RDW 13.5 (11.5-15.5) % Plt Count 227 (150-450) k/uL MPV 7.3 Neutrophils % 89 % Lymphocytes % 7 % Monocytes % 3 % Eosinophils % 0 % Basophils % 0 % Neutrophils # 9.6 H (1.3-7.7) k/uL Lymphocytes # 0.7 L (1.0-4.8) k/uL Monocytes # 0.3 (0-1.0) k/uL Eosinophils # 0.0 (0-0.7) k/uL Basophils # 0.0 (0-0.2) k/uL PT 11.3 (10.0-12.5) sec INR 1.0 (<1.2) APTT 21.8 L (22.0-30.0) sec Sodium 138 (137-145) mmol/L Potassium 4.4 (3.5-5.1) mmol/L Chloride 108 H (98-107) mmol/L Carbon Dioxide 18 L (22-30) mmol/L Anion Gap 12 mmol/L BUN 27 H (9-20) mg/dL Creatinine 0.94 (0.66-1.25) mg/dL Est GFR (CKD-EPI)AfAm >90 (>60 ml/min/1.73 sqM) Est GFR (CKD-EPI)NonAf 82 (>60 ml/min/1.73 sqM) Glucose 155 H (74-99) mg/dL Calcium 9.4 (8.4-10.2) mg/dL Total Bilirubin 1.0 (0.2-1.3) mg/dL AST 39 (17-59) U/L ALT 30 (4-49) U/L Alkaline Phosphatase 96 (38-126) U/L Troponin I (0.000-0.034) ng/mL Total Protein 6.5 (6.3-8.2) g/dL Albumin 4.4 (3.5-5.0) g/dL Amylase 74 (30-110) U/L Lipase 201 (23-300) U/L 08/19/23 Range/Units 21:23 WBC (3.8-10.6) k/uL RBC (4.30-5.90) m/uL Hgb (13.0-17.5) gm/dL Hct (39.0-53.0) % MCV (80.0-100.0) fL MCH (25.0-35.0) pg MCHC (31.0-37.0) g/dL RDW (11.5-15.5) % Plt Count (150-450) k/uL MPV Neutrophils % % Lymphocytes % % Monocytes % % Eosinophils % % Basophils % % Neutrophils # (1.3-7.7) k/uL Lymphocytes # (1.0-4.8) k/uL Monocytes # (0-1.0) k/uL Eosinophils # (0-0.7) k/uL Basophils # (0-0.2) k/uL PT (10.0-12.5) sec INR (<1.2) APTT (22.0-30.0) sec Sodium (137-145) mmol/L Potassium (3.5-5.1) mmol/L Chloride (98-107) mmol/L Carbon Dioxide (22-30) mmol/L Anion Gap mmol/L BUN (9-20) mg/dL Creatinine (0.66-1.25) mg/dL Est GFR (CKD-EPI)AfAm (>60 ml/min/1.73 sqM) Est GFR (CKD-EPI)NonAf (>60 ml/min/1.73 sqM) Glucose (74-99) mg/dL Calcium (8.4-10.2) mg/dL Total Bilirubin (0.2-1.3) mg/dL AST (17-59) U/L ALT (4-49) U/L Alkaline Phosphatase (38-126) U/L Troponin I <0.012 (0.000-0.034) ng/mL Total Protein (6.3-8.2) g/dL Albumin (3.5-5.0) g/dL Amylase (30-110) U/L Lipase (23-300) U/L Disposition <Pauline Wick - Last Filed: 08/19/23 22:47> Time of Disposition: 01:00 <Gil Goodrich - Last Filed: 08/20/23 01:57> Clinical Impression: Bowel perforation Disposition: ADMITTED IP TO THIS HOSP Condition: Fair Referrals: Evans Rae MD [Primary Care Provider] - 1-2 days
[2023-08-19] MEDS: SODIUM CHLORIDE 0.9% 1,000 ML IV STA ×2 (21:10→22:24)
[2023-08-19] MEDS: ONDANSETRON 4 MG/2 ML VIAL IVP STA (21:21)
[2023-08-19 21:32] LABS: Basophils % (A) 0 %; Eosinophils % (A) 0 %; HCT 43.5 % (39.0-53.0); HGB 14.5 gm/dL (13.0-17.5); Lymphocytes # (A) 0.7 k/uL (1.0-4.8); Lymphocytes % (A) 7 %; MCH 30.3 pg (25.0-35.0); MCHC 33.3 g/dL (31.0-37.0); MCV 91.2 fL (80.0-100.0); Mean Platelet Volume 7.3; Monocytes # (A) 0.3 k/uL (0-1.0); Monocytes % (A) 3 %; Neutrophils # (A) 9.6 k/uL (1.3-7.7); Neutrophils % (A) 89 %; Platelet Count 227 k/uL (150-450); RBC 4.77 m/uL (4.30-5.90); RDW 13.5 % (11.5-15.5); WBC 10.8 k/uL (3.8-10.6)
[2023-08-19 21:46] LABS: ALT 30 U/L (4-49); AST 39 U/L (17-59); African American GFR (CKD) >90 (>60 ml/min/1.73 sqM); Albumin 4.4 g/dL (3.5-5.0); Alkaline Phosphatase 96 U/L (38-126); Amylase 74 U/L (30-110); Anion Gap 12 mmol/L; Blood Urea Nitrogen 27 mg/dL (9-20); Calcium 9.4 mg/dL (8.4-10.2); Carbon Dioxide 18 mmol/L (22-30); Chloride 108 mmol/L (98-107); Glucose 155 mg/dL (74-99); Lipase 201 U/L (23-300); Non-African American GFR(CKD) 82 (>60 ml/min/1.73 sqM); Potassium 4.4 mmol/L (3.5-5.1); Sodium 138 mmol/L (137-145); Total Protein 6.5 g/dL (6.3-8.2)
[2023-08-19 22:07] LABS: Partial Thromboplastin Time 21.8 sec (22.0-30.0); Prothrombin Time 11.3 sec (10.0-12.5)
[2023-08-19] MEDS: METOCLOPRAMIDE 5 MG/ML 2 ML VIAL IVP STA (22:24)
--- NOTE | 2023-08-20 00:43 | CT ---
EXAMINATION TYPE: CT abdomen pelvis w con DATE OF EXAM: 08/19/2023 COMPARISON: None. HISTORY: pt arrives to ED from home for c/o N/V and RUQ pain x tonight CT DLP: 517.7 mGycm, Automated Exposure Control for Dose Reduction was Utilized. CONTRAST: CT scan of the abdomen and pelvis is performed without oral and with IV Contrast, patient injected wi th 100 mL of Isovue 300. FINDINGS: LUNG BASES: No significant abnormality is appreciated. LIVER/GB: No significant abnormality is appreciated. PANCREAS: No significant abnormality is seen. SPLEEN: Their is 1.4 cm thin-walled cyst inferiorly in the spleen and coronal image 49. ADRENALS: No significant abnormality is seen. KIDNEYS: Symmetric cortical medullary uptake and excretion with slightly prominent renal pelvises teodoro aterally but no significant calyceal dilatation. Moderately distended bladder with local mass effect. BOWEL: Small sized hiatal hernia. Suboptimal evaluation without enteric contrast. No abnormal small o r large bowel dilatation. [id number] diffuse wall thickening involving a majority of colon with relative sparing of the cecum. Distal colonic diverticula in the sigmoid colon. Normal-appearing melony endix in the right pelvis. Suggestion of small foci of air in the lower abdomen upper pelvis just lef t of midline within the mesentery. For reference axial images 42, 46, and 45. Abnormal wall thickenin g and small bowel loops throughout the abdomen and pelvis. Mild diffuse mesenteric edema. PROSTATE/SEMINAL VESICLES: No gross abnormality seen. LYMPH NODES: No greater than 1cm abdominal or pelvic lymph nodes are appreciated. OSSEOUS STRUCTURES: Vacuum disc phenomenon with mild/moderate disc space narrowing at L5-S1 level. Mi ld to moderate disc space narrowing at L1-L2 level. OTHER: Moderate calcified plaque of the aorta extends into branch vessels. IMPRESSION: 1. No bowel obstruction. Suboptimal evaluation without enteric contrast. Underlying acute enterocolit is is suspected. Differential includes infectious, inflammatory, and ischemic etiologies. Suspicious small foci of free air in the lower abdomen/upper pelvis are worrisome for localized perforation. Adv ise surgical evaluation. 2. Moderately distended bladder.
[2023-08-20] MEDS: HYDROmorphone 1 MG/ML 1 ML SYRINGE IVP STA (01:04)
[2023-08-20] MEDS ORDERED: HYDROmorphone 1 MG/ML 1 ML SYRINGE IVP PRN (01:32)
[2023-08-20] MEDS ORDERED: NALOXONE 0.4 MG/ML 1 ML VIAL IV PRN (01:32)
[2023-08-20] MEDS ORDERED: ACETAMINOPHEN TAB 325 MG TAB PO PRN (01:32)
[2023-08-20] MEDS ORDERED: HYDROmorphone 0.5 MG/0.5 ML SYRINGE IVP PRN (01:32)
[2023-08-20] MEDS: PIPERACILLIN-TAZOBACTAM 3.375 GM in SODIUM CHLORIDE 0.9% 100 ML IVPB STA (02:48)
[2023-08-20] MEDS: SODIUM CHLORIDE 0.9% 1,000 ML IV SCH (02:51)
[2023-08-20 09:08] LABS: Basophils % (A) 0 %; Eosinophils # (A) 0.1 k/uL (0-0.7); Eosinophils % (A) 1 %; HGB 13.3 gm/dL (13.0-17.5); Lymphocytes # (A) 0.5 k/uL (1.0-4.8); Lymphocytes % (A) 5 %; MCH 30.6 pg (25.0-35.0); MCHC 33.2 g/dL (31.0-37.0); MCV 92.1 fL (80.0-100.0); Mean Platelet Volume 7.2; Monocytes # (A) 0.4 k/uL (0-1.0); Monocytes % (A) 4 %; Neutrophils % (A) 89 %; Platelet Count 191 k/uL (150-450); RBC 4.34 m/uL (4.30-5.90); RDW 13.4 % (11.5-15.5); WBC 10.1 k/uL (3.8-10.6)
[2023-08-20 09:21] LABS: ALT 28 U/L (4-49); AST 35 U/L (17-59); African American GFR (CKD) >90 (>60 ml/min/1.73 sqM); Albumin 3.8 g/dL (3.5-5.0); Albumin/Globulin Ratio 1.9; Alkaline Phosphatase 73 U/L (38-126); Anion Gap 10 mmol/L; Blood Urea Nitrogen 20 mg/dL (9-20); Calcium 8.6 mg/dL (8.4-10.2); Carbon Dioxide 19 mmol/L (22-30); Chloride 109 mmol/L (98-107); Glucose 124 mg/dL (74-99); Non-African American GFR(CKD) 88 (>60 ml/min/1.73 sqM); Sodium 138 mmol/L (137-145); Total Bilirubin 0.9 mg/dL (0.2-1.3); Total Protein 5.8 g/dL (6.3-8.2)
[2023-08-20] MEDS: PIPERACILLIN-TAZOBACTAM 3.375 GM in SODIUM CHLORIDE 0.9% 100 ML IVPB SCH (11:15)
--- NOTE | 2023-08-20 11:32 | P.GSHP ---
History of Present Illness H&P Date: 08/20/23 CHIEF COMPLAINT: Abdominal pain HISTORY OF PRESENT ILLNESS: This is a 68-year-old male who presented to the hospital with complaints of severe abdominal pain right lower side of abdomen that started yesterday after dinner. Patient reports eating pea soup for dinner around 430. And then around 5 or 6 started having multiple episodes of vomiting for an hour straight. Patient reports the pain was about 8 out of 10. He denies any prior abdominal surgeries. Last colonoscopy was in December 2022 that did show evidence of scattered sigmoid diverticulosis and colon polyp. Patient with history of antral ulcer noted on EGD in 10/03/2021. Patient reports having feeling chilled and hot. He reports having regular bowel movements. CT scan abdomen pelvis showed no evidence of bowel obstruction. Did report suspicious small foci of free air in the lower abdomen/upper pelvis worrisome for localized perforation. Patient's pain and vomiting has resolved. He last took pain medication at 1:00 this morning. Patient admitted to hospital for bowel perforation. PAST MEDICAL HISTORY: Coronary Artery Disease (CAD), CVA/TIA, GERD/Reflux, Hyperlipidemia, Hypertension, Myocardial Infarction ([place]), CVA, peptic ulcer disease, diverticulosis PAST SURGICAL HISTORY: Adenoidectomy, Coronary Bypass/CABG 2016, Tonsillectomy MEDICATIONS: See below ALLERGIES: See below SOCIAL HISTORY: No illicit drug use. REVIEW OF SYSTEMS: CONSTITUTIONAL: Denies fever or chills. HEENT: Denies blurred vision, vision changes, or eye pain. Denies hemoptysis CARDIOVASCULAR: Denies chest pain or pressure. RESPIRATORY: No shortness of breath. GASTROINTESTINAL: See HPI for pertinent findings HEMATOLOGIC: Denies bleeding disorders. GENITOURINARY: Denies any blood in urine or increased urinary frequency. SKIN: Denies pruitis. Denies rash. PHYSICAL EXAM: VITAL SIGNS: Reviewed GENERAL: Well-developed in no acute distress. HEENT: No sclera icterus. Extraocular movements grossly intact. Moist buccal mucosa. Head is atraumatic, normocephalic. No nasal drainage. ABDOMEN: Soft. Nondistended. nontender currently NEUROLOGIC: Alert and oriented. Cranial nerves II through XII grossly intact. LABORATORY DATA: WBC 10.1 hemoglobin 13.3 platelets 191 Sodium is 138 potassium 4.0 creatinine 0.86 Lactic acid 1.8 down to 1.2 LFTs normal Troponin negative Lipase 201 IMAGING: CT scan abdomen pelvis no bowel obstruction. Suboptimal evaluation without enteric contrast. Underlying acute enterocolitis suspected. Differential includes infectious inflammatory and ischemic etiologies. Suspicious small foci of free air in the lower abdomen/upper pelvis worrisome for localized perforation. Moderate distended bladder. ASSESSMENT: 1. Possible bowel perforation. CT scan reports suspicious small foci of free air in the lower abdomen/upper pelvis worrisome for localized perforation PLAN: -Further recommendations forthcoming per surgeon -Patient scheduled for possible exploratory laparotomy with possible bowel resection today -Keep patient n.p.o. -Increase IV fluids to 100 mL/h -Continue antibiotics -Continue supportive care -Medicine service consulted for medical management Physician Director Of Collections And [employer] note has been reviewed by physician. Signing provider agrees with the documented findings, assessment, and plan of care. I have personally seen and examined the patient, reviewed the CSW /PAs history, exam and MDM and agree with the assessment and plan as written. Based on total visit time, I have performed more than 50% of the visit. As above: Patient seen earlier this morning. CAT scan shows a few small foci of pneumoperitoneum. The patient presented with significant abdominal pain. Says it started mostly in the right mid abdomen. He had numerous episodes of vomiting. No hematemesis. Pain resolved overnight. Has no pain now. Sitting up in bed and appears quite comfortable. Patient has not had anything similar to this in the past. CAT scan reviewed and shows no obvious source of perforation. Given the location of the pneumoperitoneum small perforation from diverticulitis seems to be the most likely etiology. Continue antibiotics. Begin clear liquids. Reevaluate tomorrow. Past Medical History Past Medical History: Coronary Artery Disease (CAD), CVA/TIA, GERD/Reflux, Hyperlipidemia, Hypertension, Myocardial Infarction ([place]) Additional Past Medical History / Comment(s): CVA in his 50's, recovered. Poss stomach ulcer, c/o wgt loss and indigestion. Last Myocardial Infarction Date:: 2015 History of Any Multi-Drug Resistant Organisms: None Reported Past Surgical History: Adenoidectomy, Coronary Bypass/CABG, Tonsillectomy Additional Past Surgical History / Comment(s): Triple CABG 2016. Past Anesthesia/Blood Transfusion Reactions: No Reported Reaction Past Psychological History: No Psychological Hx Reported Smoking Status: Former smoker Past Alcohol Use History: None Reported Additional Past Alcohol Use History / Comment(s): Smoked age 12 to 36, 3 ppd. Past Drug Use History: None Reported - Past Family History Mother Family Medical History: Coronary Artery Disease (CAD), CVA/TIA, Diabetes Mellitus Additional Family Medical History / Comment(s): Mother had open-heart surgery in her 60s. Had 4 brothers, one of the brother of alcohol abuse. One sister is struggling with alcohol abuse. Medications and Allergies Home Medications Medication Instructions Recorded Confirmed Type Aspirin 81 mg PO DAILY 10/01/21 08/20/23 History Atorvastatin [Lipitor] 80 mg PO HS 10/01/21 08/20/23 History Metoprolol Tartrate [Lopressor] 25 mg PO HS 10/01/21 08/20/23 History Nitroglycerin Sl Tabs [Nitrostat] 0.4 mg SUBLINGUAL Q10M PRN #20 tab 10/16/22 08/20/23 Rx Amoxic-Pot Clav 875-125Mg 1 tab PO Q12HR 7 Days #14 tab 08/20/23 Rx [Augmentin 875-125] Ezetimibe [Zetia] 10 mg PO HS 08/20/23 08/20/23 History Omeprazole [PriLOSEC] 40 mg PO DAILY 08/20/23 08/20/23 History Allergies Allergy/AdvReac Type Severity Reaction Status Date / Time No Known Allergies Allergy Verified 08/20/23 07:19 Surgical - Exam Vital Signs Temp Pulse Resp BP Pulse Ox 97.5 F L 73 18 126/69 100 08/19/23 20:17 08/19/23 20:17 08/19/23 20:17 08/19/23 20:17 08/19/23 20:17 Results - Labs 08/20/23 08:30 08/20/23 08:30 Abnormal Lab Results - Last 24 Hours (Table) 08/19/23 08/19/23 08/19/23 Range/Units 21:23 21:23 21:23 WBC 10.8 H (3.8-10.6) k/uL Neutrophils # 9.6 H (1.3-7.7) k/uL Lymphocytes # 0.7 L (1.0-4.8) k/uL APTT 21.8 L (22.0-30.0) sec Chloride 108 H (98-107) mmol/L Carbon Dioxide 18 L (22-30) mmol/L BUN 27 H (9-20) mg/dL Glucose 155 H (74-99) mg/dL Total Protein (6.3-8.2) g/dL 08/20/23 08/20/23 Range/Units 08:30 08:30 WBC (3.8-10.6) k/uL Neutrophils # 9.0 H (1.3-7.7) k/uL Lymphocytes # 0.5 L (1.0-4.8) k/uL APTT (22.0-30.0) sec Chloride 109 H (98-107) mmol/L Carbon Dioxide 19 L (22-30) mmol/L BUN (9-20) mg/dL Glucose 124 H (74-99) mg/dL Total Protein 5.8 L (6.3-8.2) g/dL Diabetes panel 08/19/23 08/20/23 Range/Units 21:23 08:30 Sodium 138 138 (137-145) mmol/L Potassium 4.4 4.0 (3.5-5.1) mmol/L Chloride 108 H 109 H (98-107) mmol/L Carbon Dioxide 18 L 19 L (22-30) mmol/L BUN 27 H 20 (9-20) mg/dL Creatinine 0.94 0.86 (0.66-1.25) mg/dL Glucose 155 H 124 H (74-99) mg/dL Calcium 9.4 8.6 (8.4-10.2) mg/dL AST 39 35 (17-59) U/L ALT 30 28 (4-49) U/L Alkaline Phosphatase 96 73 (38-126) U/L Total Protein 6.5 5.8 L (6.3-8.2) g/dL Albumin 4.4 3.8 (3.5-5.0) g/dL Calcium panel 08/19/23 08/20/23 Range/Units 21:23 08:30 Calcium 9.4 8.6 (8.4-10.2) mg/dL Albumin 4.4 3.8 (3.5-5.0) g/dL Pituitary panel 08/19/23 08/20/23 Range/Units 21:23 08:30 Sodium 138 138 (137-145) mmol/L Potassium 4.4 4.0 (3.5-5.1) mmol/L Chloride 108 H 109 H (98-107) mmol/L Carbon Dioxide 18 L 19 L (22-30) mmol/L BUN 27 H 20 (9-20) mg/dL Creatinine 0.94 0.86 (0.66-1.25) mg/dL Glucose 155 H 124 H (74-99) mg/dL Calcium 9.4 8.6 (8.4-10.2) mg/dL Adrenal panel 08/19/23 08/20/23 Range/Units 21:23 08:30 Sodium 138 138 (137-145) mmol/L Potassium 4.4 4.0 (3.5-5.1) mmol/L Chloride 108 H 109 H (98-107) mmol/L Carbon Dioxide 18 L 19 L (22-30) mmol/L BUN 27 H 20 (9-20) mg/dL Creatinine 0.94 0.86 (0.66-1.25) mg/dL Glucose 155 H 124 H (74-99) mg/dL Calcium 9.4 8.6 (8.4-10.2) mg/dL Total Bilirubin 1.0 0.9 (0.2-1.3) mg/dL AST 39 35 (17-59) U/L ALT 30 28 (4-49) U/L Alkaline Phosphatase 96 73 (38-126) U/L Total Protein 6.5 5.8 L (6.3-8.2) g/dL Albumin 4.4 3.8 (3.5-5.0) g/dL
[2023-08-20 14:14] VITALS: BMI 18.4
[2023-08-20] MEDS ORDERED: NITROGLYCERIN SL TABS 0.4 MG TAB SUBLINGUAL PRN (14:42)
--- NOTE | 2023-08-20 14:42 | P.CONS ---
History of Present Illness - Reason for Consult Consult date: 08/20/23 Medical management Requesting physician: Sammy Wallace - Chief Complaint Diverticulitis with perforated viscus - History of Present Illness HISTORY OF PRESENT ILLNESS: This is a 68-year-old male with a previous medical history significant for coronary artery disease status post CABG 3 with FARLEY to LAD reverse saphenous venous graft to the diagonal branch reverse evidence of his graft to the obtuse marginal branch, hyperlipidemia, remote tobacco use and dependence, family history of coronary artery disease, hypertension and hypertensive cardiovascular disease, patient presented to the emergency department at [facility] right-sided lower abdominal pain associated with intractable nausea and vomiting without diarrhea, no fever or chills, patient presented to the ER, ended up having a CT scan of the abdomen and pelvis that showed evidence of possible diverticulitis with possible perforated viscus, he did have evidence of multiple air foci in the abdomen suggestive of possible perforated viscus, he was admitted under general surgery, we were asked to see the patient for medical management, he was started on Zosyn 3.375 g IV piggyback every 8 hours, pain management IV hydration after evaluation by general surgery it was recommended to start the patient on clear liquid diet, continue IV antibiotic and bowel rest reevaluate the patient in the next 24 hours if symptoms free he can be discharged home and follow-up as an outpatient. REVIEW OF SYSTEMS: Constitutional: No documented fever, no chills, no night sweats. No weight change. No weakness, fatigue or lethargy. No daytime sleepiness. HEENT: No headache. No blurred vision or double vision, no loss of vision. No loss of Hearing, no ringing in the ears, no dizziness. No nasal drainage or congestion. No epistaxis. No sore throat. Lungs: No shortness of breath, no cough, no sputum production. No wheezing. Reports dyspnea with activity. Cardiovascular: No chest pain, no lower extremity edema. No palpitations. No paroxysmal nocturnal dyspnea. No orthopnea. No lightheadedness or dizziness. No syncopal episodes. Abdominal: Reports abdominal pain. positive for nausea, positive for vomiting. No diarrhea. No constipation. No bloody or tarry stools reports loss of appetite. Genitourinary: No dysuria, increased frequency, urgency. No urinary retention. Musculoskeletal: No myalgias. No muscle weakness, no gait dysfunction, no frequent falls. No back pain. No neck pain. Integumentary: No wounds, no lesions. No rash or pruritus. No unusual bruising. No change in hair or nails. Neurologic: No aphasia. No facial droop. No change in mentation. No head injury. No headache. No paralysis. No paresthesia. Psychiatric: No depression. No anxiety. No mood swings. Endocrine: No abnormal blood sugars. No weight change. PAST MEDICAL HISTORY: Coronary artery disease status post CABG 3 with FARLEY to LAD, SVG to OM1, SVG-Dx Hypertension and hypertensive cardiovascular disease. Hyperlipidemia. Enlarged prostate. Osteoarthritis. PAST SURGICAL HISTORY: CABG 3 in 2017 SOCIAL HISTORY: Patient used to smoke about 3 packs every day started smoking at the age of 12 and quit at age of 32, he denies any alcohol ingestion, he denies any intravenous drug abuse. FAMILY HISTORY: Father at age of 87 from bedridden and left arm amputation, mother at age of 83 from coronary artery disease she had triple bypass surgery at the age of 65, patient had 3 brothers one from alcohol wasn't at 49 and the other one is struggling with alcoholism patient has 2 sisters one of them is alcoholic, patient has 2 sons okay and 2 daughters okay. PHYSICAL EXAMINATION: General: 68-year-old male sitting up in bed in no apparent distress. HEENT: Head is atraumatic, normocephalic, pupils were equal round reactive to light and recommendation, extraocular muscle movement were intact, sclera nonicteric, conjunctivae were pale, mucous membranes of the mouth are somewhat dry. Neck: Supple, no JVP, normal carotid upstroke bilaterally, no lymphadenopathy. Chest: Decreased breath sounds at the bases, few rhonchi, no expiratory wheezes, no chest wall tenderness, no intercostal retractions. Heart: First heart sound is normal, second heart sounds normal there is no gallop, there is systolic ejection murmur 2/6 located in the left sternal border Abdomen: Soft, nontender, nondistended, positive bowel sounds. Extremities: There is no edema no calf tenderness DP +2 bilaterally. Neurologic examination: Patient is awake alert and oriented X 3, cranial nerves II-12 appear grossly intact, muscle power were 5 out of 5 in upper extremities a nd 5 out of 5 in bilateral lower extremities, deep tendon reflexes normal bilaterally. ASSESSMENT AND PLAN: 1. Acute diverticulitis with possible perforated viscus. Continue IV antibiotic with Zosyn 3.375 grams IV piggyback every 8 hours, continue pain management continue IV fluid, start the patient on clear liquid diet, reevaluate in the next 24 hours if more symptoms we will obtain x-rays of the abdomen upright and flat, otherwise she can be discharged home and follow-up with us as an outpatient. 2. CAD post CABG3 in 2017. continue patient on aspirin 81 mg once every day, metoprolol ER 25 mg at bedtime, continue atorvastatin 80 mg once every day. 3. Hypertension and hypertensive cardio vascular disease. Continue metoprolol 25 mg at bedtime. Monitor the patient blood pressure very closely. 4. Mixed hyperlipidemia. Continue patient on atorvastatin 80 mg orally once every day, 5. Osteoarthritis. Stable. 6. Enlarged prostate. Stable. 7. DVT prophylaxis. Continue heparin 5000 units subcutaneously every 8 hours. 8. GI prophylaxis. Continue pantoprazole 40 mg IV push every 24 hours. 9. Thank you for the consult we will follow the patient with you. 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 Poss stomach ulcer, c/o wgt loss and indigestion. Last Myocardial Infarction Date:: 2015 History of Any Multi-Drug Resistant Organisms: None Reported Past Surgical History: Adenoidectomy, Coronary Bypass/CABG, Tonsillectomy Additional Past Surgical History / Comment(s): Triple CABG 2016. Past Anesthesia/Blood Transfusion Reactions: No Reported Reaction Past Psychological History: No Psychological Hx Reported Smoking Status: Former smoker Past Alcohol Use History: None Reported Additional Past Alcohol Use History / Comment(s): Smoked age 12 to 36, 3 ppd. Past Drug Use History: None Reported - Past Family History Mother Family Medical History: Coronary Artery Disease (CAD), CVA/TIA, Diabetes Mellitus Additional Family Medical History / Comment(s): Mother had open-heart surgery in her 60s. Had 4 brothers, one of the brother of alcohol abuse. One sister is struggling with alcohol abuse. Medications and Allergies Home Medications Medication Instructions Recorded Confirmed Type Aspirin 81 mg PO DAILY 10/01/21 08/20/23 History Atorvastatin [Lipitor] 80 mg PO HS 10/01/21 08/20/23 History Metoprolol Tartrate [Lopressor] 25 mg PO HS 10/01/21 08/20/23 History Nitroglycerin Sl Tabs [Nitrostat] 0.4 mg SUBLINGUAL Q10M PRN #20 tab 10/16/22 08/20/23 Rx Amoxic-Pot Clav 875-125Mg 1 tab PO Q12HR 7 Days #14 tab 08/20/23 Rx [Augmentin 875-125] Ezetimibe [Zetia] 10 mg PO HS 08/20/23 08/20/23 History Omeprazole [PriLOSEC] 40 mg PO DAILY 08/20/23 08/20/23 History Allergies Allergy/AdvReac Type Severity Reaction Status Date / Time No Known Allergies Allergy Verified 08/20/23 07:19 Physical Exam Vitals: Vital Signs Temp Pulse Pulse Resp BP BP Pulse Ox 08/20/23 09:10 98.9 F 76 18 130/66 96 08/20/23 08:13 76 18 08/20/23 05:00 83 16 132/99 97 08/20/23 02:58 98.3 F 88 18 118/70 99 08/19/23 22:46 78 18 119/64 100 08/19/23 20:17 97.5 F L 73 18 126/69 100 Intake and Output 08/19/23 08/20/23 08/20/23 22:59 06:59 14:59 Output Total 375 Balance -375 Output: Urine 375 Other: Weight 56.699 kg 56.699 kg Results CBC & Chem 7: 08/20/23 08:30 08/20/23 08:30 Labs: Abnormal Lab Results - Last 24 Hours (Table) 08/19/23 08/19/23 08/19/23 Range/Units 21:23 21:23 21:23 WBC 10.8 H (3.8-10.6) k/uL Neutrophils # 9.6 H (1.3-7.7) k/uL Lymphocytes # 0.7 L (1.0-4.8) k/uL APTT 21.8 L (22.0-30.0) sec Chloride 108 H (98-107) mmol/L Carbon Dioxide 18 L (22-30) mmol/L BUN 27 H (9-20) mg/dL Glucose 155 H (74-99) mg/dL Total Protein (6.3-8.2) g/dL 08/20/23 08/20/23 Range/Units 08:30 08:30 WBC (3.8-10.6) k/uL Neutrophils # 9.0 H (1.3-7.7) k/uL Lymphocytes # 0.5 L (1.0-4.8) k/uL APTT (22.0-30.0) sec Chloride 109 H (98-107) mmol/L Carbon Dioxide 19 L (22-30) mmol/L BUN (9-20) mg/dL Glucose 124 H (74-99) mg/dL Total Protein 5.8 L (6.3-8.2) g/dL
[2023-08-20] MEDS ORDERED: ONDANSETRON 4 MG/2 ML VIAL IVP PRN (14:44)
[2023-08-20] MEDS: HEPARIN SODIUM,PORCINE 5,000 UNIT/ML 1 ML VIAL SQ SCH (15:59)
[2023-08-20] MEDS: EZETIMIBE 10 MG TAB PO SCH (20:01)
[2023-08-20] MEDS: ATORVASTATIN 40 MG TAB PO SCH (20:01)
[2023-08-20] MEDS: METOPROLOL TARTRATE 25 MG TAB PO SCH (20:01)
[2023-08-21 09:46] LABS: Basophils # (A) 0.03 X 10*3/uL (0.00-0.10); Basophils % (A) 0.4 %; Eosinophils # (A) 0.03 X 10*3/uL (0.04-0.35); Eosinophils % (A) 0.4 %; Lymphocytes # (A) 1.41 X 10*3/uL (0.90-5.00); Lymphocytes % (A) 19.4 %; MCH 30.3 pg (27.0-32.0); MCHC 33.3 g/dL (32.0-37.0); MCV 90.9 FL (80.0-97.0); Mean Platelet Volume 10.3 FL (9.5-12.2); Monocytes # (A) 0.53 X 10*3/uL (0.20-1.00); Monocytes % (A) 7.3 %; NRBC Per 100 WBC 0 X 10*3/uL (0.00-0.01); Neutrophils # (A) 5.26 X 10*3/uL (1.80-7.70); Neutrophils % (A) 72.4 %; Platelet Count 174 X 10*3/uL (140-440); RBC 4.29 X 10*6/uL (4.40-5.60); RDW 13.5 % (11.5-14.5); WBC 7.27 X 10*3/uL (4.50-10.00)
[2023-08-21 09:52] LABS: ALT 24 U/L (10-49); AST 42 U/L (14-35); Albumin 3.6 g/dL (3.8-4.9); Alkaline Phosphatase 61 U/L (41-126); BUN/Creat Ratio 16.55 Ratio (12.00-20.00); Blood Urea Nitrogen 18.2 mg/dL (9.0-27.0); Calcium 8.2 mg/dL (8.7-10.3); Carbon Dioxide 21.7 mmol/L (21.6-31.8); Chloride 110 mmol/L (96-109); Globulin 1.2 g/dL (1.6-3.3); Glucose 89 mg/dL (70-110); Potassium 3.7 mmol/L (3.5-5.5); Sodium 141 mmol/L (135-145); Total Bilirubin 0.8 mg/dL (0.3-1.2); Total Protein 4.8 g/dL (6.2-8.2)
[2023-08-21] MEDS: ASPIRIN 81 MG PO SCH (10:09)
[2023-08-21] MEDS: PANTOPRAZOLE 40 MG TABLET PO SCH (10:09)
--- NOTE | 2023-08-21 13:09 | P.PN ---
Subjective Progress Note Date: 08/21/23 This is a 68-year-old male who presented to the hospital with complaints of severe abdominal pain right lower side of abdomen that started yesterday after dinner. Patient reports eating pea soup for dinner around 430. And then around 5 or 6 started having multiple episodes of vomiting for an hour straight. Patient reports the pain was about 8 out of 10. He denies any prior abdominal surgeries. Last colonoscopy was in December 2022 that did show evidence of scattered sigmoid diverticulosis and colon polyp. Patient with history of antral ulcer noted on EGD in 10/03/2021. Patient reports having feeling chilled and hot. He reports having regular bowel movements. CT scan abdomen pelvis showed no evidence of bowel obstruction. Did report suspicious small foci of free air in the lower abdomen/upper pelvis worrisome for localized perforation. Patient's pain and vomiting has resolved. He last took pain medication at 1:00 this morning. Patient admitted to hospital for bowel perforation. 08/20. Patient seen and examined. Denies abdominal pain, no current nausea or vomiting. Currently on clear liquid diet REVIEW OF SYSTEMS: CONSTITUTIONAL: No fever, no malaise,. CARDIOVASCULAR: No chest pain, no palpitations, no syncope. PULMONARY: No shortness of breath, no cough, GASTROINTESTINAL: As mentioned above NEUROLOGICAL: No headaches, no weakness, PHYSICAL EXAMINATION: GENERAL: The patient is alert and oriented x3, not in any acute distress. Well developed, well nourished. HEENT: Pupils are round and equally reacting to light. EOMI. No scleral icterus. No conjunctival pallor. Normocephalic, atraumatic. No pharyngeal erythema. No thyromegaly. CARDIOVASCULAR: S1 and S2 present. No murmurs, rubs, or gallops. PULMONARY: Chest is clear to auscultation, no wheezing or crackles. ABDOMEN: Soft, nontender, nondistended, normoactive bowel sounds. No palpable organomegaly. MUSCULOSKELETAL: No joint swelling or deformity. EXTREMITIES: No cyanosis, clubbing, or pedal edema. NEUROLOGICAL: Gross neurological examination did not reveal any focal deficits. SKIN: No rashes. Assessment and plan 1. Acute diverticulitis with possible perforated viscus. Monitor vital signs Monitor CBC Continue IV antibiotic with Zosyn 3.375 grams IV piggyback every 8 hours continue pain management continue IV fluid, Currently on clear liquid diet, diet to be advanced per surgery 2. CAD post CABG3 in 2017. continue patient on aspirin 81 mg once every day, metoprolol ER 25 mg at bedtime, continue atorvastatin 80 mg once every day. 3. Hypertension and hypertensive cardio vascular disease. Continue metoprolol 25 mg at bedtime. Monitor the patient blood pressure very closely. 4. Mixed hyperlipidemia. Continue patient on atorvastatin 80 mg orally once every day, 5. Osteoarthritis. Stable. 6. Enlarged prostate. Stable. Labs and medication were reviewed.. Continue same treatment. Continue with symptomatic treatment. Resume home medication. Monitor labs and vitals. DVT and GI prophylaxis. Further recommendations as per clinical course of the patient Dictation was produced using [employer] dictation software. please excuse any grammatical, word or spelling errors. Objective - Vital Signs Vital signs: Vital Signs Temp 98.5 F 08/21/23 07:21 Pulse 60 08/21/23 07:21 Resp 17 08/21/23 07:21 BP 107/67 08/21/23 07:21 Pulse Ox 96 08/21/23 07:21 FiO2 Intake & Output 08/20/23 08/21/23 08/21/23 18:59 06:59 18:59 Output Total 575 575 Balance -575 -575 Weight 56.699 kg Output: Urine 575 575 Other: Voiding Method Urinal - Labs CBC & Chem 7: 08/21/23 05:59 08/21/23 05:59 Labs: Abnormal Lab Results - Last 24 Hours (Table) 08/21/23 08/21/23 Range/Units 05:59 05:59 RBC 4.29 L (4.40-5.60) X 10*6/uL Hct 39.0 L (39.6-50.0) % Eosinophils # 0.03 L (0.04-0.35) X 10*3/uL Chloride 110 H (96-109) mmol/L Calcium 8.2 L (8.7-10.3) mg/dL AST 42 H (14-35) U/L Total Protein 4.8 L (6.2-8.2) g/dL Albumin 3.6 L (3.8-4.9) g/dL Globulin 1.2 L (1.6-3.3) g/dL
[2023-08-21 15:51] VITALS: RESP 18
--- NOTE | 2023-08-21 19:12 | P.PN ---
Subjective patient seen and evaluated bedside. Denies abdominal pain nausea or vomiting. Objective - Vital Signs Vital signs: Vital Signs Temp 98.2 F 08/21/23 14:01 Pulse 57 L 08/21/23 14:01 Resp 18 08/21/23 14:01 BP 113/64 08/21/23 14:01 Pulse Ox 96 08/21/23 14:01 FiO2 Intake & Output 08/21/23 08/21/23 08/22/23 06:59 18:59 06:59 Output Total 575 Balance -575 Output: Urine 575 Other: # Voids 4 - Exam Gen. distress Cardiovascular regular rhythm Pulmonary nonlabored breathing Abdomen soft nontender nondistended no guarding rebound tenderness - Labs CBC & Chem 7: 08/21/23 05:59 08/21/23 05:59 Labs: Abnormal Lab Results - Last 24 Hours (Table) 08/21/23 08/21/23 Range/Units 05:59 05:59 RBC 4.29 L (4.40-5.60) X 10*6/uL Hct 39.0 L (39.6-50.0) % Eosinophils # 0.03 L (0.04-0.35) X 10*3/uL Chloride 110 H (96-109) mmol/L Calcium 8.2 L (8.7-10.3) mg/dL AST 42 H (14-35) U/L Total Protein 4.8 L (6.2-8.2) g/dL Albumin 3.6 L (3.8-4.9) g/dL Globulin 1.2 L (1.6-3.3) g/dL Microbiology - Last 24 Hours (Table) 08/20/23 02:30 Blood Culture - Preliminary Blood 08/20/23 02:40 Blood Culture - Preliminary Blood Assessment and Plan Assessment: 68-year-old male with possible bowel/colonic perforation as evidenced by a few specks of air patient has no abdominal pain at this time Appendicitis tolerated Likely stable for discharge in a.m. Time with Patient: Less than 30
[2023-08-22 08:29] VITALS: BP 122/74; PULSE 56; TEMP 98.3
[2023-08-22 09:44] LABS: Basophils # (A) 0.05 X 10*3/uL (0.00-0.10); Basophils % (A) 0.9 %; Eosinophils # (A) 0.07 X 10*3/uL (0.04-0.35); Eosinophils % (A) 1.2 %; HCT 40.7 % (39.6-50.0); Lymphocytes # (A) 1.38 X 10*3/uL (0.90-5.00); Lymphocytes % (A) 23.8 %; MCH 30.1 pg (27.0-32.0); MCHC 34.4 g/dL (32.0-37.0); MCV 87.5 FL (80.0-97.0); Mean Platelet Volume 10.5 FL (9.5-12.2); Monocytes % (A) 8.6 %; NRBC Per 100 WBC 0 X 10*3/uL (0.00-0.01); Neutrophils # (A) 3.79 X 10*3/uL (1.80-7.70); Neutrophils % (A) 65.3 %; Platelet Count 164 X 10*3/uL (140-440); RBC 4.65 X 10*6/uL (4.40-5.60); RDW 13.3 % (11.5-14.5)
[2023-08-22 09:59] LABS: ALT 26 U/L (10-49); AST 44 U/L (14-35); Albumin 3.8 g/dL (3.8-4.9); Albumin/Globulin Ratio 2.71 Ratio (1.60-3.17); Alkaline Phosphatase 68 U/L (41-126); BUN/Creat Ratio 12.22 Ratio (12.00-20.00); Calcium 8.3 mg/dL (8.7-10.3); Carbon Dioxide 20.8 mmol/L (21.6-31.8); Chloride 108 mmol/L (96-109); Globulin 1.4 g/dL (1.6-3.3); Glucose 92 mg/dL (70-110); Potassium 3.7 mmol/L (3.5-5.5); Sodium 138 mmol/L (135-145); Total Bilirubin 0.7 mg/dL (0.3-1.2); Total Protein 5.2 g/dL (6.2-8.2)
--- NOTE | 2023-08-22 12:41 | P.DS ---
Providers Date of admission: 08/20/23 02:25 Expected date of discharge: 08/22/23 Attending physician: Sammy Wallace Consults: 08/20/23 09:58 Consult Physician Routine Consulting Provider: Evans Rae Consult Reason/Comments: medical management Do you want consulting provider notified?: Yes Primary care physician: Evans Rae Hospital Course: Patient doing well today. Admitted for pneumoperitoneum and abdominal pain. Abdominal pain resolved approximately 6 to 8 hours after admission. Etiology unclear. Possibly related to microperforation from diverticulitis. He is tole rating diet. He is very anxious to go home. Will plan discharge. Follow-up as outpatient. Prescription for antibiotic sent to pharmacy. Patient Condition at Discharge: Fair Plan - Discharge Summary New Discharge Prescriptions: New Amoxic-Pot Clav 875-125Mg [Augmentin 875-125] 1 tab PO Q12HR 7 Days #14 tab No Action Aspirin 81 mg PO DAILY Omeprazole [PriLOSEC] 40 mg PO DAILY Metoprolol Tartrate [Lopressor] 25 mg PO HS Atorvastatin [Lipitor] 80 mg PO HS Nitroglycerin Sl Tabs [Nitrostat] 0.4 mg SUBLINGUAL Q10M PRN #20 tab PRN Reason: Chest Pain Ezetimibe [Zetia] 10 mg PO HS Discharge Medication List Aspirin 81 mg PO DAILY 10/01/21 [History] Atorvastatin [Lipitor] 80 mg PO HS 10/01/21 [History] Metoprolol Tartrate [Lopressor] 25 mg PO HS 10/01/21 [History] Nitroglycerin Sl Tabs [Nitrostat] 0.4 mg SUBLINGUAL Q10M PRN #20 tab 10/16/22 [Rx] Amoxic-Pot Clav 875-125Mg [Augmentin 875-125] 1 tab PO Q12HR 7 Days #14 tab 08/20/23 [Rx] Ezetimibe [Zetia] 10 mg PO HS 08/20/23 [History] Omeprazole [PriLOSEC] 40 mg PO DAILY 08/20/23 [History] Follow up Appointment(s)/Referral(s): Sammy Wallace MD [Medical Doctor] - 1 Week Evans Rae MD [Primary Care Provider] - 1-2 days
--- NOTE | 2023-08-22 12:51 | P.PN ---
Subjective Progress Note Date: 08/22/23 This is a 68-year-old male who presented to the hospital with complaints of severe abdominal pain right lower side of abdomen that started yesterday after dinner. Patient reports eating pea soup for dinner around 430. And then around 5 or 6 started having multiple episodes of vomiting for an hour straight. Patient reports the pain was about 8 out of 10. He denies any prior abdominal surgeries. Last colonoscopy was in December 2022 that did show evidence of scattered sigmoid diverticulosis and colon polyp. Patient with history of antral ulcer noted on EGD in 10/03/2021. Patient reports having feeling chilled and hot. He reports having regular bowel movements. CT scan abdomen pelvis showed no evidence of bowel obstruction. Did report suspicious small foci of free air in the lower abdomen/upper pelvis worrisome for localized perforation. Patient's pain and vomiting has resolved. He last took pain medication at 1:00 this morning. Patient admitted to hospital for bowel perforation. 08/20. Patient seen and examined. Denies abdominal pain, no current nausea or vomiting. Currently on clear liquid diet 08/21. Patient seen and examined. Currently tolerating regular diet REVIEW OF SYSTEMS: CONSTITUTIONAL: No fever, no malaise,. CARDIOVASCULAR: No chest pain, no palpitations, no syncope. PULMONARY: No shortness of breath, no cough, GASTROINTESTINAL: As mentioned above NEUROLOGICAL: No headaches, no weakness, PHYSICAL EXAMINATION: GENERAL: The patient is alert and oriented x3, not in any acute distress. Well developed, well nourished. HEENT: Pupils are round and equally reacting to light. EOMI. No scleral icterus. No conjunctival pallor. Normocephalic, atraumatic. No pharyngeal erythema. No thyromegaly. CARDIOVASCULAR: S1 and S2 present. No murmurs, rubs, or gallops. PULMONARY: Chest is clear to auscultation, no wheezing or crackles. ABDOMEN: Soft, nontender, nondistended, normoactive bowel sounds. No palpable organomegaly. MUSCULOSKELETAL: No joint swelling or deformity. EXTREMITIES: No cyanosis, clubbing, or pedal edema. NEUROLOGICAL: Gross neurological examination did not reveal any focal deficits. SKIN: No rashes. Assessment and plan 1. Acute diverticulitis with possible perforated viscus. Monitor vital signs Monitor CBC Continue IV antibiotic with Zosyn 3.375 grams IV piggyback every 8 hours, can be discharged on oral Augmentin continue pain management DC fluids, tolerating regular diet Discharge per surgery 2. CAD post CABG3 in 2017. continue patient on aspirin 81 mg once every day, metoprolol ER 25 mg at bedtime, continue atorvastatin 80 mg once every day. 3. Hypertension and hypertensive cardio vascular disease. Continue metoprolol 25 mg at bedtime. Monitor the patient blood pressure very closely. 4. Mixed hyperlipidemia. Continue patient on atorvastatin 80 mg orally once every day, 5. Osteoarthritis. Stable. 6. Enlarged prostate. Stable. Labs and medication were reviewed.. Continue same treatment. Continue with symptomatic treatment. Resume home medication. Monitor labs and vitals. DVT and GI prophylaxis. Further recommendations as per clinical course of the patient Dictation was produced using [employer] dictation software. please excuse any grammatical, word or spelling errors. Objective - Vital Signs Vital signs: Vital Signs Temp 98.3 F 08/22/23 07:14 Pulse 56 L 08/22/23 07:14 Resp 18 08/22/23 07:14 BP 122/74 08/22/23 07:14 Pulse Ox 97 08/22/23 07:14 FiO2 Intake & Output 08/21/23 08/22/23 08/22/23 18:59 06:59 18:59 Output Total 520 Balance -520 Output: Urine 520 Other: # Voids 4 1 # Bowel Movements 1 - Labs CBC & Chem 7: 08/22/23 05:03 08/21/23 05:59 Labs: Abnormal Lab Results - Last 24 Hours (Table) 08/21/23 Range/Units 05:59 Chloride 110 H (96-109) mmol/L Calcium 8.2 L (8.7-10.3) mg/dL AST 42 H (14-35) U/L Total Protein 4.8 L (6.2-8.2) g/dL Albumin 3.6 L (3.8-4.9) g/dL Globulin 1.2 L (1.6-3.3) g/dL Microbiology - Last 24 Hours (Table) 08/20/23 02:30 Blood Culture - Preliminary Blood 08/20/23 02:40 Blood Culture - Preliminary Blood
== END 2023-08-22 14:18 | disposition home or self-care (01) | DRG 392 ==
LOC: EC 20:07 → 4SSUR 08-20 02:25
PROVIDERS: ADMIT Surgery; ATTEND Surgery
DX: K57.20 Diverticulitis of large intestine with perforation and abscess without bleeding (principal); I11.9 Hypertensive heart disease without heart failure; E78.2 Mixed hyperlipidemia; Z28.310 Unvaccinated for COVID-19; I25.10 Atherosclerotic heart disease of native coronary artery without angina pectoris; I25.2 Old myocardial infarction; K21.9 Gastro-esophageal reflux disease without esophagitis; M19.90 Unspecified osteoarthritis, unspecified site; N40.0 Benign prostatic hyperplasia without lower urinary tract symptoms; Z79.82 Long term (current) use of aspirin; Z79.899 Other long term (current) drug therapy; Z87.891 Personal history of nicotine dependence; Z86.73 Personal history of transient ischemic attack (TIA), and cerebral infarction without residual deficits; Z95.1 Presence of aortocoronary bypass graft
CPT/HCPCS: 36415; 74177; 80053; 82150; 83605; 83690; 84484; 85025; 85610; 85730; 86850; 86900; 86901; 87040; 93005; 96361; 96374; 96375; 99285

== ENCOUNTER 2024-03-17 10:37 | Emergency (ER) | payer MEDICARE ==
[2024-03-17 10:49] VITALS: RESP 18; TEMP 98
[2024-03-17] MEDS: DIPH,PERTUS(ACELL)TETVAC-LF 0.5 ML VIAL IM ONE (11:27)
[2024-03-17] MEDS: LIDOCAINE 1% INJ 10MG/ML (20 ML MDV) SQ ONE (11:27)
[2024-03-17] MEDS: TOPICAL SKIN ADHESIVE 1 EACH AMP TOPICAL ONE (11:27)
--- NOTE | 2024-03-17 11:30 | ED ---
Upper Extremity HPI - General Chief Complaint: Extremity Injury, Upper Stated Complaint: L hand lac Time Seen by Provider: 03/17/24 11:16 Source: patient, RN notes reviewed Mode of arrival: ambulatory Limitations: no limitations - History of Present Illness Initial Comments: This is a 68-year-old male who presents to the emergency department for a lacera tion to his left hand. States that he cut this when he was using a wood saw earlier today and the saw slipped. Pain is controlled. Unsure when his last tetanus vaccine was. MD Complaint: Injury to:: left, hand - Related Data Home Medications Medication Instructions Recorded Confirmed Aspirin 81 mg PO DAILY 10/01/21 08/20/23 Atorvastatin [Lipitor] 80 mg PO HS 10/01/21 08/20/23 Metoprolol Tartrate [Lopressor] 25 mg PO HS 10/01/21 08/20/23 Ezetimibe [Zetia] 10 mg PO HS 08/20/23 08/20/23 Omeprazole [PriLOSEC] 40 mg PO DAILY 08/20/23 08/20/23 Previous Rx's Medication Instructions Recorded Nitroglycerin Sl Tabs [Nitrostat] 0.4 mg SUBLINGUAL Q10M PRN #20 tab 10/16/22 Amoxic-Pot Clav 875-125Mg 1 tab PO Q12HR 7 Days #14 tab 08/20/23 [Augmentin 875-125] Allergies Allergy/AdvReac Type Severity Reaction Status Date / Time No Known Allergies Allergy Verified 08/20/23 07:19 Review of Systems ROS Statement: Those systems with pertinent positive or pertinent negative responses have been documented in the HPI. ROS Other: All systems not noted in ROS Statement are negative. Past Medical History Past Medical History: Coronary Artery Disease (CAD), CVA/TIA, GERD/Reflux, Hyperlipidemia, Hypertension, Myocardial Infarction ([place]) Additional Past Medical History / Comment(s): CVA in his 50's, recovered. Poss stomach ulcer, c/o wgt loss and indigestion. Last Myocardial Infarction Date:: 2015 History of Any Multi-Drug Resistant Organisms: None Reported Past Surgical History: Adenoidectomy, Coronary Bypass/CABG, Tonsillectomy Additional Past Surgical History / Comment(s): Triple CABG 2016. Past Anesthesia/Blood Transfusion Reactions: No Reported Reaction Past Psychological History: No Psychological Hx Reported Smoking Status: Former smoker Past Alcohol Use History: None Reported Past Drug Use History: None Reported - Past Family History Mother Family Medical History: Coronary Artery Disease (CAD), CVA/TIA, Diabetes Mellitus Additional Family Medical History / Comment(s): Mother had open-heart surgery in her 60s. Had 4 brothers, one of the brother of alcohol abuse. One sister is struggling with alcohol abuse. General Exam Limitations: no limitations General appearance: alert, in no apparent distress Head exam: Present: atraumatic, normocephalic, normal inspection Respiratory exam: Present: normal lung sounds bilaterally. Absent: respiratory distress, wheezes, rales, rhonchi, stridor Cardiovascular Exam: Present: regular rate, normal rhythm, normal heart sounds. Absent: systolic murmur, diastolic murmur, rubs, gallop, clicks Extremities exam: Present: other (2 jagged lacerations over the left hand with minor active bleeding) Neurological exam: Present: alert, oriented X3, CN II-XII intact Psychiatric exam: Present: normal affect, normal mood Course Vital Signs 03/17/24 03/17/24 10:46 12:18 Temperature 98.0 F Pulse Rate 61 58 L Respiratory 18 18 Rate Blood Pressure 141/77 145/65 O2 Sat by Pulse 99 99 Oximetry Procedures - Laceration Laceration #1 Consent Obtained: verbal consent Indication: laceration Site: hand Size (cm): 4 Description: stellate, flap Depth: simple, single layer Anesthetic Used: lidocaine 1% Anesthesia Technique: local infiltration Amount (mls): 4 Pre-repair: wound explored, irrigated extensively Type of Sutures: nylon Size of Sutures: 5-0 Number of Sutures: 4 Technique: simple, interrupted Laceration #2 Consent Obtained: verbal consent Indication: laceration Site: hand Size (cm): 2 Description: stellate, flap Depth: simple, single layer Type of Sutures: other (Dermabond) Medical Decision Making - Medical Decision Making This is a 68-year-old male who presents to the emergency department for a left hand injury. Was pt. sent in by a medical professional or institution? @ -No Did you speak to anyone other than the patient for history? @ -No Did you review nursing and triage notes? @ -Yes, and I agree, it is accurate with regards to the patient's symptoms. Were old charts reviewed? @ -No Differential Diagnosis? @ -Laceration, abrasion, cellulitis, burn, this is not meant to be an all- inclusive list. EKG interpreted by me (3pts min.)? @ -Not obtained X-rays interpreted by me (1pt min.)? @ -Not obtained CT interpreted by me (1pt min.)? @ -Not obtained U/S interpreted by me (1pt. min.)? @ -Not obtained What testing was considered but not performed? (CT, X-rays, U/S, labs)? Why? @ -None What meds were considered but not given? Why? @ -None Did you discuss the management of the patient with other professionals? @ -No Did you reconcile home meds? @ -No Was smoking cessation discussed for >3mins.? @ -No Was critical care preformed (if so, how long)? @ -No Were there social determinants of health that impacted care today? How? (Homelessness, low income, unemployed, alcoholism, drug addiction, transportation, low edu. Level, literacy, decrease access to med. care, custodial, rehab)? @ -No Was there de-escalation of care discussed even if they declined? (Discuss DNR or withdrawal of care, Hospice)? @ -No What co-morbidities impacted this encounter? (DM, HTN, Smoking, COPD, CAD, Cancer, CVA, Hep., AIDS, mental health diagnosis, sleep apnea, morbid obesity)? @ -None Was patient admitted / discharged? @ -Discharged. The lacerations on the patient's hand were cleansed. The smaller laceration was repaired with Dermabond and sutures were used to repair the larger one. Tetanus vaccine was updated. Advised returning in 7 to 10 days for suture removal. Also advised Tylenol as needed for pain relief. Patient discharged home in stable condition. Case discussed with ED attending Dr. Cope. Return precautions reviewed in depth, the patient is instructed to return to the emergency department with any new, worsening, or concerning symptoms. Patient verbalized understanding. Undiagnosed new problem with uncertain prognosis? @ -None Drug Therapy requiring intensive monitoring for toxicity (Heparin, Nitro, Insulin, Cardizem)? @ -None Were any procedures done? @ -Lacerations repaired with sutures and Dermabond Diagnosis/symptom? @ -Lacerations Acute, or Chronic, or Acute on Chronic? @ -Acute Uncomplicated (without systemic symptoms) or Complicated (systemic symptoms)? @ -Uncomplicated Side effects of treatment? @ -None Exacerbation, Progression, or Severe Exacerbation] @ -Not applicable Poses a threat to life or bodily function? @ -No Disposition Clinical Impression: Laceration Disposition: HOME SELF-CARE Instructions (If sedation given, give patient instructions): Care For Your Stitches (ED), Skin Adhesive Care (ED) Additional Instructions: Return to the emergency department with any new, worsening, or concerning symptoms and in 7-10 days to have the stitches removed. Take Tylenol as needed for pain relief. Regarding the wound that was glued, keep the area dry, do not apply topical medications, and do not rub, scratch, or pick at the wound. The adhesive will naturally fall off within 5-10 days. Is patient prescribed a controlled substance at d/c from ED?: No Referrals: Evans Rae MD [Primary Care Provider] - 1-2 days Time of Disposition: 12:00
[2024-03-17 12:41] VITALS: BP 145/65; PULSE 58
== END 2024-03-17 12:18 | disposition home or self-care (01) ==
LOC: EC 10:37
DX: S61.412A Laceration without foreign body of left hand, initial encounter (principal); Z87.891 Personal history of nicotine dependence; Z95.1 Presence of aortocoronary bypass graft; Z86.73 Personal history of transient ischemic attack (TIA), and cerebral infarction without residual deficits; Z23 Encounter for immunization; W26.8XXA Contact with other sharp object(s), not elsewhere classified, initial encounter
CPT/HCPCS: 90715; 99282; 90471; 12002; J2003

== ENCOUNTER 2024-07-08 18:34 | Emergency (ER) | payer MEDICARE ==
[2024-07-08 18:40] VITALS: BP 124/60; PULSE 76; RESP 24; TEMP 97
--- NOTE | 2024-07-08 18:57 | ED ---
Nausea/Vomiting/Diarrhea HPI - General Chief complaint: Nausea/Vomiting/Diarrhea Stated complaint: weakness, vomiting Time Seen by Provider: 07/08/24 18:55 Source: patient, family, RN notes reviewed Mode of arrival: ambulatory Limitations: no limitations - History of Present Illness Initial comments: 69-year-old male presenting for nausea/vomiting x 2 hours with associated generalized abdominal cramping. States he felt fine all day when we decided he began to feel sick to his stomach and ran to the bathroom and began to vomit. Endorses subjective chills. States as though he feels he came down with a stomach flu. Denies diarrhea, constipation, chest pain, shortness of breath. History of triple coronary bypass surgery in 2016, takes baby aspirin daily. Denies history of abdominal surgeries. - Related Data Home Medications Medication Instructions Recorded Confirmed Aspirin 81 mg PO DAILY 10/01/21 07/08/24 Metoprolol Tartrate [Lopressor] 25 mg PO DAILY 10/01/21 07/08/24 Ezetimibe [Zetia] 10 mg PO DAILY 08/20/23 07/08/24 Omeprazole [PriLOSEC] 40 mg PO DAILY 08/20/23 07/08/24 Atorvastatin [Lipitor] 80 mg PO DAILY 07/08/24 07/08/24 Previous Rx's Medication Instructions Recorded Nitroglycerin Sl Tabs [Nitrostat] 0.4 mg SUBLINGUAL Q10M PRN #20 tab 10/16/22 Allergies Allergy/AdvReac Type Severity Reaction Status Date / Time No Known Allergies Allergy Verified 07/08/24 19:11 Review of Systems ROS Statement: Those systems with pertinent positive or pertinent negative responses have been documented in the HPI. ROS Other: All systems not noted in ROS Statement are negative. Past Medical History Past Medical History: Coronary Artery Disease (CAD), CVA/TIA, GERD/Reflux, Hyperlipidemia, Hypertension, Myocardial Infarction ([place]) Additional Past Medical History / Comment(s): CVA in his 50's, recovered. Poss stomach ulcer, c/o wgt loss and indigestion. Last Myocardial Infarction Date:: 2015 History of Any Multi-Drug Resistant Organisms: None Reported Past Surgical History: Adenoidectomy, Coronary Bypass/CABG, Tonsillectomy Additional Past Surgical History / Comment(s): Triple CABG 2016. Past Anesthesia/Blood Transfusion Reactions: No Reported Reaction Past Psychological History: No Psychological Hx Reported Smoking Status: Former smoker Past Alcohol Use History: None Reported Past Drug Use History: None Reported - Past Family History Mother Family Medical History: Coronary Artery Disease (CAD), CVA/TIA, Diabetes Mellitus Additional Family Medical History / Comment(s): Mother had open-heart surgery in her 60s. Had 4 brothers, one of the brother of alcohol abuse. One sister is struggling with alcohol abuse. General Exam Limitations: no limitations General appearance: alert, in no apparent distress Head exam: Present: atraumatic, normocephalic, normal inspection Eye exam: Present: normal appearance, PERRL, EOMI. Absent: scleral icterus, con junctival injection, periorbital swelling Respiratory exam: Present: normal lung sounds bilaterally. Absent: respiratory distress, wheezes, rales, rhonchi, stridor Cardiovascular Exam: Present: regular rate, normal rhythm, normal heart sounds. Absent: systolic murmur, diastolic murmur, rubs, gallop, clicks GI/Abdominal exam: Present: soft, normal bowel sounds. Absent: distended, tenderness, guarding, rebound, rigid Neurological exam: Present: alert, oriented X3 Psychiatric exam: Present: normal affect, normal mood Skin exam: Present: warm, dry, intact, normal color. Absent: rash Course Vital Signs 07/08/24 18:38 Temperature 97 F L Pulse Rate 76 Respiratory 24 Rate Blood Pressure 124/60 O2 Sat by Pulse 99 Oximetry Medical Decision Making - Medical Decision Making Was pt. sent in by a medical professional or institution (, PA, SURVEY RESEARCHER, urgent care, hospital, or skilled nursing...) When possible be specific @ -No Did you speak to anyone other than the patient for history (EMS, parent, family, police, friend...)? What history was obtained from this source @ -No Did you review nursing and triage notes (agree or disagree)? Why? @ -I reviewed and agree with nursing and triage notes Were old charts reviewed (outside hosp., previous admission, EMS record, old EKG, old radiological studies, urgent care reports/EKG's, skilled nursing records)? Report findings @ -No old charts were reviewed Differential Diagnosis (chest pain, altered mental status, abdominal pain women, abdominal pain men, vaginal bleeding, weakness, fever, dyspnea, syncope, headache, dizziness, GI bleed, back pain, seizure, CVA, palpatations, mental health, musculoskeletal)? @ -Differential Abdominal Pain Men: Appendicitis, cholecystitis, diverticulosis, ischemic bowel, pancreatitis, hepatitis, UTI, gastroenteritis, AAA, incarcerated hernia, bowel obstruction, constipation, inflammatory bowel, hepatitis, peptic ulcer disease, splenic infarction, perforated viscus, testicular torsion, this is not meant to be an all-inclusive list EKG interpreted by me (3pts min.). @ -As above X-rays interpreted by me (1pt min.). @ -KUB unremarkable, possible small posterior right pleural effusion CT interpreted by me (1pt min.). @ -CT abdomen pelvis reveals enterocolitis with mesenteric edema, no evidence of obstruction or perforation U/S interpreted by me (1pt. min.). @ -None done What testing was considered but not performed or refused? (CT, X-rays, U/S, labs)? Why? @ -None What meds were considered but not given or refused? Why? @ -None Did you discuss the management of the patient with other professionals (professionals i.e. , PA, SURVEY RESEARCHER, lab, RT, psych nurse, renal social worker, substance abuse specialist, teacher, special loan officer, case management assistant)? Give summary @ -No Was smoking cessation discussed for >3mins.? @ -No Was critical care preformed (if so, how long)? @ -No Were there social determinants of health that impacted care today? How? (Homelessness, low income, unemployed, alcoholism, drug addiction, transportation, low edu. Level, literacy, decrease access to med. care, usp, rehab)? @ -No Was there de-escalation of care discussed even if they declined (Discuss DNR or withdrawal of care, Hospice)? DNR status @ -No What co-morbidities impacted this encounter? (DM, HTN, Smoking, COPD, CAD, Cancer, CVA, ARF, Chemo, Hep., AIDS, mental health diagnosis, sleep apnea, morbid obesity)? @ -None Was patient admitted / discharged? Hospital course, mention meds given and route, prescriptions, significant lab abnormalities, going to OR and other pertinent info. @ -Discharge. Patient was provided with IV fluids, Zofran, and Tylenol. Lab work remarkable for lactic acidosis of 3.1, CO2 21, glucose 148. White blood cell count stable at 10. CT abdomen pelvis reveals enterocolitis with mesenteric edema, no evidence of obstruction or perforation. Reflex lactic increased to 4, therefore patient was observed in ER for third reflex lactic acid which then decreased to 2.2. Patient reports improvement of symptoms and appears comfortable and nontoxic. Diagnosis of enterocolitis discussed. Appropriate return precautions and follow-up care discussed. Case was discussed with my ED attending Dr. Nunez. Undiagnosed new problem with uncertain prognosis? @ -No Drug Therapy requiring intensive monitoring for toxicity (Heparin, Nitro, Insulin, Cardizem)? @ -No Were any procedures done? @ -No Diagnosis/symptom? @ -Enterocolitis Acute, or Chronic, or Acute on Chronic? @ -Acute Uncomplicated (without systemic symptoms) or Complicated (systemic symptoms)? @ -Complicated Side effects of treatment? @ -No Exacerbation, Progression, or Severe Exacerbation? @ -No Poses a threat to life or bodily function? How? (Chest pain, [place], [place], pneumonia, PE, COPD, DKA, ARF, appy, cholecystitis, CVA, Diverticulitis, Homicidal, Suicidal, threat to staff... and all critical care pts) @ -Not at this time - Lab Data Result diagrams: 07/08/24 18:50 07/08/24 18:50 Lab Results 07/08/24 07/08/24 07/08/24 Range/Units 18:50 18:50 18:50 WBC 10.2 (3.8-10.6) k/uL RBC 4.45 (4.30-5.90) m/uL Hgb 13.5 (13.0-17.5) gm/dL Hct 40.6 (39.0-53.0) % MCV 91.2 (80.0-100.0) fL MCH 30.4 (25.0-35.0) pg MCHC 33.3 (31.0-37.0) g/dL RDW 13.9 (11.5-15.5) % Plt Count 218 (150-450) k/uL MPV 7.7 Neutrophils % 88 % Lymphocytes % 7 % Monocytes % 4 % Eosinophils % 1 % Basophils % 0 % Neutrophils # 8.9 H (1.3-7.7) k/uL Lymphocytes # 0.7 L (1.0-4.8) k/uL Monocytes # 0.4 (0-1.0) k/uL Eosinophils # 0.1 (0-0.7) k/uL Basophils # 0.0 (0-0.2) k/uL Sodium 135 L (137-145) mmol/L Potassium 4.0 (3.5-5.1) mmol/L Chloride 101 (98-107) mmol/L Carbon Dioxide 21 L (22-30) mmol/L Anion Gap 13 mmol/L BUN 22 H (9-20) mg/dL Creatinine 0.84 (0.66-1.25) mg/dL Est GFR (CKD-EPI)AfAm >90 (>60 ml/min/1.73 sqM) Est GFR (CKD-EPI)NonAf 88 (>60 ml/min/1.73 sqM) Glucose 148 H (74-99) mg/dL Lactic Ac Sepsis Rflx Plasma Lactic Acid Leo 3.1 H* (0.7-2.0) mmol/L Calcium 9.5 (8.4-10.2) mg/dL Magnesium 1.9 (1.6-2.3) mg/dL Total Bilirubin 1.2 (0.2-1.3) mg/dL AST 39 (17-59) U/L ALT 29 (4-49) U/L Alkaline Phosphatase 84 (38-126) U/L Troponin I (0.000-0.034) ng/mL Total Protein 6.3 (6.3-8.2) g/dL Albumin 4.3 (3.5-5.0) g/dL Lipase 243 (23-300) U/L Urine Color Urine Appearance (Clear) Urine pH (5.0-8.0) Ur Specific [place] (1.001-1.035) Urine Protein (Negative) Urine Glucose (UA) (Negative) Urine Ketones (Negative) Urine Blood (Negative) Urine Nitrite (Negative) Urine Bilirubin (Negative) Urine Urobilinogen (<2.0) mg/dL Ur Leukocyte Esterase (Negative) Urine WBC (0-5) /hpf Amorphous Sediment (None) /hpf Hyaline Casts (0-2) /lpf Urine Mucus (None) /hpf 07/08/24 07/08/24 07/08/24 Range/Units 18:50 19:26 19:40 WBC (3.8-10.6) k/uL RBC (4.30-5.90) m/uL Hgb (13.0-17.5) gm/dL Hct (39.0-53.0) % MCV (80.0-100.0) fL MCH (25.0-35.0) pg MCHC (31.0-37.0) g/dL RDW (11.5-15.5) % Plt Count (150-450) k/uL MPV Neutrophils % % Lymphocytes % % Monocytes % % Eosinophils % % Basophils % % Neutrophils # (1.3-7.7) k/uL Lymphocytes # (1.0-4.8) k/uL Monocytes # (0-1.0) k/uL Eosinophils # (0-0.7) k/uL Basophils # (0-0.2) k/uL Sodium (137-145) mmol/L Potassium (3.5-5.1) mmol/L Chloride (98-107) mmol/L Carbon Dioxide (22-30) mmol/L Anion Gap mmol/L BUN (9-20) mg/dL Creatinine (0.66-1.25) mg/dL Est GFR (CKD-EPI)AfAm (>60 ml/min/1.73 sqM) Est GFR (CKD-EPI)NonAf (>60 ml/min/1.73 sqM) Glucose (74-99) mg/dL Lactic Ac Sepsis Rflx Y Plasma Lactic Acid Leo (0.7-2.0) mmol/L Calcium (8.4-10.2) mg/dL Magnesium (1.6-2.3) mg/dL Total Bilirubin (0.2-1.3) mg/dL AST (17-59) U/L ALT (4-49) U/L Alkaline Phosphatase (38-126) U/L Troponin I <0.012 (0.000-0.034) ng/mL Total Protein (6.3-8.2) g/dL Albumin (3.5-5.0) g/dL Lipase (23-300) U/L Urine Color Yellow Urine Appearance Cloudy (Clear) Urine pH 7.0 (5.0-8.0) Ur Specific [place] 1.023 (1.001-1.035) Urine Protein Trace H (Negative) Urine Glucose (UA) Negative (Negative) Urine Ketones 2+ H (Negative) Urine Blood Negative (Negative) Urine Nitrite Negative (Negative) Urine Bilirubin Negative (Negative) Urine Urobilinogen <2.0 (<2.0) mg/dL Ur Leukocyte Esterase Negative (Negative) Urine WBC 3 (0-5) /hpf Amorphous Sediment Occasional H (None) /hpf Hyaline Casts 4 H (0-2) /lpf Urine Mucus Occasional H (None) /hpf 07/08/24 07/08/24 07/09/24 Range/Units 21:50 22:31 00:40 WBC (3.8-10.6) k/uL RBC (4.30-5.90) m/uL Hgb (13.0-17.5) gm/dL Hct (39.0-53.0) % MCV (80.0-100.0) fL MCH (25.0-35.0) pg MCHC (31.0-37.0) g/dL RDW (11.5-15.5) % Plt Count (150-450) k/uL MPV Neutrophils % % Lymphocytes % % Monocytes % % Eosinophils % % Basophils % % Neutrophils # (1.3-7.7) k/uL Lymphocytes # (1.0-4.8) k/uL Monocytes # (0-1.0) k/uL Eosinophils # (0-0.7) k/uL Basophils # (0-0.2) k/uL Sodium (137-145) mmol/L Potassium (3.5-5.1) mmol/L Chloride (98-107) mmol/L Carbon Dioxide (22-30) mmol/L Anion Gap mmol/L BUN (9-20) mg/dL Creatinine (0.66-1.25) mg/dL Est GFR (CKD-EPI)AfAm (>60 ml/min/1.73 sqM) Est GFR (CKD-EPI)NonAf (>60 ml/min/1.73 sqM) Glucose (74-99) mg/dL Lactic Ac Sepsis Rflx Y Plasma Lactic Acid Leo 4.0 H* 2.2 H* (0.7-2.0) mmol/L Calcium (8.4-10.2) mg/dL Magnesium (1.6-2.3) mg/dL Total Bilirubin (0.2-1.3) mg/dL AST (17-59) U/L ALT (4-49) U/L Alkaline Phosphatase (38-126) U/L Troponin I (0.000-0.034) ng/mL Total Protein (6.3-8.2) g/dL Albumin (3.5-5.0) g/dL Lipase (23-300) U/L Urine Color Urine Appearance (Clear) Urine pH (5.0-8.0) Ur Specific [place] (1.001-1.035) Urine Protein (Negative) Urine Glucose (UA) (Negative) Urine Ketones (Negative) Urine Blood (Negative) Urine Nitrite (Negative) Urine Bilirubin (Negative) Urine Urobilinogen (<2.0) mg/dL Ur Leukocyte Esterase (Negative) Urine WBC (0-5) /hpf Amorphous Sediment (None) /hpf Hyaline Casts (0-2) /lpf Urine Mucus (None) /hpf 07/09/24 Range/Units 01:02 WBC (3.8-10.6) k/uL RBC (4.30-5.90) m/uL Hgb (13.0-17.5) gm/dL Hct (39.0-53.0) % MCV (80.0-100.0) fL MCH (25.0-35.0) pg MCHC (31.0-37.0) g/dL RDW (11.5-15.5) % Plt Count (150-450) k/uL MPV Neutrophils % % Lymphocytes % % Monocytes % % Eosinophils % % Basophils % % Neutrophils # (1.3-7.7) k/uL Lymphocytes # (1.0-4.8) k/uL Monocytes # (0-1.0) k/uL Eosinophils # (0-0.7) k/uL Basophils # (0-0.2) k/uL Sodium (137-145) mmol/L Potassium (3.5-5.1) mmol/L Chloride (98-107) mmol/L Carbon Dioxide (22-30) mmol/L Anion Gap mmol/L BUN (9-20) mg/dL Creatinine (0.66-1.25) mg/dL Est GFR (CKD-EPI)AfAm (>60 ml/min/1.73 sqM) Est GFR (CKD-EPI)NonAf (>60 ml/min/1.73 sqM) Glucose (74-99) mg/dL Lactic Ac Sepsis Rflx Y Plasma Lactic Acid Leo (0.7-2.0) mmol/L Calcium (8.4-10.2) mg/dL Magnesium (1.6-2.3) mg/dL Total Bilirubin (0.2-1.3) mg/dL AST (17-59) U/L ALT (4-49) U/L Alkaline Phosphatase (38-126) U/L Troponin I (0.000-0.034) ng/mL Total Protein (6.3-8.2) g/dL Albumin (3.5-5.0) g/dL Lipase (23-300) U/L Urine Color Urine Appearance (Clear) Urine pH (5.0-8.0) Ur Specific [place] (1.001-1.035) Urine Protein (Negative) Urine Glucose (UA) (Negative) Urine Ketones (Negative) Urine Blood (Negative) Urine Nitrite (Negative) Urine Bilirubin (Negative) Urine Urobilinogen (<2.0) mg/dL Ur Leukocyte Esterase (Negative) Urine WBC (0-5) /hpf Amorphous Sediment (None) /hpf Hyaline Casts (0-2) /lpf Urine Mucus (None) /hpf - EKG Data -: EKG Interpreted by Me EKG Comments: EKG reveals sinus bradycardia with no acute ST changes. Ventricular rate 57 bpm, NM interval 171, QRS duration 86, QT/QTc 457/452 Disposition Clinical Impression: Viral enterocolitis Disposition: HOME SELF-CARE Condition: Stable Instructions (If sedation given, give patient instructions): Gastroenteritis (ED) Additional Instructions: Take Zofran as needed for nausea. Please return to the Emergency Department if symptoms worsen or any other concerns. Is patient prescribed a controlled substance at d/c from ED?: No Referrals: Evans Rae MD [Primary Care Provider] - 1-2 days Time of Disposition: 01:21
[2024-07-08 19:18] LABS: Basophils % (A) 0 %; Eosinophils # (A) 0.1 k/uL (0-0.7); Eosinophils % (A) 1 %; HCT 40.6 % (39.0-53.0); HGB 13.5 gm/dL (13.0-17.5); Lymphocytes # (A) 0.7 k/uL (1.0-4.8); Lymphocytes % (A) 7 %; MCH 30.4 pg (25.0-35.0); MCHC 33.3 g/dL (31.0-37.0); MCV 91.2 fL (80.0-100.0); Mean Platelet Volume 7.7; Monocytes # (A) 0.4 k/uL (0-1.0); Monocytes % (A) 4 %; Neutrophils # (A) 8.9 k/uL (1.3-7.7); Neutrophils % (A) 88 %; Platelet Count 218 k/uL (150-450); RBC 4.45 m/uL (4.30-5.90); RDW 13.9 % (11.5-15.5); WBC 10.2 k/uL (3.8-10.6)
[2024-07-08 19:19] LABS: ALT 29 U/L (4-49); AST 39 U/L (17-59); African American GFR (CKD) >90 (>60 ml/min/1.73 sqM); Albumin 4.3 g/dL (3.5-5.0); Alkaline Phosphatase 84 U/L (38-126); Anion Gap 13 mmol/L; Blood Urea Nitrogen 22 mg/dL (9-20); Calcium 9.5 mg/dL (8.4-10.2); Carbon Dioxide 21 mmol/L (22-30); Chloride 101 mmol/L (98-107); Glucose 148 mg/dL (74-99); Lipase 243 U/L (23-300); Magnesium 1.9 mg/dL (1.6-2.3); Non-African American GFR(CKD) 88 (>60 ml/min/1.73 sqM); Sodium 135 mmol/L (137-145); Total Bilirubin 1.2 mg/dL (0.2-1.3); Total Protein 6.3 g/dL (6.3-8.2)
[2024-07-08] MEDS: ACETAMINOPHEN TAB 325 MG TAB PO STA (19:28)
[2024-07-08] MEDS: ONDANSETRON 4 MG/2 ML VIAL IVP STA (19:30)
[2024-07-08] MEDS: SODIUM CHLORIDE 0.9% 1,000 ML IV STA (19:33)
[2024-07-08 20:43] LABS: Amorphous Sediment,Urine Occasional /hpf; Appearance,Urine Cloudy (Clear); Bilirubin,Urine Negative (Negative); Blood,Urine Negative (Negative); Color,Urine Yellow; Glucose,Urine (UA) Negative (Negative); Hyaline Casts,Urine 4 /lpf (0-2); Ketones,Urine 2+ (Negative); Leukocyte Esterase,Urine Negative (Negative); Mucus,Urine Occasional /hpf; Nitrite,Urine Negative (Negative); Protein,Urine Trace (Negative); Specific Gravity,Urine 1.023 (1.001-1.035); Urobilinogen,Urine <2.0 mg/dL (<2.0); WBC,Urine 3 /hpf (0-5)
[2024-07-08] MEDS: DICYCLOMINE 20 MG TAB PO STA (21:03)
[2024-07-08] MEDS: METOCLOPRAMIDE 5 MG/ML 2 ML VIAL IVP STA (21:03)
--- NOTE | 2024-07-08 21:03 | XR ---
EXAMINATION TYPE: XR KUB DATE OF EXAM: 07/08/2024 8:30 PM COMPARISON: None. CLINICAL INDICATION: Male, 69 years old with history of abdominal pain, TECHNIQUE: XR KUB view(s) obtained. FINDINGS: Nonspecific bowel gas is present. Psoas margins are normal. No organomegaly is present. Small right pleural effusion may be present. IMPRESSION: 1. Unremarkable Abdomen 2. Possible small posterior right pleural effusion [facility], , 07/08/2024 9:01 PM
--- NOTE | 2024-07-09 00:35 | CT ---
EXAMINATION TYPE: CT abdomen pelvis w con CT DLP: 392.7 mGycm, Automated exposure control for dose reduction was used. DATE OF EXAM: 07/08/2024 11:35 PM COMPARISON: CT abdomen pelvis 08/19/2023, KUB radiograph 07/08/2024 CLINICAL INDICATION:Male, 69 years old with history of abdominal pain, acute, nonlocalized; nausea vo miting for 2 hours. generalized abdomen pain. TECHNIQUE: Standard CT of the abdomen and pelvis following the administration of 100 cc of Isovue 3 00 IV contrast material. Coronal and sagittal reformats were performed. FINDINGS: LOWER CHEST: Unremarkable ABDOMEN LIVER: Unremarkable GALLBLADDER AND BILE DUCTS: Unremarkable. PANCREAS: Unremarkable. SPLEEN: Stable cyst within the posterior spleen measuring up to 1.3 cm. ADRENAL GLANDS: Unremarkable. KIDNEYS AND URETERS: No evidence of hydronephrosis or renal calculus. The kidneys enhance symmetrical ly. Contrast is demonstrated within both collecting systems on the delayed phase. PELVIS BLADDER: Unremarkable REPRODUCTIVE: Coarse calcifications of the prostate gland are identified. ABDOMEN & PELVIS STOMACH AND BOWEL: Small hiatal hernia, duodenum is unremarkable. Distal colonic diverticulosis witho ut evidence for acute diverticulitis. Limited examination due to lack of enteric contrast. Diffuse mi ld small bowel and colonic wall thickening suggested. The appendix is within normal limits. No eviden ce of bowel obstruction. No pneumatosis. PERITONEUM: No evidence of pneumoperitoneum or free fluid. Mild diffuse mesenteric edema. VASCULATURE: Moderate atherosclerotic calcifications are present throughout the abdominal aorta and i ts branches. No evidence of aortic aneurysm. MUSCULOSKELETAL: No acute osseous abnormalities. Mild disc degeneration changes are present throughou t the thoracolumbar spine. LYMPH NODES: No evidence for lymphadenopathy. SOFT TISSUE/ABDOMINAL WALL: Unremarkable IMPRESSION: Findings suggestive of an enterocolitis with mesenteric edema. No evidence for obstruction or perfora tion. [facility], , 07/09/2024 12:32 AM
[2024-07-09] MEDS: ONDANSETRON 4 MG ODT STARTER PACK 2 TAB BTL PO STA (01:44)
== END 2024-07-09 01:45 | disposition home or self-care (01) ==
LOC: EC 18:34
DX: A08.39 Other viral enteritis (principal); R00.1 Bradycardia, unspecified; Z87.891 Personal history of nicotine dependence
CPT/HCPCS: 36415 ×2; 93005; 80053; 83605 ×2; 83690; 83735; 84484; 85025; 81001; 74018; 74177; 99284; 96374; 96375; 96361; J2765; J2405; S0119; Q9967